=== PATIENT | male | born 1960 | race Two or more races ===

== ENCOUNTER 2020-04-24 13:02 | Outpatient (REF) | payer OTHER, SELFPAY | END 2020-04-24 13:03 | disposition home or self-care (01) | LOC: HO.LAB 13:02 | PROVIDERS: Visit Provider Internal Medicine | DX: Z20.828 Contact with and (suspected) exposure to other viral communicable diseases (principal) | CPT/HCPCS: C9803; U0003 ==

== ENCOUNTER 2021-06-04 12:32 | Outpatient (REF) | payer OTHER, SELFPAY ==
[2021-06-04 14:19] LABS: COVID-19 Test Positive (Negative); IDNOW Serial# 16C4AD1C
== END 2021-06-04 12:33 | disposition home or self-care (01) ==
LOC: HO.LAB 12:32
PROVIDERS: Visit Provider Internal Medicine
DX: Z20.822 Contact with and (suspected) exposure to COVID-19 (principal)
CPT/HCPCS: 36415; 87635; C9803

== ENCOUNTER 2021-11-19 23:10 | Emergency (ER) | payer OTHER, SELFPAY ==
--- NOTE | 2021-11-19 23:34 | ECG_ITS ---
Test Reason : CHEST/BACK PAIN Blood Pressure : / mmHG Vent. Rate : 071 BPM Atrial Rate : 071 BPM P-R Int : 166 ms QRS Dur : 104 ms QT Int : 440 ms P-R-T Axes : 047 -18 078 degrees QTc Int : 478 ms Normal sinus rhythm Moderate voltage criteria for LVH, may be normal variant ( R in aVL , Philip product ) Borderline ECG When compared with ECG of 26-MAY-2019 08:20, No significant change was found Referred By: Generic ED Physician Electronically Signed By:CHANTAL PENA MD
[2021-11-19 23:57] VITALS: BP 140/86; PULSE 72; RESP 18; TEMP 36.4; O2SAT 97; BMI 37.9
[2021-11-20] LABS: Hematocrit 36.1 % (42.0-52.0); Hemoglobin 12.1 g/dl (14.0-18.0); Mean Corpuscular HGB Conc 33.5 g/dl (31.0-36.0); Mean Corpuscular Hemoglobin 28.1 pg (27.0-33.0); Mean Platelet Volume 9.5 fL (9.4-12.4); Platelet Count 231 X10*3/uL (160-400); White Blood Count 6.4 X10*3/uL (4.8-10.8)
[2021-11-20 00:14] LABS: Alanine Aminotransferase 19 U/L (0-40); Albumin Level 4.3 g/dL (3.5-5.0); Alkaline Phosphatase 74 U/L (39-117); Anion Gap 12 (12-20); Aspartate Amino Transferase 21 U/L (5-37); Bilirubin Total 0.6 mg/dL (0.0-1.0); Blood Urea Nitrogen 10 mg/dL (9-16); Carbon Dioxide 33 mmol/L (22-29); Chloride 97 mmol/L (96-108); Creatinine Clr Calc Pharmacy 95.5; Estimated Glomerular Filt Rate > 60; Glucose Random 96 mg/dL (60-115); Potassium 3.9 mmol/L (3.3-5.1); Sodium 138 mmol/L (135-145); Total Protein 6.9 g/dL (6.5-8.0)
[2021-11-20 00:21] LABS: Troponin-I High Sensitivity < 3.5 ng/L (<3.5-35.0)
--- NOTE | 2021-11-20 01:31 | ED_ITS ---
HPI - Chest Pain General Chief Complaint: Chest Pain Stated Complaint: chest pain, back pain Time Seen by Provider: 11/20/21 01:31 Source: patient Mode of arrival: ambulatory Limitations: no limitations History of Present Illness HPI narrative: Patient 61 years old with no significant past medical history been complaining of epigastric pain for last 2 weeks off and on lasting for few minutes seen by his PCP now stone get not getting better. No nausea no vomiting no diarrhea pain gets worse after eating some food patient was complaining of pain in bilateral flank area and urinary frequency no chest pain or shortness of breath no diaphoresis . Related Data Previous Rx's Medication Instructions Recorded finasteride 5 mg tablet 5 mg PO DAILY 90 days #90 tabs 06/19/20 omeprazole 40 mg capsule,delayed 40 mg PO DAILY #30 caps 11/20/21 release sucralfate 1 gram tablet 1 g PO TID #90 tabs 11/20/21 Allergies Allergy/AdvReac Type Severity Reaction Status Date / Time No Known Allergies Allergy Unverified 02/23/20 15:42 [No Known Allergies*] pt states no food/medicatio Allergy Unknown Uncoded 01/18/19 00:00 al Review of Systems Review of Systems: Yes all other systems are reviewed and are negative [facility] Social History Social History Advance Directives: No Physical Exam Vital Signs: Vital Signs: Last Vital Signs Temp 97.5 F 11/19/21 23:57 Pulse 72 11/19/21 23:57 Resp 18 11/19/21 23:57 BP 140/86 H 11/19/21 23:57 Pulse Ox 97 11/19/21 23:57 O2 Del Method 11/19/21 23:57 BMI result Body Mass Index 37.9 Appearance: Alert. Oriented X3. No acute distress. Eyes: No pallor no icterus ENT: Pharynx normal. Oral Mucosa moist Neck: Normal inspection. Neck supple. CVS: Normal heart rate and rhythm. Pulses normal. Respiratory: No respiratory distress. Equal air entry bilateral, no wheezing/rales/rhonchi Abdomen: Soft, mild epigastric tenderness, Bowel sounds are present, no mass palpable, no CVA tenderness Skin: Skin warm and dry. Normal skin color. Normal skin turgor. Extremities: No lower extremity edema. No calf tenderness Neuro: Oriented X 3. No motor deficit. No sensory deficit.No cerebellar signs , cranial nerves II-XII intact MDM - Chest Pain MDM Narrative Medical decision making narrative: Patient atypical pain localized mostly in epigastric area for last 2 weeks no acute ischemic changes in the EKG high sensitive troponin negative. Patient also does complain of urinary symptoms will check the UA checked the lipase to rule out pancreatitis Lab Data Attestation: I reviewed the patient's lab results. Result diagrams: 11/19/21 23:47 11/19/21 23:47 Labs: Lab Results 11/19/21 11/19/21 11/19/21 Range/Units 23:47 23:47 23:47 WBC 6.4 (4.8-10.8) X10*3/uL RBC 4.30 L (4.60-5.80) X10*6/uL Hgb 12.1 L (14.0-18.0) g/dl Hct 36.1 L (42.0-52.0) % MCV 84.0 (80.0-98.0) fL MCH 28.1 (27.0-33.0) pg MCHC 33.5 (31.0-36.0) g/dl RDW 13.0 (11.0-16.0) % Plt Count 231 (160-400) X10*3/uL MPV 9.5 (9.4-12.4) fL Absolute Nucleated RBC 0.000 (0.0-0.012) X10*3/uL Nucleated RBC % (auto) 0.0 (0.0-0.2) /100WBC Sodium 138 (135-145) mmol/L Potassium 3.9 (3.3-5.1) mmol/L Chloride 97 (96-108) mmol/L Carbon Dioxide 33 H (22-29) mmol/L Anion Gap 12 (12-20) BUN 10 (9-16) mg/dL Creatinine 0.89 (0.5-1.4) mg/dL Estim Creat Clear Calc 95.5 Estimated GFR > 60 Random Glucose 96 (60-115) mg/dL Calcium 9.0 (8.4-10.2) mg/dL Total Bilirubin 0.6 (0.0-1.0) mg/dL AST 21 (5-37) U/L ALT 19 (0-40) U/L Alkaline Phosphatase 74 (39-117) U/L Troponin I High Sens < 3.5 (<3.5-35.0) ng/L Total Protein 6.9 (6.5-8.0) g/dL Albumin 4.3 (3.5-5.0) g/dL ECG Data ECG #1: Attestation: I personally reviewed and interpreted this ECG as follows: Interpretation: Normal sinus rhythm heart rate 71 beats per minute LVH normal intervals normal axis no acute ST T wave changes no acute ischemia Discharge Plan Discharge Clinical Impression: Acute gastritis Patient Disposition: Still a Patient Instructions: Gastritis (ED) Additional Instructions: Take medication as prescribed Drink plenty of fluids Avoid fried food Follow with PCP if not better Prescriptions: New omeprazole 40 mg capsule,delayed release(DR/EC) 40 mg PO DAILY Qty: 30 0RF sucralfate 1 gram tablet 1 g PO TID Qty: 90 0RF No Action finasteride 5 mg tablet 5 mg PO DAILY 90 Days Qty: 90 1RF
[2021-11-20 01:50] VITALS: BP 146/84; PULSE 68; RESP 16; TEMP 36.6; O2SAT 98
[2021-11-20 01:56] LABS: Lipase 46 U/L (8-78)
[2021-11-20 01:57] LABS: Appearance Urine CLEAR; Color Urine YELLOW; Glucose Urine UA NEG (NEG); Leukocyte Esterase Urine NEG (NEG); Nitrite Urine NEG (NEG); Specific Gravity - Urine 1.015 (1.005-1.025); Urine Blood NEG (NEG); Urine Ketones NEG (NEG); Urine Protein NEG (NEG-TRACE)
[2021-11-20] MEDS: Omeprazole 40 MG CAPSULE.DR PO (02:25)
[2021-11-20] MEDS: Magnesium Hydrox/Alum Hydrox 30 ML ORAL.SUSP PO (02:25)
[2021-11-20 03:20] VITALS: BP 146/89; PULSE 74; RESP 18; O2SAT 98
--- NOTE | 2021-11-20 03:26 | PC.NURSE ---
pt a&o, pt reports chest pain has improved with medication. no sign of distress at time of discharge. Reviewed discharge instructions with pt. Pt verbalized understanding.
== END 2021-11-20 03:28 | disposition home or self-care (01) ==
PROVIDERS: Emergency Provider Internal Medicine
DX: K29.00 Acute gastritis without bleeding (principal); R39.9 Unspecified symptoms and signs involving the genitourinary system
CPT/HCPCS: 36415; 80053; 81003; 83690; 84484; 85027; 93005; 99283; 99284

== ENCOUNTER → 2022-01-14 09:55 | Outpatient (BNVA) | payer OTHER, SELFPAY | PROVIDERS: PCP Internal Medicine | DX: R39.12 Poor urinary stream (principal) | CPT/HCPCS: 51798; 99202 ==

== ENCOUNTER 2022-05-22 14:37 | Outpatient (REF) | payer OTHER, SELFPAY ==
[2022-05-22 15:14] LABS: COVID-19 Test Positive (Negative); IDNOW Serial# BCCEAD1C
== END 2022-05-22 14:38 | disposition home or self-care (01) ==
LOC: HO.LAB 14:37
PROVIDERS: Visit Provider Internal Medicine
DX: Z20.822 Contact with and (suspected) exposure to COVID-19 (principal)
CPT/HCPCS: 87635; C9803

== ENCOUNTER → 2022-05-26 13:21 | Outpatient (BNVA) | payer OTHER, SELFPAY | PROVIDERS: PCP Internal Medicine; Visit Provider Urology | DX: Z13.89 Encounter for screening for other disorder (principal) ==

== ENCOUNTER → 2022-05-28 08:35 | Outpatient (BNVA) | payer OTHER, SELFPAY | PROVIDERS: PCP Internal Medicine; Visit Provider Urology | DX: R30.0 Dysuria (principal); N40.1 Benign prostatic hyperplasia with lower urinary tract symptoms; N13.8 Other obstructive and reflux uropathy | CPT/HCPCS: Q3014 ==

== ENCOUNTER 2022-05-28 10:32 | Outpatient (REF) | payer OTHER, SELFPAY ==
[2022-05-28 11:02] LABS: COVID-19 Test Positive (Negative); IDNOW Serial# 16C4AD1C
== END 2022-05-28 10:33 | disposition home or self-care (01) ==
LOC: HO.LAB 10:32
PROVIDERS: Visit Provider Internal Medicine
DX: Z20.822 Contact with and (suspected) exposure to COVID-19 (principal)
CPT/HCPCS: 87635; C9803

== ENCOUNTER 2022-06-03 11:46 | Outpatient (REF) | payer OTHER, SELFPAY ==
[2022-06-03 12:22] LABS: COVID-19 Test Negative (Negative); IDNOW Serial# BCCEAD1C
== END 2022-06-03 11:47 | disposition home or self-care (01) ==
LOC: HO.LAB 11:46
PROVIDERS: Visit Provider Internal Medicine
DX: Z20.822 Contact with and (suspected) exposure to COVID-19 (principal)
CPT/HCPCS: 87635; C9803

== ENCOUNTER 2022-06-23 08:51 | Outpatient (REF) | payer OTHER, SELFPAY ==
[2022-06-24 05:28] LABS: CT PCR NOT DETECTED (Not Detect.); NG PCR NOT DETECTED (Not Detect.)
== END 2022-06-23 08:52 | disposition home or self-care (01) ==
LOC: HO.LAB 08:51
PROVIDERS: PCP Internal Medicine; Visit Provider Urology
DX: N40.1 Benign prostatic hyperplasia with lower urinary tract symptoms (principal); R30.0 Dysuria; Z12.5 Encounter for screening for malignant neoplasm of prostate
CPT/HCPCS: 0353U; 51798; 99212

== ENCOUNTER 2022-06-30 08:10 | Outpatient (REF) | payer OTHER, SELFPAY ==
[2022-06-30 09:42] LABS: PSA,Total (Free>4and<10) 0.51 ng/mL (0.00-4.00)
== END 2022-06-30 08:11 | disposition home or self-care (01) ==
LOC: HO.LAB 08:10
PROVIDERS: PCP Internal Medicine; Visit Provider Urology
DX: N40.1 Benign prostatic hyperplasia with lower urinary tract symptoms (principal); R30.0 Dysuria; Z12.5 Encounter for screening for malignant neoplasm of prostate
CPT/HCPCS: 36415; 84153

== ENCOUNTER 2022-07-14 12:06 | Day surgery (SDC) | payer OTHER, SELFPAY ==
[2022-07-14] VITALS (8 sets, daily range): BP systolic 110–138; BP diastolic 70–81; PULSE 70–81; RESP 12–18; TEMP 36.7–36.9; O2SAT 89–96; BMI 36.1
--- NOTE | ~2022-07-14 | FL_ITS ---
EXAMINATION: XR FLUOROSCOPY WITH IMAGES CLINICAL INFORMATION: Cystoscopy with possible urethrogram. COMPARISON: Ultrasound urinary bladder 12/17/2017. TECHNIQUE: Fluoroscopy Supervised By: Cj Maddox MD. Fluoroscopy Time: 45.2 seconds. Cumulative Dose: 21.70 mGy. Images: 2. FINDINGS: Two digital images obtained of the pelvis during retrograde urethrogram reveal contrast opacifying bilateral distal ureters. A small filling defect is suspected in the left distal ureter. The proximal and mid ureters are not included in the [id number]. FL/FL guidance in OR IMPRESSION: 1. Small filling defect suspected in the distal left ureter. 2. The proximal and mid ureters are not included in the [id number]. Probable small filling defect/stone in the left distal ureter adjacent to the SI joint.
[2022-07-14 12:46] LABS: Glucose, Whole Blood 111 mg/dL (60-115)
[2022-07-14] MEDS: Lactated Ringers 1,000 ML 50 ML IVCONT (12:46)
[2022-07-14] MEDS: levoFLOXacin 500 MG TABLET PO (12:47)
--- NOTE | 2022-07-14 12:52 | HO.ANESPROP2 ---
HPI - Anesthesia Eval Consult details Narrative: cysto, urethrogram PMFSH Active Problems Active Problems: All Active Problems (Updated 06/23/22 @ 09:34 by Nakul Wilder MD) Screening PSA (prostate specific antigen) (Acute) Dysuria (Acute) BPH loc w urin obs/LUTS (Acute) Past Medical History Medical History Anemia Bladder outlet obstruction Chest pain Diabetes mellitus HTN (hypertension) Hyperlipidemia Nocturia Weak urinary stream Family History Family history of problems with anesthesia: No Surgical History History of Problems with Anesthesia: No Social History Social History Patient Tobacco Use Status: Never used Tobacco Use of substances other than those prescribed or required for medical reasons: No Are you DNR?: No Advance Directives: No Advance Directives Information Provided: Yes Meds Allergies Allergy/AdvReac Type Severity Reaction Status Date / Time No Known Allergies Allergy Verified 06/23/22 09:05 [No Known Allergies*] Active Medications: Current Medications Lactated Ringer's (Lr) 1,000 mls @ 50 mls/hr IVCONT .Q20H YOVANA Last Admin: 07/14/22 12:46 Dose: 50 mls/hr Home Medications Medication Instructions Recorded Confirmed Last Taken Type alcohol swabs (Alcohol Prep Pads) 0 pad topical 01/14/22 06/23/22 Unknown History amlodipine 5 mg tablet 5 mg PO DAILY 01/14/22 06/23/22 Unknown History aspirin 81 mg tablet,delayed 81 mg PO DAILY 01/14/22 06/23/22 Unknown History release atorvastatin 40 mg tablet 40 mg PO DAILY PRN 01/14/22 06/23/22 Unknown History blood sugar diagnostic (FreeStyle #10 ea 01/14/22 06/23/22 Unknown History Lite Strips) bupropion HCl 150 mg 24 hr tablet, 150 mg PO DAILY PRN 01/14/22 06/23/22 Unknown History extended release diazepam 5 mg tablet 5 mg PO BID PRN 01/14/22 06/23/22 Unknown History fluoxetine 20 mg capsule 40 mg PO QAM 01/14/22 06/23/22 Unknown History hydrochlorothiazide 25 mg tablet 25 mg PO QAM 01/14/22 06/23/22 Unknown History lancets 33 gauge (TRUEplus Lancets) #100 ea 01/14/22 06/23/22 Unknown History lisinopril 40 mg tablet 40 mg PO QAM blood pressure 01/14/22 06/23/22 Unknown History meloxicam 7.5 mg tablet 7.5 mg PO QAM 01/14/22 06/23/22 Unknown History metformin 500 mg tablet,extended 1,000 mg PO 01/14/22 06/23/22 Unknown History release 24 hr omega-3 fatty acids-fish oil 340 1 cap PO TID 01/14/22 06/23/22 Unknown History mg-1,000 mg capsule (Fish Oil) prazosin 5 mg capsule 0 mg PO 01/14/22 06/23/22 Unknown History trazodone 50 mg tablet 50 mg PO BEDTIME PRN insomnia 01/14/22 06/23/22 Unknown History ziprasidone HCl 80 mg capsule 80 mg PO BID 01/14/22 06/23/22 Unknown History omega-3 300 mg-dha 120 mg-epa 180 1 cap PO TID 06/23/22 06/23/22 Unknown History mg-fish oil 1,000 mg capsule Exam Exam Date and Time: July 14, 2022 1252 Height,Weight and Vital Signs: Height 5 ft 5 in Weight 98.43 kg Last Vital Signs Temp 98.0 F 07/14/22 12:26 Pulse 76 07/14/22 12:26 Resp 16 07/14/22 12:26 BP 138/81 07/14/22 12:26 Pulse Ox 94 07/14/22 12:26 O2 Del Method 07/14/22 12:26 Pertinent Lab Results Pertinent Lab Results: Laboratory Tests 07/14/22 12:40 POC Glucose 111 Airway Mallampati Class: I TM Dist: <=3cm (No neck.) Neck ROM: Full Loose/Missing/Broken Teeth: Yes and Lower Heart: ok Lungs: ok Assessment and Plan Assessment Anesthesia Assessment: Anesthesia Plan Discussed and Chart Reviewed Final Anesthetic Review Family History of Problems with Anesthesia: No History of Problems with Anesthesia: No NPO: Yes ASA Class: III Final Preanesthetic Review: No Changes in Pt Med Stat, Meds/Allgs Chart Reviewed, Consent Obtained/Reviewed and Anes Risks/Benef Reviewed Patient Risk: Intermediate Procedure Risk: Low Anesthetic Plan Anesthetic Plan: GA and Agree w/ Assess. and Plan Disposition: Standard PACU
--- NOTE | 2022-07-14 13:15 | MHC.SHP ---
Pre-Procedural Eval Section A Date of Service: 07/14/22 The patient is an INPATIENT: No Changes since office visit: No Cold of Flu in the past 2 weeks, No New Medical Problems, No Changes in Medication and No Patient answered all questions The History & Physical has been completed within 30 days and I have reviewed it.: No Section B Chief Complaint: Dysuria Details of Present Illness: cystoscopy with bilateral retrograde Allergies: Allergies Allergy/AdvReac Type Severity Reaction Status Date / Time No Known Allergies Allergy Verified 06/23/22 09:05 [No Known Allergies*] Review of Systems Sugical H&P ROS: Negative: Constitution, Cardiovascular, Respiratory, Neurological, Psychiatric, Hem-Onc, Allergic/Immunologic, Gastrointestinal, Genitourinary, Musculoskeletal, Integumentary, Endocrine and Eyes/Ears/Nose/Throat Exam Surgical H&P Exam: Normal: HEENT, Normal: Heart, Normal: Lungs, Normal: Extremities, Normal: Abdomen, Normal: Skin and Normal: Neurological Plan Diagnosis/Plan: Unchanged ( cystoscopy with bilateral retrograde) I have reviewed the history and physical and performed a pertinent physical examination on my patient. No changes have occurred unless specified. Time Spent With Patient Time: Total time managing care of this patient today ____ minutes.
--- NOTE | 2022-07-14 13:51 | W.PM.OPN ---
Operative Note Operative Note Date of Service: 07/14/22 Narrative: PreOperative Diagnosis: dysuria with question of urethral stricture Post Operative Diagnosis: bulbar urethral stricture Procedure: cystoscopy with dilatation of bulbar stricture and bilateral retro Surgeon: Dr Cj Maddox Anesthesia: general Indications for procedure: prior TURP procedure to prostate. Persistent dysuria. Non responsive to medications. Procedure: After informed consent was verified the patient was brought to the operating room and placed in a supine position. Anesthesia was administered per protocol. The patient was prepped and draped in a sterile fashion. Safety pause time-out was performed. Antibiotics being given. Twenty-two Turkmen cystoscopy placed. Bulbar urethral stricture encountered. This was dilated with a 22 Turkmen cystoscope. Bladder was entered. TURP defect seen. Retrograde examination performed on right side known mallet found. Retrograde examination performed on left side no abnormality found Bladder drain Twenty-two Turkmen Morales catheter placed with 10 cc balloon which should remain in place for 5 days. Pathology: None Drains: catheter is delineated
[2022-07-14] MEDS: Acetaminophen 325 MG TABLET 650 MG PO (14:17)
[2022-07-14] MEDS: oxyCODONE HCl Immed Release 5 MG TABLET 10 MG PO (14:17)
[2022-07-14] MEDS: fentaNYL citrate/PF 100 MCG/2 ML VIAL 50 MCG IVPUSH (14:20)
== END 2022-07-14 15:34 | disposition home or self-care (01) ==
PROVIDERS: PCP Internal Medicine; Visit Provider Urology
PROC: 0TJB8ZZ Inspection of Bladder, Via Natural or Artificial Opening Endoscopic (ICD-10-PCS; CPT 52000; principal; 2022-07-14 14:00)
DX: N35.912 Unspecified bulbous urethral stricture, male (principal); R30.0 Dysuria; N40.1 Benign prostatic hyperplasia with lower urinary tract symptoms; R35.1 Nocturia; I10 Essential (primary) hypertension; E11.9 Type 2 diabetes mellitus without complications; G47.33 Obstructive sleep apnea (adult) (pediatric); Z79.82 Long term (current) use of aspirin; Z79.84 Long term (current) use of oral hypoglycemic drugs; Z79.899 Other long term (current) drug therapy
CPT/HCPCS: 52281; 82947; C1758; J3010; Q9967

== ENCOUNTER 2022-07-16 12:59 | Outpatient (REF) | payer OTHER, SELFPAY ==
--- NOTE | ~2022-07-16 | US_ITS ---
EXAMINATION: US RETROPERITONEAL LIMITED (RENAL ONLY) CLINICAL INFORMATION: Dysuria. COMPARISON: CT of the abdomen and pelvis without contrast 11/22/2017. US abdomen complete with liver elastography 04/18/2016. TECHNIQUE: Real-time imaging of the kidneys. FINDINGS: RIGHT KIDNEY: 10.4 x 5.5 x 6.0 cm (SAG x AP x TRV). The kidney is normal in size, contour, and echogenicity. Renal cortical thickness is normal. No hydronephrosis. Parapelvic cyst is present measuring 2.3 x 2.0 x 1.9 cm with some mural calcification. Identical findings can be seen on the 11/22/2017 CT scan from just under 5 years ago. No solid renal masses. There is a 4 mm lower pole echogenic focus consistent with a nonobstructing stone. On the 2018 CT scan this measured 2 mm. LEFT KIDNEY: 10.8 x 5.8 x 5.1 cm (SAG x AP x TRV). The kidney is normal in size, contour, and echogenicity. Renal cortical thickness is normal. No calculi or focal parenchymal lesions. No hydronephrosis. US/US renal BI IMPRESSION: 1. Complex right lower pole renal cyst with mural calcification, unchanged from 2018 and therefore Bosniak class II. 2. Nonobstructing 4 mm lower pole calculus.
== END 2022-07-16 13:00 | disposition home or self-care (01) ==
LOC: HO.US 12:59
PROVIDERS: Visit Provider Urology
DX: N40.1 Benign prostatic hyperplasia with lower urinary tract symptoms (principal); R30.0 Dysuria
CPT/HCPCS: 76775

== ENCOUNTER → 2022-07-18 13:47 | Outpatient (BNVA) | payer OTHER, SELFPAY | PROVIDERS: PCP Internal Medicine; Visit Provider Urology | DX: Z13.89 Encounter for screening for other disorder (principal) ==

== ENCOUNTER → 2022-08-29 11:00 | Outpatient (BNVA) | payer OTHER, SELFPAY | PROVIDERS: PCP Internal Medicine; Visit Provider Urology | DX: N40.1 Benign prostatic hyperplasia with lower urinary tract symptoms (principal) | CPT/HCPCS: 51798; 99212 ==

== ENCOUNTER 2023-03-03 11:45 | Outpatient (REF) | payer OTHER, SELFPAY ==
--- NOTE | ~2023-03-03 | XR_ITS ---
EXAMINATION: XR PELVIS CLINICAL INFORMATION: Chronic midline low back pain without sciatica. Acute coccygeal pain. Pain started 7 days ago. COMPARISON: None available. TECHNIQUE: AP views of the pelvis. FINDINGS: No fracture. Hip joint spaces are maintained. Alignment is anatomic. Sacroiliac joints and pubic symphysis are normal. There are multiple calcifications in the pelvis consistent with phleboliths. XR/XR pelvis 1-2V IMPRESSION: No bony abnormality of the pelvis and hips.
--- NOTE | ~2023-03-03 | XR_ITS ---
EXAMINATION: XR LUMBOSACRAL SPINE CLINICAL INFORMATION: Chronic midline low back pain without sciatica. Acute coccygeal pain. COMPARISON: None available. TECHNIQUE: Three views of the lumbosacral spine. FINDINGS: The vertebral bodies and posterior elements are normal. The disc spaces are preserved. The sacrum and coccyx are intact. There is straightening of the usual lumbar lordosis which can be seen with muscle spasm. The paraspinal soft tissues are normal. XR/XR lumbar spine 2-3V IMPRESSION: Muscle spasm.
== END 2023-03-03 11:46 | disposition home or self-care (01) ==
LOC: HO.HHCX 11:45
PROVIDERS: Visit Provider Internal Medicine
DX: M54.50 Low back pain, unspecified (principal); M53.3 Sacrococcygeal disorders, not elsewhere classified
CPT/HCPCS: 72100; 72170

== ENCOUNTER 2023-03-04 08:42 | Outpatient (AMB) | payer OTHER, SELFPAY ==
--- NOTE | 2023-03-04 09:24 | A.OFFVIS_ITS ---
Intake Intake Visit Reasons: 6m/PVR Intake Note: Patient is Present for Follow Up PVR Urology Medication: Tamsulosin Antibiotic Allergies: None Blood Thinners: Aspirin Pharmacy: [facility] Pharmacy PVR: 116 Allergies No Known Allergies [No Known Allergies*] Allergy (Verified 03/04/23 09:25) HPI HPI Comments History of Present Illness Details Jabari is a pleasant Turkmen-speaking male. He is a patient of Dr. English. He seen for the following urologic conditions - lower urinary tract symptoms - apical prostatic stricture Turkmen translation provided by qualified medical claims manager PVR 120 cc Has burning prior urination Stream is staying adequate Would recommend repeat laser prostate procedure This can often resolve some of these type of symptoms Lower urinary tract symptoms background diabetes TURP 2019 Had presented with weakness of stream and found to have apical stricture This was dilated Currently with good urinary parameters effective stream - remains on Flomax Occasional pain with low volume urination PFSH Medical History Anemia Bladder outlet obstruction Chest pain Diabetes mellitus HTN (hypertension) Hyperlipidemia Nocturia Weak urinary stream Social History Patient Tobacco Use Status: Never used Tobacco Review of Systems Const Denies chills and Denies fever(s) Card Reports no additional complaints and Denies syncope Resp Denies cough GI Denies abdominal pain and Denies heartburn Reports as per HPI and Denies change in libido Neuro Denies syncope Psych Denies change in libido Endo Denies change in libido Physical Exam Const General: cooperative, healthy appearing, comfortable and no acute distress Orientation/consciousness: patient oriented x3 HEENT Face and sinus: Yes normal facial exam Mouth: moist mucous membranes Neck Neck: Yes normal visual inspection, Yes full ROM and Yes trachea midline Chest Chest palpation & inspection: normal inspection of the chest Resp Effort & Inspection: normal respiratory effort, able to speak in complete sentences and no respiratory distress GI Inspection: Yes normal to inspection Back/Spine/Pelvis Cervical Spine: normal cervical lordosis Thoracic/Lumbar Spine: thoracic and lumbar spine normal to inspection Skin General skin exam: no rashes or lesions noted Neuro General: patient oriented x3, gait normal, tone normal and moves all extremities Extrem General: Yes normal to inspection and Yes capillary refill normal Office Procedures Post Void Residual Post Residual Void Post Void Residual (PVR): 116 [id number] Void Residual by ultrasound Results AMB Urinalysis, Automated UA Leukoctes 0 Anastacia/uL Last Edit by Gosia Nugent, A on 03/04/23 09:33 UA Nitrite Negative Last Edit by Gosia Nugent, A on 03/04/23 09:33 UA Urobilinogen 0.2 mg/dL Last Edit by Gosia Nugent, A on 03/04/23 09:3 3 UA Protein 0 mg/dL Last Edit by Gosia Nugent, A on 03/04/23 09:33 UA pH 6.0 Last Edit by Gosia Nugent, A on 03/04/23 09:33 UA Blood 0 Mingo/uL Last Edit by Gosia Nugent, A on 03/04/23 09:33 UA Specific [place] 1.010 Last Edit by Gosia Nugent, A on 03/04/23 09: 33 UA Ketone Negative Last Edit by Gosia uNgent, A on 03/04/23 09:33 UA Bilirubin 0 mg/dL Last Edit by Gosia Nugent, A on 03/04/23 09:33 UA Glucose 0 mg/dL Last Edit by Gosia Nugent, A on 03/04/23 09:33 Results Reviewed Results Reviewed: Laboratory Last Values Urine pH (Auto) 6.0 03/04/23 09:32 Specific [place] (Auto) 1.010 03/04/23 09:32 Urine Protein (Auto) 0 mg/dL 03/04/23 09:32 Glucose (UA)(Auto) 0 mg/dL 03/04/23 09:32 Urine Ketones (Auto) Negative 03/04/23 09:32 Urine Blood (Auto) 0 Mingo/uL 03/04/23 09:32 Urine Nitrite (Auto) Negative 03/04/23 09:32 Urine Bilirubin (Auto) 0 mg/dL 03/04/23 09:32 Urine Urobilinogen (Auto) 0.2 mg/dL 03/04/23 09:32 Leukocyte Esterase (Auto) 0 Anastacia/uL 03/04/23 09:32 Assessment & Plan Assessment & Plan (1) BPH loc w urin obs/LUTS: Code(s): N40.1 - Benign prostatic hyperplasia with lower urinary tract symptoms (2) Dysuria: Code(s): R30.0 - Dysuria Plan Risks, benefits and alternatives to therapy were discussed. These include but are not limited to infection, bleeding, damage to local organs and tissues, need for further interventions. Anesthetic risks regarding cardiac arrhythmia, blood clots, and potential mortality were discussed. The patient understands the typical recovery time and the outpatient nature of the procedure. After consideration of these risks the patient gives full informed consent and they wish to move ahead with the procedure. GreenLight laser Orders: Orders AMB Urinalysis Automated Today Z13.9 - Encounter for screening, unspecified AMB Post Void Residual by ultrasound Today N40.1 - Benign prostatic hyperplasia with lower urinary tract symptoms Patient Instructions: Imaging studies, laboratory and physical exam results were discussed and reviewed in detail. No major barriers to patient understanding were identified. An opportunity to ask questions regarding the treatment plan was provided. All questions were answered. The patient expressed understanding and agreement with the above treatment plan. The patient is aware they should contact our office by phone for worsening of their current condition or the appearance of new urologic symptoms. Compliance is encouraged with any medications and followup testing that is ordered. It is a privilege to participate in the urologic care of your patient. If you have any questions or concerns regarding treatment for the above conditions, or other urologic issues, please do not hesitate to contact me. The office telephone contact is [phone]. This note is constructed using voice recognition software. While every effort has been made to ensure accuracy clamper errors may have been included. Yours sincerely, Dr Cj Maddox MD, DARYN [facility] - Urology Providers of Expert, Compassionate Care for the Genitourinary System Coding Level of Care Code Est Pt Level 4 (00111) Diagnoses BPH loc w urin obs/LUTS N40.1 Dysuria R30.0 CPT Codes Post Residual Void - PVR CPT Code: 35149-Waal Void Residual by ultrasound ([id number])
== END 2023-03-04 11:07 | disposition home or self-care (01) ==
PROVIDERS: PCP Internal Medicine; Visit Provider Urology
DX: N40.1 Benign prostatic hyperplasia with lower urinary tract symptoms (principal); R30.0 Dysuria; Z13.9 Encounter for screening, unspecified
CPT/HCPCS: 99214

== ENCOUNTER → 2023-03-04 08:42 | Outpatient (BNVA) | payer OTHER, SELFPAY | PROVIDERS: Visit Provider Urology | DX: N40.1 Benign prostatic hyperplasia with lower urinary tract symptoms (principal); R30.0 Dysuria | CPT/HCPCS: 51798; 81003; 99212 ==

== ENCOUNTER 2023-06-12 14:23 | Outpatient (AMB) | payer OTHER, SELFPAY ==
--- NOTE | 2023-06-12 14:34 | A.OFFVIS_ITS ---
Intake Intake Visit Reasons: Surgery consultation/pvr Intake Note: Patient is Present for Follow Up Urology Medication: Tamsulosin Antibiotic Allergies: None Blood Thinners: Aspirin PVR: 0 Allergies No Known Allergies [No Known Allergies*] Allergy (Verified 06/12/23 14:37) HPI HPI Comments History of Present Illness Details Jabari is a pleasant Stateless-speaking male. He is a patient of Dr. English. He seen for the following urologic conditions - lower urinary tract symptoms - apical prostatic stricture Stateless translation provided by qualified medical advisor PVR 0 cc Has burning prior urination Stream is staying adequate Would recommend repeat laser prostate procedure This can often resolve some of these type of symptoms Lower urinary tract symptoms background diabetes TURP 2019 Had presented with weakness of stream and found to have apical stricture which was dilated Currently with good urinary parameters effective stream - remains on Flomax Occasional pain with low volume urination PFSH Medical History Nocturia Bladder outlet obstruction Weak urinary stream Diabetes mellitus Hyperlipidemia HTN (hypertension) Chest pain Anemia Surgical History Hx of cystoscopy Hx of transurethral resection of prostate Social History Patient Tobacco Use Status: Never used Tobacco Review of Systems Const Denies chills and Denies fever(s) Card Reports no additional complaints and Denies syncope Resp Denies cough GI Denies abdominal pain and Denies heartburn Reports as per HPI and Denies change in libido Neuro Denies syncope Psych Denies change in libido Endo Denies change in libido Physical Exam Const General: cooperative, healthy appearing, comfortable and no acute distress Orientation/consciousness: patient oriented x3 HEENT Face and sinus: Yes normal facial exam Mouth: moist mucous membranes Neck Neck: Yes normal visual inspection, Yes full ROM and Yes trachea midline Chest Chest palpation & inspection: normal inspection of the chest Resp Effort & Inspection: normal respiratory effort, able to speak in complete sentences and no respiratory distress GI Inspection: Yes normal to inspection Back/Spine/Pelvis Cervical Spine: normal cervical lordosis Thoracic/Lumbar Spine: thoracic and lumbar spine normal to inspection Skin General skin exam: no rashes or lesions noted Neuro General: patient oriented x3, gait normal, tone normal and moves all extremities Extrem General: Yes normal to inspection and Yes capillary refill normal Office Procedures Post Void Residual Post Residual Void Post Void Residual (PVR): 0 [id number] Void Residual by ultrasound Assessment & Plan Assessment & Plan (1) BPH loc w urin obs/LUTS: Code(s): N40.1 - Benign prostatic hyperplasia with lower urinary tract symptoms (2) Dysuria: Code(s): R30.0 - Dysuria Plan Risks, benefits and alternatives to therapy were discussed. These include but are not limited to infection, bleeding, damage to local organs and tissues, need for further interventions. Anesthetic risks regarding cardiac arrhythmia, blood clots, and potential mortality were discussed. The patient understands the typical recovery time and the outpatient nature of the procedure. After consideration of these risks the patient gives full informed consent and they wish to move ahead with the procedure. Revision GreenLight laser Orders: Orders AMB Post Void Residual by ultrasound 06/12/23 N40.1 - Benign prostatic hyperplasia with lower urinary tract symptoms Patient Instructions: Imaging studies, laboratory and physical exam results were discussed and reviewed in detail. No major barriers to patient understanding were identified. An opportunity to ask questions regarding the treatment plan was provided. All questions were answered. The patient expressed understanding and agreement with the above treatment plan. The patient is aware they should contact our office by phone for worsening of their current condition or the appearance of new urologic symptoms. Compliance is encouraged with any medications and followup testing that is ordered. It is a privilege to participate in the urologic care of your patient. If you have any questions or concerns regarding treatment for the above conditions, or other urologic issues, please do not hesitate to contact me. The office te chanelle contact is [phone]. This note is constructed using voice recognition software. While every effort has been made to ensure accuracy seniour insight manager errors may have been included. Yours sincerely, Dr Cj Maddox MD, [facility] - Urology Providers of Expert, Compassionate Care for the Genitourinary System Coding Level of Care Code Est Pt Level 4 (56818) Diagnoses BPH loc w urin obs/LUTS N40.1 Dysuria R30.0 CPT Codes Post Residual Void - PVR CPT Code: 56358-Jhiy Void Residual by ultrasound ([id number])
== END 2023-06-12 14:53 | disposition home or self-care (01) ==
PROVIDERS: PCP Internal Medicine; Visit Provider Urology
DX: N40.1 Benign prostatic hyperplasia with lower urinary tract symptoms (principal); R30.0 Dysuria
CPT/HCPCS: 99214

== ENCOUNTER → 2023-06-12 14:23 | Outpatient (BNVA) | payer OTHER, SELFPAY | PROVIDERS: PCP Internal Medicine; Visit Provider Urology | DX: N40.1 Benign prostatic hyperplasia with lower urinary tract symptoms (principal); R30.0 Dysuria | CPT/HCPCS: 51798; 99212 ==

== ENCOUNTER 2023-07-06 14:25 | Outpatient (REF) | payer OTHER, SELFPAY ==
[2023-07-06 16:12] LABS: Estimated Average Glucose 108 mg/dL; Hemoglobin A1c % 5.4 % (<6.0)
[2023-07-06 16:21] LABS: Anion Gap 14 (12-20); Blood Urea Nitrogen 11 mg/dL (9-16); Calcium 9.8 mg/dL (8.4-10.2); Carbon Dioxide 34 mmol/L (22-29); Chloride 97 mmol/L (96-108); Estimated Glomerular Filt Rate > 60; Glucose Random 106 mg/dL (60-115); Potassium 3.8 mmol/L (3.3-5.1); Sodium 141 mmol/L (135-145)
== END 2023-07-06 14:26 | disposition home or self-care (01) ==
LOC: HO.HHCL 14:25
PROVIDERS: Visit Provider Internal Medicine
DX: I10 Essential (primary) hypertension (principal); E11.9 Type 2 diabetes mellitus without complications
CPT/HCPCS: 36415; 80048; 83036

== ENCOUNTER 2023-07-20 10:33 | Outpatient (REF) | payer OTHER, SELFPAY ==
--- NOTE | ~2023-07-20 | MR_ITS ---
EXAMINATION: MR LUMBAR SPINE WITHOUT CONTRAST CLINICAL INFORMATION: Chronic midline low back pain. COMPARISON: Lumbar spine radiographs 03/03/2023. TECHNIQUE: MRI of the lumbar spine was obtained using routine sequences without contrast. FINDINGS: Alignment is normal. Vertebral body heights are preserved. No acute bone marrow signal changes. There is disc desiccation at multiple levels without substantial loss of intervertebral disc height. The tip of the conus medullaris is located at L1-L2. No mass effect on the conus. Visualized distal cord signal intensity is normal. At L1-L2 the annular contour is normal. No canal or neuroforaminal compromise. At L2-L3 the annular contour is normal. No canal or neuroforaminal compromise. At L3-L4 there is an asymmetrically bulging disc to the right. No canal stenosis. No mass effect on the traversing or foraminal nerve roots. At L4-L5 there is a bulging disc. Bilateral facet degenerative change. No canal stenosis. No mass effect on the traversing or foraminal nerve roots. At L5-S1 there is a left foraminal annular fissure associated with a bulging disc. Bilateral facet degenerative change. No canal stenosis. No mass effect on the traversing or foraminal nerve roots. Limited visualization of the retroperitoneal anatomy reveals no abnormal finding. Psoas and paraspinal muscle groups are symmetric. MR/MR lumbar spine wo con IMPRESSION: There is disc degeneration at multiple levels within the mid to lower lumbar spine. No canal stenosis. No mass effect on the traversing or foraminal nerve roots.
== END 2023-07-20 10:34 | disposition home or self-care (01) ==
LOC: HO.MRI 10:33
PROVIDERS: PCP Internal Medicine; Visit Provider Student in an Organized Health Care Education/Training Program
DX: M51.16 Intervertebral disc disorders with radiculopathy, lumbar region (principal); G89.29 Other chronic pain
CPT/HCPCS: 72148

== ENCOUNTER 2023-07-22 11:00 | Outpatient (RCR) | payer OTHER, SELFPAY | END 2023-07-22 16:13 | disposition home or self-care (01) | LOC: HO.PT 11:00 | PROVIDERS: PCP Internal Medicine; Visit Provider Student in an Organized Health Care Education/Training Program | DX: M54.50 Low back pain, unspecified (principal); M51.16 Intervertebral disc disorders with radiculopathy, lumbar region; G89.29 Other chronic pain | CPT/HCPCS: 97110; 97161 ==

== ENCOUNTER 2023-09-08 12:32 | Outpatient (AMB) | payer OTHER, SELFPAY ==
--- NOTE | 2023-09-08 12:53 | A.OFFVIS_ITS ---
Intake Intake Visit Reasons: Cystoscopy Intake Note: Patient is Present for Cystoscopy Urology Med: Tamsulosin Antibiotic Allergy: None Blood Thinner: Aspirin URO- G Disposable Cystoscope lot: [id number] exp: 04/02/2026 Allergies No Known Allergies [No Known Allergies*] Allergy (Verified 09/08/23 12:55) HPI HPI Comments History of Present Illness Details Jabari is a pleasant Albanian-speaking male. He is a patient of Dr. English. He seen for the following urologic conditions - lower urinary tract symptoms - apical prostatic stricture Cystoscopy Persistent recurrent bulbar membranous stricture PVR 0 cc Progressive weakening of stream Prior suggestion for repeat laser procedure of prostate Here for cystoscopy to review Lower urinary tract symptoms background diabetes TURP 2019 Had presented with weakness of stream and found to have apical stricture which was dilated PFSH Medical History Nocturia Bladder outlet obstruction Weak urinary stream Diabetes mellitus Hyperlipidemia HTN (hypertension) Chest pain Anemia Surgical History Hx of cystoscopy Hx of transurethral resection of prostate Social History Patient Tobacco Use Status: Never used Tobacco Review of Systems Const Denies chills and Denies fever(s) Card Reports no additional complaints and Denies syncope Resp Denies cough GI Denies abdominal pain and Denies heartburn Reports as per HPI and Denies change in libido Neuro Denies syncope Psych Denies change in libido Endo Denies change in libido Physical Exam Const General: cooperative, healthy appearing, comfortable and no acute distress Orientation/consciousness: patient oriented x3 HEENT Face and sinus: Yes normal facial exam Mouth: moist mucous membranes Neck Neck: Yes normal visual inspection, Yes full ROM and Yes trachea midline Chest Chest palpation & inspection: normal inspection of the chest Resp Effort & Inspection: normal respiratory effort, able to speak in complete sentences and no respiratory distress GI Inspection: Yes normal to inspection Back/Spine/Pelvis Cervical Spine: normal cervical lordosis Thoracic/Lumbar Spine: thoracic and lumbar spine normal to inspection Skin General skin exam: no rashes or lesions noted Neuro General: patient oriented x3, gait normal, tone normal and moves all extremities Extrem General: Yes normal to inspection and Yes capillary refill normal Office Procedures Cystoscopy Consent Discussed risk and benefit or proposed procedure with the patient. Information consent for procedure given to the patient. Discussed technical aspects, risks, benefits and alternatives in full. Addressed all of the patient's questions and concerns regarding the procedure. The patient demonstrated knowledge and understanding. They wish to proceed with this procedure. Preparation The patient was prepped in the usual manner. A letterpress setter was present and in the room. Genitalia was prepped with betadine solution in a sterile manner. Lidocaine Jelly 2% was placed into the urethra and 16Fr flexible Olympus cystoscope was inserted into the meatus after adequate lubrication. Procedure Meatus uncircumcised Urethra anterior urethra normal. Stricture at bulbous membranous area unable to pass scope Prostatic Urethra Bladder examination with retroflexion of cystoscope Bladder Orifices Bladder Capacity Trabeculations Cellule Formation Diverticulum Formation Mucosal Erythema Bladder Tumor [id number] DISPOSABLE SCOPE URO-G FLEXIBLE SCOPE Procedure code (CPT) selection complete Office Meds lidocaine HCl 2 % mucosal jelly in applicator Performing Provider: Cj Maddox MD Performing Location: [facility] Administered by: Vanesa Patel RN on 09/08/23 13:06 Dose Route Admin Location Dispensed Lot Number Expiration Date NDC Sped Teacher 10 mL intra-urethral 10 mL nitrofurantoin monohydrate/macrocrystals 100 mg capsule Performing Provider: Cj Maddox MD Performing Location: [facility] Administered by: Vanesa Patel RN on 09/08/23 13:06 Dose Route Admin Location Dispensed Lot Number Expiration Date NDC Sped Teacher 100 mg PO 1 cap naproxen 500 mg tablet Performing Provider: Cj Maddox MD Performing Location: [facility] Administered by: Vanesa Patel RN on 09/08/23 13:06 Dose Route Admin Location Dispensed Lot Number Expiration Date NDC Sped Teacher 500 mg PO 1 tab Results AMB Urinalysis, Automated UA Leukoctes 0 Anastacia/uL Last Edit by WALESKA Milton on 09/08/23 13:03 UA Nitrite Negative Last Edit by WALESKA Milton on 09/08/23 13:03 UA Urobilinogen 0.2 mg/dL Last Edit by WALESKA Milton on 09/08/23 13:0 3 UA Protein 0 mg/dL Last Edit by Gosia Nugent, RMA on 09/08/23 13:03 UA pH 6.0 Last Edit by Gosia Nugent, RMA on 09/08/23 13:03 UA Blood 0 Mingo/uL Last Edit by Gosia Nugent, RMA on 09/08/23 13:03 UA Specific [place] 1.015 Last Edit by Gosiamarialuisa Nugent, RMA on 09/08/23 13: 03 UA Ketone Negative Last Edit by Gosia Nugent, RMA on 09/08/23 13:03 UA Bilirubin 0 mg/dL Last Edit by Gosia Nugent, RMA on 09/08/23 13:03 UA Glucose 0 mg/dL Last Edit by Gosia Nugent, RMA on 09/08/23 13:03 Results Reviewed Results Reviewed: Laboratory Last Values Urine pH (Auto) 6.0 09/08/23 12:56 Specific [place] (Auto) 1.015 09/08/23 12:56 Urine Protein (Auto) 0 mg/dL 09/08/23 12:56 Glucose (UA)(Auto) 0 mg/dL 09/08/23 12:56 Urine Ketones (Auto) Negative 09/08/23 12:56 Urine Blood (Auto) 0 Mingo/uL 09/08/23 12:56 Urine Nitrite (Auto) Negative 09/08/23 12:56 Urine Bilirubin (Auto) 0 mg/dL 09/08/23 12:56 Urine Urobilinogen (Auto) 0.2 mg/dL 09/08/23 12:56 Leukocyte Esterase (Auto) 0 Anastacia/uL 09/08/23 12:56 Assessment & Plan Assessment & Plan (1) Bulbous urethral stricture: Code(s): N35.912 - Unspecified bulbous urethral stricture, male (2) BPH loc w urin obs/LUTS: Code(s): N40.1 - Benign prostatic hyperplasia with lower urinary tract symptoms Plan Risks, benefits and alternatives to therapy were discussed. These include but are not limited to infection, bleeding, damage to local organs and tissues, need for further interventions. Anesthetic risks regarding cardiac arrhythmia, blood clots, and potential mortality were discussed. The patient understands the typical recovery time and the outpatient nature of the procedure. After consideration of these risks the patient gives full informed consent and they wish to move ahead with the procedure. Cystoscopy with incision and or dilatation of stricture with Optilume balloon Orders: Orders AMB Urinalysis Automated 09/08/23 Z13.9 - Encounter for screening, unspecified AMB Cystoscopy 09/08/23 N40.1 - Benign prostatic hyperplasia with lower urinary tract symptoms Patient Instructions: Imaging studies, laboratory and physical exam results were discussed and reviewed in detail. No major barriers to patient understanding were identified. An opportunity to ask questions regarding the treatment plan was provided. All questions were answered. The patient expressed understanding and agreement with the above treatment plan. The patient is aware they should contact our office by phone for worsening of their current condition or the appearance of new urologic symptoms. Compliance is encouraged with any medications and followup testing that is ordered. It is a privilege to participate in the urologic care of your patient. If you have any questions or concerns regarding treatment for the above conditions, or other urologic issues, please do not hesitate to contact me. The office telephone contact is [phone]. This note is constructed using voice recognition software. While every effort has been made to ensure accuracy blade balancer errors may have been included. Yours sincerely, Dr Cj Maddox MD, [facility] - Urology Providers of Expert, Compassionate Care for the Genitourinary System Coding Level of Care Code Est Pt Level 4 (93358) Diagnoses Bulbous urethral stricture N35.912 BPH loc w urin obs/LUTS N40.1 CPT Codes Cystoscopy - CPT: 43357-[id number] ([id number])
== END 2023-09-08 13:49 | disposition home or self-care (01) ==
PROVIDERS: PCP Internal Medicine; Visit Provider Urology
DX: N35.912 Unspecified bulbous urethral stricture, male (principal); N40.1 Benign prostatic hyperplasia with lower urinary tract symptoms
CPT/HCPCS: 52000; 99214

== ENCOUNTER → 2023-09-08 12:32 | Outpatient (BNVA) | payer OTHER, SELFPAY | PROVIDERS: PCP Internal Medicine; Visit Provider Urology | DX: N35.912 Unspecified bulbous urethral stricture, male (principal); N40.1 Benign prostatic hyperplasia with lower urinary tract symptoms; R39.12 Poor urinary stream | CPT/HCPCS: 52000; 81003; 99212 ==

== ENCOUNTER 2023-10-15 08:51 | Outpatient (REF) | payer OTHER, SELFPAY ==
[2023-10-15 12:33] LABS: Alanine Aminotransferase 18 U/L (0-40); Albumin Level 4.4 g/dL (3.5-5.0); Alkaline Phosphatase 61 U/L (39-117); Anion Gap 14 (12-20); Aspartate Amino Transferase 15 U/L (5-37); Bilirubin Total 0.6 mg/dL (0.0-1.0); Blood Urea Nitrogen 11 mg/dL (9-16); Calcium 9.3 mg/dL (8.4-10.2); Carbon Dioxide 33 mmol/L (22-29); Chloride 99 mmol/L (96-108); Cholesterol 84 mg/dL (<200); Estimated Glomerular Filt Rate > 60; Glucose Random 104 mg/dL (60-115); HDL Cholesterol 32 mg/dL (>40); LDL Cholesterol Calculated 37 mg/dL (<100); Potassium 3.8 mmol/L (3.3-5.1); Sodium 142 mmol/L (135-145); Total Protein 7.2 g/dL (6.5-8.0); Triglycerides 76 mg/dL (<150)
== END 2023-10-15 08:52 | disposition home or self-care (01) ==
LOC: HO.HHCL 08:51
PROVIDERS: Visit Provider Internal Medicine
DX: E11.9 Type 2 diabetes mellitus without complications (principal)
CPT/HCPCS: 36415; 80053; 80061

== ENCOUNTER 2023-12-29 12:41 | Outpatient (REF) | payer OTHER, SELFPAY ==
--- NOTE | ~2023-12-29 | XR_ITS ---
EXAMINATION: XR KNEE, LEFT CLINICAL INFORMATION: Acute pain. COMPARISON: None available. TECHNIQUE: Four views of the left knee. FINDINGS: No fracture or joint effusion. Alignment is anatomic. Joint spaces are maintained. No abnormal soft tissue calcification. XR/XR knee LT 4V IMPRESSION: Normal left knee.
--- NOTE | ~2023-12-29 | XR_ITS ---
EXAMINATION: XR HIP, LEFT CLINICAL INFORMATION: Acute pain. COMPARISON: Pelvis March 03, 2023 TECHNIQUE: Two views of the left hip. FINDINGS: Hip joint is normal. No fracture or dislocation is a calcification measuring about 1 x 0.6 cm adjacent to the greater trochanter. This is unchanged since prior study 2022. Could be a chronic dystrophic calcification or calcific tendinosis. XR/XR hip LT min 2V IMPRESSION: 1. No acute abnormality. 2. Calcification adjacent to the greater trochanter unchanged since prior study 2022.
== END 2023-12-29 12:42 | disposition home or self-care (01) ==
LOC: HO.HHCX 12:41
PROVIDERS: Visit Provider Internal Medicine
DX: M25.561 Pain in right knee (principal); M25.562 Pain in left knee
CPT/HCPCS: 73502; 73564

== ENCOUNTER 2024-02-03 16:34 | Outpatient (REF) | payer OTHER, SELFPAY | END 2024-02-03 16:35 | disposition home or self-care (01) | LOC: HO.HOSX 16:34 | PROVIDERS: Visit Provider Physician Assistant | DX: Z13.89 Encounter for screening for other disorder (principal) ==

== ENCOUNTER 2024-02-04 10:37 | Outpatient (REF) | payer OTHER, SELFPAY ==
--- NOTE | ~2024-02-04 | XR_ITS ---
EXAMINATION: XR KNEE AP STANDING CLINICAL INFORMATION: Knee pain COMPARISON: X-ray left knee 12/29/2023 TECHNIQUE: AP bilateral standing view of the knees was obtained. FINDINGS: On the single frontal projection, in bilateral knees, there is anatomic alignment. Joint spaces are maintained. No acute osseous abnormality seen. No abnormal soft tissue calcification. XR/XR knee standing BI IMPRESSION: No acute findings Electronically signed by: Alex Brown MD 02/10/2024 10:56 AM EDT
== END 2024-02-04 10:38 | disposition home or self-care (01) ==
LOC: HO.XRAY 10:37
PROVIDERS: PCP Internal Medicine; Visit Provider Physician Assistant
DX: M25.561 Pain in right knee (principal); M25.562 Pain in left knee
CPT/HCPCS: 20610; 73565; 99202; J1010

== ENCOUNTER 2024-02-04 11:05 | Outpatient (AMB) | payer OTHER, SELFPAY ==
--- NOTE | 2024-02-04 11:07 | A.OFFVIS_ITS ---
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 Patient reports pain has been present for about 2-3 months and is located at the anterior aspect of knee. His knee pain increases with prolong standing and walking. He attended PT with a little relief. Finds very little relief with Tylenol and Motrin. Denies any injury. He mentions having hip pain as well. Associate Professor Of Sociology Name: Mark ID#[id number] Information Interpreted: clinical only Allergies No Known Allergies [No Known Allergies*] Allergy (Verified 02/04/24 11:11) Medication List - Last Reconciled 02/04/24 by Eric Weiss PA-C alcohol swabs (Alcohol Prep Pads) 0 pad topical amlodipine 5 mg PO DAILY aspirin 81 mg PO DAILY atorvastatin 40 mg PO DAILY PRN blood sugar diagnostic (FreeStyle Lite Strips) As directed bupropion HCl XL 150 mg PO DAILY PRN ciprofloxacin HCl 250 mg PO DAILY 5 days diazepam 5 mg PO BID PRN fluoxetine 40 mg PO QAM glipizide ER 2.5 mg PO QAM hydrochlorothiazide 25 mg PO QAM lancets (TRUEplus Lancets) As directed lisinopril 40 mg PO QAM meloxicam 7.5 mg PO QAM metformin ER 1,000 mg PO omega 3-hol-uus-fish oil 300 mg (120 mg- 180mg)-1,000 mg 1 cap PO TID omega-3 fatty acids-fish oil 340-1,000 mg (Fish Oil) 1 cap PO TID omeprazole 40 mg PO DAILY phenazopyridine (Pyridium) 100 mg PO TID PRN 15 days prazosin 0 mg PO sucralfate 1 g PO TID tamsulosin 0.4 mg PO DAILY trazodone 50 mg PO BEDTIME PRN ziprasidone HCl 80 mg PO BID HPI HPI 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 He states he has pain at the anterior aspect of his knee that is aggravated with standing, ambulation and bending. He has attended physical therapy with mild relief. He finds minimal relief with Tylenol and Motrin. He has not had any injury in the past. He has a history of diabetes. His sugar level is well controlled. [facility] Medical History Nocturia Bladder outlet obstruction Weak urinary stream Diabetes mellitus Hyperlipidemia HTN (hypertension) Chest pain Anemia Surgical History Hx of cystoscopy Hx of transurethral resection of prostate Social History (Updated 02/04/24 @ 11:14 by WALESKA Schmidt) Patient Tobacco Use Status: Never used Tobacco Current occupational status: unemployed and disabled Review of Systems Const All systems reviewed & are unremarkable except as noted in HPI and below Physical Exam Vital Signs: BMI result Body Mass Index 36.3 Const General: cooperative, healthy appearing, comfortable, no acute distress, well developed and alert Orientation/consciousness: patient oriented x3 HEENT Head: Yes normal to inspection, Yes normocephalic and Yes atraumatic Eyes General: appearance normal, both eyes and all related structures Resp Effort & Inspection: normal respiratory effort and able to speak in complete sentences Cardio Rate: regular rate Peripheral pulses: Peripheral pulses 2+ throughout GI Palpation (GI): Soft to palpation Skin Lesions: no lesions Rashes: no rashes Neuro General: patient oriented x3 Extrem Other: Left knee: Skin intact, no erythema or joint effusion. Tenderness along the medial and lateral joint line. Full ROM with crepitus. Negative Allen?s. No ligamentous laxity. NVI. ? Office Procedures Joint Injection/Aspiration Joint Injection/Aspiration Primary Site: left knee Prep: site was prepped using aseptic technique, ethochloride spray was applied and injection warnings given Injected: 40 mg of, DepoMedrol, with 8 mL of, 1% plain lidocaine and in the joint Approach Used: anterolateral Procedure: The patient tolerated the procedure well and there was some relief with the local anesthesia Coding 95401 - Glenohumeral/Tronchanteric Bursa/Intraarticular Procedure code (CPT) selection complete Assessment & Plan Assessment & Plan (1) Osteoarthritis of left knee: Code(s): M17.12 - Unilateral primary osteoarthritis, left knee Category: Medical Plan We discussed options today, which include steroid injection. The patient did consent to move forward with the left knee injection, which was tolerated well. I recommended rest, ice, and elevation and OTC anti-inflammatories as needed for discomfort. We also discussed diabetes and the effect the steroid injection can have on their blood glucose levels; therefore, they will continue to monitor these very closely over the next 72 hours. If there are concerns, they should report to the ED immediately. Orders: Orders XR knee standing BI Today M25.561 - Pain in right knee, M25.562 - Pain in left knee Patient Instructions: Scribed for Eric Weiss PA-C, by Jw Tyler pesticide use medical coordinator, on 02/04/2024 at 11:00 AM EST.? I, Eric Weiss PA-C, have personally reviewed and agree with the information entered by the scribe. Coding Level of Care Code New Pt Level 3 (25571) Complex EM visit Add On G2211 Diagnoses Osteoarthritis of left knee M17.12 CPT Codes Coding - Joint 7: 37291 - Glenohumeral/Tronchanteric Bursa/Intraarticular ([id number])
[2024-02-04 11:10] VITALS: BMI 36.3
== END 2024-02-04 12:11 | disposition home or self-care (01) ==
PROVIDERS: PCP Internal Medicine; Visit Provider Physician Assistant
DX: M17.12 Unilateral primary osteoarthritis, left knee (principal)
CPT/HCPCS: 20610; 99203

== ENCOUNTER 2024-02-25 07:26 | Outpatient (REF) | payer OTHER, SELFPAY ==
--- NOTE | ~2024-02-25 | MR_ITS ---
EXAMINATION: MR BRAIN WITHOUT CONTRAST CLINICAL INFORMATION: Ataxic gait. COMPARISON: CT head from 06/09/2019. TECHNIQUE: MRI of the brain was obtained using routine sequences without contrast. FINDINGS: No focal restricted diffusion is demonstrated to suggest acute or subacute cerebral ischemia. No evidence of acute or chronic hemorrhagic products on heme-sensitive imaging. Scattered periventricular and deep white matter T2 FLAIR hyperintensities consistent with mild underlying microangiopathy. Persistent cavums septum pellucidum, vergae, veli interpositi. Proportional prominence of the ventricles and sulcal spaces without evidence of obstructive hydrocephalus. No abnormal mass effect. No midline shift. Normal appearance of the pituitary gland. Normal positioning of the cerebellar tonsils. Normal arterial and venous vascular flow voids are present. Normal, homogeneous marrow signal. Mild mucosal thickening of the paranasal sinuses. No signal abnormalities within the mastoids. MR/MR head/brain wo con IMPRESSION: 1. No acute intracranial abnormalities. 2. Mild underlying microangiopathy and generalized cerebral volume loss. Electronically signed by: Kelby Amezquita DO 03/18/2024 10:50 PM EDT
== END 2024-02-25 07:27 | disposition home or self-care (01) ==
LOC: HO.MRI 07:26
PROVIDERS: PCP Internal Medicine; Visit Provider Internal Medicine
DX: R26.0 Ataxic gait (principal); E11.9 Type 2 diabetes mellitus without complications
CPT/HCPCS: 70551

== ENCOUNTER 2024-03-03 10:53 | Outpatient (AMB) | payer OTHER, SELFPAY ==
--- NOTE | 2024-03-03 11:08 | A.OFFVIS_ITS ---
Intake Visit Reasons: PVR Follow Up Intake Note: Patient is present for Follow up Med Urology Med: Tamsulosin Fire Patrol Required: Yes Fire Patrol Language: Gang Hemstitching Machine Operator Services: Fire Patrol Present Accompanied by: Self / Same As Patient Allergies No Known Allergies [No Known Allergies*] Allergy (Verified 03/03/24 11:12) HPI Comments Details: Jabari is a pleasant Sami-speaking male. He is a patient of Dr. English. He seen for the following urologic conditions - lower urinary tract symptoms - apical prostatic stricture Translation provided by qualified medical office receptionist Six-month review Developing weakness of stream and persistent pain Known apical stricture Requires dilatation. Would like to use optilume balloon. Lower urinary tract symptoms background diabetes TURP 2019 Had presented with weakness of stream and found to have apical stricture which was dilated Cystoscopy Persistent recurrent bulbar membranous stricture PVR 0 cc PFSH Medical History Nocturia Bladder outlet obstruction Weak urinary stream Diabetes mellitus Hyperlipidemia HTN (hypertension) Chest pain Anemia Surgical History Hx of cystoscopy Hx of transurethral resection of prostate Social History (Updated 02/04/24 @ 11:14 by WALESKA Schmidt) Patient Tobacco Use Status: Never used Tobacco Current occupational status: unemployed and disabled Review of Systems Const Denies chills and Denies fever(s) Card Reports no additional complaints and Denies syncope Resp Denies cough GI Denies abdominal pain and Denies heartburn Reports as per HPI and Denies change in libido Neuro Denies syncope Psych Denies change in libido Endo Denies change in libido Physical Exam Const General: cooperative, healthy appearing, comfortable and no acute distress Orientation/consciousness: patient oriented x3 HEENT Face and sinus: Yes normal facial exam Mouth: moist mucous membranes Neck Neck: Yes normal visual inspection, Yes full ROM and Yes trachea midline Chest Chest palpation & inspection: normal inspection of the chest Resp Effort & Inspection: normal respiratory effort, able to speak in complete sentences and no respiratory distress GI Inspection: Yes normal to inspection Back/Spine/Pelvis Cervical Spine: normal cervical lordosis Thoracic/Lumbar Spine: thoracic and lumbar spine normal to inspection Skin General skin exam: no rashes or lesions noted Neuro General: patient oriented x3, gait normal, tone normal and moves all extremities Extrem General: Yes normal to inspection and Yes capillary refill normal Assessment & Plan Assessment & Plan (1) Bulbous urethral stricture: Code(s): N35.912 - Unspecified bulbous urethral stricture, male Category: Medical Plan Risks, benefits and alternatives to therapy were discussed. These include but are not limited to infection, bleeding, damage to local organs and tissues, need for further interventions. Anesthetic risks regarding cardiac arrhythmia, blood clots, and potential mortality were discussed. The patient understands the typical recovery time and the outpatient nature of the procedure. After consideration of these risks the patient gives full informed consent and they wish to move ahead with the procedure. Optilume ballloon dilation Patient Instructions: Imaging studies, laboratory and physical exam results were discussed and reviewed in detail. No major barriers to patient understanding were identified. An opportunity to ask questions regarding the treatment plan was provided. All questions were answered. The patient expressed understanding and agreement with the above treatment plan. The patient is aware they should contact our office by phone for worsening of their current condition or the appearance of new urologic symptoms. Compliance is encouraged with any medications and followup testing that is ordered. It is a privilege to participate in the urologic care of your patient. If you have any questions or concerns regarding treatment for the above conditions, or other urologic issues, please do not hesitate to contact me. The office telephone contact is [phone]. This note is constructed using voice recognition software. While every effort has been made to ensure accuracy veneer patcher errors may have been included. Yours sincerely, Dr Cj Maddox MD, DARYN [facility] - Urology Providers of Expert, Compassionate Care for the Genitourinary System Coding Level of Care Code Est Pt Level 4 (42754) Diagnoses Bulbous urethral stricture N35.912
== END 2024-03-03 11:31 | disposition home or self-care (01) ==
PROVIDERS: PCP Internal Medicine; Visit Provider Urology
DX: N35.912 Unspecified bulbous urethral stricture, male (principal)
CPT/HCPCS: 99214

== ENCOUNTER → 2024-03-03 10:53 | Outpatient (BNVA) | payer OTHER, SELFPAY | PROVIDERS: PCP Internal Medicine; Visit Provider Urology | DX: N35.912 Unspecified bulbous urethral stricture, male (principal) | CPT/HCPCS: 99212 ==

== ENCOUNTER 2024-03-25 14:12 | Outpatient (REF) | payer OTHER, SELFPAY ==
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
== END 2024-03-25 14:13 | disposition home or self-care (01) ==
LOC: HO.HHCX 14:12
PROVIDERS: Visit Provider Registered Nurse
DX: M54.50 Low back pain, unspecified (principal)
CPT/HCPCS: 72100

== ENCOUNTER 2024-04-04 06:35 | Day surgery (SDC) | payer OTHER, SELFPAY ==
[2024-03-31 10:55] VITALS: BMI 33.5
[2024-04-04] VITALS (7 sets, daily range): BP systolic 98–115; BP diastolic 48–70; PULSE 66–72; RESP 12–14; TEMP 36.2–36.5; O2SAT 95–96; BMI 32.2
[2024-04-04] MEDS: levoFLOXacin 500 MG TABLET PO (08:55)
[2024-04-04 09:19] LABS: Glucose, Whole Blood 115 mg/dL (60-115)
--- NOTE | 2024-04-04 09:19 | P.CONAN_ITS ---
HPI - Anesthesia Eval Consult details Narrative: 64 yo male patient for Cystoscopy with urethral dilatation PMFSH Active Problems Active Problems: All Active Problems Osteoarthritis of left knee (Acute) Bulbous urethral stricture (Acute) Screening PSA (prostate specific antigen) (Acute) Dysuria (Acute) BPH loc w urin obs/LUTS (Acute) RANDELL. Uses CPAP machine HTN DM Hyperlipidemia Denies recent chest pain Anxiety/Depression GERD Past Medical History Medical History Atypical chest pain RANDELL (obstructive sleep apnea) Nocturia Bladder outlet obstruction Weak urinary stream Diabetes mellitus Hyperlipidemia HTN (hypertension) Anemia Family History Family history of problems with anesthesia: No Surgical History Surgical History Hx of cystoscopy Hx of transurethral resection of prostate History of Problems with Anesthesia: No Social History Social History Are you a primary customer care professional to a significant other at home: No Do you presently have visiting nurse or other home services: No Patient Tobacco Use Status: Never used Tobacco Use of substances other than those prescribed or required for medical reasons: No Have you been hit, kicked, punched, or otherwise hurt by someone within the past year? If so, by whom?: No Are you DNR?: No Advance Directives: No Advance Directives Information Provided: Yes Recently lost weight without trying: No Nutrition Risks: No Nutritional Risk Poor oral hygiene: No Current occupational status: unemployed and disabled Meds Allergies Allergy/AdvReac Type Severity Reaction Status Date / Time No Known Allergies Allergy Verified 04/04/24 08:18 [No Known Allergies*] Home Medications ?Medication ?Instructions ?Recorded ?Confirmed ?Last Taken ?Type alcohol swabs (Alcohol Prep Pads) 0 pad topical 01/14/22 06/23/22 Unknown History amlodipine 5 mg tablet 5 mg PO DAILY 01/14/22 04/04/24 04/04/24 History aspirin 81 mg tablet,delayed 81 mg PO DAILY 01/14/22 04/04/24 03/25/24 History release atorvastatin 40 mg tablet 40 mg PO DAILY 01/14/22 03/31/24 Unknown History blood sugar diagnostic (FreeStyle #10 ea 08/09/22 01/16/23 Unknown History Lite Strips) bupropion HCl 150 mg 24 hr tablet, 150 mg PO DAILY 01/14/22 03/31/24 Unknown History extended release diazepam 5 mg tablet 5 mg PO BID PRN Anxiety 01/14/22 03/31/24 Unknown History fluoxetine 20 mg capsule 40 mg PO QAM 01/14/22 03/31/24 Unknown History hydrochlorothiazide 25 mg tablet 25 mg PO QAM 01/14/22 03/31/24 Unknown History lancets 33 gauge (TRUEplus Lancets) #100 ea 01/14/22 06/23/22 Unknown History lisinopril 40 mg tablet 40 mg PO QAM blood pressure 01/14/22 03/31/24 Unknown History meloxicam 7.5 mg tablet 7.5 mg PO QAM 01/14/22 03/31/24 Unknown History metformin 500 mg tablet,extended 1,000 mg PO DAILY 01/14/22 03/31/24 Unknown History release 24 hr prazosin 5 mg capsule 10 mg PO BEDTIME 01/14/22 03/31/24 Unknown History trazodone 50 mg tablet 50 mg PO BEDTIME PRN insomnia 01/14/22 03/31/24 Unknown History ziprasidone HCl 80 mg capsule 80 mg PO BID 01/14/22 03/31/24 Unknown History omega-3 300 mg-dha 120 mg-epa 180 1 cap PO TID 06/23/22 04/04/24 03/31/24 History mg-fish oil 1,000 mg capsule glipizide 2.5 mg tablet, extended 2.5 mg PO QAM 08/29/22 03/31/24 Unknown History release 24 hr Exam Height,Weight and Vital Signs: Height 5 ft 6.25 in Weight 91.172 kg Last Vital Signs Temp 97.2 F 04/04/24 08:51 Pulse 67 04/04/24 08:51 Resp 14 04/04/24 08:51 BP 105/70 04/04/24 08:51 Pulse Ox 96 04/04/24 08:51 O2 Del Method Room Air 04/04/24 08:51 Pertinent Lab Results Pertinent Lab Results: Laboratory Tests 04/04/24 09:14 POC Glucose 115 Airway Mallampati Class: III TM Dist: >3cm Neck ROM: Full Loose/Missing/Broken Teeth: Yes (Missing several teeth top and bottom. Denies broken or loose teeth) Heart: RRR Lungs: CTAB Assessment and Plan Assessment Anesthesia Assessment: Anesthesia Plan Discussed and Chart Reviewed Final Anesthetic Review Family History of Problems with Anesthesia: No History of Problems with Anesthesia: No NPO: Yes ASA Class: III Final Preanesthetic Review: No Changes in Pt Med Stat, Meds/Allgs Chart Reviewed, Consent Obtained/Reviewed and Anes Risks/Benef Reviewed Patient Risk: Intermediate Procedure Risk: Low Assessment/Block/Sedation in SS: Assess/Block/Sedation-SS Anesthetic Plan Anesthetic Plan: TIVA Disposition: Standard PACU
--- NOTE | 2024-04-04 09:29 | MHC.SHP ---
Pre-Procedural Eval Section A - 24 Hr Update-Section A only Date of Service: 04/04/24 The patient is an INPATIENT: No Changes since office visit: No Cold of Flu in the past 2 weeks, No New Medical Problems, No Changes in Medication and No Patient answered all questions The patient has been examined within 24 hours of the surgical procedure. The History & Physical has been completed within 30 days and I have reviewed it.: Yes Section B - Complete if H&P > 30 days Chief Complaint: Unspecified bulbous urethral stricture, male Relevant Family History (Specify if Yes): No Relevant Social History: None Present Medications: see Short Stay Collaborative assessment Medical History: No relevant PMH History of Previous Operations: Relevant previous surgery/procedure and date(s) Allergies: Allergies Allergy/AdvReac Type Severity Reaction Status Date / Time No Known Allergies Allergy Verified 04/04/24 08:18 [No Known Allergies*] Review of Systems Sugical H&P ROS: Negative: Constitution, Cardiovascular, Respiratory, Neurological, Psychiatric, Hem-Onc, Allergic/Immunologic, Gastrointestinal, Genitourinary, Musculoskeletal, Integumentary, Endocrine and Eyes/Ears/Nose/Throat Exam Surgical H&P Exam: Normal: HEENT, Normal: Heart, Normal: Lungs, Normal: Extremities, Normal: Abdomen, Normal: Skin and Normal: Neurological Plan Diagnosis/Plan: Unchanged (Incision of membranous prostate stricture) I have reviewed the history and physical and performed a pertinent physical examination on my patient. No changes have occurred unless specified. Time Spent With Patient Time: Total time managing care of this patient today ____ minutes.
--- NOTE | 2024-04-04 10:22 | P.OP_ITS ---
Operative Note Operative Note Date of Service: 04/04/24 Narrative: PreOperative Diagnosis: Dysuria with question of urethral stricture Post Operative Diagnosis: bulbar urethral stricture Procedure: Cystoscopy with dilatation of bulbar stricture and bilateral retro Surgeon: Dr Cj Maddox Anesthesia: General Indications for procedure: Prior TURP procedure to prostate. Persistent dysuria. Non responsive to medications. Procedure: After informed consent was verified the patient was brought to the operating room and placed in a supine position. Anesthesia was administered per protocol. The patient was prepped and draped in a sterile fashion. Safety pause time-out was performed. Antibiotics being given. Twenty-two Nicaraguan cystoscopy placed. Bulbar urethral stricture encountered. DVIU performed with cold knife at 06:00 o'clock position through urethral stricture. Bladder was entered. TURP defect seen. Bladder drain Twenty-four Nicaraguan Morales catheter placed with 10 cc balloon which should remain in place for 3 days.
== END 2024-04-04 11:40 | disposition home or self-care (01) ==
PROVIDERS: PCP Internal Medicine; Visit Provider Urology
PROC: 0TJB8ZZ Inspection of Bladder, Via Natural or Artificial Opening Endoscopic (ICD-10-PCS; CPT 52000; principal; 2024-04-04 09:40)
DX: N35.912 Unspecified bulbous urethral stricture, male (principal); R30.0 Dysuria; R39.12 Poor urinary stream; I10 Essential (primary) hypertension; E78.5 Hyperlipidemia, unspecified; D64.9 Anemia, unspecified; E11.9 Type 2 diabetes mellitus without complications; G47.33 Obstructive sleep apnea (adult) (pediatric); Z79.82 Long term (current) use of aspirin; Z79.84 Long term (current) use of oral hypoglycemic drugs; Z79.899 Other long term (current) drug therapy; Z56.0 Unemployment, unspecified
CPT/HCPCS: 52281; 82947; J1100; J2003; J2250; J2405; J2704; J3010

== ENCOUNTER → 2024-04-04 06:35 | Outpatient (BNV) | payer OTHER, SELFPAY | PROVIDERS: PCP Internal Medicine; Visit Provider Urology | DX: N35.912 Unspecified bulbous urethral stricture, male (principal) | CPT/HCPCS: 52281; 74420 ==

== ENCOUNTER → 2024-04-07 08:26 | Outpatient (BNVA) | payer OTHER, SELFPAY | PROVIDERS: PCP Internal Medicine; Visit Provider Urology ==

== ENCOUNTER 2024-06-22 14:18 | Outpatient (AMB) | payer OTHER, SELFPAY ==
--- NOTE | 2024-06-22 14:27 | MHC.OFFVIS ---
Intake Visit Reasons: follow up(bulbar urethra stricture)l Intake Note: Pt presents to the office today for a follow up bulbar urethra stricture. Allergies No Known Allergies [No Known Allergies*] Allergy (Verified 06/22/24 14:27) HPI Comments Details: Jabari is a pleasant Armenian-speaking male. He is a patient of Dr. English. He seen for the following urologic conditions - lower urinary tract symptoms - apical prostatic stricture Translation provided by qualified medical device sales consultant Three-month follow-up from procedure Adequate urinary force maintained Six-month follow-up Lower urinary tract symptoms background diabetes TURP 2018 Had presented with weakness of stream and found to have apical stricture which was dilated 03/31 DVIU with apical incision PVR 0 cc PFSH Medical History Atypical chest pain RANDELL (obstructive sleep apnea) Nocturia Bladder outlet obstruction Weak urinary stream Diabetes mellitus Hyperlipidemia HTN (hypertension) Anemia Surgical History Hx of cystoscopy Hx of transurethral resection of prostate Social History Are you a primary rn progressive care unit to a significant other at home: No Do you presently have visiting nurse or other home services: No Patient Tobacco Use Status: Never used Tobacco Current occupational status: unemployed and disabled Review of Systems Const Denies chills and Denies fever(s) Card Reports no additional complaints and Denies syncope Resp Denies cough GI Denies abdominal pain and Denies heartburn Reports as per HPI and Denies change in libido Neuro Denies syncope Psych Denies change in libido Endo Denies change in libido Physical Exam Const General: cooperative, healthy appearing, comfortable and no acute distress Orientation/consciousness: patient oriented x3 HEENT Face and sinus: Yes normal facial exam Mouth: moist mucous membranes Neck Neck: Yes normal visual inspection, Yes full ROM and Yes trachea midline Chest Chest palpation & inspection: normal inspection of the chest Resp Effort & Inspection: normal respiratory effort, able to speak in complete sentences and no respiratory distress GI Inspection: Yes normal to inspection Back/Spine/Pelvis Cervical Spine: normal cervical lordosis Thoracic/Lumbar Spine: thoracic and lumbar spine normal to inspection Skin General skin exam: no rashes or lesions noted Neuro General: patient oriented x3, gait normal, tone normal and moves all extremities Extrem General: Yes normal to inspection and Yes capillary refill normal Assessment & Plan Assessment & Plan (1) BPH loc w urin obs/LUTS: Code(s): N40.1 - Benign prostatic hyperplasia with lower urinary tract symptoms Category: Medical (2) Bulbous urethral stricture: Code(s): N35.912 - Unspecified bulbous urethral stricture, male Category: Medical Plan Six-month follow-up Patient Instructions: Imaging studies, laboratory and physical exam results were discussed and reviewed in detail. No major barriers to patient understanding were identified. An opportunity to ask questions regarding the treatment plan was provided. All questions were answered. The patient expressed understanding and agreement with the above treatment plan. The patient is aware they should contact our office by phone for worsening of their current condition or the appearance of new urologic symptoms. Compliance is encouraged with any medications and followup testing that is ordered. It is a privilege to participate in the urologic care of your patient. If you have any questions or concerns regarding treatment for the above conditions, or other urologic issues, please do not hesitate to contact me. The office telephone contact is [phone]. This note is constructed using voice recognition software. While every effort has been made to ensure accuracy customs house broker errors may have been included. Yours sincerely, Dr Cj Maddox MD, DARYN [facility] - Urology Providers of Expert, Compassionate Care for the Genitourinary System Coding Level of Care Code Est Pt Level 3 (51720) Diagnoses BPH loc w urin obs/LUTS N40.1 Bulbous urethral stricture N35.912
== END 2024-06-22 15:02 | disposition home or self-care (01) ==
PROVIDERS: PCP Internal Medicine; Visit Provider Urology
DX: N40.1 Benign prostatic hyperplasia with lower urinary tract symptoms (principal); N35.912 Unspecified bulbous urethral stricture, male
CPT/HCPCS: 99213

== ENCOUNTER → 2024-06-22 14:18 | Outpatient (BNVA) | payer OTHER, SELFPAY | PROVIDERS: PCP Internal Medicine; Visit Provider Urology | DX: N40.1 Benign prostatic hyperplasia with lower urinary tract symptoms (principal); N35.912 Unspecified bulbous urethral stricture, male | CPT/HCPCS: 99212 ==

== ENCOUNTER 2024-07-06 13:37 | Outpatient (AMB) | payer OTHER, SELFPAY ==
[2024-07-06 13:38] VITALS: BP 104/62; PULSE 80; O2SAT 96; BMI 31.6
--- NOTE | 2024-07-06 13:38 | A.OFFVIS_ITS ---
Vital Signs 07/06/24 13:38 Height 5 ft 6 in Weight 196 lb BMI 31.6 BP 104/62 Blood Pressure Location Lt brachial Position Sitting Pulse 80 Pulse Source Pulse Oximeter Pulse Oximetry (%) 96 Oxygen Delivery Method Room Air Intake Visit Reasons: Colonoscopy Screening Intake Note: NEW PATIENT for Screening (Recall) Prior hx of colo/egd? Y, Tubular Adenoma reported. Last found documented (2012 w/ Dr. Silva) Chief Complaint; Pt reports recent hx of hemorrhoids with active signs of bleeding. No prior hx of EGD, pt reports prior hx of GERD which is well controlled with omeprazole. No additional concerns reported. Assistant Director Of Financial Aid Required: Yes Assistant Director Of Financial Aid Services: Assistant Director Of Financial Aid Present Assistant Director Of Financial [place] [facility] [place] Director Of [place] Information Interpreted: clinical only Accompanied by: Spouse Allergies No Known Allergies [No Known Allergies*] Allergy (Verified 07/06/24 13:39) HPI HPI Colonoscopy Screening: Details: 64 year old? male with past medical history of diabetes, hypertension, hyperlipidemia is here today for pre colonoscopy screening.? Patient was sent to us by his PCP.? Last colonoscopy in [address] Silva, tubular adenoma found..? Patient denies any gastrointestinal symptoms in the past or at present.? However patient does report occasional acid reflux, however fairly control with omeprazole. Episode of rectal bleed, history of hemorrhoids. History of CRC, maternal grandfather., colon polyps, or CRC.? Denies history of difficulty with sedation or anesthesia in the past.? Negative for history of sleep apnea.? Denies any history of cardiac, renal, pulmonary, or hepatic disease.?? No history of infectious? diseases like hepatitis A, B, C, HIV or tub erculosis.? Patient is on low-dose aspirin. Patient has been on omeprazole for acid reflux several years. Patient reports that it works. However occasional acid reflux depending on what he eats. [facility] Medical History Atypical chest pain RANDELL (obstructive sleep apnea) Nocturia Bladder outlet obstruction Weak urinary stream Diabetes mellitus Hyperlipidemia HTN (hypertension) Anemia Surgical History (Updated 07/06/24 @ 13:59 by SARABJIT Franco) Hx of colonoscopy Hx of cystoscopy Hx of transurethral resection of prostate Family History (Updated 07/06/24 @ 14:04 by SARABJIT Franco) Maternal Grandfather Colon cancer Mother Stomach cancer Maternal Aunt Metastatic cancer Brother Stomach cancer Social History Are you a primary child care aide to a significant other at home: No Do you presently have visiting nurse or other home services: No Patient Tobacco Use Status: Never used Tobacco Current occupational status: unemployed and disabled Physical Exam Vital Signs: Last Vital Signs Pulse 80 07/06/24 13:38 BP 104/62 07/06/24 13:38 Pulse Ox 96 07/06/24 13:38 Oxygen Delivery Method Room Air 07/06/24 13:38 BMI result Body Mass Index 31.6 Const General: healthy appearing and no acute distress Nutritional Appearance: obese Orientation/consciousness: patient oriented x3 Resp Effort & Inspection: normal respiratory effort, able to speak in complete sentences, no tracheal deviation and symmetric chest movement Auscultation: clear to auscultation bilaterally Cardio Rate: regular rate GI Inspection: Yes normal to inspection, No distended and Yes obesity Palpation (GI): Soft to palpation, not firm, nontender and No hepatosplenomegaly present Auscultation: normal bowel sounds General: Yes no CVA tenderness Back/Spine/Pelvis Back: no CVA tenderness Skin General skin exam: elasticity normal, turgor normal and dry skin Neuro General: patient oriented x3 Psych Appearance: grossly normal Mental Status: mental status grossly normal Assessment & Plan Assessment & Plan (1) Screen for colon cancer: Code(s): Z12.11 - Encounter for screening for malignant neoplasm of colon Plan Patient denies any GI, cardiac or respiratory symptoms.? Denies any issues with anesthesia in the past.? Denies any history of sleep apnea.? No history infectious diseases in the past or present.? Patient is on low-dose aspirin. Maternal grandfather diagnosed with CRC..? Patient denies melena, hematochezia, unintentional weight loss or ribbon like stools.? Discussed at length the pre- procedure,? prep, diet & medications as well as what to expect prior, during and after the procedure.?? Stressed the importance of good bowel prep.? Recommended the use of Vaseline or Calmoseptine OTC & baby wipes with bowel movements to promote comfort.? ?Patient verbalizes understanding and agrees to plan of care.? He was given the opportunity to ask questions and all questions answered.? We will see him after the procedure.? Medications: New bisacodyl (Dulcolax (bisacodyl)) take 4 tabs at noon the day before your colonoscopy 20 mg (4 x 5 mg) PO ONCE 1 day 4 tabs 0RF Z12.11 - Encounter for screening for malignant neoplasm of colon polyethylene glycol 3350 (Miralax) As directed by gastroenterology department at [facility] 238 grams PO ONCE 238 grams 0RF Z12.11 - Encounter for screening for malignant neoplasm of colon Coding Level of Care Code New Pt Level 3 (88764) Diagnoses Screen for colon cancer Z12.11 Time Spent (min) 40 Comment 30 minutes spent with patient and additional 10 minutes spent reviewing his records
--- OUTSIDE RECORDS SUMMARY | 2024-07-06 15:51 | XMS_ITS | Clinical Summary ---
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 11:30 AM EST Nurse Only [facility] [address] [place] [address] Dorie Means LPN Encounter for immunization (Primary Dx) 04/13/2024 Travel 04/08/[address] [address] Jameel Cota MD Durable Medical Equipment 04/07/2024 10:00 AM EDT Office Visit [address] [address] Jameel Cota MD Type 2 diabetes mellitus without complication, without long-term current use of insulin ([facility]) (Primary Dx); Acute pain of left knee; Ataxic gait; Preventative health care; Encounter for immunization 04/07/[address] [address] Jameel Cota MD Durable Medical Equipment 04/07/[address] [address] Jameel Cota MD Referral 04/07/2024 Travel from Last 3 Months Immunizations Name Administration Dates Next Due Hep B, adult 05/16/2009,10/05/2008,06/28/2008 Influenza injectable quadriv alent preservative free 03/12/2023,03/18/2022,04/30/2021,03/27 Influenza, IIV3, injectable 06/20/2014, 1 Influenza, Split (incl. sapphire fied surface antigen) 04/11/2013,02/26/2012 Influenza, seasonal, injecta ble, preservative free 04/07/2024 MMR 09/15/2001,08/04/2001 Pertussis 06/19/2009 Pfizer Covid-19 Vaccine 12+ 04/13/2024 Pneumococcal Conjugate PCV 20 02/07/2022 Pneumococcal Polysaccharide PPSV23 05/10/2015, Td (adult), 5 Lf tetanus tox oid, preservative free, adsorbed 10/15/2013 Tdap 09/18/2015 Zoster, Recombinant 04/09/2022,02/07/2022 Social History Tobacco Use Types Packs/Day Years Used Date Smoking Tobacco: Never Passive Smoke Exposure: Never Smokeless Tobacco: Never Tobacco Cessation:Counseling Given: Not Answered Alcohol Use Standard Drinks/Week Comments Never 0 (1 standard drink = 0.6 oz pur e alcohol) Alcohol Answer Date Recorded Frequency of Alcohol Consumption Not on file 04/07/2024 Average Number of Drinks Not on file 024 Frequency of Binge Drinking Not on file 03/10 Score 0 04/07/2024 Depression Answer Date Recorded Patient Health Questionnaire-9 Score 0 04/07/2024 Patient Health Questionnaire-9 Score 0 04/07/2024 Last PHQ-9: Questionnaire Data Not on file 1 Housing Stability Answer Date Recorded What is your housing situation today? I have miles klein 04/07/[address] you li ve. Do you have problems with any of the following? None of the above 04/07/2024 Food Insecurity Answer Date Recorded Within the past 12 months, y ou worried that your food would run out before you got money to buy more: Never True 04/07/2024 Within the past 12 months,th e food you bought just didn't last and you didn't have enough money to get more: Never True Transportation Answer Date Recorded In the past 12 months, has l ack of transportation kept you from medical appts, meetings, work or from getting things needed for daily living? No 04/07/2024 Utilities Answer Date Recorded In the past 12 months, has t he electric, gas, oil or water company threatened to shut off services in your home? No 04/07/2024 Depression Answer Date Recorded Patient Health Questionnaire-2 Score 0 04/07/2024 Internet Access Answer Date Recorded Internet Access Q1 Yes 04/07/2024 Internet Access Q2 Not on file 04/07/2024 Sex and Gender Information Value Date Recorded Sex Assigned at Male 04/07/2022 10:16 AM EDT Legal Sex Male 10:16 AM EDT Gender Identity Male 04/07/2022 10:16 AM EDT Sexual Orientation Choose not to disclose 2021 10:16 AM EDT Last Filed Vital Signs Vital Sign Reading Time Taken Comments Blood Pressure 122/78 04/27/2024 7:16 PM EST Pulse 87 04/27/2024 7:16 PM EST Temperature 36.2 ??C (97.1 ??F) 04/27/2024 7:16 PM ES T Respiratory Rate 18 04/27/2024 7:16 PM EST Oxygen Saturation 97% 04/27/2024 7:16 PM EST Inhaled Oxygen Concentration - - Weight 92.1 kg (203 lb) 04/27/2024 7:16 PM EST Height 165.1 cm (5' 5 ) 04/27/2024 7:16 PM EST Body Mass Index 33.78 04/27/2024 7:16 PM EST Plan of Treatment Upcoming Encounters Date Type Department Care Team (Late st Contact Info) Description 07/20/2024 8:00 AM EST Office Visit [facility] [address] [place] [address] Robert Waldroparis [address] [place] [address] 08/02/2024 2:15 PM EST Office Visit [facility] [address] [place] [address] Jameel Cota MD [address] [place] [address] Health Maintenance Due Date Last Done Comments CT Colonography 1962 FIT DNA/Cologuard 1962 FIT 1962 FOBT 1962 HIV Screening 1962 Sigmoidoscopy 1962 Diabetes: Foot Exam 02/09/1972 Colonoscopy 02/20/2023 02/20/2013 Colorectal Cancer Screening 02/20/2023 Diabetes: Urine Protein Screening 06/17/2023 06/17/2022, 02/05/2021, 03/14/2020 Dental X-Ray: Full Mouth 11/15/2023 11/13/2020 Dental Oral Exam 06/19/2024 12/17/2023, , 01/16/2022, Additional history exists Dental Prophylaxis 06/19/2024 12/17/2023, 0 02/23/2023, 01/08/2022, Additional history exists Diabetes: Hemoglobin A1C 10/05/2024 024, 12/29/2023, 09/29/2023, Additional history exists Lipid Panel 10/14/2024 10/15/2023, 06/09, 06/17/2022, Additional history exists Dental X-Ray: Bitewings 12/17/2024 12/17/19 24, 02/23/2023, 03/25/2022, Additional history exists Alcohol/Substance Use Screening 04/07/2025 04/07/2024 Depression Screening 04/07/2025 04/07/2024, 04/07/20 24 SDOH Screening 04/07/2025 04/07/2024 Tobacco Screening 04/27/2025 04/27/2024 DTaP/Tdap/Td Vaccines (2 - Td or Tdap) 09/17/2025 09/18/2015, 10/15/2013 Eye Exam 11/22/2025 11/23/2023, 11/06, 11/23/2023, Additional history exists RSV Patients and Patients Aged 60 years or older (1 - 1-dose 75+ series) 2037 Hepatitis B Vaccines Completed 05/16/2009, 10/05/2008, 06/28/2008 Hepatitis C Screening Completed 12/31/2021 Pneumococcal Vaccine: Pediatrics (0 to 5 Years) and At-Risk Patients (6 to 49) Years) Completed 02/07/2022, 05/10/2015, 09/20/2009 Zoster Vaccines Completed 04/09/2022, 02/07/2022 Influenza Vaccine Completed 04/07/2024, , 03/18/2022, Additional history exists COVID-19 Vaccine Completed 04/13/2024, , 11/12/2021, Additional history exists HIB Vaccines Aged Out No longer eligi ble based on patient's age to complete this topic HPV Vaccines Aged Out No longer eligi ble based on patient's age to complete this topic Hepatitis A Vaccines Aged Out No long er eligible based on patient's age to complete this topic IPV Vaccines Aged Out No longer eligi ble based on patient's age to complete this topic Meningococcal Vaccine Aged Out No julio romel eligible based on patient's age to complete this topic RSV under 20 months Aged Out No longe r eligible based on patient's age to complete this topic Rotavirus Vaccines Aged Out No longer eligible based on patient's age to complete this topic Goals Goal Patient Goal Type Associated Problems Recent Progress Patient-Stated? Author Remain at or Below Target Blood Pressure General On track(07/13/19 4:09 PM EST) No Regine Hawkins, Ruben Procedures Procedure Name Priority Date/Time Associated Diagnosis Comments POCT GLYCATED HEMOGLOBIN, TOTAL Routine 04/07/2024 10:00 AM EDT Type 2 diabetes mellitus without complication, without long-term current use of insulin (CMS/HCC) POCT GLUCOSE Routine 04/07/2024 9:52 AM EDT Type 2 diabetes mellitus without complication, without long-term current use of insulin (CMS/HCC) Full PROPHYLAXIS - ADULT Routine 12/17/2023 1:00 PM EDT Dental calculus BITEWINGS - 4 RADIOGRAPHIC IMAGES Routine 12/17/2023 1:00 PM EDT Dental calculus Erosion of teeth, limited to enamel Missing teeth, acquired PERIODIC ORAL EVALUATION - ESTABLISHED PATIENT Routine 12/17/2023 1:00 PM EDT LIPID PANEL, STANDARD Routine 10/15/2023 8:52 AM EDT Type 2 diabetes mellitus without complication, without long-term current use of insulin (CMS/HCC) ALBUMIN, RANDOM URINE W/CREATININE Routine 06/17/2022 8:55 AM EST [facility] HISTORICAL HEPATITIS C AB W/REFL TO HCV RNA, QN, PCR Routine 12/31/2021 3:04 PM EDT DIAGNOSTIC - DIAGNOSTIC IMAGING - INTRAORAL - COMPREHENSIVE SERIES OF RADIOGRAPHIC IMAGES Routine 11/13/2020 12:00 AM EDT HM COLONOSCOPY Routine 02/20/2013 from Last 3 Months or Most Recently Relevant to Health Maintenance Results * POCT HGB A1C (04/07/2024 10:00 AM EDT) Pathologist [facility] Hemoglobin A1C 5.8 4.0 - 6.0 % QC Media Lot # [id number] Lot# Expiration Date [id number] Blood 04/07/2024 10:0 0 AM EDT Jameel Goyal MD POINT OF CARE TEST EN TER/EDIT ORDERABLES Final Result * POCT Glucose (04/07/2024 9:52 AM EDT) Pathologist [facility] Glucose Blood, POC 163 60 - 200 mg/dL QC Media Lot # [id number] Lot# Expiration Date [id number] Blood Capillary blood specimen / Unknown 04/07/2024 9:52 AM EDT Jameel Goyal MD POINT OF CARE TEST EN TER/EDIT ORDERABLES Final Result * (ABNORMAL) Lipid Panel, Standard (10/15/2023 8:52 AM EDT) Pathologist [facility] Triglycerides 76 <150 mg/dL [facility] Comment:Desirable Triglyceri de: less than 150 mg/dLBorderline High Triglyceride 150-199 mg/dLHigh Triglyceride: 200-499 mg/dLVery High Triglyceride: greater than or equal to 5OO mg/dL Cholesterol 84 <200 mg/dL [facility] Comment:Desirable Cholestero l: less than 200 mg/dLBorderline High Cholesterol: 200-239 mg/dLHigh Cholesterol: greater than 239 mg/dL LDL Cholesterol Calculated 37 <100 mg/dL [facility] Comment:Desirable LDL: less than 100 mg/dLNear Optimal/Above Optimal LDL: 110- 129 mg/dLBorderline High LDL: 130-159 mg/dLHigh LDL: 160-189 mg/dLVery High LDL: greater than or equal to 190 mg/dL HDL Cholesterol 32(L) >40 mg/dL [facility] Comment:Desirable HDL: great er than 40 mg/dL Note: This HDL assay may give artificially low results in patients with liver disease. Blood Venous blood specimen / Unknown 10/15/2023 8:52 AM EDT 10/15/2023 11:35 AM EDT Jameel Goyal MD LAB BLOOD ORDERABLES Final Result Performing Organization Address [facility] Co de Phone Number [facility] [address] [place] [address] [phone] * Albumin, Random Urine W/Creatinine (06/17/2022 8:55 AM EST) Creatinine, Random Urine 159 20 - 320 mg/dL [employer] [place] [facility] Albumin, Urine 1.5 See Note: mg/dL [employer] [place] [facility] Comment: Reference Range: Reference Range Not established Albumin/Creatinin e Ratio, Random Urine 9 <30 mcg/mg creat [employer] [place] [facility] Comment: The ADA defines abnormalities in albumin excretion as follows: Albuminuria Category ?Result (mcg/mg creatinine) Normal to Mildly increased ?? <30 Moderately increased ? 30-299 Severely increased ? > OR = 300 The ADA recommends that at least two of three specimens collected within a 3-6 month period be abnormal before considering a patient to be within a diagnostic category. 06/17/2022 8:55 AM EST 06/17/2022 8:56 AM EST Narrative [facility] - 06/17/2022 8:34 PM EST FASTING:YES FASTING: YES Jameel Goyal MD LAB URINE ORDERABLES Final Result Performing Organization Address City/[facility]/ZIP Co de Phone Number [facility] [address] [facility] [place] [address] [employer] [place] [address] [facility] [address], ([address]) [place] [address] * HEPATITIS C AB W/REFL TO HCV RNA, QN, PCR (12/31/2021 3:04 PM EDT) HEPATITIS C ANTIBODY NON-REACT FARIDA NON-REACT FARIDA [facility] INDEX 0.09 <1.00 [facility] Comment: ?? HCV antibody was non-reactive. There is no laboratory ?? evidence of HCV infection. ?? In most cases, no further action is required. However, if recent HCV exposure is suspected, a test for HCV RNA (test code 17106) is suggested. ?? For additional information please refer to http://education.Amplimmune/faq/BZG30y5 (This link is being provided for informational/ educational purposes only.) ?? 12/31/2021 3:04 PM EDT Jameel Goyal MD HISTORICAL/NON ORDERA BLE LABS Final Result [facility], [facility] [place] [address], * Colonoscopy (02/20/2013) Colonoscopy Normal Normal 02/20/2013 Narrative Urmila Monte - 02/20/2013 12:53 PM EDT Recommended 10 year follow up Historical Provider HEALTH MAINTENANCE Edited Result - Final from Last 3 Months or Most Recently Relevant to Health Maintenance Insurance [facility] Member Subscriber Plan / Payer (Ef fective 2024-Present) Name:Jabari Chavis Relation to Subscriber:Self Name:Jabari Chavis Payer ID:Not on file Group ID:Not on file Type:Not on file Address: [address] Care Teams Weld Technician Relationship Specialty Start Date End Date Jameel Cota MD [address] [place] [address] PCP - General Internal Medicine 04/10/14 Regine Hawkins, PharmD [address] [place] [address] Pharmacist Internal Medicine 08/18/22
--- OUTSIDE RECORDS SUMMARY | 2024-07-06 15:51 | XMS_ITS | Encounter Summary ---
Author Organization [employer] Address [address] [place] [address] 7 [place] [address] Care Team Providers Care Polishing Machine Tender Name Role Phone Jameel Cota MD Primary Care Provide r Regine Hawkins PharmD Unavailable [phone] Reason for Visit * Reason Comments Med Refill Encounter Details Date Type Department Care Team (Late Contact Info) Description 09/30/2022 Refill [facility] [address] [place] [address] Ami Dunlap ANP [address] [place] [address] Type 2 diabetes mellitus with hyperlipidemia ([facility]) Social History Tobacco Use Types Packs/Day Years Used Date Smoking Tobacco: Never Smokeless Tobacco: Never Alcohol Use Standard Drinks/Week Comments Never 0 (1 standard drink = 0.6 oz pur e alcohol) Sex and Gender Information Value Date Recorded Sex Assigned at Male 04/07/2022 10:16 AM EDT Legal Sex Male 10:16 AM EDT Gender Identity Male 04/07/2022 10:16 AM EDT Sexual Orientation Choose not to disclose 2021 10:16 AM EDT documented as of this encounter Plan of Treatment Upcoming Encounters Date Type Department Care Team (Late Contact Info) Description 07/20/2024 8:00 AM EST Office Visit [facility] [address] [place] [address] Katelyn Waldrop [address] [place] [address] 08/02/2024 2:15 PM EST Office Visit [facility] [address] [place] [address] Jameel Cota MD [address] [place] [address] documented as of this encounter Goals Goal Patient Goal Type Associated Problems Recent Progress Patient-Stated? Author Remain at or Below Target Blood Pressure General On track(07/13/19 24 4:09 PM EST) No Regine Hawkins, PharmD documented as of this encounter Visit Diagnoses Diagnosis Type 2 diabetes mellitus with hyperlipidemia (CMS/HCC) (CMS/HCC) documented in this encounter Care Teams Polishing Machine Tender Relationship Specialty Start Date End Date Jameel Cota MD [address] [place] [address] PCP - General Internal Medicine 04/10/14 Regine Hawkins, ItaliaD [address] [place] [address] Pharmacist Internal Medicine 08/18/22 documented as of this encounter
--- OUTSIDE RECORDS SUMMARY | 2024-07-06 15:51 | XMS_ITS | Encounter Summary ---
Author Organization [employer] Address [address] [place] [address] [address] [place] [address] Care Team Providers Care Balloon Seller Name Role Phone Jameel Cota MD Primary Care Provide r Regine Hawkins PharmD Unavailable [phone] Encounter Details Date Type Department Care Team (Late st Contact Info) Description 06/11/2022 Orders Only [facility] [address] [place] [address] Gosia Britt LPN Social History Tobacco Use Types Packs/Day Years Used Date Smoking Tobacco: Never Assessed Sex and Gender Information Value Date Recorded [...] Description 07/20/2024 8:00 AM EST Office Visit [facility] [address] [place] [address] Palma, Katelyn [address] [place] [address] 08/02/2024 2:15 PM EST Office Visit [facility] [address] [place] [address] Jameel Cota MD [address] [place], [place] [phone] documented as of this encounter Visit Diagnoses Not on filedocumented in this encounter Care Teams Balloon Seller Relationship Specialty Start Date End Date Jameel Cota MD [address] [place] [address] PCP - General Internal Medicine 04/10/14 Regine Hawkins, ItaliaD [address] [place] [address] Pharmacist Internal Medicine 08/18/22 documented as of this encounter
--- OUTSIDE RECORDS SUMMARY | 2024-07-06 15:51 | XMS_ITS | Encounter Summary ---
Author Organization [employer] Address [address] [place] [address] [address] [place] [address] Care Team Providers Care Drawer In Hand Name Role Phone Jameel Cota MD Primary Care Provide r Regine Hawkins PharmD Unavailable [phone] Encounter Details Date Type Department Care Team (Late st Contact Info) Description 08/18/2022 Orders Only [facility] [address] [place] [address] Regine Hawkins, PharmD [address] [place] [address] Social History Tobacco Use Types Packs/Day Years [...] not to disclose 2021 10:16 AM EDT COVID-19 Exposure Response Date Recorded In the last 10 days, have yo u been in contact with someone who was confirmed or suspected to have Coronavirus/COVID-19? Unable to assess 08/18/2022 1:05 PM EDT documented as of this encounter Plan of Treatment Upcoming Encounters Date Type Department Care Team (Late st Contact Info) Description 07/20/2024 8:00 AM EST Office Visit [facility] ADULT [facility] [address] [place], [place] [phone] Katelyn Waldrop [address] [place], [place] [phone] 08/02/2024 2:15 PM EST Office Visit [facility] [address] [place], [place] [phone] Jameel Cota MD [address] [place], [place] [phone] documented as of this encounter Goals Goal Patient Goal Type Associated Problems Recent Progress Patient-Stated? Author Remain at or Below Target Blood Pressure General On track(07/13/19 24 4:09 PM EST) No Regine Hawkins, PharmD documented as of this encounter Visit Diagnoses Not on filedocumented in this encounter Care Teams Drawer In Hand Relationship Specialty Start Date End Date Jameel Cota MD [address] [place] [address] PCP - General Internal Medicine 04/10/14 Regine Hawkins, PharmD [address] [place] [address] Pharmacist Internal Medicine 08/18/22 documented as of this encounter
--- OUTSIDE RECORDS SUMMARY | 2024-07-06 15:51 | XMS_ITS | Encounter Summary ---
Author Organization [employer] Address [address] [place] [address] [address] [place] [address] Care Team Providers Care Lighter Captain Name Role Phone Jameel Cota MD Primary Care Provide r Regine Hawkins PharmD Unavailable [phone] Encounter Details Date Type Department Care Team (Late st Contact Info) Description 08/05/2022 Orders Only [facility] [address] [place] [address] Gosia Britt LPN Social History Tobacco Use Types Packs/Day Years Used Date Smoking Tobacco: Never Smokeless Tobacco: Never Sex and Gender Information Value Date Recorded [...] Description 07/20/2024 8:00 AM EST Office Visit [facility] [address] [place] [address] Katelyn Waldrop [address] [place] [address] 08/02/2024 2:15 PM EST Office Visit [facility] [address] [place] [address] Jameel Cota MD [address] [place], [place] [phone] documented as of this encounter Visit Diagnoses Not on filedocumented in this encounter Care Teams Lighter Captain Relationship Specialty Start Date End Date Jameel Cota MD [address] [place] [address] PCP - General Internal Medicine 04/10/14 Regine Hawkins PharmD [address] [place] [address] Pharmacist Internal Medicine 08/18/22 documented as of this encounter
--- OUTSIDE RECORDS SUMMARY | 2024-07-06 15:51 | XMS_ITS | Encounter Summary ---
Author Organization [employer] [facility] Address [address] [place] [address] 7 [place] [address] Care Team Providers Care Director Of Food And Nutrition Name Role Phone Jameel Cota MD Primary Care Provide r Regine Hawkins PharmD Unavailable [phone] Encounter Details Date Type Department Care Team (Latest Contact Info) Description 11/22/2018 Abstract [facility] CONVERSIONS Dental, Provider, DDS Social History Tobacco Use Types Packs/Day Years [...] Upcoming Encounters Date Type Department Care Team ( st Contact Info) Description 07/20/2024 8:00 AM EST Office Visit [facility] ADULT DENTAL [address] [place] [address] Katelyn Waldrop [address] [place] [address] 08/02/2024 2:15 PM EST Office Visit [facility] [address] [place] [address] Jameel Cota MD [address] [place] [address] documented as of this encounter Visit Diagnoses Not on filedocumented in this encounter Care Teams Director Of Food And Nutrition Relationship Specialty Start Date End Date Jameel Cota MD [address] [place], [place] [phone] PCP - General Internal Medicine 04/10/14 Regine Hawkins PharmD [address] [place] [address] Pharmacist Internal Medicine 08/18/22 documented as of this encounter
--- OUTSIDE RECORDS SUMMARY | 2024-07-06 15:51 | XMS_ITS | Encounter Summary ---
Author Organization [facility] [facility] Address [address] [place] [address] 7 [place] [address] Care Team Providers Care Continuous Pillowcase Cutter Name Role Phone Jameel Cota MD Primary Care Provide r Regine Hawkins PharmD Unavailable [phone] Encounter Details Date Type Department Care Team (Latest Contact Info) Description 11/13/2020 Abstract [facility] CONVERSIONS Dental, Provider, DDS Social History Tobacco [...] Description 07/20/2024 8:00 AM EST Office Visit [facility] ADULT DENTAL [address] [place] [address] Katelyn Waldrop [address] [place] [address] 08/02/2024 2:15 PM EST Office Visit [facility] MEDICINE [address] [place] [address] Jameel Cota MD [address] [place] [address] documented as of this encounter Visit Diagnoses Not on filedocumented in this encounter Care Teams Continuous Pillowcase Cutter Relationship Specialty Start Date End Date Jameel Cota MD [address] [place] [address] PCP - General Internal Medicine 04/10/14 Regine Hawkins PharmD [address] [place] [address] Pharmacist Internal Medicine 08/18/22 documented as of this encounter
--- OUTSIDE RECORDS SUMMARY | 2024-07-06 15:51 | XMS_ITS | Encounter Summary ---
Author Organization [employer] Address [address] [facility] 7t [place] [address] Care Team Providers Care Agricultural Engineering Technologist Name Role Phone Jameel Cota MD Primary Care Provide r Regine Hawkins PharmD Unavailable [phone] Encounter Details Date Type Department Care Team ([facility] Contact Info) Description 08/28/2022 Orders Only [facility] CHC MED & PEDS [address] [place] [address] Gosia Britt LPN Social History Tobacco Use [...] was confirmed or suspected to have Coronavirus/COVID-19? No / Unsure 08/25/2022 1:24 PM EDT documented as of this encounter Plan of Treatment Upcoming Encounters Date Type Department Care Team (Late Contact Info) Description 07/20/2024 8:00 AM EST Office Visit [facility] ADULT DENTAL [address] [place], [place] [phone] Robert Waldroparis [address] [place], [place] [phone] 08/02/2024 2:15 PM EST Office Visit [facility] MEDICINE [address] [place] [address] Jameel Cota MD [address] [place] [address] documented as of this encounter Goals Goal Patient Goal Type Associated Problems Recent Progress Patient-Stated? Author Remain at or Below Target Blood Pressure General On track(07/13/19 24 4:09 PM EST) No Regine Hawkins, Ruben documented as of this encounter Visit Diagnoses Not on filedocumented in this encounter Care Teams Agricultural Engineering Technologist Relationship Specialty Start Date End Date Jameel Cota MD [address] [place] [phone] PCP - General Internal Medicine 04/10/14 Regine Hawkins, PharmD [address] [place] [address] Pharmacist Internal Medicine 08/18/22 documented as of this encounter
--- OUTSIDE RECORDS SUMMARY | 2024-07-06 15:51 | XMS_ITS | Encounter Summary ---
Author Organization [employer] [facility] Address [address] [place] [address] 7 [place] [address] Care Team Providers Care Physician Interventional Cardiologist Name Role Phone Jameel Cota MD Primary Care Provide r Regine Hawkins PharmD Unavailable [phone] Encounter Details Date Type Department Care Team (Latest Contact Info) Description 01/08/2022 Abstract [facility] CONVERSIONS Dental, Provider, DDS Social [...] Description 07/20/2024 8:00 AM EST Office Visit [facility] ADULT DENTAL [address] [place] [address] Katelyn Waldrop [address] [place] [address] 08/02/2024 2:15 PM EST Office Visit [facility] MEDICINE [address] [place] [address] Jameel Cota MD [address] [place] [address] documented as of this encounter Visit Diagnoses Not on filedocumented in this encounter Care Teams Physician Interventional Cardiologist Relationship Specialty Start Date End Date Jameel Cota MD [address] [place] [address] PCP - General Internal Medicine 04/10/14 Regine Hawkins PharmD [address] [place] [address] Pharmacist Internal Medicine 08/18/22 documented as of this encounter
--- OUTSIDE RECORDS SUMMARY | 2024-07-06 15:51 | XMS_ITS | Encounter Summary ---
Author Organization [employer] Address [address] [place] [address] 7 [place] [address] Care Team Providers Care Hat Brim And Crown Laminating Operator Name Role Phone Jameel Cota MD Primary Care Provide r Regine Hawkins PharmD Unavailable [phone] Encounter Details Date Type Department Care Team (Late st Contact Info) Description 10/10/2022 Abstract [facility] MEDICINE [address] [place] [address] Jameel Cota MD [address] [place] [address] Social History Tobacco Use Types Packs/Day Years [...] Description 07/20/2024 8:00 AM EST Office Visit [facility] ADULT DENTAL [address] [place] [address] Katelyn Waldrop [address] [place] [address] 08/02/2024 2:15 PM EST Office Visit [facility] MEDICINE [address] [place] [address] Jameel Cota MD [address] [place] [address] documented as of this encounter Goals Goal Patient Goal Type Associated Problems Recent Progress Patient-Stated? Author Remain at or Below Target Blood Pressure General On track(07/13/19 24 4:09 PM EST) No Regine Hawkins, Ruben documented as of this encounter Procedures Procedure Name Priority Date/Time Associated Diagnosis Comments COLONOSCOPY Routine 02/20/2013 documented in this encounter Results * Colonoscopy (02/20/2013) Colonoscopy Normal Normal 02/20/2013 Narrative Urmila Monte - 02/20/2013 12:53 PM EDT Recommended 10 year follow up Historical Provider clipsync MAINTENANCE Edited Result - Final documented in this encounter Visit Diagnoses Not on filedocumented in this encounter Care Teams Hat Brim And Crown Laminating Operator Relationship Specialty Start Date End Date Jameel Cota MD [address] [place] [address] PCP - General Internal Medicine 04/10/14 Regine Hawkins, PharmD [address] [place] [address] Pharmacist Internal Medicine 08/18/22 documented as of this encounter
--- OUTSIDE RECORDS SUMMARY | 2024-07-06 15:51 | XMS_ITS | Encounter Summary ---
Author Organization [employer] Address 75 [facility] 7t [place] [address] Care Team Providers Care Therapist Occupational Name Role Phone Jameel Cota MD Primary Care Provide r Regine Hawkins PharmD Unavailable [phone] Reason for Visit * Reason Onset Date Comments Pre Op 07/03/2023 Encounter Details Date Type Department Care Team ([facility] st Contact Info) Description 07/03/2023 Telephone [facility] MEDICINE [address] [place] [address] Jameel Cota MD [address] [place], [place] [phone] Pre Op Social History Tobacco Use Types Packs/Day Years Used Date Smoking Tobacco: Never Passive Smoke Exposure: Never Smokeless Tobacco: Never Alcohol Use Standard Drinks/Week Comments Never 0 (1 standard drink = 0.6 oz pur e alcohol) Depression Answer Date Recorded Patient Health Questionnaire-9 Score 0 03/03/2023 Housing Stability Answer Date Recorded What is your housing situation today? I have milesedilberto klein 03/25/[address] you li ve. Do you have problems with any of the following? None of the above 03/25/2023 Food Insecurity Answer Date Recorded Within the past 12 months, y ou worried that your food would run out before you got money to buy more: Never True 03/25/2023 Within the past 12 months,th e food you bought just didn't last and you didn't have enough money to get more: Never True Transportation Answer Date Recorded In the past 12 months, has l ack of transportation kept you from medical appts, meetings, work or from getting things needed for daily living? No 03/25/2023 Utilities Answer Date Recorded In the past 12 months, has t he electric, gas, oil or water company threatened to shut off services in your home? No 03/25/2023 Depression Answer Date Recorded Patient Health Questionnaire-2 Score 0 03/03/2023 Sex and Gender Information Value Date Recorded Sex Assigned at Male 04/07/2022 10:16 AM EDT Legal Sex Male 10:16 AM EDT Gender Identity Male 04/07/2022 10:16 AM EDT Sexual Orientation Choose not to disclose 2021 10:16 AM EDT documented as of this encounter Miscellaneous Notes * Telephone Encounter - Anshul Chavis - 07/03/2023 10:45 AM EST Date of Surgery: 08/31/23 Surgical procedure being done: Prostatectomy Type of anesthesia: General Lab needed: whatever pcp sees needed EKG: yes Surgeon's name: Cj Tan Facility name: [facility] Surgeon's office number: [phone] opt 3 Surgeon's office fax number: [phone] Contact name (person you spoke with): Shanita documented in this encounter Plan of Treatment Upcoming Encounters Date Type Department Care Team (Late st Contact Info) Description 07/20/2024 8:00 AM EST Office Visit [facility] ADULT DENTAL [address] [place] [address] Katelyn Waldrop [address] [place] [address] 08/02/2024 2:15 PM EST Office Visit [facility] MEDICINE [address] [place] [address] Jameel Cota MD [address] [place] [address] documented as of this encounter Goals Goal Patient Goal Type Associated Problems Recent Progress Patient-Stated? Author Remain at or Below Target Blood Pressure General On track(07/13/19 24 4:09 PM EST) No Regine Hawkins, Ruben documented as of this encounter Visit Diagnoses Not on filedocumented in this encounter Additional Health Concerns Assessment Noted Time PHQ-9 Depression Total Score: 0 03/03/20 23 10:13 AM EDT documented as of this encounter Care Teams Therapist Occupational Relationship Specialty Start Date End Date Jameel Cota MD [address] [place] [address] PCP - General Internal Medicine 04/10/14 Regine Hawkins, ItaliaD [address] [place] [address] Pharmacist Internal Medicine 08/18/22 documented as of this encounter
--- OUTSIDE RECORDS SUMMARY | 2024-07-06 15:51 | XMS_ITS | Encounter Summary ---
Author Organization [employer] Address [address] [place] [address] 7t [place] [address] Care Team Providers Care Dictionary Editor Name Role Phone Jameel Cota MD Primary Care Provide r Regine Hawkins PharmD Unavailable [phone] Encounter Details Date Type Department Care Team (Late st Contact Info) Description 07/14/2022 Orders Only [facility] MEDICINE [address] [place] [address] Britany Bell LPN Social History Tobacco Use Types Packs/Day [...] suspected to have Coronavirus/COVID-19? No / Unsure 06/19/2022 9:00 AM EST documented as of this encounter Plan of Treatment Upcoming Encounters Date Type Department Care Team (Late st Contact Info) Description 07/20/2024 8:00 AM EST Office Visit [facility] ADULT DENTAL [address] [place] [address] Katelyn Waldrop [address] [place] [address] 08/02/2024 2:15 PM EST Office Visit [facility] MEDICINE [address] [place] [address] Jameel Cota MD [address] [place] [address] documented as of this encounter Procedures Procedure Name Priority Date/Time Associated Diagnosis Comments GLUCOSE, WHOLE BLOOD Routine 07/14/2022 12:40 PM EST documented in this encounter Results * GLUCOSE, WHOLE BLOOD (07/14/2022 12:40 PM EST) Glucose, Whole Blood 111 60 - 115 mg/dL [facility] Comment:METER #: [id number] 7 07/14/2022 12:4 0 PM EST 07/14/2022 12:45 PM EST us [facility] External Provider LAB BLO OD ORDERABLES Final Result Performing Organization Address City/State/[facility] Co de Phone Number [facility] [address] [place] [address] [phone] documented in this encounter Visit Diagnoses Not on filedocumented in this encounter Care Teams Dictionary Editor Relationship Specialty Start Date End Date [place] [address] PCP - General Internal Medicine 04/10/14 Regine Hawkins PharmD [address] [place] [phone] Pharmacist Internal Medicine 08/18/22 documented as of this encounter
--- OUTSIDE RECORDS SUMMARY | 2024-07-06 15:51 | XMS_ITS | Encounter Summary ---
Author Organization [employer] [facility] Address [address] [place] [address] 7 [place] [address] Care Team Providers Care Civil Clerk Name Role Phone Jameel Cota MD Primary Care Provide r Regine Hawkins PharmD Unavailable [phone] Reason for Visit * Reason Comments Med Refill Encounter Details Date Type Department Care Team (Late Contact Info) Description 01/15/2023 Refill [facility] MEDICINE [address] [place] [address] Name, MD Дмитрий [address] [place] [address] Mixed hyperlipidemia Social History Tobacco Use Types Packs/Day Years [...] Description 07/20/2024 8:00 AM EST Office Visit [facility] ADULT DENTAL [address] [place] [address] Katelyn Waldrop [address] [place] [address] 08/02/2024 2:15 PM EST Office Visit [facility] MEDICINE [address] [place] [address] Jameel Cota MD [address] [place] [address] documented as of this encounter Goals Goal Patient Goal Type Associated Problems Recent Progress Patient-Stated? Author Remain at or Below Target Blood Pressure General On track(07/13/19 4:09 PM EST) No Regine Hawkins, PharmD documented as of this encounter Visit Diagnoses Diagnosis Mixed hyperlipidemia documented in this encounter Care Teams Civil Clerk Relationship Specialty Start Date End Date Jameel Cota MD [address] [place] [address] PCP - General Internal Medicine 04/10/14 Regine Hawkins, PharmD [address] [place] [address] Pharmacist Internal Medicine 08/18/22 documented as of this encounter
== END 2024-07-06 15:35 | disposition home or self-care (01) ==
PROVIDERS: PCP Internal Medicine; Visit Provider Nurse Practitioner Family
DX: Z01.818 Encounter for other preprocedural examination (principal); Z12.11 Encounter for screening for malignant neoplasm of colon; Z86.0101 Personal history of adenomatous and serrated colon polyps
CPT/HCPCS: 99024

== ENCOUNTER → 2024-07-06 13:37 | Outpatient (BNVA) | payer OTHER, SELFPAY | PROVIDERS: PCP Internal Medicine; Visit Provider Nurse Practitioner Family | DX: Z01.818 Encounter for other preprocedural examination (principal) | CPT/HCPCS: 99212 ==

== ENCOUNTER 2024-08-02 15:08 | Outpatient (REF) | payer OTHER, SELFPAY ==
--- NOTE | ~2024-08-02 | XR_ITS ---
EXAMINATION: XR CHEST 2 VIEWS HISTORY: dry cough COMPARISON: Comparison is made with the prior examination dated 05/25/2019. FINDINGS: PA and lateral views of the chest are submitted. Again seen is elevation of the right hemidiaphragm. The lungs are clear. There is no pleural effusion, pneumothorax, or pulmonary vascular congestion. The heart is normal in size. There is degenerative disc disease of the spine. XR/XR chest 2V IMPRESSION: No acute cardiopulmonary abnormality. Electronically signed by: Haris Hemphill MD 08/02/2024 03:32 PM DASHAWN
--- OUTSIDE RECORDS SUMMARY | 2024-08-02 18:55 | XMS_ITS | Encounter Summary ---
Author Organization [facility] [facility] Address [address] [place] [address] 7 [place] [address] Care Team Providers Care Door Manager Name Role Phone Jameel Cota MD Primary Care Provide r Regine Hawkins PharmD Unavailable [phone] Encounter Details Date Type Department Care Team (Latest Contact Info) Description 11/13/2020 Abstract [facility] CONVERSIONS Dental, Provider, DDS Social History Tobacco [...] Care Team ( st Contact Info) Description 11/03/2024 11:15 AM EDT Office Visit [facility] MEDICINE [address] [place] [address] Jameel Cota MD [address] [place] [address] 01/18/2025 8:00 AM EDT Office Visit [facility] ADULT DENTAL [address] [place] [address] Katelyn Waldrop [address] [place] [address] documented as of this encounter Visit Diagnoses Not on filedocumented in this encounter Care Teams Door Manager Relationship Specialty Start Date End Date Jameel Cota MD [address] [place], [place] [phone] PCP - General Internal Medicine 04/10/14 Regine Hawkins, ItaliaD [address] [place] [address] Pharmacist Internal Medicine 08/18/22 documented as of this encounter
--- OUTSIDE RECORDS SUMMARY | 2024-08-02 18:55 | XMS_ITS | Encounter Summary ---
Author Organization [employer] Address [address] [facility] 7t [place] [address] Care Team Providers Care Fall Intern Name Role Phone Jameel Cota MD Primary Care Provide r Regine Hawkins PharmD Unavailable [phone] Encounter Details Date Type Department Care Team (Late st Contact Info) Description 08/05/2022 Orders Only [facility] CHC MED & PEDS [address] [place] [address] Gosia Britt LPN Social History Tobacco Use [...] Care Team (Late st Contact Info) Description 11/03/2024 11:15 AM EDT Office Visit [facility] MEDICINE [address] [place] [address] Jameel Cota MD [address] [place] [address] 01/18/2025 8:00 AM EDT Office Visit [facility] ADULT DENTAL [address] [place], [place] [phone] Katelyn Waldrop [address] [place] [address] documented as of this encounter Visit Diagnoses Not on filedocumented in this encounter Care Teams Fall Intern Relationship Specialty Start Date End Date Jameel Cota MD [address] [place] [address] PCP - General Internal Medicine 04/10/14 Regine Hawkins PharmD [address] [place] [address] Pharmacist Internal Medicine 08/18/22 documented as of this encounter
--- OUTSIDE RECORDS SUMMARY | 2024-08-02 18:55 | XMS_ITS | Encounter Summary ---
Author Organization [employer] Address [address] [facility] 7t [place] [address] Care Team Providers Care Hospice Clinical Marketer Name Role Phone Jameel Cota MD Primary Care Provide r Regine Hawkins PharmD Unavailable [phone] Reason for Visit * Reason Onset Date Comments Pre Op 07/03/2023 Encounter Details Date Type Department Care Team ([facility] st Contact Info) Description 07/03/2023 Telephone [facility] MEDICINE [address] [place] [address] Jameel Cota MD [address] [place], [place] [phone] Pre Op Social History Tobacco Use Types [...] sees needed EKG: yes Surgeon's name: Cj Maddox Facility name: [facility] Surgeon's office number: [phone] opt 3 Surgeon's office fax number: [phone] Contact name (person you spoke with): Shanita documented in this encounter Plan of Treatment Upcoming Encounters Date Type Department Care Team (Late st Contact Info) Description 11/03/2024 11:15 AM EDT Office Visit [facility] MEDICINE [address] [place] [address] Jameel Cota MD [address] [place] [address] 01/18/2025 8:00 AM EDT Office Visit [facility] ADULT DENTAL [address] [place] [address] Katelyn Waldrop [address] [place] [address] documented as of this encounter Goals Goal Patient Goal Type Associated Problems Recent Progress Patient-Stated? Author Remain at or Below Target Blood Pressure General On track(07/13/19 24 4:09 PM EST) No Regine Hawkins, PharmD documented as of this encounter Visit Diagnoses Not on filedocumented in this encounter Additional Health Concerns Assessment Noted Time PHQ-9 Depression Total Score: 0 03/03/20 10:13 AM EDT documented as of this encounter Care Teams Hospice Clinical Marketer Relationship Specialty Start Date End Date Jameel Cota MD [address] [place] [address] PCP - General Internal Medicine 04/10/14 Regine Hawkins, ItaliaD [address] [place] [address] Pharmacist Internal Medicine 08/18/22 documented as of this encounter
--- OUTSIDE RECORDS SUMMARY | 2024-08-02 18:55 | XMS_ITS | Encounter Summary ---
Author Organization [employer] Address [address] [facility] 7t [place] [address] Care Team Providers Care Insole Bottom Filler Name Role Phone Jameel Cota MD Primary Care Provide r Regine Hawkins PharmD Unavailable [phone] Reason for Visit * Reason Comments Routine Cleaning fluoride Encounter Details Date Type Department Care Team (Late st Contact Info) Description 07/20/2024 8:00 AM EST Office Visit [facility] ADULT DENTAL [address] [place] [address] [place], Katelyn [address] [place] [address] Dental calculus (Primary Dx); Periodontal disease; Missing teeth, acquired; Acute gingival inflammation; Gingival bleeding; Generalized gingival recession Social History Tobacco Use Types Packs/Day Years [...] AM EDT documented as of this encounter Last Filed Vital Signs Vital Sign Reading Time Taken Comments Blood Pressure 126/72 07/20/2024 7:52 AM EST Pulse - - Temperature - - Respiratory Rate - - Oxygen Saturation - - Inhaled Oxygen Concentration - - Weight - - Height - - Body Mass Index - - documented in this encounter Progress Notes * Katelyn Waldrop - 07/20/2024 8:00 AM EST Patient ID: Jabari Chavis is a 64 y.o. male. Time Out: Timeout Date: 07/20/24, Timeout Time: 0758 (Prophy, fluoride) Location: [facility] Tooth: Maxilla and Mandible Procedure: Prophylaxis, Fluoride Verified the above with patient, funeral director's assistant, and provider. Confirmed via patient's chart, intraorally and by radiographs. Brown Sourer: not applicable Medical Hx: Vitals: Blood pressure 126/72. Medications, Med Hx reviewed with patient and updated in chart. Treatment Provided Dental procedures in this visit D1110 - PROPHYLAXIS - ADULT (Completed) Service provider: Katelyn Waldrop Billing provider: Tyler Redd DDS D1206 - TOPICAL APPLICATION OF FLUORIDE VARNISH (Completed) Service provider: Katelyn Waldrop Billing provider: Tyler Redd DDS D1330 - ORAL HYGIENE INSTRUCTIONS (Completed) Service provider: Katelyn Waldrop Billing provider: Tyler Redd DDS Instruments Used: Ultrasonic Scalers and Prophy angle Fluoride: 5% NaF varnish applied and POI given Oral Cancer Screening: No lesions Head/Neck Exam: No Lesions Calculus: moderate Plaque: heavy Stain: Light Bleeding: moderate to heavy Gingiva: erythematous, inflamed, bleeding, bulbous. OH: Needs improvement Perio Chart: completed: has deep pockets again with acute inflammation, calculus , heavy plaque andfood impactions. Pt to come back in 6 months for FMX and another gross debridement to place P/A forSRP. I believe that Pt will be due for SRP by then. Oral hygiene instructions provided to patient including brushing technique and flossing. Recommendations: Orion two times daily, modified reis technique, Floss daily, Electric toothbrush, Soft bristle toothbrush, Orion Tongue, Anti-sensitivity toothpaste, Listerine. Recall Frequency: 6 mo NV: 6 months prophy, perio chart, P. Exam FMX and place SRP P/A. Hygienist: Katelyn Waldrop RDH documented in this encounter Plan of Treatment Upcoming Encounters Date Type Department Care Team (Late st Contact Info) Description 11/03/2024 11:15 AM EDT Office Visit [facility] MEDICINE [address] [place] [address] Jameel Cota MD [address] [place] [address] 01/18/2025 8:00 AM EDT Office Visit [facility] ADULT DENTAL [address] [place] [address] Katelyn Waldrop [address] [place] [address] Scheduled Orders Name Type Priority Associated Diagnoses Orde r Schedule PERIODIC ORAL EVALUATION - ESTABLISHED PATIENT Dental Routine 1 Occurren hiram starting 07/20/2024 DIAGNOSTIC - DIAGNOSTIC IMAGING - INTRAORAL - COMPREHENSIVE SERIES OF RADIOGRAPHIC IMAGES Dental Routine 1 Occurrence s starting 07/20/2024 PROPHYLAXIS - ADULT Dental Routine 1 Occ urrences starting 07/20/2024 TOPICAL APPLICATION OF FLUORIDE VARNISH Dental Routine 1 Occurrences s tarting 07/20/2024 ORAL HYGIENE INSTRUCTIONS Dental Routine 1 Occurrences starting 07/20/2024 ADJUNCTIVE GENERAL SERVICES - PROFESSIONAL VISITS - CASE PRESENTATION, SUBSEQUENT TO DETAILED AND EXTENSIVE TREATMENT PLANNING Dental Routine 1 Occurrence s starting 07/20/2024 documented as of this encounter Goals Goal Patient Goal Type Associated Problems Recent Progress Patient-Stated? Author Remain at or Below Target Blood Pressure General On track(07/13/19 4:09 PM EST) No Regine Hawkins PharmD documented as of this encounter Procedures Procedure Name Priority Date/Time Associated Diagnosis Comments TOPICAL APPLICATION OF FLUORIDE VARNISH Routine 07/20/2024 8:00 AM EST Dental calculus Periodontal disease Missing teeth, acquired Acute gingival inflammation Gingival bleeding Generalized gingival recession PROPHYLAXIS - ADULT Routine 07/20/2024 8 :00 AM EST Dental calculus Periodontal disease Acute gingival inflammation Gingival bleeding ORAL HYGIENE INSTRUCTIONS Routine 07/20/2024 8:00 AM EST Dental calculus Periodontal disease Missing teeth, acquired Acute gingival inflammation Gingival bleeding Generalized gingival recession 13 EXTRACTION Routine 07/20/2024 12:00 AM EST documented in this encounter Visit Diagnoses Diagnosis Dental calculus- Primary Accretions on teeth Periodontal disease Unspecified gingival and periodontal disease Missing teeth, acquired Acute gingival inflammation Acute gingivitis, plaque induced Gingival bleeding Other specified periodontal diseases Generalized gingival recession Gingival recession, generalized documented in this encounter Additional Health Concerns Assessment Noted Time PHQ-9 Depression Total Score: 0 04/07/20 24 9:52 AM EDT documented as of this encounter Care Teams Insole Bottom Filler Relationship Specialty Start Date End Date Jameel Cota MD [address] [place], [place] [phone] PCP - General Internal Medicine 04/10/14 Regine Hawkins, Ruben [address] [place] [address] Pharmacist Internal Medicine 08/18/22 documented as of this encounter
--- OUTSIDE RECORDS SUMMARY | 2024-08-02 18:55 | XMS_ITS | Encounter Summary ---
Author Organization [employer] Address [address] [place] [address] 7[address] [place] [address] Care Team Providers Care Senior Project Leader/Team Lead Name Role Phone Jameel Cota MD Primary Care Provide r Regine Hawkins PharmD Unavailable [phone] Encounter Details Date Type Department Care Team (Late Contact Info) Description 07/14/2022 Orders Only [facility] MED[facility] [address] [place] [phone] Britany Bell LPN Social History Tobacco Use [...] Department Care Team (Late Contact Info) Description 11/03/2024 11:15 AM EDT Office Visit [facility] MED[facility]INE [address] [place], [place] [phone] Jameel Cota MD [address] [place] [address] 01/18/2025 8:00 AM EDT Office Visit [facility] ADULT DENTAL [address] [place] [address] Katelyn Waldrop [address] [place] [address] documented as of this encounter Procedures Procedure Name Priority Date/Time Associated Diagnosis Comments GLUCOSE, WHOLE BLOOD Routine 07/14/2022 12:40 PM EST documented in this encounter Results * GLUCOSE, WHOLE BLOOD (07/14/2022 12:40 PM EST) Glucose, Whole Blood 111 60 - 115 mg/dL [facility] Comment:METER #: [id number] 07/14/2022 12:4 0 PM EST 07/14/2022 12:45 PM EST us [facility] External Provider LAB BLO OD ORDERABLES Final Result Performing Organization Address City/State/[facility] Co de Phone Number [facility] [address] [place] [address] [phone] documented in this encounter Visit Diagnoses Not on filedocumented in this encounter Care Teams Senior Project Leader/Team Lead Relationship Specialty Start Date End Date Jameel Cota MD [address] [place] [address] PCP - General Internal Medicine 04/10/14 Regine Hawkins PharmD [address] [place] [address] Pharmacist Internal Medicine 08/18/22 documented as of this encounter
--- OUTSIDE RECORDS SUMMARY | 2024-08-02 18:55 | XMS_ITS | Encounter Summary ---
Author Organization [employer] [facility] Address [address] [place] [address] 7 [place] [address] Care Team Providers Care Compliance Field Technician Name Role Phone Jameel Cota MD Primary Care Provide r Regine Hawkins PharmD Unavailable [phone] Encounter Details Date Type Department Care Team (Latest Contact Info) Description 11/22/2018 Abstract [facility] CONVERSIONS Dental, Provider, DDS Social History [...] Description 11/03/2024 11:15 AM EDT Office Visit [facility] MEDICINE [address] [place] [address] Jameel Cota MD [address] [place] [address] 01/18/2025 8:00 AM EDT Office Visit [facility] ADULT DENTAL [address] [place] [address] Katelyn Waldrop [address] [place] [address] documented as of this encounter Visit Diagnoses Not on filedocumented in this encounter Care Teams Compliance Field Technician Relationship Specialty Start Date End Date Jameel Cota MD [address] [place] [address] PCP - General Internal Medicine 04/10/14 Regine Hawkins, ItaliaD [address] [place] [address] Pharmacist Internal Medicine 08/18/22 documented as of this encounter
--- OUTSIDE RECORDS SUMMARY | 2024-08-02 18:55 | XMS_ITS | Encounter Summary ---
Author Organization [employer] Address [address] [facility] 7 [place] [address] Care Team Providers Care Barrel Lathe Operator Inside Name Role Phone Jameel Cota MD Primary Care Provide r Regine Hawkins PharmD Unavailable [phone] Reason for Visit * Reason Comments Med Refill Encounter Details Date Type Department Care Team ([facility] st Contact Info) Description 07/25/2024 Refill [facility] [address] [place] [address] Jameel Cota MD [address] [place] [address] Social History Tobacco Use Types Packs/Day Years [...] t he electric, gas, oil or water [employer] threatened to shut off services in your [...] Description 11/03/2024 11:15 AM EDT Office Visit [facility] MED[facility]INE [address] [place] [address] Jameel Cota MD [address] [place] [address] 01/18/2025 8:00 AM EDT Office Visit [facility] ADULT DENTAL [address] [place] [address] Katelyn Waldrop [address] [place] [address] documented as of this encounter Goals Goal [...] documented as of this encounter Care Teams Barrel Lathe Operator Inside Relationship Specialty Start Date End Date Jameel Cota MD [address] [place] [address] PCP - General Internal Medicine 04/10/14 Regine Hawkins PharmD [address] [place] [address] Pharmacist Internal Medicine 08/18/22 documented as of this encounter
--- OUTSIDE RECORDS SUMMARY | 2024-08-02 18:55 | XMS_ITS | Encounter Summary ---
Author Organization [employer] [facility] Address [address] [place] [address] 7 [place] [address] Care Team Providers Care School Bus Technician Name Role Phone Jameel Cota MD Primary Care Provide r Regine Hawkins PharmD Unavailable [phone] Encounter Details Date Type Department Care Team (Latest Contact Info) Description 01/08/2022 Abstract [facility] CONVERSIONS Dental, Provider, DDS Social History Tobacco [...] Description 11/03/2024 11:15 AM EDT Office Visit [facility] MEDICINE [address] [place] [address] Jameel Cota MD [address] [place] [address] 01/18/2025 8:00 AM EDT Office Visit [facility] ADULT DENTAL [address] [place] [address] Katelyn Waldrop [address] [place] [address] documented as of this encounter Visit Diagnoses Not on filedocumented in this encounter Care Teams School Bus Technician Relationship Specialty Start Date End Date Jameel Cota MD [address] [place], [place] [phone] PCP - General Internal Medicine 04/10/14 Regine Hawkins, ItaliaD [address] [place] [address] Pharmacist Internal Medicine 08/18/22 documented as of this encounter
--- OUTSIDE RECORDS SUMMARY | 2024-08-02 18:55 | XMS_ITS | Clinical Summary ---
Author Organization [employer] Address [address] [facility] [address] [place] [address] Care Team Providers Care Newspaper Photo Editor Name Role Phone Jameel Cota MD Primary Care Provide r Regine Hawkins PharmD Unavailable [phone] Allergies No known active allergies Medications buPROPion XL (Wellbutrin XL) 150 MG 24 hr tablet Take 150 mg by mouth in the morning. 023 Active diazePAM (Valium) 5 MG tablet TAKE 1 TABLET BY MOUTH TWICE DAILY ONLY NEEDED 023 Active FLUoxetine (PROzac) 20 MG capsule TAKE 2 CAPSULES BY MOUTH ONCE DAILY IN THE MORNING 023 Active prazosin (Minipress) 5 MG capsule Take 1 capsule by mouth at bedtime 023 Active tamsulosin (Flomax) 0.4 MG 24 hr capsule Take 1 capsule by mouth at bed time. 022 Active Oral Medication Containers misc USE DIRECTED 023 Active atorvastatin (Lipitor) 40 MG tabletIndications :Type 2 diabetes mellitus with hyperlipidemia (CMS/HCC) (CMS/HCC) TAKE 1 TABLET BY MOUTH AT BEDTIME 90 tablet 3 024 Active glipiZIDE XL (Glucotrol XL) 2.5 MG 24 hr tablet TAKE 1 TABLET BY MOUTH EVERY MORNING WITH BREAKFAST 90 tablet 3 024 Active Fluocinolone Acetonide Scalp 0.01 % oil APLIQUE YOUSIF CAPA PEQUENA EN EL CUERO CABELLUDO HUMEDO MASAJE ZENA Y DEJE POR 4 HORAS O TODA LA NOCHE LUEGO ENJUAGE. USE LA NOCHE ANTES DEL CHAMPU 118.28 mL 3 Active metFORMIN XR (Glucophage-XR) 500 MG 24 hr tablet TAKE 2 TABLETS BY MOUTH TWICE DAILY IN THE MORNING AND EVENING WITH FOOD 360 tablet 3 Active Alcohol Swabs (Alcohol Prep) 70 % pads USE DIRECTED ONCE DAILY 100 each 11 Active fluticasone (Flonase) 50 MCG/ACT nasal spray USE 1 SPRAY IN EACH NOSTRIL EVERY DAY 16 g 2 Active OneTouch Delica Lancets 33G miscIndications:T ype 2 diabetes mellitus without complication, without long-term current use of insulin ([facility]) TEST BLOOD SUGAR TWICE A DAY 100 each Active glucose blood (OneTouch Ultra Test) test strip TEST BLOOD SUGAR TWICE A DAY 100 each 11 024 2024 Active docusate sodium (Colace) 100 MG capsuleIndication s:Constipation, unspecified constipation type TAKE 1 CAPSULE BY MOUTH TWICE DAILY IN THE MORNING AND AT BEDTIME 180 capsule 1 Active cyclobenzaprine (Flexeril) 5 MG tabletIndications :Acute midline low back pain without sciatica Take 1 tablet (5 mg) by mouth if needed in the morning, at noon, and at bedtime for muscle spasms. 10 tablet Active ziprasidone (Geodon) 40 MG capsule Take 1 capsule by mouth twice daily in the morning and at bedtime Active traZODone (Desyrel) 100 MG tablet Take 1 tablet by mouth at bedtime as needed for sleep Active lidocaine (Lidoderm) 5 % patchIndications: Acute right-sided low back pain without sciatica Apply 1 patch topically Once per day. Remove & discard patch within 12 hours or as directed by . 30 patch Active hydroCHLOROthiazi de (HYDRODiuril) 25 MG tablet TAKE 1 TABLET BY MOUTH EVERY MORNING 90 tablet 1 Active lisinopril 40 MG tabletIndications :Benign hypertension TAKE 1 TABLET BY MOUTH EVERY MORNING (TAKE SECOND TAB IF BLOOD PRESSURE >140/90) 45 tablet 5 024 Active omega-3 (Fish Oil) 1000 MG capsuleIndication s:Mixed hyperlipidemia TAKE 1 CAPSULE BY MOUTH THREE TIMES DAILY IN THE MORNING, EVENING, AND BEDTIME 90 capsule 3 024 Active Aspirin Low Dose 81 MG EC tablet TAKE 1 TABLET BY MOUTH EVERY EVENING 90 tablet 3 025 Active amLODIPine (Norvasc) 5 MG tablet TAKE 1 TABLET BY MOUTH EVERY EVENING 90 tablet 3 025 Active Blood Glucose Monitoring Suppl (ONE TOUCH ULTRA 2) w/Device kitIndications:Ty pe 2 diabetes mellitus without complication, without long-term current use of insulin (CMS/[facility]) Use to monitor blood glucose by subcutaneous route twice daily 1 kit 1 025 Active guaiFENesin (Robitussin) 100 MG/5ML liquidIndications :Subacute cough Take 10 mL (200 mg) by mouth if needed in the morning, at noon, and at bedtime for cough for up to 10 days. 120 mL 025 2024 Active Blood Glucose Monitoring Suppl (ONE TOUCH ULTRA 2) w/Device kitIndications:Ty pe 2 diabetes mellitus without complication, without long-term current use of insulin (CMS/[facility]) Use to monitor blood glucose by subcutaneous route twice daily 1 kit 1 023 2024 Discontinued(R eorder (will not trigger notification to Pharmacy)) amLODIPine (Norvasc) 5 MG tablet Take 1 tablet (5 mg) by mouth in the evening. 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 Repeat colonoscopy with Dr. Silva 02/20/13 showed no polyps and 1+ internal hemorrhoids. To repeat colonoscopy in 10 years. Overdue. Pt was referred last visit, seen 07/06/2024 scheduled for repeat Tdap: 09/18/2015 Pneumovax 09/20/2009 Assessment & Plan (04/07/2024 10:08 AM EDT): [...] hip, rule out referred pain Ortho evaluation. Ataxic gait 12/29/2023 Assessment & Plan (04/07/2024 [...] Bladder outlet obstruction 06/19/2022 Assessment & Plan (08/02/2024 1:26 PM EST): Under the care of Urology last seen 06/22/2024 Pt with Prostatic stricture and BPH Previously on Finasteride, underwent TURP 05/2019, No longer taking the Finasteride. Assessment & Plan (12/29/2023 11:27 AM EDT): [...] therapy to no glipizide. Assessment & Plan (08/02/2024 2:15 PM EST): Pt here for a f/u DM controlled He is on a regimen of: Metformin 500 mg po 2 tabs po BID and Glipizide XL 2.5 mg po daily, Hgb A1c 08/02/2024: 5.7 Eye exam done on: 07/12/2020 by [...] on a daily basis. Assessment & Plan (04/07/2024 10:05 AM EDT): [...] daily basis. Hyperlipidemia 06/20/2014 Assessment & Plan (08/02/2024 1:28 PM EST): Here for a f/u Most recent lipid profile from: 10/15/2023 Lab Results Component Value Date TRIG 76 [...] 4 month follow up Assessment & Plan (12/29/2023 11:15 AM EDT): [...] up Tubular adenoma 12/23/2012 Assessment & Plan (08/02/2024 1:27 PM EST): Seen on Colonoscopy: 11/22/08. Repeat colonoscopy with Dr. Silva 02/20/13 showed no polyps and 1+ internal hemorrhoids. To repeat colonoscopy in 10 years.Pt seen by GI 07/06/2024 already scheduled for follow up Colonoscopy Assessment & Plan (06/19/2022 8:07 AM EST): [...] hrs prn. Schizophrenia 02/05/2012 Assessment & Plan (08/02/2024 2:29 PM EST): Pt is here for a f/u Pt has a Dx of schizophrenia and PTSD. Well controlled with a daily nurse for medications. He is followed at [facility]. He is at his baseline and not a danger to himself or others. Regimen: Benztropine 0.5 mg BID Geodon 80 mg BID Trazodone 100 mg 1 to 2 tabs po q pm Fluoxetine 20 mg po daily valium 5 mg po q 8 hrs prn. Pt needs to take a test for his license. He is requesting a letter to allow him to take it on paper, since he does not know how to use computers, which is reasonable. Pt only attended up to 2nd grade of school Assessment & Plan (09/29/2023 10:18 AM EDT): [...] changes. Last seen at [facility] 11/17/12 with plan to repeat renal US [...] BMP prior to visit. Assessment & Plan (08/02/2024 1:25 PM EST): Patient here for a f/u BP remains controlled, follows with our CDTM team on a regimen of: Lisinopril 40 mg po daily, Prazosin 5 mg po daily and Norvasc 5 mg po daily Plan: continue current regimen Most recent electrolytes, Bun and Creatinine done on: 10/15/2023 were within normal limits. Will repeat BMP Patient advised to adhere to a low sodium diet, will repeat encouraged about medication compliance, counseled about weight loss. 4 month f/u Lab Results Component Value Date NA 142 10/15/2023 NA 141 07/06/2023 K 3.8 10/15/2023 K 3.8 07/06/2023 CL 99 10/15/2023 CL 97 07/06/2023 BUN 11 10/15/2023 BUN 11 07/06/2023 CREATININE 0.79 10/15/2023 CREATININE 0.86 07/06/2023 Assessment & Plan (12/29/2023 11:14 AM EDT): [...] Vicodin 1-2 times a day. Seen at [facility] and received an epidural [...] in right LE -lumbar MRI done in 2012 moderate size right paramidline disc herniation at [...] Vicodin 1-2 times a day. Seen at [facility] and received an epidural [...] week, landed on his buttocks Described pain 8 Pt has a Hx of chronic back pain since April of 2013. He completed PT 07/21/13 but did not see an improvement in the pain. He was using Vicodin 1-2 times a day. Seen at [facility] and received an epidural [...] Vicodin 1-2 times a day. Seen at [facility] and received an epidural injection 08/27/12 at L4-L5. Continue with Mobic and may use Vicodin prn. Obesity 06/08/1957 Assessment & Plan (08/02/2024 2:29 PM EST): Patient has been counseled and educated about diet and exercise. Personal goal of weight loss discussedPatient has comorbidity of: DM Dietary Recommendations: Fruits, vegetables, whole grains, protein foods, and fat-free or low-fat dairy products are healthy choices. Eat different types of protein foods in your diet. This can include seafood, lean meats, poultry, beans, peas, lentils, nuts, seeds, soy products, and eggs. Limit foods and beverages higher in added sugars, saturated fat, and sodium. Exercise Recommendations: At least 150 minutes of moderate-intensity physical activity per week, or an equivalent combination of moderate- and vigorous-intensity activity Assessment & Plan (09/29/2023 10:16 AM EDT): [...] AM EST): Counseled about diet and exercise BPH (benign prostatic hyperplasia) Assessment & Plan (08/02/2024 1:23 PM EST): Under the care of Dr. Maddox Last seen 06/22/2024 Resolved Problems Problem Noted Date Diagnosed Date Resolved Date Sore throat 12/29/2023 08/02/2024 Assessment & Plan (12/29/2023 12:38 PM EDT): Likely viral Exam normal, negative rapid Covid test. Encounters Date Type Department Care Team Description 08/02/2024 2:15 PM EST Office Visit [facility] [address] [place] [phone] Jameel Cota MD Benign prostatic hyperplasia with urinary frequency (Primary Dx); Type 2 diabetes mellitus without complication, without long-term current use of insulin ([facility]); Benign hypertension; Bladder outlet obstruction; Tubular adenoma; Mixed hyperlipidemia; Preventative health care; Subacute cough; Schizophrenia, unspecified type ([facility]/HCC); Class 1 obesity due to excess calories with serious comorbidity and body mass index (BMI) of 32.0 to 32.9 in adult; Dietary counseling; Exercise counseling 08/02/2024 Travel 07/29/2024 Refill [facility] [address] [place] [address] Regine Hawkins PharmD 07/25/2024 Refill [facility] [address] [place] [address] Jameel Cota MD 07/20/2024 8:00 AM EST Office Visit [facility] [address] [place] [address] Katelyn Waldrop Dental calculus (Primary Dx); Periodontal disease; Missing teeth, acquired; Acute gingival inflammation; Gingival bleeding; Generalized gingival recession 07/20/2024 Telephone [facility] [address] [place] [address] Jameel Cota MD Chart Prep 07/20/2024 Patient Outreach [facility] [address] [place] [address] Jameel Cota MD Pre-visit Planning (SDOH Screening negative and Tobacco screening negative) 05/26/2024 Refill [facility] [address] [place] [address] Jameel Cota MD Benign hypertension; Mixed hyperlipidemia 05/24/2024 Telephone [facility] [address] [place] [address] Martha Frank [place] Jul.Recall 05/02/2024 Refill [facility] [address] [place] [address] Jameel Cota MD from Last 3 Months Immunizations Name Administration [...] Sign Reading Time Taken Comments Blood Pressure 114/71 08/02/2024 2:03 PM EST Pulse 83 08/02/2024 2:03 PM EST Temperature 34.6 ??C (94.2 ??F) 08/02/2024 2:03 PM ES T Respiratory Rate 20 08/02/2024 2:03 PM EST Oxygen Saturation 96% 08/02/2024 2:03 PM EST Inhaled Oxygen Concentration - - Weight 89.6 kg (197 lb 9.6 oz) 08/02/2024 2:03 P M EST Height 165.1 cm (5' 5 ) 08/02/2024 2:03 PM EST Body Mass Index 32.88 08/02/2024 2:03 PM EST Plan of Treatment Upcoming Encounters Date Type Department Care Team (Late st Contact Info) Description 11/03/2024 11:15 AM EDT Office Visit [facility] [address] [place] [address] Jameel Cota MD [address] [place] [address] 01/18/2025 8:00 AM EDT Office Visit [facility] [address] [place] [address] Katelyn Waldrop [address] [place] [address] Health Maintenance Due Date Last Done Comments CT Colonography 1960 FIT DNA/Cologuard 1960 FIT 1960 FOBT 1960 HIV Screening 1960 Sigmoidoscopy 1960 Diabetes: Foot Exam 02/09/1972 Colonoscopy 02/20/2023 02/20/2013 Colorectal Cancer Screening 02/20/2023 Diabetes: Urine Protein Screening 06/17/2023 08/02/2024, 06/17/2022, 02/05/2021, Additional history exists Dental X-Ray: Full Mouth 11/15/2023 11/13/2020 Dental Oral Exam 06/19/2024 12/17/2023, , 01/16/2022, Additional history exists Lipid Panel 10/14/2024 10/15/2023, 06/09, 06/17/2022, Additional history exists Dental X-Ray: Bitewings 12/17/2024 12/17/19 24, 02/23/2023, 03/25/2022, Additional history exists Dental Prophylaxis 01/18/2025 07/20/2024, 0 12/17/2023, 02/23/2023, Additional history exists Diabetes: Hemoglobin A1C 01/30/2025 025, 04/07/2024, 12/29/2023, Additional history exists Alcohol/Substance Use Screening 04/07/2025 04/07/2024 Depression Screening 04/07/2025 04/07/2024, 04/07/20 24 SDOH Screening 07/20/2025 07/20/2024 Tobacco Screening 08/02/2025 08/02/2024 DTaP/Tdap/Td Vaccines (2 - Td or Tdap) 09/17/2025 09/18/2015, 10/15/2013 Eye Exam 11/22/2025 11/23/2023, 11/06, 11/23/2023, Additional history exists RSV Patients and Patients Aged 60 years or older (1 - 1-dose 75+ series) 2037 Hepatitis B Vaccines Completed 05/16/2009, 10/05/2008, 06/28/2008 Hepatitis C Screening Completed 12/31/2021 Pneumococcal Vaccine: 50+ Years Completed 02/07/2022, 05/10/2015, 09/20/2009 Zoster Vaccines Completed [...] Procedure Name Priority Date/Time Associated Diagnosis Comments PSA, SCREEN Routine 08/02/2024 3:36 PM EST Benign prostatic hyperplasia with urinary frequency Bladder outlet obstruction BASIC METABOLIC PANEL Routine 08/02/2024 3:36 PM EST Benign hypertension ALBUMIN, RANDOM URINE W/CREATININE Routine 08/02/2024 3:36 PM EST Type 2 diabetes mellitus without complication, without long-term current use of insulin ([facility]) XR CHEST 2 VIEWS Routine 08/02/2024 3:09 PM EST Subacute cough POCT INFLUENZA B (ID NOW RAPID MOLECULAR) Routine 08/02/2024 2:51 PM EST Subacute cough POCT INFLUENZA A (ID NOW RAPID MOLECULAR) Routine 08/02/2024 2:51 PM EST Subacute cough POCT RAPID COVID ANTIGEN Routine 08/02/2024 2:50 PM EST Subacute cough POCT GLYCATED HEMOGLOBIN, TOTAL Routine 08/02/2024 2:06 PM EST Type 2 diabetes mellitus without complication, without long-term current use of insulin (CMS/HCC) POCT GLUCOSE Routine 08/02/2024 2:06 PM EST Type 2 diabetes mellitus without complication, without long-term current use of insulin (CMS/HCC) ORAL HYGIENE INSTRUCTIONS Routine 07/20/2024 8:00 AM EST Dental calculus Periodontal disease Missing teeth, acquired Acute gingival inflammation Gingival bleeding Generalized gingival recession TOPICAL APPLICATION OF FLUORIDE VARNISH Routine 07/20/2024 8:00 AM EST Dental calculus Periodontal disease Missing teeth, acquired Acute gingival inflammation Gingival bleeding Generalized gingival recession PROPHYLAXIS - ADULT Routine 07/20/2024 8 :00 AM EST Dental calculus Periodontal disease Acute gingival inflammation Gingival bleeding 13 EXTRACTION Routine 07/20/2024 12:00 AM EST BITEWINGS - 4 RADIOGRAPHIC IMAGES Routine 12/17/2023 1:00 PM EDT Dental calculus Erosion of teeth, limited to enamel Missing teeth, acquired PERIODIC ORAL EVALUATION - ESTABLISHED PATIENT Routine 12/17/2023 1:00 PM EDT LIPID PANEL, STANDARD Routine 10/15/2023 8:52 AM EDT Type 2 diabetes mellitus without complication, without long-term current use of insulin (CMS/HCC) ZZZ HISTORICAL HEPATITIS C AB W/REFL TO HCV RNA, QN, PCR Routine 12/31/2021 3:04 PM EDT INTRAORAL - COMPLETE SERIES OF RADIOGRAPHIC IMAGES Routine 11/13/2020 12:00 AM EDT HM COLONOSCOPY Routine 02/20/2013 from Last 3 Months or Most Recently Relevant to Health Maintenance Results * PSA, Screen (08/02/2024 3:36 PM EST) PSA, Total 0.75 <0.05 - 4.0 ng/mL [facility] Comment:PSA methodology: Abb wisam Alijordynty i ChemiluminescentMicroparticle Immunoassay (CMIA) Blood Venous blood specimen / Unknown 08/02/2024 3:36 PM EST 08/02/2024 4:04 PM EST Jameel Goyal MD LAB BLOOD ORDERABLES Final Result Performing Organization Address [facility] Co de Phone Number [facility] [address] [place] [phone] * Albumin, Random Urine W/Creatinine (08/02/2024 3:36 PM EST) Creatinine, Urine 82.85 mg/dL [facility] Microalbumin Urine 9.0 mg/L [facility] Microalbum Creatinine Ratio Ur 10.8 <30 ug/mg cr [facility] Comment:Albumin/Creatinine R atio Reference Ranges: Normal: < 30 ug/mg creatinine Microalbuminuria: 30 - 300 ug/mg creatinineClinical Albuminuria: > 300 ug/mg creatinine Urine (Urine, Random) 08/02/2024 3:36 PM EST 08/02/2024 4:14 PM EST Jameel Goyal MD LAB URINE ORDERABLES Final Result Performing Organization Address [facility] [address]/[facility] Co de Phone Number [facility] [address] [place] [phone] * (ABNORMAL) Basic Metabolic Panel (08/02/2024 3:36 PM EST) Sodium 140 135 - 145 mmol/L [facility] Potassium 3.4 3.3 - 5.1 mmol/L [facility] Chloride 100 96 - 108 mmol/L [facility] Carbon Dioxide 33(H) 22 - 29 mmol/L [facility] Anion Gap 10(L) 12 - 20 [facility] Urea Nitrogen (BUN) 11 9 - 16 mg/dL [facility] Creatinine, Serum 0.74 0.5 - 1.4 mg/dL [facility] Estimated Glomerular Filt Rate >60 [facility] Comment:Chronic Kidney Disea se: Estimated GFR < 60 mL/min/[id number] Kidney Disease: Estimated GFR < 15 mL/min/1.73m2 Glucose 65 60 - 115 mg/dL [facility] Calcium 9.5 8.4 - 10.2 mg/dL [facility] Blood Venous blood specimen / Unknown 08/02/2024 3:36 PM EST 08/02/2024 4:04 PM EST us Jameel Goyal MD LAB BLOOD ORDERABLES Final Result [facility] [address] [place] [address] [phone] * XR Chest 2 Views (08/02/2024 3:09 PM EST) Anatomical Region Laterality Modality Chest Radiographic Karissa ging 08/02/2024 3:09 PM EST Narrative 08/02/2024 3:35 PM EST ?[facility] ?[address] ?[place] [address] ?XRay Report ? Signed ? Patient: Jabari Chavis ?MR#: [id number] ?? 89 ? : 1960 ?Acct:[id number] ? Age/Sex: 64 / M ?ADM Date: 08/02/24 ? Loc: HO.HHCX ? Attending Dr: Jameel Patel MD ? Ordering Physician: Jameel Patel MD ?? Date of Service: 08/02/24 ?? Procedure(s): XR chest 2V ?? Accession Number(s): [id number] ? cc: Jameel Patel MD ? EXAMINATION: ??XR CHEST 2 VIEWS ? HISTORY: dry cough ? COMPARISON: Comparison is made with the prior examination dated ?? 05/25/2019. ? FINDINGS: ??PA and lateral views of the chest are submitted. Again seen ?? is elevation of the right hemidiaphragm. The lungs are clear. ??There is ?? no pleural effusion, pneumothorax, or pulmonary vascular congestion. ? The heart is normal in size. ??There is degenerative disc disease of the ?? spine. ? XR/XR chest 2V ?? IMPRESSION: ?? No acute cardiopulmonary abnormality. ? Electronically signed by: ??Haris Hemphill MD ??08/02/2024 03:32 PM EST ? Dictated By: ?Haris Hemphill MD ? Signed By: ?<Electronically signed by Haris Hemphill MD in OV> ?08/02/24 1532 ? DD/ 1509 ? TD/TT: 08/02/24 1518 ? Software Design Engineer: ? Procedure Note Donpaigeter, Image - 08/02/[address] [address] XRay Report Signed Patient: Mesfin Chavis#: [id number] [birth year] : 1960cct:[id number] Age/Sex: 64 / MADM Date: 08/02/24 Loc: HO.HHCX Attending Dr: Jameel Patel MD Ordering Physician: Jameel Patel MD Date of Service: 08/02/24 Procedure(s): XR chest 2V Accession Number(s): [id number] cc: Jameel Paetl MD EXAMINATION: XR CHEST 2 VIEWS HISTORY: dry cough COMPARISON: Comparison is made with the prior examination dated 05/25/2019. FINDINGS: PA and lateral views of the chest are submitted. Again seen is elevation of the right hemidiaphragm. The lungs are clear. There is no pleural effusion, pneumothorax, or pulmonary vascular congestion. The heart is normal in size. There is degenerative disc disease of the spine. XR/XR chest 2V IMPRESSION: No acute cardiopulmonary abnormality. Electronically signed by: Haris Hemphill MD 08/02/2024 03:32 PM EST Dictated By: Haris Hemphill MD Signed By: <Electronically signed by Haris Hemphill MD in OV> 08/02/24 1532 DD/ 1509 TD/TT: 08/02/24 1518 Software Design Engineer: Jameel Goyal MD IMG XR PROCEDURES Fin al Result * POCT Rapid Influenza B EDDY ID NOW (08/02/2024 2:51 PM EST) Influenza B Negative Negative, Indeterminate [facility] QC Media Lot # [id number] [facility] Lot# Expiration Date [facility] Swab 08/02/2024 2:51 PM EST Jameel Goyal MD POINT OF CARE TEST EN TER/EDIT ORDERABLES Final Result Performing Organization Address City/[facility] [address]/ZIP Co de Phone Number [facility] [address] [place] [phone] * POCT Rapid Influenza A EDDY ID NOW (08/02/2024 2:51 PM EST) Influenza A Negative Negative, Indeterminate [facility] QC Media Lot # [id number] [facility] Lot# Expiration Date [facility] Swab 08/02/2024 2:51 PM EST Jameel Goyal MD POINT OF CARE TEST EN TER/EDIT ORDERABLES Final Result Performing Organization Address City/[facility] [address]/ZIP Co de Phone Number [facility] [address] [place] [phone] * POCT Rapid Covid-19 BinaxNOW (08/02/2024 2:50 PM EST) Rapid COVID Ag Negative QC Media Lot # [id number] Lot# Expiration Date Swab 08/02/2024 2:50 PM EST us Jameel Goyal MD POINT OF CARE TEST EN TER/EDIT ORDERABLES Final Result * POCT HGB A1C (08/02/2024 2:06 PM EST) Hemoglobin A1C 5.7 4.0 - 6.0 % QC Media Lot # [id number] Lot# Expiration Date Blood 08/02/2024 2:06 PM EST Jameel Goyal MD POINT OF CARE TEST EN TER/EDIT ORDERABLES Final Result * POCT Glucose (08/02/2024 2:06 PM EST) Glucose Blood, POC 108 60 - 200 mg/dL QC Media Lot # [id number] Lot# Expiration Date Blood Capillary blood specimen / Unknown 08/02/2024 2:06 PM EST Jameel Goyal MD POINT OF CARE TEST EN TER/EDIT ORDERABLES Final Result * (ABNORMAL) Lipid Panel, Standard (10/15/2023 8:52 AM EDT) Triglycerides 76 <150 mg/dL [facility] Comment:Desirable Triglyceri de: less than 150 mg/dLBorderline High Triglyceride 150-199 mg/dLHigh Triglyceride: 200-499 mg/dLVery High Triglyceride: greater than or equal to 5OO mg/dL Cholesterol 84 <200 mg/dL [facility] Comment:Desirable Cholestero l: less than 200 mg/dLBorderline High Cholesterol: 200-239 mg/dLHigh Cholesterol: greater than 239 mg/dL LDL Cholesterol Calculated 37 <100 mg/dL [facility] Comment:Desirable LDL: less than 100 mg/dLNear Optimal/Above Optimal LDL: 110- 129 mg/dLBorderline High LDL: 130-159 mg/dLHigh LDL: 160-189 mg/dLVery High LDL: greater than or equal to 190 mg/dL HDL Cholesterol 32(L) >40 mg/dL [facility] Comment:Desirable HDL: great er than 40 mg/dL Note: This HDL assay may give artificially low results in patients with liver disease. Blood Venous blood specimen / Unknown 10/15/2023 8:52 AM EDT 10/15/2023 11:35 AM EDT Jameel Goyal MD LAB BLOOD ORDERABLES Final Result [facility] [address] [place] [address] [phone] * HEPATITIS C AB W/REFL TO HCV RNA, QN, PCR (12/31/2021 3:04 PM EDT) HEPATITIS C ANTIBODY NON-REACT [facility] NON-REACT [facility] INDEX 0.09 <1.00 [facility] Comment: ?? HCV antibody was non-reactive. There is no laboratory ?? evidence of HCV infection. ?? In most cases, no further action is required. However, if recent HCV exposure is suspected, a test for HCV RNA (test code 62183) is suggested. ?? For additional information please refer to http://education.DXY/faq/KNU33b0 (This link is being provided for informational/ educational purposes only.) ?? 12/31/2021 3:04 PM EDT Jameel Goyal MD HISTORICAL/NON ORDERA BLE LABS Final Result Performing Organization Address City/[facility] [address]/ZIP Co de Phone Number [facility] [address] * Colonoscopy (02/20/2013) Colonoscopy Normal Normal 02/20/2013 Urmila Sarkar - 02/20/2013 12:53 PM EDT Recommended 10 year follow up Historical Provider HEALTH MAINTENANCE Edited Result - Final from Last 3 Months or Most Recently Relevant to Health Maintenance Insurance [facility] DENTAL - [facility] Care Teams Newspaper Photo Editor Relationship Specialty Start Date End Date Jameel Cota MD [address] [place] [address] PCP - General Internal Medicine 04/10/14 Regine Hawkins, ItaliaD [address] [place] [address] Pharmacist Internal Medicine 08/18/22
--- OUTSIDE RECORDS SUMMARY | 2024-08-02 18:55 | XMS_ITS | Encounter Summary ---
Author Organization [employer] Address [address] [facility] 7 [place] [address] Care Team Providers Care Traveling Buyer Name Role Phone Jameel Cota MD Primary Care Provide r Regine Hawkins PharmD Unavailable [phone] Reason for Visit * Reason Comments Med Refill Encounter Details Date Type Department Care Team ([facility] st Contact Info) Description 07/29/2024 Refill [facility] MEDICINE [address] [place] [address] Regine Hawkins, PharmD [address] [place] [address] Social History Tobacco Use Types Packs/Day Years [...] Description 11/03/2024 11:15 AM EDT Office Visit [facility] MEDICINE [address] [place] [address] Jameel Cota MD [address] [place] [address] 01/18/2025 8:00 AM EDT Office Visit [facility] ADULT DENTAL [address] [place] [address] Katelyn Waldrop [address] [place] [address] documented as of this encounter Goals Goal Patient Goal Type Associated Problems Recent Progress Patient-Stated? Author Remain at or Below Target Blood Pressure General On track(07/13/19 24 4:09 PM EST) No Regine Hawkins, ItaliaD documented as of this encounter Visit Diagnoses Not on filedocumented in this encounter Additional Health Concerns Assessment Noted Time PHQ-9 Depression Total Score: 0 04/07/20 24 9:52 AM EDT documented as of this encounter Care Teams Traveling Buyer Relationship Specialty Start Date End Date Jameel Cota MD [address] [place] [address] PCP - General Internal Medicine 04/10/14 Regine Hawkins PharmD [address] [place] [address] Pharmacist Internal Medicine 08/18/22 documented as of this encounter
--- OUTSIDE RECORDS SUMMARY | 2024-08-02 18:55 | XMS_ITS | Encounter Summary ---
Author Organization [facility] Address [address] [place] [address] 7 [place] [address] Care Team Providers Care Automation Developer Name Role Phone Jameel Cota MD Primary Care Provide r Regine Hawkins PharmD Unavailable [phone] Reason for Visit * Reason Comments Med Refill Encounter Details Date Type Department Care Team (Late Contact Info) Description 01/15/2023 Refill [facility] MEDICINE [address] [place] [address] NameДмитрий MD [address] [place] [address] Mixed hyperlipidemia Social History Tobacco Use Types [...] Description 11/03/2024 11:15 AM EDT Office Visit [facility] MEDICINE [address] [place] [address] Jameel Cota MD [address] [place], [place] [phone] 01/18/2025 8:00 AM EDT Office Visit [facility] ADULT DENTAL [address] [place], [place] [phone] Katelyn Waldrop [address] [place] [address] documented as of this encounter Goals Goal Patient Goal Type Associated Problems Recent Progress Patient-Stated? Author Remain at or Below Target Blood Pressure General On track(07/13/19 24 4:09 PM EST) No Regine Hawkins, Ruben documented as of this encounter Visit Diagnoses Diagnosis Mixed hyperlipidemia documented in this encounter Care Teams Automation Developer Relationship Specialty Start Date End Date Jameel Cota MD [address] [place], [place] [phone] PCP - General Internal Medicine 04/10/14 Regine Hawkins, ItaliaD [address] [place] [phone] Pharmacist Internal Medicine 08/18/22 documented as of this encounter
--- OUTSIDE RECORDS SUMMARY | 2024-08-02 18:55 | XMS_ITS | Encounter Summary ---
Author Organization [employer] Address [address] [place] [address] 7 [place] [address] Care Team Providers Care Electric Arc Welder Name Role Phone Jameel Cota MD Primary Care Provide r Regine Hawkins PharmD Unavailable [phone] Encounter Details Date Type Department Care Team (Late st Contact Info) Description 10/10/2022 Abstract [facility] MEDICINE [address] [place] [address] Jameel Cota MD [address] [place], [place] [phone] Social History Tobacco Use Types Packs/Day Years [...] 11/03/2024 11:15 AM EDT Office Visit [facility] MEDICINE [address] [place], [place] [phone] Jameel Cota MD [address] [place], [place] [phone] 01/18/2025 8:00 AM EDT Office Visit [facility] ADULT DENTAL [address] [place] [address] Katelyn Waldrop [address] [place] [address] documented as of this encounter Goals Goal Patient Goal Type Associated Problems Recent Progress Patient-Stated? Author Remain at or Below Target Blood Pressure General On track(07/13/19 24 4:09 PM EST) No Regine Hawkins, Ruben documented as of this encounter Procedures Procedure Name Priority Date/Time Associated Diagnosis Comments COLONOSCOPY Routine 02/20/2013 documented in this encounter Results * Colonoscopy (02/20/2013) Colonoscopy Normal Normal 02/20/2013 Ej Urmila Monte - 02/20/2013 12:53 PM EDT Recommended 10 year follow up Historical Provider [employer] MAINTENANCE Edited Result - Final documented in this encounter Visit Diagnoses Not on filedocumented in this encounter Care Teams Electric Arc Welder Relationship Specialty Start Date End Date Jameel Cota MD [address] [place] [address] PCP - General Internal Medicine 04/10/14 Regine Hawkins, Ruben [address] [place] [address] Pharmacist Internal Medicine 08/18/22 documented as of this encounter
--- OUTSIDE RECORDS SUMMARY | 2024-08-02 18:55 | XMS_ITS | Encounter Summary ---
Author Organization [employer] Address [address] [facility] 7t [place] [address] Care Team Providers Care Ux Developer Designer Name Role Phone Jameel Cota MD Primary Care Provide r Regine Hawkins PharmD Unavailable [phone] Reason for Visit * Reason Comments Pre-visit Planning SDOH Screening negat melina and Tobacco screening negative Encounter Details Date Type Department Care Team ([facility] st Contact Info) Description 07/20/2024 Patient Outreach [facility] MED[facility]INE [address] [place] [address] Jamele Cota MD [address] [place] [address] Pre-visit Planning (SDOH Screening negative and Tobacco screening negative) Social History Tobacco Use Types Packs/Day Years [...] AM EDT documented as of this encounter Progress Notes * Yazmin Delgado - 07/20/2024 11:44 AM EST [facility] placed successful outbound call to patient for pre-visit planning. Patient name and confirmed. Patient confirms appt date and time, and has transportation arrangements. Biggest concern for appointment at this time is stomach pain more than a month and its getting worse. Patient educated on extended clinic hours. Patient advised to bring to appointment a photo id and insurance card. Appropriate screenings completed in anticipation of appointment. documented in this encounter Plan of Treatment Upcoming Encounters Date Type Department Care Team ([facility] st Contact Info) Description 11/03/2024 11:15 AM EDT Office Visit [address] [address] Jameel Cota MD [address] [place] [address] 01/18/2025 8:00 AM EDT Office Visit [facility] ADULT DENTAL [address] [place] [address] Katelyn Waldrop [address] [place] [address] documented as of this encounter Goals Goal [...] documented as of this encounter Care Teams Ux Developer Designer Relationship Specialty Start Date End Date Jameel Cota MD [address] [place] [address] PCP - General Internal Medicine 04/10/14 Regine Hawkins, ItaliaD [address] [place] [phone] Pharmacist Internal Medicine 08/18/22 documented as of this encounter
--- OUTSIDE RECORDS SUMMARY | 2024-08-02 18:55 | XMS_ITS | Encounter Summary ---
Author Organization [employer] Address [address] [facility] [address] 7[address] [place] [address] Care Team Providers Care Meeting Coordinator Name Role Phone Jameel Cota MD Primary Care Provide r Regine Hawkins PharmD Unavailable [phone] Encounter Details Date Type Department Care Team (Latest Contact Info) Description 08/02/2024 Travel Social History Tobacco Use Types Packs/Day Years [...] Description 11/03/2024 11:15 AM EDT Office Visit [facility] MEDICINE [address] [place] [address] Jameel Cota MD [address] [place] [address] 01/18/2025 8:00 AM EDT Office Visit [facility] ADULT DENTAL [address] [place] [address] Pal[place], Katelyn [address] [place] [address] documented as of this encounter Goals Goal Patient Goal Type Associated Problems Recent Progress Patient-Stated? Author Remain at or Below Target Blood Pressure General On track(07/13/19 4:09 PM EST) No Regine Hawkins, PharmD documented as of this encounter Visit Diagnoses Not on filedocumented in this encounter Additional Health Concerns Assessment Noted Time PHQ-9 Depression Total Score: 0 04/07/20 9:52 AM EDT documented as of this encounter Care Teams Meeting Coordinator Relationship Specialty Start Date End Date Jameel Cota MD [address] [place] [address] PCP - General Internal Medicine 04/10/14 Regine Hawkins, ItaliaD [address] [place] [address] Pharmacist Internal Medicine 08/18/22 documented as of this encounter
--- OUTSIDE RECORDS SUMMARY | 2024-08-02 18:55 | XMS_ITS | Encounter Summary ---
Author Organization [employer] Address [address] [place] [address] 7 [place] [address] Care Team Providers Care Contract Clerk Name Role Phone Jameel Cota MD Primary Care Provide r Regine Hawkins PharmD Unavailable [phone] Reason for Visit * Reason Comments Med Refill Encounter Details Date Type Department Care Team (Late Contact Info) Description 09/30/2022 Refill [facility] MEDICINE [address] [place] [address] Ami Dunlap ANP [address] [place], [place] [phone] Type 2 diabetes mellitus with hyperlipidemia ([facility]) Social History Tobacco Use Types Packs/Day Years [...] Description 11/03/2024 11:15 AM EDT Office Visit [facility] MEDICINE [address] [place] [address] Jameel Cota MD [address] [place] [address] 01/18/2025 8:00 AM EDT Office Visit [facility] ADULT DENTAL [address] [place] [address] Katelyn Waldrop [address] [place] [address] documented as of this encounter Goals Goal Patient Goal Type Associated Problems Recent Progress Patient-Stated? Author Remain at or Below Target Blood Pressure General On track(07/13/19 24 4:09 PM EST) No Regine Hawkins, Ruben documented as of this encounter Visit Diagnoses Diagnosis Type 2 diabetes mellitus with hyperlipidemia (CMS/HCC) (CMS/HCC) documented in this encounter Care Teams Contract Clerk Relationship Specialty Start Date End Date Jameel Cota MD [address] [place] [address] PCP - General Internal Medicine 04/10/14 Regine Hawkins, PharmD [address] [place] [address] Pharmacist Internal Medicine 08/18/22 documented as of this encounter
--- OUTSIDE RECORDS SUMMARY | 2024-08-02 18:55 | XMS_ITS | Encounter Summary ---
Author Organization [employer] Address [address] [facility] 7t [place] [address] Care Team Providers Care Infection Preventionist Name Role Phone Jameel Cota MD Primary Care Provide r Regine Hawkins PharmD Unavailable [phone] Encounter Details Date Type Department Care Team ([facility] Contact Info) Description 08/28/2022 Orders Only [facility] [address] [place] [address] Gosia Britt LPN Social History Tobacco Use [...] Upcoming Encounters Date Type Department Care Team ([facility] Contact Info) Description 11/03/2024 11:15 AM EDT Office Visit [facility] MEDICINE [address] [place], [place] [phone] Jameel Cota MD [address] [place] [address] 01/18/2025 8:00 AM EDT Office Visit [facility] ADULT DENTAL [address] [place] [address] Katelyn Waldrop [address] [place] [address] documented as of this encounter Goals Goal Patient Goal Type Associated Problems Recent Progress Patient-Stated? Author Remain at or Below Target Blood Pressure General On track(07/13/19 24 4:09 PM EST) No Regine Hawkins, Ruben documented as of this encounter Visit Diagnoses Not on filedocumented in this encounter Care Teams Infection Preventionist Relationship Specialty Start Date End Date Jameel Cota MD [address] [place] [address] PCP - General Internal Medicine 04/10/14 Regine Hawkins PharmD [address] [place] [address] Pharmacist Internal Medicine 08/18/22 documented as of this encounter
--- OUTSIDE RECORDS SUMMARY | 2024-08-02 18:55 | XMS_ITS | Encounter Summary ---
Author Organization [employer] Address [address] [place] [address] 7 [place] [address] Care Team Providers Care Puff Ironer Name Role Phone Jameel Cota MD Primary Care Provide r Regine Hawkins PharmD Unavailable [phone] Encounter Details Date Type Department Care Team (Late st Contact Info) Description 08/18/2022 Orders Only [facility] MEDICINE [address] [place] [address] Regine Hawkins, PharmD [address] [place] [address] Social History Tobacco Use Types Packs/Day Years [...] EDT Office Visit [facility] [address] [place] [address] Jameel Cota MD [address] [place] [address] 01/18/2025 8:00 AM EDT Office Visit [facility] ADULT DENTAL [address] [place], [place] [phone] Katelyn Waldrop [address] [place] [address] documented as of this encounter Goals Goal Patient Goal Type Associated Problems Recent Progress Patient-Stated? Author Remain at or Below Target Blood Pressure General On track(07/13/19 24 4:09 PM EST) No Regine Hawkins, PharmD documented as of this encounter Visit Diagnoses Not on filedocumented in this encounter Care Teams Puff Ironer Relationship Specialty Start Date End Date Jameel Cota MD [address] [place] [address] PCP - General Internal Medicine 04/10/14 Regine Hawkins, PharmD [address] [place], [place] [phone] Pharmacist Internal Medicine 08/18/22 documented as of this encounter
--- OUTSIDE RECORDS SUMMARY | 2024-08-02 18:55 | XMS_ITS | Encounter Summary ---
Author Organization [employer] Address [address] [place] [address] [place], [place] [address] Care Team Providers Care Photography Manager Name Role Phone Jameel Cota MD Primary Care Provide r Regine Hawkins PharmD Unavailable [phone] Reason for Referral * PFT (Routine) - Authorized Specialty Diagnoses / Procedures Referred By Contobed t Referred To Contact Diagnoses Subacute cough Procedures Pulmonary Function Test Jameel Cota MD [address] [place] [address] Phone: tel: fax: [address] Phone: tel: fax: Referral ID Status Reason Start Date Expiration Date V isits Requested Visits Authorized [id number] Authorized 08/02/2024 08/02/2025 1 1 Reason for Visit * Reason Comments Diabetes Encounter Details Date Type Department Care Team ([facility] st Contact Info) Description 08/02/2024 2:15 PM EST Office Visit [facility] [address] [place], [place] [phone] Jameel Cota MD [address] [place] [address] Benign prostatic hyperplasia with urinary frequency (Primary Dx); Type 2 diabetes mellitus without complication, without long-term current use of insulin ([facility]); Benign hypertension; Bladder outlet obstruction; Tubular adenoma; Mixed hyperlipidemia; Preventative health care; Subacute cough; Schizophrenia, unspecified type (CMS/HCC); Class 1 obesity due to excess calories with serious comorbidity and body mass index (BMI) of 32.0 to 32.9 in adult; Dietary counseling; Exercise counseling Social History Tobacco Use Types Packs/Day Years [...] housing situation today? I have milesedilberto klein 04/07/[address] [...] Mass Index 32.88 08/02/2024 2:03 PM EST documented in this encounter Progress Notes * Jameel Goyal MD - 08/02/2024 2:15 PM EST SUBJECTIVE Jabari Chavis is a 64 y.o. male who presents for Diabetes. Diabetes He presents for his follow-up diabetic visit. He has type 2 diabetes mellitus. Pertinent negatives for hypoglycemia include no headaches or sweats. Pertinent negatives for diabetes include no chest pain. Cough This is a new problem. The current episode started more than 1 month ago. The problem has been waxing and waning. The problem occurs every few hours. The cough is Non-productive. Pertinent negatives include no chest pain, chills, ear congestion, ear pain, fever, headaches, hemoptysis, postnasal drip, sore throat, shortness of breath, sweats or wheezing. He has tried nothing for the symptoms. The treatment provided no relief. Review of Systems Constitutional: Negative for chills and fever. HENT: Negative for ear pain, postnasal drip and sore throat. Respiratory: Positive for cough. Negative for hemoptysis, shortness of breath and wheezing. Cardiovascular: Negative for chest pain. Gastrointestinal: Negative for abdominal pain. Neurological: Negative for headaches. No Known Allergies OBJECTIVE Vitals: 08/02/24 1403 BP: 114/71 BP Location: Left arm Patient Position: Sitting BP Cuff Size: Adult Pulse: 83 Resp: 20 Temp: 94.2 ??F (34.6 ??C) TempSrc: Temporal SpO2: 96% Weight: 197 lb 9.6 oz (89.6 kg) Height: 5' 5 (1.651 m) Physical Exam Vitals reviewed. Constitutional: Appearance: Normal appearance. HENT: Head: Normocephalic and atraumatic. Right Ear: External ear normal. Left Ear: External ear normal. Nose: Nose normal. Mouth/Throat: Mouth: Mucous membranes are moist. Eyes: Conjunctiva/sclera: Conjunctivae normal. Cardiovascular: Rate and Rhythm: Normal rate and regular rhythm. Pulmonary: Effort: Pulmonary effort is normal. Breath sounds: Normal breath sounds. No stridor. No wheezing. Skin: General: Skin is warm. Neurological: Mental Status: He is alert. Mental status is at baseline. Assessment/Plan Problem List Items Addressed This Visit Diabetes mellitus (CMS/[facility]) Pt here for a f/u DM controlled He is on a regimen of: Metformin 500 mg po 2 tabs po BID and Glipizide XL 2.5 mg po daily, Hgb A1c 08/02/2024: 5.7 Eye exam done on: 07/12/[address] Adelina Gore No Microalbumin checked on: 02/05/2021 was: 2.8 Pt is on an LUZ inhibitor Lisinopril Foot check risk of zero Pt reports compliance with Asa 81 mg po daily Today I have recommended to continue current regimen 4 months f/u Pt advised to: adhere to diabetic diet check your blood sugars regularly check your feet on a daily basis. Relevant Medications Blood Glucose Monitoring Suppl (ONE TOUCH ULTRA 2) w/Device kit Other Relevant Orders POCT Glucose (Completed) POCT HGB A1C (Completed) BPH (benign prostatic hyperplasia) - Primary Under the care of Dr. Maddox Last seen 06/22/2024 Relevant Orders PSA, Screen Benign hypertension Patient here for a f/u BP remains [...] sodium diet, will repeat encouraged about medication compliance,counseled about weight loss. 4 month f/u Lab Results Component Value Date NA 142 10/15/2023 NA 141 07/06/2023 K 3.8 10/15/2023 K 3.8 07/06/2023 CL 99 10/15/2023 CL 97 07/06/2023 BUN 11 10/15/2023 BUN 11 07/06/2023 CREATININE 0.79 10/15/2023 CREATININE 0.86 07/06/2023 Relevant Orders Basic Metabolic Panel Bladder outlet obstruction Under the care of Urology last seen 06/22/2024 Pt with Prostatic stricture and BPH Previously on Finasteride, underwent TURP 05/2019, No longer taking the Finasteride. Relevant Orders PSA, Screen Tubular adenoma Seen on Colonoscopy: 11/22/08. Repeat colonoscopy with Dr. Silva 02/20/13 showed no polyps and 1+ internal hemorrhoids. To repeat colonoscopy in 10 years.Pt seen by GI 07/06/2024 already scheduled for follow up Colonoscopy Hyperlipidemia Here for a f/u Most recent lipid [...] diet, counseled and educated about diet and exercise,Patient encouraged to come up with a personal goal for weight loss. 4 month follow up Preventative health care PSA 06/30/2022 :0.53 Will repeat Colonoscopy: 11/22/08. Repeat colonoscopy with Dr. Silva 02/20/13 showed no polyps and 1+ internal hemorrhoids. To repeat colonoscopy in 10 years. Overdue. Pt was referred last visit, seen 07/06/2024 scheduled for repeat Tdap: 09/18/2015 Pneumovax 09/20/2009 Subacute cough Patient with c/o dry cough x 3 months not improving Rapid Flu, and Covid:neg Lungs CTA Bilat Plan: Chest x-ray, PFTs, guaifenesin PRN Relevant Medications guaiFENesin (Robitussin) 100 MG/5ML liquid Other Relevant Orders XR Chest 2 Views Pulmonary Function Test Schizophrenia (CMS/HCC) Pt is here for a f/u Pt has a Dx of schizophrenia and PTSD. Well controlled with a daily nurse for medications. He is followed at [facility]. He is at his baseline and [...] reasonable. Pt only attended up to 2nd gradeof school Obesity Patient has been counseled and educated about diet and exercise. Personal goal of weight loss discussedPatient has comorbidity of: DM Dietary Recommendations: Fruits, vegetables, whole grains, protein foods, and fat-free or low-fat dairy products are healthychoices. Eat different types of protein foods in your diet. This can include seafood, lean meats, poultry, beans, peas, lentils, nuts, seeds, soy products, and eggs. Limit foods and beverages higher in added sugars, saturated fat, and sodium. Exercise Recommendations: At least 150 minutes of moderate-intensity physical activity per week, or an equivalent combinationof moderate- and vigorous-intensity activity Other Visit Diagnoses Dietary counseling Exercise counseling documented in this encounter Miscellaneous Notes * Assessment & Plan Note - Jameel Goyal MD - 08/02/2024 2:29 PM EST Associated Problem(s): Obesity Patient has been counseled and educated about diet and exercise. Personal goal of weight loss discussedPatient has comorbidity of: DM Dietary Recommendations: Fruits, vegetables, whole grains, protein foods, and fat-free or low-fat dairy products are healthychoices. Eat different types of protein foods in your diet. This can include seafood, lean meats, poultry, beans, peas, lentils, nuts, seeds, soy products, and eggs. Limit foods and beverages higher in added sugars, saturated fat, and sodium. Exercise Recommendations: At least 150 minutes of moderate-intensity physical activity per week, or an equivalent combinationof moderate- and vigorous-intensity activity * Assessment & Plan Note - Jameel Goyal MD - 08/02/2024 2:29 PM EST Associated Problem(s): Schizophrenia (CMS/HCC) Pt is here for a f/u Pt has a Dx of schizophrenia and PTSD. Well controlled with a daily nurse for medications. He is followed at [facility]. He is at his baseline and [...] reasonable. Pt only attended up to 2nd gradeof school * Assessment & Plan Note - Jameel Goyal MD - 08/02/2024 2:17 PM EST Associated Problem(s): Subacute cough Patient with c/o dry cough x 3 months not improving Rapid Flu, and Covid:neg Lungs CTA Bilat Plan: Chest x-ray, PFTs, guaifenesin PRN * Assessment & Plan Note - Jameel Goyal MD - 08/02/2024 1:29 PM EST Associated Problem(s): Preventative health care PSA 06/30/2022 :0.53 Will repeat Colonoscopy: 11/22/08. Repeat colonoscopy with Dr. Silva 02/20/13 showed no polyps and 1+ internal hemorrhoids. To repeat colonoscopy in 10 years. Overdue. Pt was referred last visit, seen 07/06/2024 scheduled for repeat Tdap: 09/18/2015 Pneumovax 09/20/2009 * Assessment & Plan Note - Jameel Goyal MD - 08/02/2024 1:28 PM EST Associated Problem(s): Hyperlipidemia Here for a f/u Most recent lipid [...] diet, counseled and educated about diet and exercise,Patient encouraged to come up with a personal goal for weight loss. 4 month follow up * Assessment & Plan Note - Jameel Goyal MD - 08/02/2024 1:27 PM EST Associated Problem(s): Tubular adenoma Seen on Colonoscopy: 11/22/08. Repeat colonoscopy with Dr. Silva 02/20/13 showed no polyps and 1+ internal hemorrhoids. To repeat colonoscopy in 10 years.Pt seen by GI 07/06/2024 already scheduled for follow up Colonoscopy * Assessment & Plan Note - Jameel Goyal MD - 08/02/2024 1:26 PM EST Associated Problem(s): Diabetes mellitus (CMS/HCC) Pt here for a f/u DM controlled [...] check your feet on a daily basis. * Assessment & Plan Note - Jameel Goyal MD - 08/02/2024 1:26 PM EST Associated Problem(s): Bladder outlet obstruction Under the care of Urology last seen 06/22/2024 Pt with Prostatic stricture and BPH Previously on Finasteride, underwent TURP 05/2019, No longer taking the Finasteride. * Assessment & Plan Note - Jameel Goyal MD - 08/02/2024 1:25 PM EST Associated Problem(s): Benign hypertension Patient here for a f/u BP remains [...] sodium diet, will repeat encouraged about medication compliance,counseled about weight loss. 4 month f/u Lab Results Component Value Date NA 142 10/15/2023 NA 141 07/06/2023 K 3.8 10/15/2023 K 3.8 07/06/2023 CL 99 10/15/2023 CL 97 07/06/2023 BUN 11 10/15/2023 BUN 11 07/06/2023 CREATININE 0.79 10/15/2023 CREATININE 0.86 07/06/2023 * Assessment & Plan Note - Jameel Goyal MD - 08/02/2024 1:23 PM EST Associated Problem(s): BPH (benign prostatic hyperplasia) Under the care of Dr. Maddox Last seen 06/22/2024 documented in this encounter Plan of Treatment Upcoming Encounters Date Type Department Care Team (Late st Contact Info) Description 11/03/2024 11:15 AM EDT Office Visit [facility] [address] [place] [address] Jameel Cota MD [address] [place] [address] 01/18/2025 8:00 AM EDT Office Visit [facility] [address] [place] [address] Katelyn Waldrop [address] [place] [address] Scheduled Orders Name Type Priority Associated Diagnoses Orde r Schedule Pulmonary Function Test PFT Routine Subacute cough Ordered: 08/02/2024 documented as of this encounter Goals Goal Patient Goal Type Associated Problems Recent Progress Patient-Stated? Author Remain at or Below Target Blood Pressure General On track(07/13/19 24 4:09 PM EST) No Regine Hawkins, ItaliaD documented as of this encounter Procedures Procedure Name Priority Date/Time Associated Diagnosis Comments PSA, SCREEN Routine 08/02/2024 3:36 PM EST Benign prostatic hyperplasia with urinary frequency Bladder outlet obstruction BASIC METABOLIC PANEL Routine 08/02/2024 3:36 PM EST Benign hypertension XR CHEST 2 VIEWS Routine 08/02/2024 3:09 [...] complication, without long-term current use of insulin ([facility]) POCT GLUCOSE Routine 08/02/2024 2:06 PM EST Type 2 diabetes mellitus without complication, without long-term current use of insulin ([facility]) documented in this encounter Results * PSA, Screen (08/02/2024 3:36 PM EST) Pathologist [facility] [place] PSA, Total 0.75 <0.05 - 4.0 ng/mL [facility] Comment:PSA methodology: Sana Cotton i ChemiluminescentMicroparticle Immunoassay (CMIA) Blood Venous blood specimen / Unknown 08/02/2024 3:36 PM EST 08/02/2024 4:04 PM EST us Jameel Goyal MD LAB BLOOD ORDERABLES Final Result [facility] [address] [place] [phone] * (ABNORMAL) Basic Metabolic Panel (08/02/2024 3:36 PM EST) Pathologist [facility] [place] Sodium 140 135 - 145 mmol/L [facility] Potassium 3.4 3.3 - 5.1 mmol/L [facility] Chloride 100 96 - 108 mmol/L [facility] Carbon Dioxide 33(H) 22 - 29 mmol/L [facility] Anion Gap 10(L) 12 - 20 [facility] Urea Nitrogen (BUN) 11 9 - 16 mg/dL [facility] Creatinine, Serum 0.74 0.5 - 1.4 mg/dL [facility] Estimated Glomerular Filt Rate >60 [facility] Comment:Chronic Kidney Disea se: Estimated GFR < 60 mL/min/1.85g5Acmocz Kidney Disease: Estimated GFR < 15 mL/min/1.73m2 Glucose 65 60 - 115 mg/dL [facility] Calcium 9.5 8.4 - 10.2 mg/dL [facility] Blood Venous blood specimen / Unknown 08/02/2024 3:36 PM EST 08/02/2024 4:04 PM EST us Jameel Goyal MD LAB BLOOD ORDERABLES Final Result [facility] [address] [place] [phone] * XR Chest 2 Views (08/02/2024 3:09 PM EST) Anatomical Region Laterality Modality Chest Radiographic Karissa ging 08/02/2024 3:09 PM EST Narrative 08/02/2024 3:35 PM EST ?[facility] ?[address] ?[place] [address] ?XRay Report ? Signed ? Patient: Partha,Jabari ?MR#: [id number] ?? 89 ? : 1960 ?Acct:[id number] ? Age/Sex: 64 / M ?ADM Date: 08/02/24 ? Loc: HO.HHCX ? Attending Dr: Jameel Patel MD ? Ordering Physician: Jameel Patel MD ?? Date of Service: 08/02/24 ?? Procedure(s): XR chest 2V ?? Accession Number(s): [id number] ? cc: Jameel Patel MD ? EXAMINATION: [...] DD/ 1509 ? TD/TT: 08/02/24 1518 ? Venue Attendant: ? Procedure Note Torie Garcia - 08/02/[address] [address] XRay Report Signed Patient: Jabari ChavisMR#: [id number] 88 : 1960cct:[id number] Age/Sex: 64 / MADM Date: 08/02/24 Loc: HO.HHCX Attending Dr: Jameel Patel MD Ordering Physician: Jameel Patel MD Date of Service: 08/02/24 Procedure(s): XR chest 2V Accession Number(s): [id number] cc: Jameel Patel MD EXAMINATION: XR CHEST 2 VIEWS HISTORY: [...] 08/02/24 1532 DD/ 1509 TD/TT: 08/02/24 1518 Venue Attendant: Jameel Goyal MD IMG XR PROCEDURES Fin al Result * POCT Rapid Influenza B EDDY ID NOW (08/02/2024 2:51 PM EST) Influenza B Negative Negative, Indeterminate [facility] QC Media Lot # [id number] [facility] Lot# Expiration Date [facility] Swab 08/02/2024 2:51 PM EST Jameel Goyal MD POINT OF CARE TEST EN TER/EDIT ORDERABLES Final Result Performing Organization Address City/[facility]/ZIP Co de Phone Number [facility] [address] [place] [phone] * POCT Rapid Influenza A EDDY ID NOW (08/02/2024 2:51 PM EST) Influenza A Negative Negative, Indeterminate [facility] QC Media Lot # [id number] [facility] Lot# Expiration Date [facility] Swab 08/02/2024 2:51 PM EST Jameel Goyal MD POINT OF CARE TEST EN TER/EDIT ORDERABLES Final Result [facility] [address] [place] [phone] * POCT Rapid Covid-19 BinaxNOW (08/02/2024 2:50 PM EST) Rapid COVID Ag Negative QC Media Lot # [id number] Lot# Expiration Date Swab 08/02/2024 2:50 PM EST Jameel Goyal MD POINT OF [...] CARE TEST EN TER/EDIT ORDERABLES Final Result documented in this encounter Visit Diagnoses Diagnosis Benign prostatic hyperplasia with urinary frequency- Primary Type 2 diabetes mellitus without complication, without long-term current use of insulin (CMS/[facility]) Benign hypertension Essential hypertension, benign Bladder outlet obstruction Tubular adenoma Benign neoplasm of unspecified site Mixed hyperlipidemia Preventative health care Routine general medical examination at a health care facility Subacute cough Schizophrenia, unspecified type (CMS/HCC) Class 1 obesity due to excess calories with serious comorbidity and body mass index (BMI) of 32.0 to 32.9 in adult Dietary counseling Dietary surveillance and counseling Exercise counseling documented in this encounter Additional Health Concerns Assessment Noted Time PHQ-9 Depression Total Score: 0 04/07/20 24 9:52 AM EDT documented as of this encounter Care Teams Photography Manager Relationship Specialty Start Date End Date Jameel Cota MD [address] [place] [address] PCP - General Internal Medicine 04/10/14 Regine Hawkins, PharmD [address] [place] [phone] Pharmacist Internal Medicine 08/18/22 documented as of this encounter
--- OUTSIDE RECORDS SUMMARY | 2024-08-02 18:55 | XMS_ITS | Encounter Summary ---
Author Organization [employer] Address [address] [place] [address] [address] [place] [address] Care Team Providers Care Field Artillery Fire Control Man Name Role Phone Jameel Cota MD Primary Care Provide r Regine Hawkins PharmD Unavailable [phone] Encounter Details Date Type Department Care Team (Late st Contact Info) Description 06/11/2022 Orders Only [facility] [address] [place] [address] Gosia Britt LPN Social History Tobacco Use [...] Description 11/03/2024 11:15 AM EDT Office Visit [facility] [address] [place] [address] Jameel Cota MD [address] [place] [address] 01/18/2025 8:00 AM EDT Office Visit [facility] [address] [place] [address] Katelyn Waldrop [address] [place] [address] documented as of this encounter Visit Diagnoses Not on filedocumented in this encounter Care Teams Field Artillery Fire Control Man Relationship Specialty Start Date End Date Jameel Cota MD [address] [place] [address] PCP - General Internal Medicine 04/10/14 Regine Hawkins, Ruben [address] [place] [address] Pharmacist Internal Medicine 08/18/22 documented as of this encounter
--- OUTSIDE RECORDS SUMMARY | 2024-08-02 18:55 | XMS_ITS | Encounter Summary ---
Author Organization [employer] Address [address] [facility] [address] [place] [address] Care Team Providers Care Kai Whakaruruhau Name Role Phone Jameel Cota MD Primary Care Provide r Regine Hawkins PharmD Unavailable [phone] Reason for Visit * Reason Onset Date Comments Chart Prep 07/20/2024 Encounter Details Date Type Department Care Team ([facility] st Contact Info) Description 07/20/2024 Telephone [facility] [address] [place] [address] Jameel Cota MD [address] [place] [address] Chart Prep Social History Tobacco Use Types Packs/Day Years [...] encounter Miscellaneous Notes * Telephone Encounter - Maren Messina [place] - 07/20/2024 2:47 PM EST Chart Prep Labs: not applicable Images: not applicable Vaccines due: Updated Referrals: Not Applicable Screenings: Colonoscopy , Foot Exam, and HIV screening Overdue care gaps: A1C and Glucose Chart prep for upcoming appt with Dr.Esparza hernandez [facility] documented in this encounter Plan of Treatment Upcoming Encounters Date Type Department Care Team (Late st Contact Info) Description 11/03/2024 11:15 AM EDT Office Visit [facility] [address] [place] [address] Jameel Cota MD [address] [place] [address] 01/18/2025 8:00 AM EDT Office Visit [facility] AD[facility] DENTAL [address] [place] [address] Katelyn Waldrop [address] [place], [place] [phone] documented as of this encounter Goals Goal [...] documented as of this encounter Care Teams Kai Whakaruruhau Relationship Specialty Start Date End Date Jameel Cota MD [address] [place] [address] PCP - General Internal Medicine 04/10/14 Regine Hawkins, ItaliaD [address] [place] [phone] Pharmacist Internal Medicine 08/18/22 documented as of this encounter
== END 2024-08-02 15:09 | disposition home or self-care (01) ==
LOC: HO.HHCX 15:08
PROVIDERS: Visit Provider Internal Medicine
DX: R05.2 Subacute cough (principal)
CPT/HCPCS: 71046

== ENCOUNTER → 2024-08-02 15:09 | Outpatient (BNV) | payer OTHER, SELFPAY | PROVIDERS: Visit Provider Radiology Diagnostic Radiology | DX: R05.9 Cough, unspecified (principal) | CPT/HCPCS: 71046 ==

== ENCOUNTER 2024-08-02 15:24 | Outpatient (REF) | payer OTHER, SELFPAY ==
[2024-08-02 16:24] LABS: Anion Gap 10 (12-20); Blood Urea Nitrogen 11 mg/dL (9-16); Calcium 9.5 mg/dL (8.4-10.2); Carbon Dioxide 33 mmol/L (22-29); Chloride 100 mmol/L (96-108); Estimated Glomerular Filt Rate > 60; Glucose Random 65 mg/dL (60-115); Potassium 3.4 mmol/L (3.3-5.1); Sodium 140 mmol/L (135-145)
[2024-08-02 16:46] LABS: Prostate Specific Antigen Scr 0.75 ng/mL (<0.05-4.0)
[2024-08-02 16:51] LABS: Creatinine Urine 82.85 mg/dL; Microalbum/Creatinine Ratio Ur 10.8 ug/mg cr (<30)
== END 2024-08-02 15:25 | disposition home or self-care (01) ==
LOC: HO.HHCL 15:24
PROVIDERS: Visit Provider Internal Medicine
DX: I10 Essential (primary) hypertension (principal); N40.1 Benign prostatic hyperplasia with lower urinary tract symptoms; R35.0 Frequency of micturition; N32.0 Bladder-neck obstruction; E11.9 Type 2 diabetes mellitus without complications; Z12.5 Encounter for screening for malignant neoplasm of prostate; R05.2 Subacute cough; Z00.00 Encounter for general adult medical examination without abnormal findings
CPT/HCPCS: 36415; 71046; 80048; 82043; 82570; 84153

== ENCOUNTER 2024-09-09 07:48 | Outpatient (REF) | payer OTHER, SELFPAY ==
--- OUTSIDE RECORDS SUMMARY | 2024-09-09 07:50 | XMS_ITS | Encounter Summary ---
Author Organization [employer] [facility] Address [address] [place] [address] [address] [place] [address] Care Team Providers Care Bank Vault Attendant Name Role Phone Jameel Cota MD Primary Care Provide r Regine Hawkins PharmD Unavailable [phone] Encounter Details Date Type Department Care Team (Latest Contact Info) Description 11/13/2020 Abstract [facility] CONVERSIONS Dental, Provider, DDS Social History Tobacco [...] AM EDT Office Visit [facility] MED[facility]INE [address] [place] [address] Jameel Cota MD [address] [place] [address] 01/18/2025 8:00 AM EDT Office Visit [facility] ADULT DENTAL [address] [place] [address] Katelyn Waldrop [address] [place] [address] documented as of this encounter Visit Diagnoses Not on filedocumented in this encounter Care Teams Bank Vault Attendant Relationship Specialty Start Date End Date Jameel Cota MD [address] [place], [place] [phone] PCP - General Internal Medicine 04/10/14 Regine Hawkins, ItaliaD [address] [place] [address] Pharmacist Internal Medicine 08/18/22 documented as of this encounter
--- OUTSIDE RECORDS SUMMARY | 2024-09-09 07:50 | XMS_ITS | Encounter Summary ---
Author Organization [facility] Address [address] [place] [address] [address] [place] [address] Care Team Providers Care Cyanide Pot Hardener Name Role Phone Jameel Cota MD Primary Care Provide r Regine Hawkins PharmD Unavailable [phone] Encounter Details Date Type Department Care Team (Latest Contact Info) Description 01/08/2022 Abstract [facility] CONVERSIONS Dental, Provider, DDS Social History [...] 11:15 AM EDT Office Visit [facility] [address] [place] [address] Jameel Cota MD [address] [place] [address] 01/18/2025 8:00 AM EDT Office Visit [facility] ADULT DENTAL [address] [place] [address] Katelyn Waldrop [address] [place] [address] documented as of this encounter Visit Diagnoses Not on filedocumented in this encounter Care Teams Cyanide Pot Hardener Relationship Specialty Start Date End Date Jameel Cota MD [address] [place], [place] [phone] PCP - General Internal Medicine 04/10/14 Regine Hawkins, ItaliaD [address] [place] [address] Pharmacist Internal Medicine 08/18/22 documented as of this encounter
--- OUTSIDE RECORDS SUMMARY | 2024-09-09 07:50 | XMS_ITS | Encounter Summary ---
Author Organization [employer] [facility] Address [address] [place] [address] 7 [place] [address] Care Team Providers Care Regulatory Technician Name Role Phone Jameel Cota MD Primary Care Provide r Regine Hawkins PharmD Unavailable [phone] Encounter Details Date Type Department Care Team (Latest Contact Info) Description 11/22/2018 Abstract [facility] CONVERSIONS Dental, Provider, DDS Social History [...] Description 11/03/2024 11:15 AM EDT Office Visit [facility] MEDICINE [address] [place] [address] Jameel Cota MD [address] [place] [address] 01/18/2025 8:00 AM EDT Office Visit [facility] ADULT DENTAL [address] [place] [address] Katelyn Waldrop [address] [place] [address] documented as of this encounter Visit Diagnoses Not on filedocumented in this encounter Care Teams Regulatory Technician Relationship Specialty Start Date End Date Jameel Cota MD [address] [place] [address] PCP - General Internal Medicine 04/10/14 Regine Hawkins, ItaliaD [address] [place] [address] Pharmacist Internal Medicine 08/18/22 documented as of this encounter
--- OUTSIDE RECORDS SUMMARY | 2024-09-09 07:51 | XMS_ITS | Encounter Summary ---
Author Organization [facility] Address [address] [place] [address] 7 [place] [address] Care Team Providers Care Auto Parts Counter Person Name Role Phone Jameel Cota MD Primary Care Provide r Regine Hawkins PharmD Unavailable [phone] Reason for Visit * Reason Comments Med Refill Encounter Details Date Type Department Care Team (Late Contact Info) Description 01/15/2023 Refill [facility] MEDICINE [address] [place] [address] NameДмитрий MD [address] [place] [address] Mixed hyperlipidemia Social History Tobacco Use Types [...] 11/03/2024 11:15 AM EDT Office Visit [facility] MEDICINE [address] [place] [address] Jameel Cota MD [address] [place], [place] [phone] 01/18/2025 8:00 AM EDT Office Visit [facility] ADULT DENTAL [address] [place], [place] [phone] Katelyn Waldrop [address] [place] [address] documented as of this encounter Goals Goal Patient Goal Type Associated Problems Recent Progress Patient-Stated? Author Remain at or Below Target Blood Pressure General On track(07/13/19 24 4:09 PM EST) No Regine Hawkins, Ruben documented as of this encounter Visit Diagnoses Diagnosis Mixed hyperlipidemia documented in this encounter Care Teams Auto Parts Counter Person Relationship Specialty Start Date End Date Jameel Cota MD [address] [place], [place] [phone] PCP - General Internal Medicine 04/10/14 Regine Hawkins, ItaliaD [address] [place] [phone] Pharmacist Internal Medicine 08/18/22 documented as of this encounter
--- OUTSIDE RECORDS SUMMARY | 2024-09-09 07:51 | XMS_ITS | Encounter Summary ---
Author Organization [employer] Address [address] [place] [address] 7 [place] [address] Care Team Providers Care Rail Transit Operator Name Role Phone Jameel Cota MD Primary Care Provide r Regine Hawkins PharmD Unavailable [phone] Encounter Details Date Type Department Care Team (Late st Contact Info) Description 10/10/2022 Abstract [facility] MEDICINE [address] [place] [address] Jameel Cota MD [address] [place], [place] [phone] Social History Tobacco Use Types Packs/Day Years [...] Description 11/03/2024 11:15 AM EDT Office Visit [facility] MEDICINE [address] [place], [place] [phone] Jameel Cota MD [address] [place], [place] [phone] 01/18/2025 8:00 AM EDT Office Visit [facility] ADULT DENTAL [address] [place] [address] Katelyn Waldrop [address] [place] [address] documented as of this encounter Goals Goal [...] Recommended 10 year follow up Historical Provider [employer] MAINTENANCE Edited Result - Final documented in this encounter Visit Diagnoses Not on filedocumented in this encounter Care Teams Rail Transit Operator Relationship Specialty Start Date End Date Jameel Cota MD [address] [place] [address] PCP - General Internal Medicine 04/10/14 Regine Hawkins, Ruben [address] [place] [address] Pharmacist Internal Medicine 08/18/22 documented as of this encounter
--- OUTSIDE RECORDS SUMMARY | 2024-09-09 07:51 | XMS_ITS | Encounter Summary ---
Author Organization [facility] Address [address] [place] [address] 7t [place] [address] Care Team Providers Care Grommet Worker Name Role Phone Jameel Cota MD Primary Care Provide r Regine Hawkins PharmD Unavailable [phone] Encounter Details Date Type Department Care Team (Late Contact Info) Description 07/14/2022 Orders Only [facility] MEDICINE [address] [place] [phone] Britany Bell LPN Social History Tobacco Use [...] Description 11/03/2024 11:15 AM EDT Office Visit [facility] MEDICINE [address] [place], [place] [phone] Jameel Cota MD [address] [place] [address] 01/18/2025 8:00 AM EDT Office Visit [facility] ADULT DENTAL [address] [place] [address] Katelyn Waldrop [address] [place] [address] documented as of this encounter Procedures Procedure Name Priority Date/Time Associated Diagnosis Comments GLUCOSE, WHOLE BLOOD Routine 07/14/2022 12:40 PM EST documented in this encounter Results * GLUCOSE, WHOLE BLOOD (07/14/2022 12:40 PM EST) Glucose, Whole Blood 111 60 - 115 mg/dL [facility] Comment:METER #: [id number] 07/14/2022 12:4 0 PM EST 07/14/2022 12:45 PM EST us [facility] External Provider LAB BLO OD ORDERABLES Final Result Performing Organization Address City/State/[facility] Co de Phone Number [facility] [address] [place] [address] [phone] documented in this encounter Visit Diagnoses Not on filedocumented in this encounter Care Teams Grommet Worker Relationship Specialty Start Date End Date Jameel Cota MD [address] [place] [address] PCP - General Internal Medicine 04/10/14 Regine Hawkins PharmD [address] [place] [address] Pharmacist Internal Medicine 08/18/22 documented as of this encounter
--- OUTSIDE RECORDS SUMMARY | 2024-09-09 07:51 | XMS_ITS | Encounter Summary ---
Author Organization [employer] Address [address] [place] [address] 7 [place] [address] Care Team Providers Care Structural Steel Detailer Name Role Phone Jameel Cota MD Primary Care Provide r Regine Hawkins PharmD Unavailable [phone] Reason for Visit * Reason Comments Med Refill Encounter Details Date Type Department Care Team (Late Contact Info) Description 09/30/2022 Refill [facility] MEDICINE [address] [place] [address] Ami Dunlap, ANP [address] [place], [place] [phone] Type 2 diabetes mellitus with hyperlipidemia ([facility]) Social History Tobacco Use Types Packs/Day Years [...] Description 11/03/2024 11:15 AM EDT Office Visit [facility] MEDICINE [address] [place] [address] Jameel Cota MD [address] [place] [address] 01/18/2025 8:00 AM EDT Office Visit [facility] ADULT DENTAL [address] [place] [address] Katelyn Waldrop [address] [place] [address] documented as of this encounter Goals Goal Patient Goal Type Associated Problems Recent Progress Patient-Stated? Author Remain at or Below Target Blood Pressure General On track(07/13/19 24 4:09 PM EST) No Regine Hawkins, Ruben documented as of this encounter Visit Diagnoses Diagnosis Type 2 diabetes mellitus with hyperlipidemia (CMS/HCC) (CMS/HCC) documented in this encounter Care Teams Structural Steel Detailer Relationship Specialty Start Date End Date Jameel Cota MD [address] [place] [address] PCP - General Internal Medicine 04/10/14 Regine Hawkins, PharmD [address] [place] [phone] Pharmacist Internal Medicine 08/18/22 documented as of this encounter
--- OUTSIDE RECORDS SUMMARY | 2024-09-09 07:51 | XMS_ITS | Encounter Summary ---
Author Organization [employer] Address [address] [place] [address] 7t [place] [address] Care Team Providers Care Boarder Steam Name Role Phone Jameel Cota MD Primary Care Provide r Regine Hawkins PharmD Unavailable [phone] Encounter Details Date Type Department Care Team (Late st Contact Info) Description 08/18/2022 Orders Only [facility] MEDICINE [address] [place] [phone] Regine Hawkins, PharmD [address] [place] [address] Social History Tobacco Use Types Packs/Day Years [...] Description 11/03/2024 11:15 AM EDT Office Visit [facility] MEDICINE [address] [place] [phone] Jameel Cota MD [address] [place] [address] 01/18/2025 8:00 AM EDT Office Visit [facility] ADULT DENTAL [address] [place], [place] [phone] Katelyn Waldrop [address] [place] [address] documented as of this encounter Goals Goal Patient Goal Type Associated Problems Recent Progress Patient-Stated? Author Remain at or Below Target Blood Pressure General On track(07/13/19 24 4:09 PM EST) No Regine Hawkins, PharmD documented as of this encounter Visit Diagnoses Not on filedocumented in this encounter Care Teams Boarder Steam Relationship Specialty Start Date End Date Jameel Cota MD [address] [place] [address] PCP - General Internal Medicine 04/10/14 Regine Hawkins, PharmD [address] [place], [place] [phone] Pharmacist Internal Medicine 08/18/22 documented as of this encounter
--- OUTSIDE RECORDS SUMMARY | 2024-09-09 07:51 | XMS_ITS | Clinical Summary ---
Author Organization [employer] Address [address] [facility] 7t [place] [address] Care Team Providers Care Luncheonette Operator Name Role Phone Jameel Cota MD Primary Care Provide r Regine Hawkins PharmD Unavailable [phone] Allergies No known active allergies Medications buPROPion [...] Medication Containers misc USE DIRECTED 023 Active Fluocinolone Acetonide Scalp 0.01 % oil APLIQUE YOUSIF CAPA PEQUENA EN EL CUERO CABELLUDO HUMEDO MASAJE ZENA Y DEJE POR 4 HORAS O TODA LA NOCHE LUEGO ENJUAGE. USE LA NOCHE ANTES DEL CHAMPU 118.28 mL 3 024 Active metFORMIN XR (Glucophage-XR) 500 MG 24 hr tablet TAKE 2 TABLETS BY MOUTH TWICE DAILY IN THE MORNING AND EVENING WITH FOOD 360 tablet 3 024 Active Alcohol Swabs (Alcohol Prep) 70 % pads USE DIRECTED ONCE DAILY 100 each 11 06/27/2 024 Active fluticasone (Flonase) 50 MCG/ACT nasal spray USE 1 SPRAY IN EACH NOSTRIL EVERY DAY 16 g 2 Active OneTouch Delica Lancets 33G miscIndications:T ype 2 diabetes mellitus without complication, without long-term current use of insulin ([facility]) TEST BLOOD SUGAR TWICE A DAY 100 each Active glucose blood (OneTouch Ultra Test) test strip TEST BLOOD SUGAR TWICE A DAY 100 each 024 2024 Active docusate sodium (Colace) 100 [...] or as directed by MD. 30 patch Active hydroCHLOROthiazi de (HYDRODiuril) 25 MG tablet TAKE 1 TABLET BY MOUTH EVERY MORNING 90 tablet 1 Active lisinopril 40 MG tabletIndications :Benign hypertension TAKE 1 TABLET BY MOUTH EVERY MORNING (TAKE SECOND TAB IF BLOOD PRESSURE >140/90) 45 tablet 5 Active omega-3 (Fish Oil) 1000 MG capsuleIndication [...] complication, without long-term current use of insulin ([facility]) Use to monitor blood glucose by subcutaneous route twice daily 1 kit 1 025 Active atorvastatin (Lipitor) 40 MG tabletIndications :Type 2 diabetes mellitus with hyperlipidemia (CMS/HCC) ([facility]) TAKE 1 TABLET BY MOUTH AT BEDTIME 90 tablet 3 025 Active glipiZIDE XL (Glucotrol XL) 2.5 MG 24 hr tablet TAKE 1 TABLET BY MOUTH EVERY MORNING WITH BREAKFAST 90 tablet 3 025 Active atorvastatin (Lipitor) 40 MG tabletIndications :Type 2 diabetes mellitus with hyperlipidemia (CMS/HCC) ([facility]) TAKE 1 TABLET BY MOUTH AT BEDTIME 90 tablet 3 024 2024 Discontinued glipiZIDE XL (Glucotrol XL) 2.5 MG 24 hr tablet TAKE 1 TABLET BY MOUTH EVERY MORNING WITH BREAKFAST 90 tablet 3 024 2024 Discontinued guaiFENesin (Robitussin) 100 MG/5ML liquidIndications :Subacute cough Take 10 mL (200 mg) by mouth if needed in the morning, at noon, and at bedtime for cough for up to 10 days. 120 mL 025 2024 Active Problems Problem Noted Date Diagnosed Date [...] followed by Iliana and Dr. Duque at [facility]. He is at his baseline and [...] nurse for medications. He is followed at [facility]. He is at his baseline and [...] followed by Iliana and Dr. Duque at [facility]. He is at his baseline and [...] followed by Iliana and Dr. Duque at [facility]. He is at his baseline and [...] changes. Last seen at [facility] 11/17/12 with plan to repeat [...] Vicodin 1-2 times a day. Seen at [facility] Pain management clinic and received an epidural [...] landed on his buttocks Initially described pain 8/10 Pt has a Hx of chronic back pain since April of 2013. He completed PT 07/21/13 but did not see an improvement in the pain. He was using Vicodin 1-2 times a day. Seen at [facility] Pain management clinic and received an epidural [...] week, landed on his buttocks Described pain 8/10 Pt has a Hx of chronic back pain since April of 2013. He completed PT 07/21/13 but did not see an improvement in the pain. He was using Vicodin 1-2 times a day. Seen at [facility] Pain management clinic and received an epidural [...] Vicodin 1-2 times a day. Seen at [facility] Pain management clinic and received an epidural [...] Encounters Date Type Department Care Team Description 08/29/2024 Refill [facility] [address] [place] [address] Regine Hawkins PharmD Type 2 diabetes mellitus with hyperlipidemia (CMS/HCC) ([facility]) 08/02/2024 2:15 PM EST Office Visit [facility] [address] [place] [address] Jameel Cota MD Benign prostatic hyperplasia with urinary frequency (Primary Dx); Type 2 diabetes mellitus without complication, without long-term current use of insulin ([facility]); Benign hypertension; Bladder outlet obstruction; Tubular adenoma; Mixed hyperlipidemia; Preventative health care; Subacute cough; Schizophrenia, unspecified type ([facility]); Class 1 obesity due to excess calories with serious comorbidity and body mass index (BMI) of 32.0 to 32.9 in adult; Dietary counseling; Exercise counseling 08/02/2024 Travel 07/29/2024 Refill [facility] [address] [place] [phone] Regine Hawkins PharmD 07/25/2024 Refill [facility] [address] [place] [phone] Jameel Cota MD 07/20/2024 8:00 AM EST Office Visit [facility] ADULT DENTAL [address] [place] [phone] Katelyn Waldrop Dental calculus (Primary Dx); Periodontal disease; Missing teeth, acquired; Acute gingival inflammation; Gingival bleeding; Generalized gingival recession 07/20/2024 Telephone [facility] [address] [place] [phone] Jameel Cota MD Chart Prep 07/20/2024 Patient Outreach [facility] [address] [place] [phone] Jameel Cota MD Pre-visit Planning (SDOH Screening negative and Tobacco screening negative) from Last 3 Months Immunizations Name Administration [...] 11:15 AM EDT Office Visit [facility] [address] [place] [address] Jameel Cota MD [address] [place] [address] 01/18/2025 8:00 AM EDT Office Visit [facility] ADULT DENTAL [address] [place] [address] Katelyn Waldrop [address] [place] [address] Health Maintenance Due Date Last Done Comments CT Colonography 1962 FIT DNA/Cologuard 1962 FIT 1962 FOBT 1960 HIV Screening 1960 Sigmoidoscopy 1960 Diabetes: Foot Exam 02/09/1972 Colonoscopy 02/20/2023 02/20/2013 Colorectal Cancer Screening 02/20/2023 Dental X-Ray: Full Mouth 11/15/2023 11/13/2020 Dental [...] 04/07/2024, 04/07/20 24 SDOH Screening 07/20/2025 07/20/2024 Diabetes: Urine Protein Screening 08/02/2025 08/02/2024, 06/17/2022, 02/05/2021, Additional history exists Tobacco Screening 08/02/2025 08/02/2024 DTaP/Tdap/Td Vaccines (2 [...] complication, without long-term current use of insulin ([facility]) XR CHEST 2 VIEWS Routine 08/02/2024 3:09 [...] complication, without long-term current use of insulin ([facility]) POCT GLUCOSE Routine 08/02/2024 2:06 PM EST Type 2 diabetes mellitus without complication, without long-term current use of insulin ([facility]) ORAL HYGIENE INSTRUCTIONS Routine 07/20/2024 8:00 AM [...] PSA, Total 0.75 <0.05 - 4.0 ng/mL [facility] Comment:PSA methodology: Abb wisam Cotton i ChemiluminescentMicroparticle Immunoassay (CMIA) Blood Venous blood specimen / Unknown 08/02/2024 3:36 PM EST 08/02/2024 4:04 PM EST us Jameel Goyal MD LAB BLOOD ORDERABLES Final Result [facility] [address] [place] [address] [phone] * Albumin, Random Urine W/Creatinine (08/02/2024 3:36 PM EST) Creatinine, Urine 82.85 mg/dL [facility] Microalbumin Urine 9.0 mg/L [facility] Microalbum Creatinine Ratio Ur 10.8 <30 ug/mg cr [facility] Comment:Albumin/Creatinine R atio Reference Ranges: Normal: < 30 ug/mg creatinine Microalbuminuria: 30 - 300 ug/mg creatinineClinical Albuminuria: > 300 ug/mg creatinine Urine (Urine, Random) 08/02/2024 3:36 PM EST 08/02/2024 4:14 PM EST Jameel Goyal MD LAB URINE ORDERABLES Final Result [facility] [address] [place] [phone] * (ABNORMAL) Basic Metabolic Panel (08/02/2024 3:36 PM EST) Sodium 140 135 - 145 mmol/L [facility] Potassium 3.4 3.3 - 5.1 mmol/L [facility] Chloride 100 96 - 108 mmol/L [facility] Carbon Dioxide 33(H) 22 - 29 mmol/L [facility] Anion Gap 10(L) 12 - 20 [facility] Urea Nitrogen (BUN) 11 9 - 16 mg/dL [facility] Creatinine, Serum 0.74 0.5 - 1.4 mg/dL [facility] Estimated Glomerular Filt Rate >60 [facility] Comment:Chronic Kidney Disea se: Estimated GFR < 60 mL/min/1.26h0Nttkrj Kidney Disease: Estimated GFR < 15 mL/min/1.73m2 Glucose 65 60 - 115 mg/dL [facility] Calcium 9.5 8.4 - 10.2 mg/dL [facility] Blood Venous blood specimen / Unknown 08/02/2024 3:36 PM EST 08/02/2024 4:04 PM EST us Jameel Goyal MD LAB BLOOD ORDERABLES Final Result [facility] [address] [place] [phone] * XR Chest 2 Views (08/02/2024 3:09 PM EST) Anatomical Region Laterality Modality Chest Radiographic Akrissa ging 08/02/2024 3:09 PM EST Narrative 08/02/2024 3:35 PM EST ?[facility] ?[address] ?[place] [address] ?XRay Report ? Signed ? Patient: Partha,Jabari ?MR#: [id number] ?? 89 ? : 1960 ?Acct:[id number] ? Age/Sex: 64 / M ?ADM Date: 08/02/24 ? Loc: HO.HHCX ? Attending Dr: Jameel Patel MD ? Ordering Physician: Jameel Patel MD ?? Date of Service: 08/02/24 ?? Procedure(s): XR chest 2V ?? Accession Number(s): [id number] ? cc: Jameel Patel MD ? EXAMINATION: [...] ??Haris Hemphill MD ??08/02/2024 03:32 PM EST ?? RP ? Dictated By: ?Haris Hemphill MD ? Signed By: ?<Electronically signed by Haris Hemphill MD in OV> ?08/02/24 1532 ? DD/ 1509 ? TD/TT: 08/02/24 1518 ? National Sales: ? Procedure Note Donotuseinterpreter, Image - 08/02/2024 [facility] [address] [place] [address] XRay Report Signed Patient: Mesfin Chavis#: [id number] 88 : 2Acct:[id number] Age/Sex: 64 / MADM Date: 08/02/24 Loc: HO.HHCX Attending Dr: Jameel Patel MD Ordering Physician: Jameel Patel MD Date of Service: 08/02/24 Procedure(s): XR chest 2V Accession Number(s): [id number] cc: Jameel Patel MD EXAMINATION: XR CHEST [...] 08/02/24 1532 DD/ 1509 TD/TT: 08/02/24 1518 National Sales: us Jameel Goyal MD IMG XR PROCEDURES Fin al Result * POCT Rapid Influenza B EDDY ID NOW (08/02/2024 2:51 PM EST) Influenza B Negative Negative, Indeterminate [facility] QC Media Lot # [id number] [facility] Lot# Expiration Date [id number] [facility] Swab 08/02/2024 2:51 PM EST us Jameel Goyal MD POINT OF CARE TEST EN TER/EDIT ORDERABLES Final Result Performing Organization Address City/[facility]/ZIP Co de Phone Number [facility] [address] [place] [phone] * POCT Rapid Influenza A EDDY ID NOW (08/02/2024 2:51 PM EST) Influenza A Negative Negative, Indeterminate [facility] QC Media Lot # [id number] [facility] Lot# Expiration Date [facility] Swab 08/02/2024 2:51 PM EST us Jameel Goyal MD POINT OF CARE TEST EN TER/EDIT ORDERABLES Final Result Performing Organization Address [facility] Phone Number [facility] [address] [place] [phone] * POCT Rapid Covid-19 BinaxNOW (08/02/2024 2:50 PM EST) Pathologist [facility] Rapid COVID Ag Negative QC Media Lot # [id number] Lot# Expiration Date Swab 08/02/2024 2:50 PM EST us Jameel Goyal MD POINT OF CARE TEST EN TER/EDIT ORDERABLES Final Result * POCT HGB A1C (08/02/2024 2:06 PM EST) Hemoglobin A1C 5.7 4.0 - 6.0 % QC Media Lot # [id number] Lot# Expiration Date Blood 08/02/2024 2:06 PM EST us Jameel Goyal MD POINT OF CARE TEST EN TER/EDIT ORDERABLES Final Result * POCT Glucose (08/02/2024 2:06 PM EST) Glucose Blood, POC 108 60 - 200 mg/dL QC Media Lot # [id number] Lot# Expiration Date [id number] Blood Capillary blood specimen / Unknown 08/02/2024 2:06 PM EST Jameel Goyal MD POINT OF CARE TEST EN TER/EDIT ORDERABLES Final Result * (ABNORMAL) Lipid Panel, Standard (10/15/2023 8:52 AM EDT) Triglycerides 76 <150 mg/dL [facility] Comment:Desirable Triglyceri de: less than 150 mg/dLBorderline High Triglyceride 150-199 mg/dLHigh Triglyceride: 200-499 mg/dLVery High Triglyceride: greater than or equal to 5OO mg/dL Cholesterol 84 <200 mg/dL [facility] Comment:Desirable Cholestero l: less than 200 mg/dLBorderline High Cholesterol: 200-239 mg/dLHigh Cholesterol: greater than 239 mg/dL LDL Cholesterol Calculated 37 <100 mg/dL [facility] Comment:Desirable LDL: less than 100 mg/dLNear Optimal/Above Optimal LDL: 110- 129 mg/dLBorderline High LDL: 130-159 mg/dLHigh LDL: 160-189 mg/dLVery High LDL: greater than or equal to 190 mg/dL HDL Cholesterol 32(L) >40 mg/dL [facility] Comment:Desirable HDL: great er than 40 mg/dL Note: This HDL assay may give artificially low results in patients with liver disease. Blood Venous blood specimen / Unknown 10/15/2023 8:52 AM EDT 10/15/2023 11:35 AM EDT Jameel Goyal MD LAB BLOOD ORDERABLES Final Result [facility] [address] [place] [phone] * HEPATITIS C AB W/REFL TO HCV RNA, QN, PCR (12/31/2021 3:04 PM EDT) HEPATITIS C ANTIBODY NON-REACT FARIDA NON-REACT FARIDA [facility] INDEX 0.09 <1.00 [facility] Comment: ?? HCV antibody was non-reactive. There is no laboratory ?? evidence of HCV infection. ?? In most cases, no further action is required. However, if recent HCV exposure is suspected, a test for HCV RNA (test code 08754) is suggested. ?? For additional information please refer to http://education.[employer]/faq/EZO86l9 (This link is being provided for informational/ educational purposes only.) ?? 12/31/2021 3:04 PM EDT Jameel Goyal MD HISTORICAL/NON ORDERA BLE LABS Final Result [facility] [address] [place] [address], * Colonoscopy (02/20/2013) Colonoscopy Normal Normal 02/20/2013 Narrative Urmila Monte - 02/20/2013 12:53 PM EDT Recommended 10 year follow up Historical Provider HEALTH MAINTENANCE Edited Result - Final from Last 3 Months or Most Recently Relevant to Health Maintenance Insurance [facility] Member Subscriber Plan / Payer (Ef fective 2024-Present) Name:Jabari Chavis Relation to Subscriber:Self Name:Jabari Chavis Payer ID:Not on file Group ID:Not on file Type:Not on file Address: [address] [place] [address] Care Teams Luncheonette Operator Relationship Specialty Start Date End Date Jameel Cota MD [address] [place] [address] PCP - General Internal Medicine 04/10/14 Regine Hawkins, ItaliaD [address] [facility] [place] [place] [address] Pharmacist Internal Medicine 08/18/22
--- OUTSIDE RECORDS SUMMARY | 2024-09-09 07:51 | XMS_ITS | Encounter Summary ---
Author Organization [employer] Address [address] [facility] 7t [place] [address] Care Team Providers Care Senior Search Marketing Analyst Name Role Phone Jameel Cota MD Primary Care Provide r Regine Hawkins PharmD Unavailable [phone] Encounter Details Date Type Department Care Team ([facility] Contact Info) Description 08/28/2022 Orders Only [facility] MED & PEDS [address] [place] [address] Gosia Britt LPN Social History Tobacco Use [...] Upcoming Encounters Date Type Department Care Team ([facility] Contact Info) Description 11/03/2024 11:15 AM EDT Office Visit [facility] [address] [place], [place] [phone] Jameel Cota MD [address] [place] [address] 01/18/2025 8:00 AM EDT Office Visit [facility] ADULT DENTAL [address] [place] [address] Katelyn Waldrop [address] [place] [address] documented as of this encounter Goals Goal Patient Goal Type Associated Problems Recent Progress Patient-Stated? Author Remain at or Below Target Blood Pressure General On track(07/13/19 24 4:09 PM EST) No Regine Hawkins, Ruben documented as of this encounter Visit Diagnoses Not on filedocumented in this encounter Care Teams Senior Search Marketing Analyst Relationship Specialty Start Date End Date Jameel Cota MD [address] [place] [phone] PCP - General Internal Medicine 04/10/14 Regine Hawkins PharmD [address] [place] [address] Pharmacist Internal Medicine 08/18/22 documented as of this encounter
--- OUTSIDE RECORDS SUMMARY | 2024-09-09 07:51 | XMS_ITS | Encounter Summary ---
Author Organization [employer] Address [address] [facility] [address] [place] [address] Care Team Providers Care Glass Grinder Name Role Phone Jameel Cota MD Primary Care Provide r Regine Hawkins PharmD Unavailable [phone] Encounter Details Date Type Department Care Team (Late st Contact Info) Description 08/05/2022 Orders Only [facility] CH[facility] MED & PEDS [address] [place] [address] Gosia Britt LPN Social History Tobacco Use [...] Office Visit [facility] [address] [place] [address] Jameel Cota MD [address] [place] [address] 01/18/2025 8:00 AM EDT Office Visit [facility] ADULT DENTAL [address] [place], [place] [phone] Katelyn Waldrop [address] [place] [address] documented as of this encounter Visit Diagnoses Not on filedocumented in this encounter Care Teams Glass Grinder Relationship Specialty Start Date End Date Jameel Cota MD [address] [place] [address] PCP - General Internal Medicine 04/10/14 Regine Hawkins PharmD [address] [place] [address] Pharmacist Internal Medicine 08/18/22 documented as of this encounter
--- OUTSIDE RECORDS SUMMARY | 2024-09-09 07:51 | XMS_ITS | Encounter Summary ---
Author Organization [employer] Address [address] [facility] [address]t [place] [address] Care Team Providers Care Clinical Quality Analyst Name Role Phone Jameel Cota MD Primary Care Provide r Regine Hawkins PharmD Unavailable [phone] Reason for Visit * Reason Onset Date Comments Pre Op 07/03/2023 Encounter Details Date Type Department Care Team ([facility] st Contact Info) Description 07/03/2023 Telephone [facility] [address] [place] [address] Jameel Cota MD [address] [place], [place] [phone] Pre Op Social History Tobacco Use Types [...] yes Surgeon's name: Cj Maddox Facility name: [facility] Surgeon's office number: [phone] opt 3 Surgeon's office fax number: [phone] Contact name (person you spoke with): Shanita documented in this encounter Plan of Treatment Upcoming Encounters Date Type Department Care Team (Late st Contact Info) Description 11/03/2024 11:15 AM EDT Office Visit [facility] [address] [place] [address] Jameel Cota MD [address] [place] [address] 01/18/2025 8:00 AM EDT Office Visit [facility] ADULT DENTAL [address] [place] [address] Katelyn Waldrop [address] [place] [address] documented as of this encounter Goals Goal [...] documented as of this encounter Care Teams Clinical Quality Analyst Relationship Specialty Start Date End Date Jameel Cota MD [address] [place] [address] PCP - General Internal Medicine 04/10/14 Regine Hawkins, ItaliaD [address] [place] [address] Pharmacist Internal Medicine 08/18/22 documented as of this encounter
--- NOTE | 2024-09-09 07:55 | PFT_ITS ---
Flows: FEV1: 76 % of predicted at 2.26 L FVC: 71 % of predicted at 2.68 L FEV1/FVC: 84 % Bronchodilator response: Absent Volumes: Total lung capacity: 65 % of predicted at 3.97 L Residual volume: 66 % of predicted at 1.28 L Slow vital capacity: 64 % of predicted at 2.68 L Expiratory reserve volume: 25 % of predicted at 0.25 L Diffusion capacity: Normal Impression: Moderate restrictive ventilatory defect with no bronchodilator response. Decreased expiratory reserve volume suggests extrathoracic restriction likely secondary to abdominal obesity. MTDD
[2024-09-09 08:35] VITALS: PULSE 88; O2SAT 96
== END 2024-09-09 07:49 | disposition home or self-care (01) ==
LOC: HO.RESP 07:48
PROVIDERS: PCP Internal Medicine; Visit Provider Internal Medicine
DX: R05.2 Subacute cough (principal)
CPT/HCPCS: 94010; 94640; 94727; 94729

== ENCOUNTER → 2024-09-09 07:55 | Outpatient (BNV) | payer OTHER, SELFPAY | PROVIDERS: PCP Internal Medicine; Visit Provider Internal Medicine Pulmonary Disease | DX: R05.2 Subacute cough (principal) | CPT/HCPCS: 94060; 94727; 94729 ==

== ENCOUNTER 2024-10-13 06:39 | Day surgery (SDC) | payer OTHER, SELFPAY ==
--- OUTSIDE RECORDS SUMMARY | 2024-10-04 18:09 | XMS_ITS | Encounter Summary ---
Author Organization [employer] Address [address] [facility] 7t [place] [address] Care Team Providers Care Customer Support Manager Name Role Phone Jameel Cota MD Primary Care Provide r Regine Hawkins PharmD Unavailable [phone] Essie Mehta PharmD Unavailable [phone] Reason for Visit * Reason Onset Date Comments Pre Op 07/03/2023 Encounter Details Date Type Department Care Team (Late st Contact Info) Description 07/03/2023 Telephone [facility] [address] [place], [place] [phone] Jameel Cota MD [address] [place], [place] [phone] Pre Op Social History Tobacco Use Types Packs/Day Years Used Date Smoking Tobacco: Never Passive Smoke Exposure: Never Smokeless Tobacco: Never Alcohol Use Standard Drinks/Week Comments Never 0 (1 standard drink = 0.6 oz pur e alcohol) Depression Answer Date Recorded Patient Health Questionnaire-9 Score 0 03/03/2023 Housing Stability Answer Date Recorded What is your housing situation today? I have miles latoya 03/25/[address] you li [...] yes Surgeon's name: Cj Maddox Facility name: [facility] Surgeon's office number: [phone] opt 3 Surgeon's office fax number: [phone] Contact name (person you spoke with): Shanita documented in this encounter Plan of Treatment Upcoming Encounters Date Type Department Care Team (Late st Contact Info) Description 11/03/2024 11:15 AM EDT Office Visit [facility] MED[facility] [address] [place] [address] Jameel Cota MD [address] [place] [address] 01/16/2025 11:00 AM EDT Office Visit [facility] OPTOMETRY [address] [place], [place] [phone] Adelina Gallo JEAN-CLAUDE [address] [place] [address] 01/18/2025 8:00 AM EDT Office Visit [facility] ADULT DENTAL [address] [place] [address] Katelyn Waldrop [address] [place] [address] documented as of this encounter Goals Goal [...] documented as of this encounter Care Teams Customer Support Manager Relationship Specialty Start Date End Date Jameel Cota MD [address] [place] [phone] PCP - General Internal Medicine 04/10/14 Regine Hawkins, PharmD [address] [place] [phone] Pharmacist Internal Medicine 08/18/22 09/28/24 Essie Mehta PharmD [address] [place] [phone] Pharmacist Internal Medicine 09/29/24 09/30/24 documented as of this encounter
--- OUTSIDE RECORDS SUMMARY | 2024-10-04 18:09 | XMS_ITS | Encounter Summary ---
Author Organization [employer] Address [address] [facility] 7t [place] [address] Care Team Providers Care Contract Negotiation Manager Name Role Phone Jameel Cota MD Primary Care Provide r Regine Hawkins PharmD Unavailable [phone] Essie Mehta PharmD Unavailable [phone] Encounter Details Date Type Department Care Team ([facility] Contact Info) Description 08/28/[address] [facility] CHC MED & PEDS [address] [place], [place] [phone] Gosia rBitt LPN Social History Tobacco Use Types Packs/Day [...] Upcoming Encounters Date Type Department Care Team ([facility] Contact Info) Description 11/03/2024 11:15 AM EDT Office [facility] MEDICINE [address] [place] [address] Jameel Cota MD [address] [place] [address] 01/16/2025 11:00 AM EDT Office Visit [facility] OPTOMETRY [address] [place] [address] Sabino, Adelina, OD 230 [place] [address] 01/18/2025 8:00 AM EDT Office Visit [facility] ADULT DENTAL [address] [place] [address] Palma, Katelyn [address] [place] [address] documented as of this encounter Goals Goal Patient Goal Type Associated Problems Recent Progress Patient-Stated? Author Remain at or Below Target Blood Pressure General On track(07/13/19 24 4:09 PM EST) No Regine Hawkins, PharmD documented as of this encounter Visit Diagnoses Not on filedocumented in this encounter Care Teams Contract Negotiation Manager Relationship Specialty Start Date End Date Jameel Cota MD [address] [place] [address] PCP - General Internal Medicine 04/10/14 Regine Hawkins, [place] [address] Pharmacist Internal Medicine 08/18/22 09/28/24 Essie Mehta PharmD [address] [place] [address] Pharmacist Internal Medicine 09/29/24 09/30/24 documented as of this encounter
--- OUTSIDE RECORDS SUMMARY | 2024-10-04 18:09 | XMS_ITS | Encounter Summary ---
Author Organization [employer] Address [address] [place] [address] 7t [place] [address] Care Team Providers Care Pediatric Genetic Counselor Name Role Phone Jameel Cota MD Primary Care Provide r Regine Hawkins PharmD Unavailable [phone] Essie Mehta PharmD Unavailable [phone] Encounter Details Date Type Department Care Team (Late Contact Info) Description 07/14/2022 Orders Only [facility] MEDICINE [address] [place], [place] [phone] Britany Bell LPN Social History Tobacco Use [...] Description 11/03/2024 11:15 AM EDT Office Visit [facility] MEDICINE [address] [place], [place] [phone] Jameel Cota MD [address] [place], [place] [phone] 01/16/2025 11:00 AM EDT Office Visit [facility] OPTOMETRY [address] [place] [address] SabinoAdelina lundberg, OD 230 [place] [address] 01/18/2025 8:00 AM EDT Office Visit [facility] ADULT DENTAL [address] [place] [address] Palma, Katelyn [address] [place] [address] documented as of this encounter Procedures Procedure Name Priority Date/Time Associated Diagnosis Comments GLUCOSE, WHOLE BLOOD Routine 07/14/2022 12:40 PM EST documented in this encounter Results * GLUCOSE, WHOLE BLOOD (07/14/2022 12:40 PM EST) Glucose, Whole Blood 111 60 - 115 mg/dL [facility] Comment:METER #: [id number] 07/14/2022 12:4 0 PM EST 07/14/2022 12:45 PM EST [facility] External Provider LAB BLO OD ORDERABLES Final Result [facility] [address] [place] [address] [phone] documented in this encounter Visit Diagnoses Not on filedocumented in this encounter Care Teams Pediatric Genetic Counselor Relationship Specialty Start Date End Date Jameel Cota MD [address] [place] [address] PCP - General Internal Medicine 04/10/14 Regine Hawkins PharmD [address] [place] [address] Pharmacist Internal Medicine 08/18/22 09/28/24 Essie Mehta, ItaliaD [address] [place] [address] Pharmacist Internal Medicine 09/29/24 09/30/24 documented as of this encounter
--- OUTSIDE RECORDS SUMMARY | 2024-10-04 18:09 | XMS_ITS | Encounter Summary ---
Author Organization [employer] Address [address] [place] [address] 7t [place] [address] Care Team Providers Care Bargain Table Clerk Name Role Phone Jameel Cota MD Primary Care Provide r Regine Hawkins PharmD Unavailable [phone] Essie Mehta PharmD Unavailable [phone] Encounter Details Date Type Department Care Team (Latest Contact Info) Description 11/13/2020 Abstract [facility] CONVERSIONS Dental, Provider, DDS Social [...] 11:15 AM EDT Office Visit [facility] MEDICINE [address] [place] [address] Jameel Cota MD [address] [place], [place] [phone] 01/16/2025 11:00 AM EDT Office Visit [facility] OPTOMETRY [address] [place] [address] Adelina Gallo, OD [address] [place] [address] 01/18/2025 8:00 AM EDT Office Visit [facility] ADULT DENTAL [address] [place], [place] [phone] Katelyn Waldrop [address] [place], [place] [phone] documented as of this encounter Visit Diagnoses Not on filedocumented in this encounter Care Teams Bargain Table Clerk Relationship Specialty Start Date End Date Jameel Cota MD [address] [place] [address] PCP - General Internal Medicine 04/10/14 Regine Hawkins, ItaliaD [address] [place] [address] Pharmacist Internal Medicine 08/18/22 09/28/24 Essie Mehta, ItaliaD [address] [place] [address] Pharmacist Internal Medicine 09/29/24 09/30/24 documented as of this encounter
--- OUTSIDE RECORDS SUMMARY | 2024-10-04 18:09 | XMS_ITS | Encounter Summary ---
Author Organization [employer] Address [address] [facility] 7t [place] [address] Care Team Providers Care Final Inspector Shuttle Name Role Phone Jameel Cota MD Primary Care Provide r Regine Hawkins PharmD Unavailable [phone] Essie Mehta PharmD Unavailable [phone] Encounter Details Date Type Department Care Team ([facility] Contact Info) Description 08/18/2022 Orders Only [facility] MEDICINE [address] [place] [address] Regine Hawkins, PharmD 230 [place] [address] Social History Tobacco Use Types Packs/Day Years [...] Upcoming Encounters Date Type Department Care Team ([facility] Contact Info) Description 11/03/2024 11:15 AM EDT Office Visit [facility] MEDICINE [address] [facility] [place] [address] Jameel Cota MD [address] [facility] [place] [address] 01/16/2025 11:00 AM EDT Office Visit [facility] OPTOMETRY [address] [place] [address] Sabino, Adelina, OD [address] [facility] [place] [address] 01/18/2025 8:00 AM EDT Office Visit [facility] ADULT DENTAL [address] [place] [address] Palma, Katelyn [address] [place] [address] documented as of this encounter Goals Goal Patient Goal Type Associated Problems Recent Progress Patient-Stated? Author Remain at or Below Target Blood Pressure General On track(07/13/19 24 4:09 PM EST) No Regine Hawkins, ItaliaD documented as of this encounter Visit Diagnoses Not on filedocumented in this encounter Care Teams Final Inspector Shuttle Relationship Specialty Start Date End Date Jameel Cota MD [facility] [place] [address] PCP - General Internal Medicine 04/10/14 Regine Hawkins, ItaliaD [facility] [place] [address] Pharmacist Internal Medicine 08/18/22 09/28/24 Essie Mehta PharmD [facility] [place] [address] Pharmacist Internal Medicine 09/29/24 09/30/24 documented as of this encounter
--- OUTSIDE RECORDS SUMMARY | 2024-10-04 18:09 | XMS_ITS | Encounter Summary ---
Author Organization [employer] Address [address] [facility] [address] 7t [place] [address] Care Team Providers Care Vacuum Repairer Name Role Phone Jameel Cota MD Primary Care Provide r Essie Mehta PharmD Unavailable [phone] Encounter Details Date Type Department Care Team (Latest Contact Info) Description 09/29/2024 Travel Social History Tobacco Use Types Packs/Day [...] Description 11/03/2024 11:15 AM EDT Office Visit [facility] MEDICINE [address] [place] [address] Jameel Cota MD [address] [place] [address] 01/16/2025 11:00 AM EDT Office Visit [facility] OPTOMETRY [address] [place] [address] Sabino, Adelina, OD 230 [place] [address] 01/18/2025 8:00 AM EDT Office Visit [facility] ADULT DENTAL [address] [place] [address] Palma, Katelyn [address] [place] [address] documented as of this encounter Goals Goal Patient Goal Type Associated Problems Recent Progress Patient-Stated? Author Remain at or Below Target Blood Pressure General On track(07/13/19 24 4:09 PM EST) No Regine Hawkins, ItaliaD documented as of this encounter Visit Diagnoses Not on filedocumented in this encounter Additional Health Concerns Assessment Noted Time PHQ-9 Depression Total Score: 0 10/31/20 24 9:52 AM EDT documented as of this encounter Care Teams Vacuum Repairer Relationship Specialty Start Date End Date Jameel Cota MD [address] [place] [address] PCP - General Internal Medicine 04/10/14 Essie Mehta PharmD [address] [place] [address] Pharmacist Internal Medicine 09/29/24 09/30/24 documented as of this encounter
--- OUTSIDE RECORDS SUMMARY | 2024-10-04 18:09 | XMS_ITS | Encounter Summary ---
Author Organization [employer] Address [address] [place] [address] 7t [place] [address] Care Team Providers Care Supervisor Electrolytic Tinning Name Role Phone Jameel Cota MD Primary Care Provide r Regine Hawkins PharmD Unavailable [phone] Essie Mehta PharmD Unavailable [phone] Reason for Visit * Reason Comments Med Refill Encounter Details Date Type Department Care Team (Late st Contact Info) Description 09/30/2022 Refill [facility] MEDICINE [address] [place], [place] [phone] Ami Dunlap ANP [address] [place], [place] [phone] Type 2 diabetes mellitus with hyperlipidemia ([facility]) Social History Tobacco Use Types Packs/Day [...] Description 11/03/2024 11:15 AM EDT Office Visit [facility] MEDICINE [address] [place] [address] Jameel Cota MD [address] [place] [address] 01/16/2025 11:00 AM EDT Office Visit [facility] OPTOMETRY [address] [place] [address] Adelina Gallo, OD 230 [place] [address] 01/18/2025 8:00 AM EDT Office Visit [facility] ADULT DENTAL [address] [place] [address] Palma, Katelyn [address] [place] [address] documented as of this encounter Goals Goal Patient Goal Type Associated Problems Recent Progress Patient-Stated? Author Remain at or Below Target Blood Pressure General On track(07/13/19 24 4:09 PM EST) No Regine Hawkins, PharmD documented as of this encounter Visit Diagnoses Diagnosis Type 2 diabetes mellitus with hyperlipidemia (CMS/HCC) (CMS/HCC) documented in this encounter Care Teams Supervisor Electrolytic Tinning Relationship Specialty Start Date End Date Jameel Cota MD [address] [place] [address] PCP - General Internal Medicine 04/10/14 Regine Hawkins, PharmD [address] [place] [address] Pharmacist Internal Medicine 08/18/22 09/28/24 Essie Mehta PharmD [address] [place] [address] Pharmacist Internal Medicine 09/29/24 09/30/24 documented as of this encounter
--- OUTSIDE RECORDS SUMMARY | 2024-10-04 18:09 | XMS_ITS | Encounter Summary ---
Author Organization [employer] Address [address] [place] [address] 7t [place] [address] Care Team Providers Care Core Maker Helper Name Role Phone Jameel Cota MD Primary Care Provide r Regine Hawkins PharmD Unavailable [phone] Essie Mehta PharmD Unavailable [phone] Encounter Details Date Type Department Care Team (Latest Contact Info) Description 11/22/2018 Abstract [facility] CONVERSIONS Dental, Provider, DDS Social History [...] Description 11/03/2024 11:15 AM EDT Office Visit [facility] MEDICINE [address] [place] [address] Jameel Cota MD 230 [place], [place] [phone] 01/16/2025 11:00 AM EDT Office Visit [facility] OPTOMETRY [address] [place] [address] Adelina Gallo, OD [address] [place] [address] 01/18/2025 8:00 AM EDT Office Visit [facility] ADULT DENTAL [address] [place], [place] [phone] Katelyn Waldrop 230 [place] [address] documented as of this encounter Visit Diagnoses Not on filedocumented in this encounter Care Teams Core Maker Helper Relationship Specialty Start Date End Date Jameel Cota MD [address] [place] [address] PCP - General Internal Medicine 04/10/14 Regine Hawkins, ItaliaD [address] [place] [address] Pharmacist Internal Medicine 08/18/22 09/28/24 Essie Mehta, ItaliaD [address] [place] [address] Pharmacist Internal Medicine 09/29/24 09/30/24 documented as of this encounter
--- OUTSIDE RECORDS SUMMARY | 2024-10-04 18:09 | XMS_ITS | Encounter Summary ---
Author Organization [employer] Address [address] [place] [address] 7t [place] [address] Care Team Providers Care Coil Tester Name Role Phone Jameel Cota MD Primary Care Provide r Regine Hawkins PharmD Unavailable [phone] Essie Mehta PharmD Unavailable [phone] Encounter Details Date Type Department Care Team (Late Contact Info) Description 10/10/2022 Abstract [facility] MEDICINE [address] [place] [address] Jameel Cota MD [address] [place], [place] [phone] Social History Tobacco Use Types Packs/Day Years [...] Description 11/03/2024 11:15 AM EDT Office Visit [facility] MEDICINE [address] [place], [place] [phone] Jameel Cota MD [address] [place], [place] [phone] 01/16/2025 11:00 AM EDT Office Visit [facility] OPTOMETRY [address] [place] [address] Adelina Gallo, OD [address] [place] [address] 01/18/2025 8:00 AM EDT Office Visit [facility] ADULT DENTAL [address] [place] [address] Palma, Katelyn [address] [place] [address] documented as of this encounter Goals Goal [...] Provider HEALTH MAINTENANCE Edited Result - Final documented in this encounter Visit Diagnoses Not on filedocumented in this encounter Care Teams Coil Tester Relationship Specialty Start Date End Date Jameel Cota MD [address] [place] [address] PCP - General Internal Medicine 04/10/14 Regine Hawkins, ItaliaD [address] [place] [address] Pharmacist Internal Medicine 08/18/22 09/28/24 Essie Mehta PharmD [address] [place] [address] Pharmacist Internal Medicine 09/29/24 09/30/24 documented as of this encounter
--- OUTSIDE RECORDS SUMMARY | 2024-10-04 18:09 | XMS_ITS | Encounter Summary ---
Author Organization [employer] Address [address] [place] [address] 7t [place] [address] Care Team Providers Care Field Marketing Associate Name Role Phone Jameel Cota MD Primary Care Provide r Regine Hawkins PharmD Unavailable [phone] Essie Mehta PharmD Unavailable [phone] Reason for Visit * Reason Comments Med Refill Encounter Details Date Type Department Care Team (Late Contact Info) Description 01/15/[address] [facility] MEDICINE [address] [place] [address] Name, MD Дмитрий [address] [place], [place] [phone] Mixed hyperlipidemia Social History Tobacco Use Types [...] 11/03/2024 11:15 AM EDT Office Visit [facility] MEDICINE [address] [place], [place] [phone] Jameel Cota MD 230 [place] [address] 01/16/2025 11:00 AM EDT Office Visit [facility] OPTOMETRY [address] [place] [address] Sabino, Adelina, OD 230 [place] [address] 01/18/2025 8:00 AM EDT Office Visit [facility] ADULT DENTAL [address] [place] [address] Palma, Katelyn [address] [place] [address] documented as of this encounter Goals Goal Patient Goal Type Associated Problems Recent Progress Patient-Stated? Author Remain at or Below Target Blood Pressure General On track(07/13/19 4:09 PM EST) No Regine Hawkins, Ruben documented as of this encounter Visit Diagnoses Diagnosis Mixed hyperlipidemia documented in this encounter Care Teams Field Marketing Associate Relationship Specialty Start Date End Date Jameel Cota MD 230 [place] [address] PCP - General Internal Medicine 04/10/14 Regine Hawkins, PharmD [address] [place] [address] Pharmacist Internal Medicine 08/18/22 09/28/24 Essie Mehta PharmD [address] [place] [address] Pharmacist Internal Medicine 09/29/24 09/30/24 documented as of this encounter
--- OUTSIDE RECORDS SUMMARY | 2024-10-04 18:09 | XMS_ITS | Encounter Summary ---
Author Organization [employer] Address [address] [place] [address] 7t [place] [address] Care Team Providers Care Chemical Instrumentation Officer Name Role Phone Jameel Cota MD Primary Care Provide r Regine Hawkins PharmD Unavailable [phone] Essie Mehta PharmD Unavailable [phone] Encounter Details Date Type Department Care Team (Latest Contact Info) Description 01/08/2022 Abstract [facility] CONVERSIONS Dental, Provider, DDS Social [...] Description 11/03/2024 11:15 AM EDT Office Visit [facility] MEDICINE [address] [place] [address] Jameel Cota MD 230 [place], [place] [phone] 01/16/2025 11:00 AM EDT Office Visit [facility] OPTOMETRY [address] [place] [address] Adelina Gallo, OD [address] [place] [address] 01/18/2025 8:00 AM EDT Office Visit [facility] ADULT DENTAL [address] [place], [place] [phone] Katelyn Waldrop [address] [place], [place] [phone] documented as of this encounter Visit Diagnoses Not on filedocumented in this encounter Care Teams Chemical Instrumentation Officer Relationship Specialty Start Date End Date Jameel Cota MD 230 [place] [address] PCP - General Internal Medicine 04/10/14 Regine Hawkins, ItaliaD [address] [place] [address] Pharmacist Internal Medicine 08/18/22 09/28/24 Essie Mehta, ItaliaD [address] [place] [address] Pharmacist Internal Medicine 09/29/24 09/30/24 documented as of this encounter
--- OUTSIDE RECORDS SUMMARY | 2024-10-04 18:09 | XMS_ITS | Clinical Summary ---
Author Organization [employer] Address [address] [facility] 7t [place] [address] Care Team Providers Care Curriculum Counselor Name Role Phone Jameel Cota MD Primary Care Provide r Allergies No known active allergies Medications buPROPion [...] mouth at bed time. 01/01/20 22 Active Oral Medication Containers misc USE DIRECTED 02/18/20 23 Active Fluocinolone Acetonide Scalp 0.01 % oil [...] complication, without long-term current use of insulin (CMS/[facility]) TEST BLOOD SUGAR TWICE A DAY 100 each 02/25/20 24 Active glucose blood (OneTouch Ultra Test) test strip TEST BLOOD SUGAR TWICE A DAY 100 each 02/25/20 24 025 Active docusate sodium (Colace) [...] >140/90) 45 tablet 5 05/26/20 24 Active Aspirin Low Dose 81 MG EC tablet TAKE 1 TABLET BY MOUTH EVERY EVENING 90 tablet 3 07/26/19 25 Active amLODIPine (Norvasc) 5 MG tablet TAKE 1 TABLET BY MOUTH EVERY EVENING 90 tablet 3 08/01/19 25 Active Blood Glucose Monitoring Suppl (ONE TOUCH ULTRA 2) w/Device kitIndications:Typ e 2 diabetes mellitus without complication, without long-term current use of insulin (CMS/[facility]) Use to monitor blood glucose by subcutaneous route twice daily 1 kit 1 08/02/19 25 Active atorvastatin (Lipitor) 40 MG tabletIndications: Type 2 diabetes mellitus with hyperlipidemia (CMS/HCC) (CMS/HCC) TAKE 1 TABLET BY MOUTH AT BEDTIME 90 tablet 3 08/31/19 25 Active glipiZIDE XL (Glucotrol XL) 2.5 MG 24 hr tablet TAKE 1 TABLET BY MOUTH EVERY MORNING WITH BREAKFAST 90 tablet 3 08/31/19 25 Active Icosapent Ethyl (Vascepa) 1 g capsuleIndications :Mixed hyperlipidemia Take 2 capsules (2 g) by mouth with breakfast and with evening meal. 120 capsule 11 09/23/19 25 026 Active omega-3 (Fish Oil) 1000 MG capsuleIndications :Mixed hyperlipidemia TAKE 1 CAPSULE BY MOUTH THREE TIMES DAILY IN THE MORNING, EVENING, AND BEDTIME 90 capsule 3 05/26/20 24 025 Discontin ued(Thera py completed ) Active Problems Problem Noted Date Diagnosed Date [...] by Iliana and Dr. Duque at [facility]. He is at his baseline and [...] for medications. He is followed at [facility]. He is at his baseline and [...] by Iliana and Dr. Duque at [facility]. He is at his baseline and [...] by Iliana and Dr. Duque at [facility]. He is at his baseline and [...] changes. Last seen at [facility] 11/17/12 with plan to repeat [...] Vicodin 1-2 times a day. Seen at [facility] Pain management clinic and received an epidural [...] Vicodin 1-2 times a day. Seen at [facility] Pain management clinic and received an epidural [...] Vicodin 1-2 times a day. Seen at [facility] Pain management clinic and received an epidural [...] Vicodin 1-2 times a day. Seen at [facility] Pain management clinic and received an epidural [...] Encounters Date Type Department Care Team Description 09/29/2024 Travel 09/21/2024 Telephone [facility] [address] [facility] [place] [address] Jameel Cota MD Med Refill 09/20/2024 Orders Only [facility] [address] [facility] [place] [address] Jameel Cota MD Type 2 diabetes mellitus without complication, without long-term current use of insulin ([facility]) (Primary Dx) 09/20/2024 Refill [facility] [address] [facility] [place] [phone] Jameel Cota MD Mixed hyperlipidemia 09/12/2024 Telephone [facility] [address] [facility] [place] [phone] Jameel Cota MD 08/29/2024 Refill [facility] [address] [facility] [place] [phone] Regine Hawkins, PharmD Type 2 diabetes mellitus with hyperlipidemia (CMS/HCC) ([facility]) 08/02/2024 2:15 PM EST Office Visit [facility] [address] [place] [phone] Jameel Cota MD Benign prostatic hyperplasia with urinary frequency (Primary Dx); Type 2 diabetes mellitus without complication, without long-term current use of insulin ([facility]); Benign hypertension; Bladder outlet obstruction; Tubular adenoma; Mixed hyperlipidemia; Preventative health care; Subacute cough; Schizophrenia, unspecified type ([facility]); Class 1 obesity due to excess calories with serious comorbidity and body mass index (BMI) of 32.0 to 32.9 in adult; Dietary counseling; Exercise counseling 08/02/2024 Travel 07/29/2024 Refill [facility] [address] [place] [phone] Regine Hawkins, Ruben 07/25/2024 Refill [facility] [address] [place] [phone] Jameel Cota MD 07/20/2024 8:00 AM EST Office Visit [facility] ADULT DENTAL [address] [place] [phone] Katelyn Waldrop Dental calculus (Primary Dx); Periodontal disease; Missing teeth, acquired; Acute gingival inflammation; Gingival bleeding; Generalized gingival recession 07/20/2024 Telephone [facility] [address] [place] [phone] Jameel Cota MD Chart Prep 07/20/2024 Patient Outreach [facility] [address] [place] [phone] Jameel Cota MD Pre-visit Planning (SDOH Screening [...] Sign Reading Time Taken Comments Blood Pressure 124/68 09/29/2024 11:16 AM EDT Pulse 83 08/02/2024 2:03 PM EST Temperature [...] 11:15 AM EDT Office Visit [facility] [address] [place] [address] Jameel Cota MD [address] [place] [address] 01/16/2025 11:00 AM EDT Office Visit [facility] OPTOMETRY [address] [place] [address] Adelina Gallo, OD 230 [place] [address] 01/18/2025 8:00 AM EDT Office Visit [facility] ADULT DENTAL 230 [place] [address] Katelyn Waldrop 230 [place] [address] Health Maintenance Due Date Last Done Comments [...] 08/02/2025 08/02/2024, 06/17/2022, 02/05/2021, Additional history exists DTaP/Tdap/Td Vaccines (2 - Td or Tdap) 09/17/2025 09/18/2015, 10/15/2013 Tobacco Screening 09/29/2025 09/29/2024 Eye Exam 11/22/2025 11/23/2023, 11/06, 11/23/2023, Additional [...] track(07/13/19 24 4:09 PM EST) No Regine Hawkins PharmD Procedures Procedure Name Priority Date/Time Associated Diagnosis Comments PSA, SCREEN Routine 08/02/2024 3:36 PM EST Benign prostatic hyperplasia with urinary frequency Bladder outlet obstruction BASIC METABOLIC PANEL Routine 08/02/2024 3:36 PM EST Benign hypertension ALBUMIN, RANDOM URINE W/CREATININE Routine 08/02/2024 3:36 PM EST Type 2 diabetes mellitus without complication, without long-term current use of insulin ([facility]) XR CHEST 2 VIEWS Routine 08/02/2024 [...] 4.0 ng/mL [facility] Comment:PSA methodology: Abb wisam Alinity i ChemiluminescentMicroparticle Immunoassay (CMIA) Blood Venous blood specimen / Unknown 08/02/2024 3:36 PM EST 08/02/2024 4:04 PM EST Jameel Goyal MD LAB BLOOD ORDERABLES Final Result Performing Organization Address [facility] Phone Number [facility] [address] [place] [phone] * Albumin, Random Urine W/Creatinine (08/02/2024 3:36 PM EST) Creatinine, Urine 82.85 mg/dL [facility] Microalbumin Urine 9.0 mg/L [facility] Microalbum Creatinine Ratio Ur 10.8 <30 ug/mg cr [facility] Comment:Albumin/Creatinine R atio Reference Ranges: Normal: < 30 ug/mg creatinine Microalbuminuria: 30 - 300 ug/mg creatinineClinical Albuminuria: > 300 ug/mg creatinine Urine (Urine, Random) 08/02/2024 3:36 PM EST 08/02/2024 4:14 PM EST Jameel Goyal MD LAB URINE ORDERABLES Final Result Performing Organization Address [facility] [address] [place] [phone] * (ABNORMAL) Basic Metabolic Panel (08/02/2024 3:36 PM EST) Sodium 140 135 - 145 mmol/L [facility] [...] Kidney Disea se: Estimated GFR < 60 mL/min/1.09b1Cqarwx Kidney Disease: Estimated GFR < 15 mL/min/1.73m2 Glucose 65 60 - 115 mg/dL [facility] Calcium 9.5 8.4 - 10.2 mg/dL [facility] Blood Venous blood specimen / Unknown 08/02/2024 3:36 PM EST 08/02/2024 4:04 PM EST us Jameel Goyal MD LAB BLOOD ORDERABLES Final Result Performing Organization Address City/State/[facility] Co de Phone Number [facility] [address] [place] [phone] * XR Chest 2 Views (08/02/2024 3:09 PM EST) Anatomical Region Laterality Modality Chest Radiographic Karissa ging 08/02/2024 3:09 PM EST Narrative 08/02/2024 3:35 PM EST ?[facility] ?[address] ?[place] [phone] ?XRay Report ? Signed ? Patient: Jabari Chavis ?MR#: [id number] ?? 89 ? : 1960 ?Acct:[id number] ? Age/Sex: 64 / M ?ADM Date: 08/02/24 ? Loc: HO.HHCX ? Attending Dr: Jameel Patel MD ? Ordering Physician: Jameel Patel MD ?? Date of Service: 08/02/24 ?? Procedure(s): XR chest 2V ?? Accession Number(s): [id number] ? cc: Jameel Patel MD ? EXAMINATION: [...] DD/ 1509 ? TD/TT: 08/02/24 1518 ? Kiln Car Unloader: ? Procedure Note Radha, Torie - 08/02/[address] [address] XRay Report Signed Patient: Jabari ChavisMR#: [id number] 88 : 1960cct:[id number] Age/Sex: 64 / MADM Date: 08/02/24 Loc: HO.HHCX Attending Dr: Jameel Patel MD Ordering Physician: Jameel Patel MD Date of Service: 08/02/24 Procedure(s): XR chest 2V Accession Number(s): [id number] cc: Jameel Patel MD EXAMINATION: XR CHEST [...] 08/02/24 1532 DD/ 1509 TD/TT: 08/02/24 1518 Kiln Car Unloader: Jameel Goyal MD IMG XR PROCEDURES Fin al Result * POCT Rapid Influenza B EDDY ID NOW (08/02/2024 2:51 PM EST) Influenza B Negative Negative, Indeterminate [facility] QC Media Lot # [id number] [facility] Lot# Expiration Date [facility] Swab 08/02/2024 2:51 PM EST Jameel Goyal MD POINT OF CARE TEST EN TER/EDIT ORDERABLES Final Result Performing Organization Address [facility] Co de Phone Number [facility] [address] [place] [phone] * POCT Rapid Influenza A EDDY ID NOW (08/02/2024 2:51 PM EST) Influenza A Negative Negative, Indeterminate [facility] QC Media Lot # [id number] [facility] Lot# Expiration Date [facility] Swab 08/02/2024 2:51 PM EST Jameel Goyal MD POINT OF CARE TEST EN TER/EDIT ORDERABLES Final Result Performing Organization Address City/[facility]/ZIP Co de Phone Number [facility] [address] [place] [phone] * POCT Rapid Covid-19 BinaxNOW (08/02/2024 2:50 PM EST) Rapid COVID Ag Negative QC Media Lot # [id number] Lot# Expiration Date Swab 08/02/2024 2:50 PM [...] * POCT Glucose (08/02/2024 2:06 PM EST) Pathologist [facility] Glucose Blood, POC 108 60 - 200 mg/dL QC Media Lot # [id number] Lot# Expiration Date Blood Capillary blood specimen / Unknown 08/02/2024 2:06 PM EST Jameel Goyal MD POINT OF CARE TEST EN TER/EDIT ORDERABLES Final Result * (ABNORMAL) Lipid Panel, Standard (10/15/2023 8:52 AM EDT) Pathologist [facility] Triglycerides 76 <150 mg/dL [facility] Comment:Desirable Triglyceri de: less than 150 mg/dLBorderline High Triglyceride 150-199 mg/dLHigh Triglyceride: 200-499 mg/dLVery High Triglyceride: greater than or equal to 5OO mg/dL Cholesterol 84 <200 mg/dL [facility] Comment:Desirable Cholestero l: less than 200 mg/dLBorderline High Cholesterol: 200-239 mg/dLHigh Cholesterol: greater than 239 mg/dL LDL Cholesterol Calculated 37 <100 mg/dL [facility] Comment:Desirable LDL: less than 100 mg/dLNear Optimal/Above Optimal LDL: 110- 129 mg/dLBorderline High LDL: 130-159 mg/dLHigh LDL: 160-189 mg/dLVery High LDL: greater than or equal to 190 mg/dL HDL Cholesterol 32(L) >40 mg/dL [facility] Comment:Desirable HDL: great er than 40 mg/dL Note: This HDL assay may give artificially low results in patients with liver disease. Blood Venous blood specimen / Unknown 10/15/2023 8:52 AM EDT 10/15/2023 11:35 AM EDT Jameel Goyal MD LAB BLOOD ORDERABLES Final Result Performing Organization Address City/[facility]/ZIP Co de Phone Number [facility] [address] [place] [phone] * HEPATITIS C AB W/REFL TO HCV RNA, QN, PCR (12/31/2021 3:04 PM EDT) HEPATITIS C ANTIBODY NON-REACT [facility] NON-REACT [facility] INDEX 0.09 <1.00 [facility] Comment: ?? HCV antibody was non-reactive. There is no laboratory ?? evidence of HCV infection. ?? In most cases, no further action is required. However, if recent HCV exposure is suspected, a test for HCV RNA (test code 54068) is suggested. ?? For additional information please refer to http://education.iOculi/faq/KVV84g2 (This link is being provided for informational/ educational purposes only.) ?? 12/31/2021 3:04 PM EDT Jameel Goyal MD HISTORICAL/NON ORDERA BLE LABS Final Result Performing Organization Address City/[facility] Co de Phone Number [facility] [address] [place] [address], * Colonoscopy (02/20/2013) Colonoscopy Normal Normal 02/20/2013 Urmila Sarkar - 02/20/2013 12:53 PM EDT Recommended 10 year follow up Historical Provider HEALTH MAINTENANCE Edited Result - Final from Last 3 Months or Most Recently Relevant to Health Maintenance Insurance [facility] < [facility] Care Teams Curriculum Counselor Relationship Specialty Start Date End Date Jameel Cota MD [address] [place] [address] PCP - General Internal Medicine 04/10/14
--- OUTSIDE RECORDS SUMMARY | 2024-10-04 18:09 | XMS_ITS | Encounter Summary ---
Author Organization [employer] Address [address] [facility] 7t [place] [address] Care Team Providers Care Floatman Name Role Phone Jameel Cota MD Primary Care Provide r Regine Hawkins PharmD Unavailable [phone] Essie Mehta PharmD Unavailable [phone] Encounter Details Date Type Department Care Team (Late Contact Info) Description 08/05/[address] [facility] PEDS [address] [place], [place] [phone] Gosia Britt LPN Social History Tobacco Use [...] 11/03/2024 11:15 AM EDT Office Visit [facility] [address] [place], [place] [phone] Jameel Cota MD [address] [place], [place] [phone] 01/16/2025 11:00 AM EDT Office Visit [facility] OPTOMETRY [address] [place], [place] [phone] Adelina Gallo, OD [address] [place] [address] 01/18/2025 8:00 AM EDT Office Visit [facility] ADULT DENTAL [address] [place] [address] Katelyn Waldrop [address] [place] [address] documented as of this encounter Visit Diagnoses Not on filedocumented in this encounter Care Teams Floatman Relationship Specialty Start Date End Date Jameel Cota MD [address] [place] [address] PCP - General Internal Medicine 04/10/14 Regine Hawkins, ItaliaD [address] [place] [phone] Pharmacist Internal Medicine 08/18/22 09/28/24 Essie Mehta PharmD [address] [place] [phone] Pharmacist Internal Medicine 09/29/24 09/30/24 documented as of this encounter
--- OUTSIDE RECORDS SUMMARY | 2024-10-04 18:09 | XMS_ITS | Encounter Summary ---
Author Organization [employer] Address [address] [place] [address] 7[address] [place] [address] Care Team Providers Care Viscose Department Worker Name Role Phone Jameel Cota MD Primary Care Provide r Regine Hawkins PharmD Unavailable [phone] Essie Mehta PharmD Unavailable [phone] Encounter Details Date Type Department Care Team (Late st Contact Info) Description 06/11/2022 Orders Only [facility] MED & PEDS [address] [place], [place] [phone] Gosia Britt LPN Social History Tobacco Use [...] Description 11/03/2024 11:15 AM EDT Office Visit [facility] MED[facility] [address] [place], [place] [phone] Jameel Cota MD [address] [place], [place] [phone] 01/16/2025 11:00 AM EDT Office Visit [facility] OPTOMETRY [address] [place], [place] [phone] Adelina Gallo OD [address] [place], [place] [phone] 01/18/2025 8:00 AM EDT Office Visit [facility] ADULT DENTAL [address] [place], [place] [phone] Katelyn Waldrop [address] [place] [address] documented as of this encounter Visit Diagnoses Not on filedocumented in this encounter Care Teams Viscose Department Worker Relationship Specialty Start Date End Date Jameel Cota MD [address] [place] [address] [phone] PCP - General Internal Medicine 04/10/14 Regine Hawkins, ItaliaD [address] [place] [address] [phone] Pharmacist Internal Medicine 08/18/22 09/28/24 Essie Mehta PharmD [address] [place] [address] [phone] Pharmacist Internal Medicine 09/29/24 09/30/24 documented as of this encounter
[2024-10-11 13:06] VITALS: BMI 31.6
--- NOTE | 2024-10-12 09:35 | HO.ANESPROP2 ---
HPI - Anesthesia Eval Consult details Narrative: 64yo M for Upper Endoscopy and Colonoscopy [facility] Active Problems Active Problems: All Active Problems Osteoarthritis of left knee (Acute) Bulbous urethral stricture (Acute) Screening PSA (prostate specific antigen) (Acute) Dysuria (Acute) BPH loc w urin obs/LUTS (Acute) Past Medical History Medical History Atypical chest pain RANDELL (obstructive sleep apnea) Nocturia Bladder outlet obstruction Weak urinary stream Diabetes mellitus Hyperlipidemia HTN (hypertension) Anemia Family History Family History (Updated 07/06/24 @ 14:04 by SARABJIT Franco) Maternal Grandfather Colon cancer Mother Stomach cancer Maternal Aunt Metastatic cancer Brother Stomach cancer Family history of problems with anesthesia: No Surgical History Surgical History (Updated 10/11/24 @ 13:04 by Manju Sweeney RN) Hx of colonoscopy Hx of cystoscopy Hx of transurethral resection of prostate History of Problems with Anesthesia: No Social History Social History Are you a primary personal caregiver to a significant other at home: No Do you presently have visiting nurse or other home services: No Patient Tobacco Use Status: Never used Tobacco Current occupational status: unemployed and disabled Meds Allergies Allergy/AdvReac Type Severity Reaction Status Date / Time No Known Allergies Allergy Verified 07/06/24 13:39 [No Known Allergies*] Home Medications ?Medication ?Instructions ?Recorded ?Confirmed ?Last Taken ?Type alcohol swabs (Alcohol Prep Pads) 0 pad topical 01/14/22 06/23/22 Unknown History amlodipine 5 mg tablet 5 mg PO DAILY 01/14/22 10/11/24 04/04/24 History aspirin 81 mg tablet,delayed 81 mg PO DAILY 01/14/22 10/11/24 03/25/24 History release atorvastatin 40 mg tablet 40 mg PO DAILY 01/14/22 10/11/24 Unknown History blood sugar diagnostic (Sarah #10 ea 01/14/22 06/23/22 Unknown History Lite Strips) bupropion HCl 150 mg 24 hr tablet, 150 mg PO DAILY 01/14/22 10/11/24 Unknown History extended release diazepam 5 mg tablet 5 mg PO BID PRN Anxiety 01/14/22 10/11/24 Unknown History fluoxetine 20 mg capsule 40 mg PO QAM 01/14/22 10/11/24 Unknown History hydrochlorothiazide 25 mg tablet 25 mg PO QAM 01/14/22 10/11/24 Unknown History lancets 33 gauge (TRUEplus Lancets) #100 ea 01/14/22 06/23/22 Unknown History lisinopril 40 mg tablet 40 mg PO QAM blood pressure 01/14/22 10/11/24 Unknown History meloxicam 7.5 mg tablet 7.5 mg PO QAM 01/14/22 10/11/24 Unknown History metformin 500 mg tablet,extended 1,000 mg PO DAILY 01/14/22 10/11/24 Unknown History release 24 hr prazosin 5 mg capsule 10 mg PO BEDTIME 01/14/22 10/11/24 Unknown History trazodone 50 mg tablet 50 mg PO BEDTIME PRN insomnia 01/14/22 10/11/24 Unknown History ziprasidone HCl 80 mg capsule 80 mg PO BID 01/14/22 03/31/24 Unknown History omega-3 300 mg-dha 120 mg-epa 180 1 cap PO TID 06/23/22 10/11/24 03/31/24 History mg-fish oil 1,000 mg capsule glipizide 2.5 mg tablet, extended 2.5 mg PO QAM 08/29/22 10/11/24 Unknown History release 24 hr ziprasidone HCl 40 mg capsule 40 mg PO BID 07/06/24 10/11/24 Unknown History Exam Height,Weight and Vital Signs: Height 5 ft 6 in Weight 88.904 kg Pertinent Lab Results Pertinent Lab Results: Laboratory Tests 08/02/24 15:36 Sodium 140 Potassium 3.4 Chloride 100 Carbon Dioxide 33 H BUN 11 Creatinine 0.74 Assessment and Plan Assessment Anesthesia Assessment: Chart Reviewed Final Anesthetic Review Family History of Problems with Anesthesia: No History of Problems with Anesthesia: No
[2024-10-13 06:56] VITALS: BMI 30.7
[2024-10-13] MEDS: Lactated Ringers 1,000 ML 100 ML IVCONT (07:03)
[2024-10-13 07:16] LABS: Glucose, Whole Blood 122 mg/dL (60-115)
[2024-10-13 07:27] VITALS: BP 122/69; PULSE 72; RESP 18; TEMP 36.7; O2SAT 95
--- NOTE | 2024-10-13 07:48 | HO.ANESPROP2 ---
FORMERLY [facility], LATER [facility] Active Problems Active Problems: All Active Problems Osteoarthritis of left knee (Acute) Bulbous urethral stricture (Acute) Screening PSA (prostate specific antigen) (Acute) Dysuria (Acute) BPH loc w urin obs/LUTS (Acute) Past Medical History Medical History Atypical chest pain RANDELL (obstructive sleep apnea) Nocturia Bladder outlet obstruction Weak urinary stream Diabetes mellitus Hyperlipidemia HTN (hypertension) Anemia Functional capacity: independent ambulation Family History Family History Maternal Grandfather Colon cancer Mother Stomach cancer Maternal Aunt Metastatic cancer Brother Stomach cancer Family history of problems with anesthesia: No Surgical History Surgical History Hx of colonoscopy Hx of cystoscopy Hx of transurethral resection of prostate History of Problems with Anesthesia: No Social History Social History Are you a primary inspector health care facilities to a significant other at home: No Do you presently have visiting nurse or other home services: No Patient Tobacco Use Status: Never used Tobacco Have you been hit, kicked, punched, or otherwise hurt by someone within the past year? If so, by whom?: No Are you DNR?: No Advance Directives: No Advance Directives Information Provided: Yes Poor oral hygiene: Yes Current occupational status: unemployed and disabled Meds Allergies Allergy/AdvReac Type Severity Reaction Status Date / Time No Known Allergies Allergy Verified 10/13/24 07:26 [No Known Allergies*] Active Medications: Current Medications Lactated Ringer's (Lr) 1,000 mls @ 100 mls/hr IVCONT .Q10H YOVANA Last Admin: 10/13/24 07:03 Dose: 100 mls/hr Home Medications ?Medication ?Instructions ?Recorded ?Confirmed ?Last Taken ?Type amlodipine 5 mg tablet 5 mg PO DAILY 01/14/22 10/11/24 04/04/24 History aspirin 81 mg tablet,delayed 81 mg PO DAILY 01/14/22 10/11/24 03/25/24 History release atorvastatin 40 mg tablet 40 mg PO DAILY 01/14/22 10/11/24 Unknown History blood sugar diagnostic (FreeStyle #10 ea 01/14/22 06/23/22 Unknown History Lite Strips) bupropion HCl 150 mg 24 hr tablet, 150 mg PO DAILY 01/14/22 10/11/24 Unknown History extended release diazepam 5 mg tablet 5 mg PO BID PRN Anxiety 01/14/22 10/11/24 Unknown History fluoxetine 20 mg capsule 40 mg PO QAM 01/14/22 10/11/24 Unknown History hydrochlorothiazide 25 mg tablet 25 mg PO QAM 01/14/22 10/11/24 Unknown History lancets 33 gauge (TRUEplus Lancets) #100 ea 01/14/22 06/23/22 Unknown History lisinopril 40 mg tablet 40 mg PO QAM blood pressure 01/14/22 10/11/24 Unknown History meloxicam 7.5 mg tablet 7.5 mg PO QAM 01/14/22 10/11/24 Unknown History metformin 500 mg tablet,extended 1,000 mg PO DAILY 01/14/22 10/11/24 Unknown History release 24 hr prazosin 5 mg capsule 10 mg PO BEDTIME 01/14/22 10/11/24 Unknown History trazodone 50 mg tablet 50 mg PO BEDTIME PRN insomnia 01/14/22 10/11/24 Unknown History omega-3 300 mg-dha 120 mg-epa 180 1 cap PO TID 06/23/22 10/11/24 03/31/24 History mg-fish oil 1,000 mg capsule glipizide 2.5 mg tablet, extended 2.5 mg PO QAM 08/29/22 10/11/24 Unknown History release 24 hr ziprasidone HCl 40 mg capsule 40 mg PO BID 07/06/24 10/11/24 Unknown History Exam Height,Weight and Vital Signs: Height 5 ft 6 in Weight 86.183 kg Last Vital Signs Temp 98.1 F 10/13/24 07:27 Pulse 72 10/13/24 07:27 Resp 18 10/13/24 07:27 BP 122/69 10/13/24 07:27 Pulse Ox 95 10/13/24 07:27 O2 Del Method Room Air 10/13/24 07:27 Pertinent Lab Results Pertinent Lab Results: Laboratory Tests 10/13/24 07:06 POC Glucose 122 H Airway Mallampati Class: II TM Dist: >3cm Neck ROM: Full Heart: RRR Lungs: CTA Assessment and Plan Assessment Anesthesia Assessment: Anesthesia Plan Discussed and Chart Reviewed Final Anesthetic Review Family History of Problems with Anesthesia: No History of Problems with Anesthesia: No NPO: Yes ASA Class: III Final Preanesthetic Review: Meds/Arielle Chart Reviewed and Consent Obtained/Reviewed Patient Risk: Intermediate Procedure Risk: Low Anesthetic Plan Anesthetic Plan: MAC: Disposition: Standard PACU
--- NOTE | 2024-10-13 08:24 | P.HPSUR_ITS ---
Pre-Procedural Eval Section A - 24 Hr Update-Section A only Date of Service: 10/13/24 Section B - Complete if H&P > 30 days Chief Complaint: gerd,screening Relevant Family History (Specify if Yes): Yes Relevant Social History: None Present Medications: see Short Stay Collaborative assessment Medical History: Significant History (Atypical chest pain RANDELL (obstructive sleep apnea) Nocturia Bladder outlet obstruction Weak urinary stream Diabetes mellitus Hyperlipidemia HTN (hypertension) Anemia) History of Previous Operations: Relevant previous surgery/procedure and date(s) (Hx of colonoscopy Hx of cystoscopy Hx of transurethral resection of prostate) Allergies: Allergies Allergy/AdvReac Type Severity Reaction Status Date / Time No Known Allergies Allergy Verified 10/13/24 07:26 [No Known Allergies*] Review of Systems Sugical H&P ROS: Negative: Constitution, Cardiovascular, Respiratory, Neurological, Psychiatric, Hem-Onc, Allergic/Immunologic, Gastrointestinal, Genitourinary, Musculoskeletal, Integumentary, Endocrine and Eyes/Ears/Nose/Th roat Exam Surgical H&P Exam: Normal: HEENT, Normal: Heart, Normal: Lungs, Normal: Extremities, Normal: Abdomen, Normal: Skin and Normal: Neurological Plan Diagnosis/Plan: Unchanged I have reviewed the history and physical and performed a pertinent physical examination on my patient. No changes have occurred unless specified. Time Spent With Patient Time: Total time managing care of this patient today ____ minutes.
--- NOTE | 2024-10-13 09:22 | HO.OPN-COLON ---
Colonoscopy Operative Note Operative Note Date of Service: 10/13/24 Narrative: Operative Information Procedure Description: EGD, Colonoscopy Indication: GERd, dysphagia, colon screening Anesthesia: MAC FLEXIBLE TRANSORAL UPPER GASTROINTESTINAL ENDOSCOPY AND COLONOSCOPY PROCEDURE NOTE UPPER ENDOSCOPY Consent: Indications for the procedure and potential complications of bleeding, perforation, reaction to medications and missed diagnosis were discussed with the patient and informed consent was obtained. Instrument: Olympus GIF H 190 J mid size upper endoscope Monitoring: Vital signs and clinical assessment, continuous EKG monitoring, Pulse oximetry, Carbon Dioxide monitoring and blood pressure monitoring were done throughout the procedure. Procedure: The patient was placed in the left lateral decubitis position and pre-procedure medications were administered and a bite block was placed. The endoscope was inserted into the mouth and advanced under direct vision to the third part of duodenum. A careful inspection was made as the upper endoscope was withdrawn including a retroflexed examination of the proximal stomach; Findings and interventions are described below. Findings: Larynx:normal Esophagus: GE junction at 40 cm, diaphragm hiatus at 40 cm, irregular Z line, possible short segment barretts, bx taken and WATS brushings --balloon dilation navas to 20 mm at LES and UES- no tears seen Stomach: Normal mucosa. Biopsies were obtained to r/o h pylori. Grade 2 flap valve on retroflexed examination of the cardia. Duodenum: Normal bulb and descending duodenum, Intervention: Biopsies as noted above, brushings, balloon dilation COLONOSCOPY Instrument: Olympus variable stiffness pediatric scope 190L Colonoscopy Monitoring: Vital signs and clinical assessment, continuous EKG monitoring, Pulse oximetry, Carbon Dioxide monitoring and blood pressure monitoring were done throughout the procedure. Colon withdrawal time was 12 minutes. Procedure: The patient was placed in the left lateral decubitis position and pre-procedure medications were administered. After a digital rectal examination of the ano-rectum, the video colonoscope was inserted into the rectum and advanced through the colon to the cecum/TI. The colonoscope was slowly withdrawn in a retrograde panoramic fashion and the colon mucosa was carefully examined including a retroflexed view of the rectum. Findings and interventions are described below. Procedure Difficulty:moderate Findings: Terminal Ileum-normal Cecum:normal Right sided retroflexion- normal Ascending Colon: normal Transverse Colon -normal Descending Colon: x 1 sessile polyp 7-8 mm removed with cold snare and x1 sessile polyp 5-6 mm removed with cold forceps Sigmoid Colon: mild diverticulosis Rectum: Retroflexion with moderate sized internal hemorrhoids, grade I wtih skin tag - x 4 sessile polyps removed with cold snare Anorectum - normal Colon preparation: Delavan Bowel Preparation Scale Right colon; 2 Transverse colon: 2 Left colon; 1-2 (0 = Unprepared colon segment with mucosa not seen due to solid stool that cannot be cleared. 1 = Portion of mucosa of the colon segment seen, but other areas of the colon segment not well seen due to staining, residual stool and/or opaque liquid. 2 = Minor amount of residual staining, small fragments of stool and/or opaque liquid, but mucosa of colon segment seen well. 3 = Entire mucosa of colon segment seen well with no residual staining, small fragments of stool or opaque liquid) Impression and Post Procedure Diagnosis: Endoscopy Findings: possible barretts Colonoscopy Findings: diverticulosis colon polyps internal hemorrhoids Plan: Await Pathology results Repeat Colonoscopy in 1-2 years due to fair prep on the left or earlier if clinically indicated High fiber diet leaflet avoid straining at stool, epsom salts and sitz bath, anusol supps or cream if Barretts pos then repeat EGD in 3-5 years Above findings were reviewed with the patient and relevant handouts were provided if indicated.
[2024-10-13 09:30] VITALS: BP 106/71; PULSE 70; RESP 16; TEMP 36.1; O2SAT 97
[2024-10-13 09:45] VITALS: BP 115/72; PULSE 65; RESP 16; TEMP 36.1; O2SAT 97
--- NOTE | 2024-10-13 09:53 | HO.POSTANES ---
Post Anesthesia Evaluation Post Anesthesia Evaluation Date of Service: 10/13/24 Vital Signs: Vital Signs Temp Pulse Resp BP Pulse Ox O2 Del Method 10/13/24 09:45 97 F 65 16 115/72 97 Room Air 10/13/24 09:30 97 F 70 16 106/71 97 Room Air 10/13/24 07:27 98.1 F 72 18 122/69 95 Room Air Anesthesia: Monitored Mental Status: Awake Pain Control: Satisfactory Nausea/Vomiting: None Hydration: Adequate Anesthesia-Related Issues: No Anes. Related Issues
== END 2024-10-13 10:53 | disposition home or self-care (01) ==
PROVIDERS: PCP Internal Medicine; Visit Provider Internal Medicine Gastroenterology
PROC: (CPT 45385; principal; 2024-10-13 09:30)
DX: Z12.11 Encounter for screening for malignant neoplasm of colon (principal); D12.4 Benign neoplasm of descending colon; K62.1 Rectal polyp; K57.30 Diverticulosis of large intestine without perforation or abscess without bleeding; K64.0 First degree hemorrhoids; Z86.0101 Personal history of adenomatous and serrated colon polyps; K29.60 Other gastritis without bleeding; K22.9 Disease of esophagus, unspecified; K21.9 Gastro-esophageal reflux disease without esophagitis; E11.9 Type 2 diabetes mellitus without complications; I10 Essential (primary) hypertension; E78.5 Hyperlipidemia, unspecified; Z79.82 Long term (current) use of aspirin; Z79.84 Long term (current) use of oral hypoglycemic drugs; Z79.02 Long term (current) use of antithrombotics/antiplatelets; Z79.899 Other long term (current) drug therapy
CPT/HCPCS: 45385; 45380; 43249; 43239; 82947; 88305; 88313; 88342; C1726; J1885; J2003; J2704

== ENCOUNTER → 2024-10-13 06:39 | Outpatient (BNV) | payer OTHER, SELFPAY | PROVIDERS: PCP Internal Medicine; Visit Provider Internal Medicine Gastroenterology | DX: Z12.11 Encounter for screening for malignant neoplasm of colon (principal); D12.4 Benign neoplasm of descending colon; K62.1 Rectal polyp; K57.30 Diverticulosis of large intestine without perforation or abscess without bleeding; K64.0 First degree hemorrhoids; K21.9 Gastro-esophageal reflux disease without esophagitis; R13.10 Dysphagia, unspecified | CPT/HCPCS: 43239; 43249; 45380; 45385 ==

== ENCOUNTER 2024-12-19 13:25 | Outpatient (AMB) | payer OTHER, SELFPAY ==
--- NOTE | 2024-12-19 13:47 | MHC.OFFVIS ---
Intake Visit Reasons: 6m/PVR Intake Note: Patient is present for 6M/PVR Urology Medication:TAMSULOSIN Antibiotic Allergy:NONE Blood Thinner:ASPIRIN TODAY'S PVR:0ML'S Hypoid Gear Generator Required: No Allergies No Known Allergies (No Known Allergies*) Allergy (Verified 12/19/24 13:49) HPI Comments Details: Jabari is a pleasant Kazakh-speaking male. He is a patient of Dr. English. He seen for the following urologic conditions - lower urinary tract symptoms - apical prostatic stricture Translation provided by qualified medical office assistant Good ineffective stream Six-month follow-up 0 cc 12 month follow-up office PVR Lower urinary tract symptoms background diabetes TURP 2019 Had presented with weakness of stream and found to have apical stricture which was dilated 03/31 DVIU with apical incision PVR 0 cc PFSH Medical History Atypical chest pain RANDELL (obstructive sleep apnea) Nocturia Bladder outlet obstruction Weak urinary stream Diabetes mellitus Hyperlipidemia HTN (hypertension) Anemia Surgical History Hx of colonoscopy Hx of cystoscopy Hx of transurethral resection of prostate Family History Maternal Grandfather Colon cancer Mother Stomach cancer Maternal Aunt Metastatic cancer Brother Stomach cancer Social History Are you a primary director of career resources to a significant other at home: No Do you presently have visiting nurse or other home services: No Patient Tobacco Use Status: Never used Tobacco Current occupational status: unemployed and disabled Review of Systems Const Denies chills and Denies fever(s) Card Reports no additional complaints and Denies syncope Resp Denies cough GI Denies abdominal pain and Denies heartburn Reports as per HPI and Denies change in libido Neuro Denies syncope Psych Denies change in libido Endo Denies change in libido Physical Exam Const General: cooperative, healthy appearing, comfortable and no acute distress Orientation/consciousness: patient oriented x3 HEENT Face and sinus: Yes normal facial exam Mouth: moist mucous membranes Neck Neck: Yes normal visual inspection, Yes full ROM and Yes trachea midline Chest Chest palpation & inspection: normal inspection of the chest Resp Effort & Inspection: normal respiratory effort, able to speak in complete sentences and no respiratory distress GI Inspection: Yes normal to inspection Back/Spine/Pelvis Cervical Spine: normal cervical lordosis Thoracic/Lumbar Spine: thoracic and lumbar spine normal to inspection Skin General skin exam: no rashes or lesions noted Neuro General: patient oriented x3, gait normal, tone normal and moves all extremities Extrem General: Yes normal to inspection and Yes capillary refill normal Office Procedures Post Void Residual Post Residual Void Post Void Residual (PVR): 0 31824-[id number] Void Residual by ultrasound Assessment & Plan Assessment & Plan (1) BPH loc w urin obs/LUTS: Code(s): N40.1 - Benign prostatic hyperplasia with lower urinary tract symptoms Category: Medical (2) Bulbous urethral stricture: Code(s): N35.912 - Unspecified bulbous urethral stricture, male Category: Medical Plan Twelve month follow-up Medications: Changed From tamsulosin 0.4 mg PO DAILY 90 caps 3RF N40.1 - Benign prostatic hyperplasia with lower urinary tract symptoms To tamsulosin 0.4 mg PO DAILY 90 caps 3RF 90 days N40.1 - Benign prostatic hyperplasia with lower urinary tract symptoms Patient Instructions: This note is constructed using voice recognition software. While every effort has been made to ensure accuracy bolt cutter errors may have been included. Imaging studies, laboratory and physical exam results were discussed and reviewed in detail. No major barriers to patient understanding were identified. An opportunity to ask questions regarding the treatment plan was provided. All questions were answered. The patient expressed understanding and agreement with the above treatment plan. The patient is aware they should contact our office by phone for worsening of their current condition or the appearance of new urologic symptoms. Compliance is encouraged with any medications and followup testing that is ordered. It is a privilege to participate in the urologic care of your patient. If you have any questions or concerns regarding treatment for the above conditions, or other urologic issues, please do not hesitate to contact me. The office telephone contact is [phone]. Sincerely, Dr Cj Maddox MD, DARYN [facility] - Urology Compassionate Specialist Care for the Genitourinary System Coding Level of Care Code Est Pt Level 3 (61308) Complex EM visit Add On G2211 Diagnoses BPH loc w urin obs/LUTS N40.1 Bulbous urethral stricture N35.912 CPT Codes Post Residual Void - PVR CPT Code: 52773-Yurg Void Residual by ultrasound ([id number])
--- OUTSIDE RECORDS SUMMARY | 2024-12-19 14:32 | XMS_ITS | Encounter Summary ---
Author Organization [employer] Address [address] [place] [address] [address] [place] [address] Care Team Providers Care Reservoir Engineer Name Role Phone Jameel Cota MD Primary Care Provide r Regine Hawkins PharmD Unavailable [phone] Essie Mehta PharmD Unavailable [phone] Encounter Details Date Type Department Care Team (Late st Contact Info) Description 06/11/2022 Orders Only [facility] [address] [place] [address] Gosia Britt LPN Social History Tobacco Use [...] Care Team (Late st Contact Info) Description 01/16/2025 11:00 AM EDT Office Visit [facility] OPTOMETRY [address] [place] [address] Adelina Gallo, OD [address] [place] [address] 01/18/2025 8:00 AM EDT Office Visit [facility] ADULT DENTAL [address] [place] [address] Palma, Katelyn [address] [place] [address] 02/07/2025 9:15 AM EDT Office Visit [facility] MEDICINE [address] [place] [id number] [place] [address] documented as of this encounter Visit Diagnoses Not on filedocumented in this encounter Care Teams Reservoir Engineer Relationship Specialty Start Date End Date Jameel Cota MD [address] [place], [place] [phone] PCP - General Internal Medicine 04/10/14 Regine Hawkins, PharmD [address] [place] [phone] Pharmacist Internal Medicine 08/18/22 09/28/24 Essie Mehta, ItaliaD [address] [place] [id number] Pharmacist Internal Medicine 09/29/24 09/30/24 documented as of this encounter
== END 2024-12-19 14:15 | disposition home or self-care (01) ==
LOC: HO.HUSH 13:25
PROVIDERS: PCP Internal Medicine; Visit Provider Urology
DX: N40.1 Benign prostatic hyperplasia with lower urinary tract symptoms (principal); N35.912 Unspecified bulbous urethral stricture, male
CPT/HCPCS: 99213; G2211

== ENCOUNTER → 2024-12-19 13:25 | Outpatient (BNVA) | payer OTHER, SELFPAY | PROVIDERS: PCP Internal Medicine; Visit Provider Urology | DX: N40.1 Benign prostatic hyperplasia with lower urinary tract symptoms (principal); N35.912 Unspecified bulbous urethral stricture, male | CPT/HCPCS: 51798; 99212 ==

== ENCOUNTER 2025-01-04 09:26 | Outpatient (AMB) | payer OTHER, SELFPAY ==
--- NOTE | 2025-01-04 09:36 | MHC.OFFVIS ---
Vital Signs 01/04/25 09:37 Height 5 ft 6 in Weight 200 lb 9.93 oz BMI 32.4 BP 110/64 Blood Pressure Location Lt brachial Position Sitting Pulse 87 Pulse Source Pulse Oximeter Pulse Oximetry (%) 95 Oxygen Delivery Method Room Air Intake Visit Reasons: Cough Intake Note: pt is here as a new patient for dry cough, all the time, and is so much it hurts his throat, he has had this cough for 4-5 months. Cardiopulmonary Technologist Required: Yes Cardiopulmonary Technologist Services: Cardiopulmonary Technologist Present Allergies No Known Allergies (No Known Allergies*) Allergy (Verified 01/04/25 09:52) Medication List - Last Reconciled 01/04/25 by Kip Jeff MD amlodipine 5 mg PO DAILY aspirin 81 mg PO DAILY atorvastatin 40 mg PO DAILY blood sugar diagnostic (FreeStyle Lite Strips) As directed bupropion HCl XL 150 mg PO DAILY diazepam 5 mg PO BID PRN fluoxetine 40 mg PO QAM glipizide ER 2.5 mg PO QAM hydrochlorothiazide 25 mg PO QAM lancets (TRUEplus Lancets) As directed lisinopril 40 mg PO QAM meloxicam 7.5 mg PO QAM metformin ER 1,000 mg PO DAILY omega 6-ppx-qhp-fish oil 300 mg (120 mg- 180mg)-1,000 mg 1 cap PO TID omeprazole 40 mg PO DAILY prazosin 10 mg PO BEDTIME tamsulosin 0.4 mg PO DAILY 90 days trazodone 50 mg PO BEDTIME PRN ziprasidone HCl 40 mg PO BID Do you need a note to return to daycare/school/sports/work: No HPI HPI Cough: Details: This 64 years old gentleman, Welsh-speaking, is being seen for the 1st time mainly for his ongoing cough. He states that he started having dry cough about 5 months ago, and in spite of taking cough medications OTC he finds no relief. He denies any wheezing. Has only minimal nasal congestion off and on but not on a daily basis Has had no chest infection. He is on omeprazole old to treat GERD, but he denies any symptoms of acid reflux. He said he does not know why he is still on omeprazole. He is not using any bronchodilator inhalers and denies having any wheezing attacks. For hypotension he has been on lisinopril 40 mg a day for about 1 year. And currently he is also on amlodipine 5 mg daily as well as HCTZ 25 mg daily. [facility]MO[facility] Medical History (Updated 01/04/25 @ 10:08 by Kip Jfef MD) Restrictive lung disease Obesity (BMI 30.0-34.9) Cough due to LUZ inhibitor Atypical chest pain RANDELL (obstructive sleep apnea) Nocturia Bladder outlet obstruction Weak urinary stream Diabetes mellitus Hyperlipidemia HTN (hypertension) Anemia Surgical History Hx of colonoscopy Hx of cystoscopy Hx of transurethral resection of prostate Family History Maternal Grandfather Colon cancer Mother Stomach cancer Maternal Aunt Metastatic cancer Brother Stomach cancer Social History Are you a primary career discovery teacher to a significant other at home: No Do you presently have visiting nurse or other home services: No Patient Tobacco Use Status: Never used Tobacco Current occupational status: unemployed and disabled Review of Systems Const All systems reviewed & are unremarkable except as noted in HPI and below Eyes Reports no additional complaints ENT Reports no additional complaints Card Denies chest pain, Denies syncope and Denies irregular heart rhythm Resp Reports as per HPI GI Reports heartburn (GERD being treated with omeprazole, patient is symptomatic) Reports no additional complaints Musc Reports no additional complaints Skin/Breast Reports system reviewed and no additional complaints, except as documented Neuro Reports no additional complaints and Denies syncope Psych Reports no additional complaints Physical Exam Vital Signs: Last Vital Signs Pulse 87 01/04/25 09:37 BP 110/64 01/04/25 09:37 Pulse Ox 95 01/04/25 09:37 Oxygen Delivery Method Room Air 01/04/25 09:37 BMI result Body Mass Index 32.4 Const General: healthy appearing (Except for being moderately overweight), comfortable, no acute distress, alert and awake Orientation/consciousness: patient oriented x3 HEENT Head: Yes normal to inspection General nose exam: No nasal polyps present and No nasal discharge present Face and sinus: Yes sinuses nontender Mouth: oropharynx normal Throat: Yes posterior oropharynx normal Eyes General: appearance normal, both eyes and all related structures Neck Neck: Yes normal visual inspection, Yes no lymphadenopathy, Yes trachea midline and Yes no JVD Thyroid: Thyroid normal Chest Chest palpation & inspection: normal inspection of the chest, normal palpation of entire chest wall and no tenderness Resp Effort & Inspection: normal respiratory effort Auscultation: clear to auscultation bilaterally, no crackles, no rhonchi and no wheezes Cardio Palpation: normal PMI Rate: regular rate Rhythm: regular rhythm Heart sounds: no gallops and no murmurs Peripheral pulses: Peripheral pulses 2+ throughout GI Palpation (GI): Soft to palpation, nontender, No hepatosplenomegaly present and no masses Auscultation: normal bowel sounds Back/Spine/Pelvis Thoracic/Lumbar Spine: thoracic and lumbar spine normal to inspection Skin General skin exam: no rashes or lesions noted Neuro General: patient oriented x3 and no focal motor deficits Cranial nerves: Yes CN's II-XII intact bilaterally Extrem General: Yes normal to inspection, Yes no clubbing, cyanosis or edema and Yes no calf tenderness Psych Appearance: grossly normal and well kempt Speech and movement: Normal speech and movement present Results Reviewed Results Reviewed: Pulmonary function test on 09/09/2024 : Moderate degree of restrictive lung disorder. No obstructive disorder and no response to bronchodilator therapy. CHEST XRAY 08/02/24 normal Assessment & Plan Assessment & Plan (1) Cough due to LUZ inhibitor: Comment: FOR ABOUT 1 YEAR HE HAS BEEN ON LISINOPRIL 40 MG A DAY FOR HYPERTENSION. HISTORY OF DRY COUGH SINCE ABOUT 5 MONTHS. NO OTHER CAUSATIVE FACTORS ARE NOTED. Code(s): R05.8 - Other specified cough; T46.4X5A - Adverse effect of ihmdvzztdmr-eoqvvcpyoq-krdjef inhibitors, initial encounter Category: Medical Plan: THE 1ST STEP WOULD BE TO STOP LISINOPRIL. I WILL ORDER LOSARTAN 50 MG ONCE A DAY FOR CONTROL OF HYPERTENSION . USE OTC COUGH DROPS OR COUGH SYRUPS P.R.N.. WILL RECHECK IN 1 MONTH. (2) Obesity (BMI 30.0-34.9): Comment: PATIENT IS MODERATELY OBESE WITH SOMEWHAT ROUND FACE. HE DENIES EXCESSIVE SNORING OR ANY SAYS SLEEP ISSUES Code(s): E66.811 - Obesity, class 1 Category: Medical Plan: EXPLAINED THROUGH THE INVESTMENT UNDERWRITER AND ENCOURAGED TO LOSE SOME WEIGHT. (3) Restrictive lung disease: Comment: PER PULMONARY FUNCTION TEST HE DOES HAVE MODERATE RESTRICTIVE DISORDER. BUT HE DENIES ANY RESPIRATORY PROBLEMS, ESPECIALLY DENIES ANY DYSPNEA ON EXERTION. Code(s): J98.4 - Other disorders of lung Category: Medical Plan: HE WILL BE ADVISED TO REDUCE HIS WEIGHT AND ALSO DO DEEP BREATHING EXERCISES 2 OR 3 TIMES A DAY Medications: New losartan 50 mg PO DAILY 30 tabs 5RF HYPERTENSION 30 days Coding Level of Care Code New Pt Level 4 (37979) Diagnoses Cough due to LUZ inhibitor R05.8; T46.4X5A Obesity (BMI 30.0-34.9) E66.811 Restrictive lung disease J98.4
[2025-01-04 09:37] VITALS: BP 110/64; PULSE 87; O2SAT 95; BMI 32.4
--- OUTSIDE RECORDS SUMMARY | 2025-01-04 09:55 | XMS_ITS | Encounter Summary ---
Author Organization [employer] Address [address] [place] [address] [address] [place] [address] Care Team Providers Care Financial Operations Consultant Name Role Phone Jameel Cota MD Primary Care Provide r Regine Hawkins PharmD Unavailable [phone] Essie Mehta PharmD Unavailable [phone] Encounter Details Date Type Department Care Team (Late st Contact Info) Description 06/11/2022 Orders Only [facility] MED & PEDS [address] [place] [address] Gosia Britt LPN Social History Tobacco Use [...] Description 01/16/2025 11:00 AM EDT Office Visit [facility] OPTOMETRY [address] [place] [address] Adelina Gallo, OD [address] [place] [address] 01/18/2025 8:00 AM EDT Office Visit [facility] ADULT DENTAL [address] [place] [address] Palma, Katelyn [address] [place] [address] 02/07/2025 9:15 AM EDT Office Visit [facility] MEDICINE [address] [place] [id number] [place] [address] documented as of this encounter Visit Diagnoses Not on filedocumented in this encounter Care Teams Financial Operations Consultant Relationship Specialty Start Date End Date Jameel Cota MD [address] [place], [place] [phone] PCP - General Internal Medicine 04/10/14 Regine Hawkins, PharmD [address] [place] [id number] Pharmacist Internal Medicine 08/18/22 09/28/24 Essie Mehta, ItaliaD [address] [place] [id number] Pharmacist Internal Medicine 09/29/24 09/30/24 documented as of this encounter
== END 2025-01-04 09:52 | disposition home or self-care (01) ==
LOC: HO.HPS 09:26
PROVIDERS: PCP Internal Medicine; Referring Provider Internal Medicine; Visit Provider Internal Medicine
DX: R05.8 Other specified cough (principal); T46.4X5A Adverse effect of angiotensin-converting-enzyme inhibitors, initial encounter; E66.811 Obesity, class 1; J98.4 Other disorders of lung
CPT/HCPCS: 99204

== ENCOUNTER → 2025-01-04 09:26 | Outpatient (BNVA) | payer OTHER, SELFPAY | PROVIDERS: PCP Internal Medicine; Referring Provider Internal Medicine; Visit Provider Internal Medicine | DX: E66.811 Obesity, class 1 (principal); J98.4 Other disorders of lung; R05.8 Other specified cough; T46.4X5A Adverse effect of angiotensin-converting-enzyme inhibitors, initial encounter | CPT/HCPCS: 99202 ==

== ENCOUNTER 2025-02-09 11:19 | Outpatient (AMB) | payer OTHER, SELFPAY ==
--- OUTSIDE RECORDS SUMMARY | 2025-02-07 09:15 | XMS_ITS | Encounter Summary ---
Author Organization [employer] Address [address] [place] [address] 7 [place] [address] Care Team Providers Care Cash Management Officer Name Role Phone Jameel Cota MD Primary Care Provide r Reason for Visit * Reason Comments Follow-up Dm Encounter Details Date Type Department Care Team ([facility] st Contact Info) Description 02/07/2025 9:15 AM EDT Office Visit [facility] MEDICINE [address] [place] [address] Jameel Cota MD [address] [place] [address] Type 2 diabetes mellitus without complication, without long-term current use of insulin (CMS/FORMERLY [facility]) (Primary Dx); Benign hypertension; Chronic cough; Benign prostatic hyperplasia with urinary frequency Social History Tobacco Use Types Packs/Day Years [...] Sign Reading Time Taken Comments Blood Pressure 110/64 02/07/2025 9:17 AM EDT Pulse 88 02/07/2025 9:17 AM EDT Temperature 37.2 C (98.9 F) 02/07/2025 9:17 AM EDT Respiratory Rate 17 02/07/2025 9:17 AM EDT Oxygen Saturation 92% 02/07/2025 9:17 AM EDT Inhaled Oxygen Concentration - - Weight 93.8 kg (206 lb 12.8 oz) 02/07/2025 9:17 AM EDT Height 162.6 cm (5' 4 ) 02/07/2025 9:17 AM EDT Body Mass Index 35.5 02/07/2025 9:17 AM EDT documented in this encounter Progress Notes * Yazmin Goyal MA - 02/07/2025 9:15 AM EDT ccccccccccccccccccccccccccccccccccccccccccccccccccccccccccccc * Jameel Goyal MD - 02/07/2025 9:15 AM EDT SUBJECTIVE Jabari Chavis is a 64 y.o. male who presents for Follow-up (Dm). Jabari Chavis, 64 years Chronic Cough - Persistent cough despite discontinuation of lisinopril - Cough continued after switching from lisinopril to losartan, which was also discontinued due to throat discomfort and dry mouth - Cough present prior to pulmonology referral - Pulmonology follow-up scheduled for February 09, 2025 Medication Intolerance - Developed throat discomfort and dry mouth with losartan, leading to discontinuation of the medication Prostate Evaluation - Seen by urology on December 19, 2024; evaluation reported as normal Diabetes He presents for his follow-up diabetic visit. He has type 2 diabetes mellitus. Pertinent negatives for hypoglycemia include no headaches. Pertinent negatives for diabetes include no chest pain. Review of Systems Constitutional: Negative for fever. HENT: Negative for sore throat. Respiratory: Negative for cough and shortness of breath. Cardiovascular: Negative for chest pain. Gastrointestinal: Negative for abdominal pain. Neurological: Negative for headaches. Allergies[1] OBJECTIVE Vitals: 02/07/25 0917 BP: 110/64 BP Location: Left arm Patient Position: Sitting BP Cuff Size: Adult Pulse: 88 Resp: 17 Temp: 98.9 ??F (37.2 ??C) TempSrc: Temporal SpO2: 92% Weight: 206 lb 12.8 oz (93.8 kg) Height: 5' 4 (1.626 m) Physical Exam Vitals reviewed. Constitutional: Appearance: Normal appearance. HENT: Head: Normocephalic and atraumatic. Right Ear: External ear normal. Left Ear: External ear normal. Nose: Nose normal. Mouth/Throat: Mouth: Mucous membranes are moist. Eyes: Conjunctiva/sclera: Conjunctivae normal. Cardiovascular: Rate and Rhythm: Normal rate and regular rhythm. Pulmonary: Effort: Pulmonary effort is normal. Breath sounds: Normal breath sounds. Skin: General: Skin is warm. Neurological: Mental Status: He is alert. Mental status is at baseline. Assessment/Plan Problem List Items Addressed This Visit Diabetes mellitus (CMS/FORMERLY [facility]) - Primary Pt here for a f/u DM controlled He is on a regimen of: Metformin 500 mg po 2 tabs po BID and Glipizide XL 2.5 mg po daily, Hgb A1c 02/07/2025: 6.0 from 5.6 Eye exam done on: n01/16/[address] Adelina Gore No Microalbumin checked on: 08/02/2024 was: 9 Foot check risk of zero Pt reports compliance with Asa 81 mg po daily Today I have recommended to continue current regimen 3 months f/u Pt advised to: adhere to diabetic diet check your blood sugars regularly check your feet on a daily basis. Relevant Medications Alcohol Swabs (Alcohol Prep) 70 % pads Other Relevant Orders POCT glucose manually resulted (Completed) Benign hypertension Patient here for a f/u BP remains controlled on a regimen of: Prazosin 5 mg po daily and Norvasc 5 mg po daily. Pt no longer on Lisinopril ( cough) did not tolerate Losartan either ( c/o dry mouth ) so he stopped it) Plan: continue current regimen Most recent electrolytes, Bun and Creatinine done on: were within normal limits. Lab Results Component Value Date NA 140 08/02/2024 NA 142 10/15/2023 K 3.4 08/02/2024 K 3.8 10/15/2023 CL 100 08/02/2024 CL 99 10/15/2023 BUN 11 08/02/2024 BUN 11 10/15/2023 CREATININE 0.74 08/02/2024 CREATININE 0.79 10/15/2023 Patient advised to adhere to a low sodium diet, will repeat encouraged about medication compliance,counseled about weight loss. 4 month f/u Chronic cough Patient with c/o persistent dry cough for > 6 months not improving, cough continues despite stopping Lisinopril Previous testing included Rapid Flu, and Covid:neg On exam: Lungs CTA Bilat Work up included: === 08/02/24 === XR CHEST 2 VIEWS No acute cardiopulmonary abnormality. PFTs: Moderate restrictive ventilatory defect with no bronchodilator response. Decreased expiratoryreserve volume suggests extrathoracic restriction likely secondary to abdominal obesity. Etiology? GERD, Allergies, less likely LUZ Inhibitor ( Pt has been on Lisinopril for years) Plan: PPI, Antihistaminics Seen by Pulmonary Dr Jeff 01/04/2025 recommended to STO Lisinopril and start Losartan 50 mg po daily. Pt did not tolerate Losartan, continues to c/o cough despite being off Lisinopril. Has a follow up with pulmonary 02/09/2025 BPH (benign prostatic hyperplasia) Under the care of Dr. Maddox Last seen 12/19/2024 This note was drafted using Ambient (AI) technology. The patient/patient's guardian has been informed and has consented to the use of this technology: Yes Future Appointments Date Time Provider Department Center 07/25/2025 8:00 AM Katelyn Waldrop [facility] [1] No Known Allergies documented in this encounter Miscellaneous Notes * Assessment & Plan Note - Jameel Goyal MD - 02/07/2025 9:23 AM EDT Associated Problem(s): Benign hypertension Patient here for a f/u BP remains controlled on a regimen of: Prazosin 5 mg po daily and Norvasc 5 mg po daily. Pt no longer on Lisinopril ( cough) did not tolerate Losartan either ( c/o dry mouth ) so he stopped it) Plan: continue current regimen Most recent electrolytes, Bun and Creatinine done on: were within normal limits. Lab Results Component Value Date NA 140 08/02/2024 NA 142 10/15/2023 K 3.4 08/02/2024 K 3.8 10/15/2023 CL 100 08/02/2024 CL 99 10/15/2023 BUN 11 08/02/2024 BUN 11 10/15/2023 CREATININE 0.74 08/02/2024 CREATININE 0.79 10/15/2023 Patient advised to adhere to a low sodium diet, will repeat encouraged about medication compliance,counseled about weight loss. 4 month f/u * Addendum Note - Yazmin Goyal MA - 02/07/2025 9:15 AM EDTAddended by: YAZMIN GOYAL on: 02/07/2025 09:50 AM Modules accepted: Orders * Assessment & Plan Note - Jameel Goyal MD - 02/07/2025 8:53 AM EDT Associated Problem(s): Diabetes mellitus (CMS/HCC) Pt here for a f/u DM controlled He is on a regimen of: Metformin 500 mg po 2 tabs po BID and Glipizide XL 2.5 mg po daily, Hgb A1c 02/07/2025: 6.0 from 5.6 Eye exam done on: 01/16/[address] Adelina Gore No Microalbumin checked on: 08/02/2024 was: 9 Foot check risk of zero Pt reports compliance with Asa 81 mg po daily Today I have recommended to continue current regimen 3 months f/u Pt advised to: adhere to diabetic diet check your blood sugars regularly check your feet on a daily basis. * Assessment & Plan Note - Jameel Goyal MD - 02/07/2025 8:51 AM EDT Associated Problem(s): Chronic cough Patient with c/o persistent dry cough for > 6 months not improving, cough continues despite stopping Lisinopril Previous testing included Rapid Flu, and Covid:neg On exam: Lungs CTA Bilat Work up included: === 08/02/24 === XR CHEST 2 VIEWS No acute cardiopulmonary abnormality. PFTs: Moderate restrictive ventilatory defect with no bronchodilator response. Decreased expiratoryreserve volume suggests extrathoracic restriction likely secondary to abdominal obesity. Etiology? GERD, Allergies, less likely LUZ Inhibitor ( Pt has been on Lisinopril for years) Plan: PPI, Antihistaminics Seen by Pulmonary Dr Jeff 01/04/2025 recommended to STO Lisinopril and start Losartan 50 mg po daily. Pt did not tolerate Losartan, continues to c/o cough despite being off Lisinopril. Has a follow up with pulmonary 02/09/2025 * Assessment & Plan Note - Jameel Goyal MD - 02/07/2025 8:42 AM EDT Associated Problem(s): BPH (benign prostatic hyperplasia) Under the care of Dr. Maddox Last seen 12/19/2024 documented in this encounter Plan of Treatment Upcoming Encounters Date Type Department Care Team (Late st Contact Info) Description 07/25/2025 8:00 AM EST Office Visit [facility] ADULT DENTAL [address] [place] [address] Palma, Katelyn [address] [place] [address] documented as of this encounter Goals Goal Patient Goal Type Associated Problems Recent Progress Patient-Stated? Author Remain at or Below Target Blood Pressure General On track(07/13/19 24 4:09 PM EST) No Regine Hawkins, Ruben documented as of this encounter Procedures Procedure Name Priority Date/Time Associated Diagnosis Comments POCT GLYCOSYLATED HEMOGLOBIN (HGB A1C) Routine 02/07/2025 9:49 AM EDT Type 2 diabetes mellitus without complication, without long-term current use of insulin ([facility]) POCT GLUCOSE Routine 02/07/2025 9:25 AM EDT Type 2 diabetes mellitus without complication, without long-term current use of insulin ([facility]) documented in this encounter Results * (ABNORMAL) POCT glycosylated hemoglobin (Hgb A1c) (02/07/2025 9:49 AM EDT) Hemoglobin A1C 6.0(A) 4.0 - 5.7 % QC Media Lot # [id number] Lot# Expiration Date [id number] Blood Capillary blood specimen / Unknown 02/07/2025 9:49 AM EDT Jameel Goyal MD POINT OF CARE TEST EN TER/EDIT ORDERABLES Final Result * POCT glucose manually resulted (02/07/2025 9:25 AM EDT) Glucose Blood, POC 184 60 - 200 mg/dL QC Media Lot # [id number] Lot# Expiration Date [id number] Blood Capillary blood specimen / Unknown 02/07/2025 9:25 AM EDT Jameel Goyal MD POINT OF CARE TEST EN TER/EDIT ORDERABLES Final Result documented in this encounter Visit Diagnoses Diagnosis Type 2 diabetes mellitus without complication, without long-term current use of insulin ([facility])- Primary Benign hypertension Essential hypertension, benign Chronic cough Cough Benign prostatic hyperplasia with urinary frequency documented in this encounter Additional Health Concerns Assessment Noted Time PHQ-9 Depression Total Score: 0 04/07/20 24 9:52 AM EDT documented as of this encounter Care Teams Cash Management Officer Relationship Specialty Start Date End Date Jameel Cota MD [address] [place] [address] PCP - General Internal Medicine 04/10/14 documented as of this encounter
--- NOTE | 2025-02-09 11:22 | A.OFFVIS_ITS ---
Vital Signs 02/09/25 11:23 Height 5 ft 6 in Weight 203 lb 14.841 oz BMI 32.9 BP 110/64 Blood Pressure Location Lt brachial Position Sitting Pulse 80 Pulse Source Pulse Oximeter Pulse Oximetry (%) 96 Oxygen Delivery Method Room Air Intake Visit Reasons: Cough Intake Note: pt is here for follow up and states the cough is still there dry with no phlegm. Production Mechanic Tin Cans Required: Yes Production Mechanic Tin Cans Services: Production Mechanic Tin Cans Present Production Mechanic Tin Cans Name: Tona Bullock (OA) Allergies No Known Allergies (No Known Allergies*) Allergy (Verified 02/09/25 11:40) Medication List - Last Reconciled 02/09/25 by Kip Jeff MD amlodipine 5 mg PO DAILY aspirin 81 mg PO DAILY atorvastatin 40 mg PO DAILY blood sugar diagnostic (FreeStyle Lite Strips) As directed bupropion HCl XL 150 mg PO DAILY diazepam 5 mg PO BID PRN fluoxetine 40 mg PO QAM glipizide ER 2.5 mg PO QAM hydrochlorothiazide 25 mg PO QAM lancets (TRUEplus Lancets) As directed lisinopril 40 mg PO QAM losartan 50 mg PO DAILY 30 days meloxicam 7.5 mg PO QAM metformin ER 1,000 mg PO DAILY omega [id number]-fish oil 300 mg (120 mg- 180mg)-1,000 mg 1 cap PO TID omeprazole 40 mg PO DAILY prazosin 10 mg PO BEDTIME tamsulosin 0.4 mg PO DAILY 90 days trazodone 50 mg PO BEDTIME PRN ziprasidone HCl 40 mg PO BID Do you need a note to return to daycare/school/sports/work: No HPI HPI Cough: Details: THIS 65 YEARS OLD GENTLEMAN IS HERE FOR FOLLOW-UP AFTER 4 WEEKS. WE THOUGHT HE HAD ONGOING COUGH MOSTLY DRY SECONDARY TO LISINOPRIL. IT WAS CHANGED TO LOSARTAN, WHICH HE TOOK ONLY FOR A WEEK OR SO AND THEN STOP BECAUSE THAT WAS IRRITATING HIS THROAT. HIS ANTIHYPERTENSIVE MED HAS BEEN CHANGED TO AMLODIPINE 5 MG A DAY AND PRAZOSIN 10 MG AT BEDTIME. HE CONTINUES TO HAVE SAME AMOUNT OF DRY COUGH THE COUGH IS WORSE AT NIGHT. HE HAS NO GERD SYMPTOMS. HE ALSO DENIES ANY NASAL CONGESTION OR POSTNASAL DISCHARGE. [facility] Medical History (Updated 02/09/25 @ 11:46 by Kip Jeff MD) Cough due to bronchospasm Restrictive lung disease Obesity (BMI 30.0-34.9) Cough due to LUZ inhibitor Atypical chest pain RANDELL (obstructive sleep apnea) Nocturia Bladder outlet obstruction Weak urinary stream Diabetes mellitus Hyperlipidemia HTN (hypertension) Anemia Surgical History Hx of colonoscopy Hx of cystoscopy Hx of transurethral resection of prostate Family History Maternal Grandfather Colon cancer Mother Stomach cancer Maternal Aunt Metastatic cancer Brother Stomach cancer Social History Are you a primary director day care center to a significant other at home: No Do you presently have visiting nurse or other home services: No Patient Tobacco Use Status: Never used Tobacco Current occupational status: unemployed and disabled Review of Systems Const All systems reviewed & are unremarkable except as noted in HPI and below Eyes Reports no additional complaints ENT Reports no additional complaints Card Denies chest pain, Denies syncope and Denies irregular heart rhythm Resp Reports as per HPI GI Reports heartburn (GERD being treated with omeprazole, patient is symptomatic) Reports no additional complaints Musc Reports no additional complaints Skin/Breast Reports system reviewed and no additional complaints, except as documented Neuro Reports no additional complaints and Denies syncope Psych Reports no additional complaints Physical Exam Vital Signs: Last Vital Signs Pulse 80 02/09/25 11:23 BP 110/64 02/09/25 11:23 Pulse Ox 96 02/09/25 11:23 Oxygen Delivery Method Room Air 02/09/25 11:23 BMI result Body Mass Index 32.9 Const General: healthy appearing (Except for being moderately overweight), comfortable, no acute distress, alert and awake Orientation/consciousness: patient oriented x3 HEENT Head: Yes normal to inspection General nose exam: No nasal polyps present and No nasal discharge present Face and sinus: Yes sinuses nontender Mouth: oropharynx normal Throat: Yes posterior oropharynx normal Eyes General: appearance normal, both eyes and all related structures Neck Neck: Yes normal visual inspection, Yes no lymphadenopathy, Yes trachea midline and Yes no JVD Thyroid: Thyroid normal Chest Chest palpation & inspection: normal inspection of the chest, normal palpation of entire chest wall and no tenderness Resp Effort & Inspection: normal respiratory effort Auscultation: clear to auscultation bilaterally, no crackles, no rhonchi and no wheezes Cardio Palpation: normal PMI Rate: regular rate Rhythm: regular rhythm Heart sounds: no gallops and no murmurs Peripheral pulses: Peripheral pulses 2+ throughout GI Palpation (GI): Soft to palpation, nontender, No hepatosplenomegaly present and no masses Auscultation: normal bowel sounds Back/Spine/Pelvis Thoracic/Lumbar Spine: thoracic and lumbar spine normal to inspection Skin General skin exam: no rashes or lesions noted Neuro General: patient oriented x3 and no focal motor deficits Cranial nerves: Yes CN's II-XII intact bilaterally Extrem General: Yes normal to inspection, Yes no clubbing, cyanosis or edema and Yes no calf tenderness Psych Appearance: grossly normal and well kempt Speech and movement: Normal speech and movement present Assessment & Plan Assessment & Plan (1) Obesity (BMI 30.0-34.9): Comment: PATIENT IS MODERATELY OBESE WITH SOMEWHAT ROUND FACE. HE DENIES EXCESSIVE SNORING OR ANY SAYS SLEEP ISSUES Code(s): E66.811 - Obesity, class 1 Category: Medical Plan: STILL ADVISE THAT HE SHOULD TRY TO LOSE WEIGHT (2) Restrictive lung disease: Comment: PER PULMONARY FUNCTION TEST HE DOES HAVE MODERATE RESTRICTIVE DISORDER. BUT HE DENIES ANY RESPIRATORY PROBLEMS, ESPECIALLY DENIES ANY DYSPNEA ON EXERTION. Code(s): J98.4 - Other disorders of lung Category: Medical Plan: HIS PULMONARY FUNCTION TEST SHOWED THAT HE HAS RESTRICTIVE DISORDER PROBABLY RELATED TO HIS OBESITY. THERE WAS NO OBSTRUCTIVE DISORDER, AND NO RESPONSE TO BRONCHODILATOR THERAPY. (3) Cough due to bronchospasm: Comment: CONTINUES TO HAVE COUGH WHICH HAS LINGERED ON FOR MORE THAN 6 MONTHS. NO IDENTIFIABLE CAUSES OF COUGH. DISCONTINUING OF LISINOPRIL HAS NOT MADE ANY DIFFERENCE. THERE IS A POSSIBILITY THAT THIS MAY BE DUE TO REACTIVE AIRWAYS/BRONCHOSPASM Code(s): J98.01 - Acute bronchospasm Category: Medical Plan: WILL EMPIRICALLY TRY MILD DOSE OF ICS/LABA AND SEE IF IT MAKES A DIFFERENCE. TO RECHECK IN 4 WEEKS Medications: New fluticasone propion-salmeterol 250-50 mcg/dose 1 inh inhalation BID 60 ea 2RF COUGH/WHEEZE 30 days Coding Level of Care Code Est Pt Level 3 (81036) Diagnoses Obesity (BMI 30.0-34.9) E66.811 Restrictive lung disease J98.4 Cough due to bronchospasm J98.01
[2025-02-09 11:23] VITALS: BP 110/64; PULSE 80; O2SAT 96; BMI 32.9
--- OUTSIDE RECORDS SUMMARY | 2025-02-09 13:01 | XMS_ITS | Encounter Summary ---
Author Organization [employer] Address [address] [facility] 7 [place] [address] Care Team Providers Care Case Briefer Name Role Phone Jameel Cota MD Primary Care Provide r Regine Hawkins PharmD Unavailable [phone] Essie Mehta PharmD Unavailable [phone] Reason for Visit * Reason Onset Date Comments Pre Op 07/03/2023 Encounter Details Date Type Department Care Team (Late st Contact Info) Description 07/03/2023 Telephone [facility] MEDICINE [address] [place], [place] [phone] Jameel Cota MD [address] [place], [place] [phone] Pre Op Social History Tobacco Use Types [...] yes Surgeon's name: Cj Maddox Facility name: [facility] Surgeon's office number: [phone] opt 3 Surgeon's office fax number: [phone] Contact name (person you spoke with): Shanita documented in this encounter Plan of Treatment Upcoming Encounters Date Type Department Care Team (Late st Contact Info) Description 07/25/2025 8:00 AM EST Office Visit [facility] ADULT DENTAL [address] [place] [address] Palma, Katelyn [address] [place] [address] documented as of this encounter Goals Goal [...] documented as of this encounter Care Teams Case Briefer Relationship Specialty Start Date End Date Jameel Cota MD [address] [place] [address] PCP - General Internal Medicine 04/10/14 Regine Hawkins, ItaliaD [address] [place] [address] Pharmacist Internal Medicine 08/18/22 09/28/24 Essie Mehta PharmD [address] [place] [address] Pharmacist Internal Medicine 09/29/24 09/30/24 documented as of this encounter
--- OUTSIDE RECORDS SUMMARY | 2025-02-09 13:01 | XMS_ITS | Clinical Summary ---
Author Organization [employer] Address [address] [place] [address] 7[address] [place] [address] Care Team Providers Care Assistant Director Of Financial Aid Name Role Phone Jameel Cota MD Primary [...] DEL CHAMPU 118.28 mL 3 024 Active OneTouch Delica Lancets 33G miscIndications:T ype 2 diabetes mellitus without complication, without long-term current use of insulin ([facility]) TEST BLOOD SUGAR TWICE A DAY 100 each 024 Active glucose blood (OneTouch Ultra Test) test strip TEST BLOOD SUGAR TWICE A DAY 100 each 11 2024 Active cyclobenzaprine (Flexeril) 5 MG tabletIndications :Acute [...] as directed by MD. 30 patch Active Aspirin Low Dose 81 MG EC tablet TAKE 1 TABLET BY MOUTH EVERY EVENING 90 tablet 3 Active amLODIPine (Norvasc) 5 MG tablet TAKE 1 TABLET BY MOUTH EVERY EVENING 90 tablet 3 Active Blood Glucose Monitoring Suppl (ONE TOUCH ULTRA 2) w/Device kitIndications:Ty pe 2 diabetes mellitus without complication, without long-term current use of insulin ([facility]) Use to monitor blood glucose by subcutaneous route twice daily 1 kit 1 Active atorvastatin (Lipitor) 40 MG tabletIndications :Type 2 diabetes mellitus with hyperlipidemia ([facility]) ([facility]) TAKE 1 TABLET BY MOUTH AT BEDTIME 90 tablet 3 Active glipiZIDE XL (Glucotrol XL) 2.5 MG 24 hr tablet TAKE 1 TABLET BY MOUTH EVERY MORNING WITH BREAKFAST 90 tablet 3 Active Icosapent Ethyl (Vascepa) 1 g capsuleIndication s:Mixed hyperlipidemia Take 2 capsules (2 g) by mouth with breakfast and with evening meal. 120 capsule 11 025 2025 Active docusate sodium (Colace) 100 MG capsuleIndication s:Constipation, unspecified constipation type TAKE 1 CAPSULE BY MOUTH TWICE DAILY IN THE MORNING AND AT BEDTIME 180 capsule 3 Active hydroCHLOROthiazi de (HYDRODiuril) 25 MG tablet TAKE 1 TABLET BY MOUTH EVERY MORNING 90 tablet 3 Active metFORMIN XR (Glucophage-XR) 500 MG 24 hr tablet TAKE 2 TABLETS BY MOUTH TWICE DAILY IN THE MORNING AND EVENING WITH FOOD 360 tablet 3 Active fluticasone (Flonase) 50 MCG/ACT nasal sprayIndications: Chronic cough USE 1 SPRAY IN EACH NOSTRIL EVERY DAY 16 g 2 Active omeprazole OTC (PriLOSEC OTC) 20 MG EC tabletIndications :Chronic cough Take 1 tablet (20 mg) by mouth before breakfast. Do not crush, chew, or split. 30 tablet 3 025 2025 Active cetirizine (ZyrTEC) 10 MG tabletIndications :Chronic cough TAKE 1 TABLET BY MOUTH ONCE DAILY 30 tablet 2 Active Alcohol Swabs (Alcohol Prep) 70 % padsIndications:T ype 2 diabetes mellitus without complication, without long-term current use of insulin ([facility]) USE DIRECTED ONCE DAILY 100 each Active Alcohol Swabs (Alcohol Prep) 70 % pads USE DIRECTED ONCE DAILY 100 each 024 2024 Discontinued(R eorder (will not trigger notification to Pharmacy)) lisinopril 40 MG tabletIndications :Benign hypertension TAKE 1 TABLET BY MOUTH EVERY MORNING (TAKE SECOND TAB IF BLOOD PRESSURE >140/90) 45 tablet 5 024 2024 Discontinued cetirizine (ZyrTEC) 10 MG tabletIndications :Chronic cough Take 1 tablet (10 mg) by mouth Once per day. 30 tablet 2 025 2024 Discontinued lisinopril 40 MG tabletIndications :Benign hypertension TAKE 1 TABLET BY MOUTH EVERY MORNING (TAKE SECOND TAB IF BLOOD PRESSURE >140/90) 45 tablet 5 025 2024 Discontinued(T herapy completed) Active Problems Problem Noted Date Diagnosed Date Stage 3 grade B generalized periodontitis per AAP/EFP 2017 classification 01/18/2025 Stacy's esophagus without dysplasia 11/03/2024 Assessment & Plan (11/03/2024 11:31 AM EDT): Underwent EGD 10/2024 Endoscopy Findings: possible barretts GI recommended to repeat EGD in 3 yrs Tubular adenoma of colon 11/03/2024 Assessment & Plan (11/03/2024 11:32 AM EDT): Underwent Colonoscopy 10/2024 Showed: diverticulosis colon polyps (Tubular Adenoma) internal hemorrhoids GI recommended 1-2 yr follow up Chronic cough 08/02/2024 Assessment & Plan (02/07/2025 9:24 AM EDT): Patient with c/o persistent dry cough for > 6 months not improving, cough continues despite stopping Lisinopril Previous testing included Rapid Flu, and Covid:neg On exam: Lungs CTA Bilat Work up included: === 08/02/24 === XR CHEST 2 VIEWS No acute cardiopulmonary abnormality. PFTs: Moderate restrictive ventilatory defect with no bronchodilator response. Decreased expiratory reserve volume suggests extrathoracic restriction likely secondary to [...] Has a follow up with pulmonary 02/09/2025 Assessment & Plan (11/03/2024 11:46 AM EDT): Patient with c/o persistent dry cough for > 6 months not improving Previous testing included Rapid Flu, and Covid:neg On exam: Lungs CTA Bilat Work up included: === 08/02/24 === XR CHEST 2 VIEWS No acute cardiopulmonary abnormality. PFTs: Moderate restrictive ventilatory defect with no bronchodilator response. Decreased expiratory reserve volume suggests extrathoracic restriction likely secondary to abdominal obesity. Etiology? GERD, Allergies, less likely LUZ Inhibitor ( Pt has been on Lisinopril for years) Plan: PPI, Antihistaminics Pulmonology referral If no improvement and Pulm justin neg, will consider switching his LUZ inhibitor, but given that his blood pressure has been under such good control for so long, I would leave this option until above steps completed Assessment & Plan (08/02/2024 2:27 PM EST): Patient with c/o dry cough x 3 months not improving Rapid Flu, and Covid:neg Lungs CTA Bilat Plan: Chest x-ray, PFTs, guaifenesin PRN Acute gingival inflammation 07/20/2024 Gingival bleeding 07/20/2024 Generalized gingival recession 07/20/2024 Preventative health care 12/29/2023 Assessment & Plan (11/03/2024 11:34 AM EDT): PSA 08/02/2024: Normal Colonoscopy: 11/22/08. Repeat colonoscopy with Dr. Silva 02/20/13 showed no polyps and 1+ internal hemorrhoids. To repeat colonoscopy in 10 years. Repeat: Underwent Colonoscopy 10/2024 Showed: diverticulosis colon polyps (Tubular Adenoma) internal hemorrhoids GI recommended 1-2 yr follow up Tdap: 09/18/2015 Pneumovax 09/20/2009 Assessment & Plan (08/02/2024 1:29 PM EST): [...] therapy to no glipizide. Assessment & Plan (02/07/2025 9:37 AM EDT): Pt here for a f/u DM controlled He is on a regimen of: Metformin 500 mg po 2 tabs po BID and Glipizide XL 2.5 mg po daily, Hgb A1c 02/07/2025: 6.0 from 5.6 Eye exam done on: n01/16/[address] Adelina Gore No DR Microalbumin checked on: 08/02/2024 was: 9 Foot check risk of zero Pt reports compliance with Asa 81 mg po daily Today I have recommended to continue current regimen 3 months f/u Pt advised to: adhere to diabetic diet check your blood sugars regularly check your feet on a daily basis. Assessment & Plan (11/03/2024 11:48 AM EDT): Pt here for a f/u DM controlled He is on a regimen of: Metformin 500 mg po 2 tabs po BID and Glipizide XL 2.5 mg po daily, Hgb A1c 11/03/2024: 5.6 Eye exam done on: 07/12/[address] Adelina Gore No DR Microalbumin checked on: 08/02/2024 was: 9 Pt is on an LUZ inhibitor Lisinopril Foot check risk of zero Pt reports compliance with Asa 81 mg po daily Today I have recommended to continue current regimen 3 months f/u Pt advised to: adhere to diabetic diet check your blood sugars regularly check your feet on a daily basis. Assessment & Plan (08/02/2024 2:15 PM EST): [...] for weight loss. 4 month follow up Major depressive disorder 02/05/2012 Posttraumatic stress disorder 02/05/2012 Assessment & Plan (06/19/2022 8:02 AM EST): Pt is here for a f/u Pt has a Dx of PTSD. Well controlled with a daily nurse for medications. He is followed by Iliana and Dr. Duque at [facility]. He is at his baseline and not [...] nurse for medications. He is followed at [facility]. He is at his baseline and not [...] followed by Iliana and Dr. Duque at [facility]. He is at his baseline and not [...] followed by Iliana and Dr. Duque at [facility]. He is at his baseline and not [...] changes. Last seen at [facility] 11/17/12 with plan to repeat renal US [...] BMP prior to visit. Assessment & Plan (02/07/2025 9:23 AM EDT): Patient here for a f/u [...] loss. 4 month f/u Assessment & Plan (11/03/2024 11:44 AM EDT): Patient here for a f/u BP remains controlled on a regimen of: Lisinopril 40 mg [...] loss. 4 month f/u Assessment & Plan (08/02/2024 1:25 PM EST): [...] BPH (benign prostatic hyperplasia) Assessment & Plan (02/07/2025 8:42 AM EDT): Under the care of Dr. Maddox Last seen 12/19/2024 Assessment & Plan (08/02/2024 1:23 PM EST): Under the care of Dr. Maddox Last seen 06/22/2024 Resolved Problems Problem Noted Date Diagnosed Date Resolved Date Diabetes due to undrl condit ion w oth diabetic neuro comp 08/02/2024 02/07/2025 Sore throat 12/29/2023 08/02/2024 Assessment & Plan (12/29/2023 12:38 PM EDT): Likely viral Exam normal, negative rapid Covid test. Tubular adenoma 12/23/2012 11/03/2024 Assessment & Plan (08/02/2024 1:27 PM EST): [...] hemorrhoids. To repeat colonoscopy in 10 years. Encounters Date Type Department Care Team Description 2025 Telephone [facility] MEDICINE [address] [place] [address] Jameel Cota MD IZ 02/07/2025 9:15 AM EDT Office Visit [facility] [address] [place] [address] Jameel Cota MD Type 2 diabetes mellitus without complication, without long-term current use of insulin ([facility]) (Primary Dx); Benign hypertension; Chronic cough; Benign prostatic hyperplasia with urinary frequency 02/07/2025 Travel 01/31/2025 Telephone [facility] ADULT DENTAL [address] [place] [address] Palma, Katelyn 01/18/2025 8:00 AM EDT Office Visit [facility] ADULT DENTAL [address] [place] [address] Robert Waldroparis Missing teeth, acquired (Primary Dx); Dental calculus; Erosion of teeth, limited to enamel; Generalized gingival recession; Stage 3 grade B generalized periodontitis per AAP/EFP 2017 classification; Gingival bleeding; Encounter for dental examination; Periodontal disease 01/16/2025 11:00 AM EDT Office Visit [facility] OPTOMETRY [address] [place] [address] Sabino, Adelina, OD Diabetes type 2, no ocular involvement ([facility]) (Primary Dx); Dry eye syndrome of both eyes; Presbyopia of both eyes; Early cataracts, bilateral; Nevus of choroid, unspecified laterality 01/16/2025 Travel 01/15/2025 Refill [facility] [address] [place] [address] Jameel Cota MD Chronic cough; Benign hypertension 12/30/2024 Telephone [facility] [address] [place], [place] [phone] Kamlesh Almeida, PharmD from Last 3 Months Immunizations Immunization Administration Dates Next Due Hep B, adult [...] Mass Index 35.5 02/07/2025 9:17 AM EDT Plan of Treatment Upcoming Encounters Date Type Department Care Team (Late st Contact Info) Description 07/25/2025 8:00 AM EST Office Visit [facility] ADULT DENTAL [address] [place] [address] Palma, Katelyn [address] [place] [address] Health Maintenance Due Date Last Done Comments CT Colonography 1962 FIT DNA/Cologuard 1962 FIT 1962 FOBT 1962 HIV Screening 1962 Sigmoidoscopy 1962 Diabetes: Foot Exam 02/09/1972 Lipid Panel 10/14/2024 10/15/2023, 06/09, 06/17/2022, Additional history exists Influenza Vaccine (#1) 2025 4, 03/12/2023, 03/18/2022, Additional history exists Depression Screening 04/07/2025 04/07/2024, 04/07/20 24 SDOH Screening 07/20/2025 07/20/2024 Dental Oral Exam 07/22/2025 01/18/2025, 04/2024, 02/23/2023, Additional history exists Dental Prophylaxis 07/22/2025 01/18/2025, 0 07/20/2024, 12/17/2023, Additional history exists Diabetes: Urine Protein Screening 08/02/2025 08/02/2024, 06/17/2022, 02/05/2021, Additional history exists Diabetes: Hemoglobin A1C 08/07/2025 025, 11/03/2024, 08/02/2024, Additional history exists DTaP/Tdap/Td Vaccines (2 - Td or Tdap) 09/17/2025 09/18/2015, 10/15/2013 Disability Screening 11/03/2025 11/03/2024 Dental X-Ray: Bitewings 01/19/2026 01/19/20 25, 12/17/2023, 02/23/2023, Additional history exists Alcohol/Substance Use Screening 02/07/2026 02/07/2025 Tobacco Screening 02/07/2026 02/07/2025 Eye Exam 01/16/2027 01/16/2025, 0806/2024, 01/16/2025, Additional history exists Colonoscopy 10/14/2027 10/13/2024, 02/20/2013 Colorectal Cancer Screening 10/14/2027 Dental X-Ray: Full Mouth 01/20/2028 01/18/2025, 06/01/2021 RSV Patients and Patients Aged 60 years or older (1 - 1-dose 75+ series) 2037 Hepatitis B Vaccines Completed 05/16/2009, 10/05/2008, 06/28/2008 Hepatitis C Screening Completed 12/31/2021 Pneumococcal Vaccine: 50+ Years Completed 02/07/2022, 05/10/2015, 09/20/2009 Zoster Vaccines Completed 04/09/2022, 02/07/2022 COVID-19 Vaccine Completed 04/13/2024, , 11/12/2021, Additional [...] patient's age to complete this topic Meningococcal B Vaccine Aged Out No l onger eligible based on patient's age to complete [...] complication, without long-term current use of insulin ([facility]) POCT GLUCOSE Routine 02/07/2025 9:25 AM EDT Type 2 diabetes mellitus without complication, without long-term current use of insulin ([facility]) COMPREHENSIVE PERIODONTAL EVALUATION - NEW OR ESTABLISHED PATIENT Routine 01/18/2025 8:00 AM EDT Missing teeth, acquired Dental calculus Erosion of teeth, limited to enamel Generalized gingival recession Stage 3 grade B generalized periodontitis per AAP/EFP 2017 classification Gingival bleeding Encounter for dental examination PERIODIC ORAL EVALUATION - ESTABLISHED PATIENT Routine 01/18/2025 8:00 AM EDT Missing teeth, acquired Dental calculus Erosion of teeth, limited to enamel Generalized gingival recession Stage 3 grade B generalized periodontitis per AAP/EFP 2017 classification Gingival bleeding Encounter for dental examination CASE PRESENTATION, DETAILED AND EXTENSIVE TREATMENT PLANNING Routine 01/18/2025 8:00 AM EDT Missing teeth, acquired Dental calculus Erosion of teeth, limited to enamel Generalized gingival recession Stage 3 grade B generalized periodontitis per AAP/EFP 2017 classification Gingival bleeding ORAL HYGIENE INSTRUCTIONS Routine 01/18/2025 8:00 AM EDT Missing teeth, acquired Dental calculus Erosion of teeth, limited to enamel Generalized gingival recession Stage 3 grade B generalized periodontitis per AAP/EFP 2017 classification Gingival bleeding TOPICAL APPLICATION OF FLUORIDE VARNISH Routine 01/18/2025 8:00 AM EDT Missing teeth, acquired Dental calculus Erosion of teeth, limited to enamel Generalized gingival recession Stage 3 grade B generalized periodontitis per AAP/EFP 2017 classification PROPHYLAXIS - ADULT Routine 01/18/2025 8 :00 AM EDT Dental calculus Stage 3 grade B generalized periodontitis per AAP/EFP 2017 classification Gingival bleeding INTRAORAL - COMPLETE SERIES OF RADIOGRAPHIC IMAGES Routine 01/18/2025 8:00 AM EDT Missing teeth, acquired Dental calculus Erosion of teeth, limited to enamel Generalized gingival recession Stage 3 grade B generalized periodontitis per AAP/EFP 2017 classification HM COLONOSCOPY Routine 10/13/2024 ALBUMIN, RANDOM URINE W/CREATININE Routine 08/02/2024 3:36 PM EST Type 2 diabetes mellitus without complication, without long-term current use of insulin ([facility]) LIPID PANEL, STANDARD Routine 10/15/2023 8:52 AM EDT Type 2 diabetes mellitus without complication, without long-term current use of insulin ([facility]) ZZZ HISTORICAL HEPATITIS C AB W/REFL TO HCV RNA, QN, PCR Routine 12/31/2021 3:04 PM EDT from Last 3 Months or Most Recently Relevant to Health Maintenance Results * (ABNORMAL) POCT glycosylated hemoglobin (Hgb A1c) (02/07/2025 9:49 AM EDT) Hemoglobin A1C 6.0(A) 4.0 - 5.7 % QC Media Lot # [id number] Lot# Expiration Date [id number] Blood Capillary blood specimen / Unknown 02/07/2025 [...] EN TER/EDIT ORDERABLES Final Result * (ABNORMAL) Hm Colonoscopy (10/13/2024) Colonoscopy Abnormal( A) Normal Comment:tubular adenoma 10/13/2024 Historical Provider HEALTH MAINTENANCE Final Result * Albumin, Random Urine W/Creatinine (08/02/2024 3:36 PM EST) Creatinine, Urine 82.85 mg/dL [facility] Microalbumin Urine 9.0 mg/L [facility] Microalbum Creatinine Ratio Ur 10.8 <30 ug/mg cr [facility] Comment:Albumin/Creatinine R atio Reference Ranges: Normal: < 30 ug/mg creatinine Microalbuminuria: 30 - 300 ug/mg creatinineClinical Albuminuria: > 300 ug/mg creatinine Urine (Urine, Random) 08/02/2024 3:36 PM EST 08/02/2024 4:14 PM EST Jameel Goyal MD LAB URINE ORDERABLES Final Result [facility] [address] [place] [phone] * (ABNORMAL) Lipid Panel, Standard (10/15/2023 8:52 AM EDT) Triglycerides 76 <150 mg/dL [facility] Comment:Desirable Triglyceri de: less than 150 mg/dLBorderline High Triglyceride 150-199 mg/dLHigh Triglyceride: 200-499 mg/dLVery High Triglyceride: greater than or equal to 5OO mg/dL Cholesterol 84 <200 mg/dL [facility] Comment:Desirable Cholestero l: less than 200 mg/dLBorderline High Cholesterol: 200-239 mg/dLHigh Cholesterol: greater than 239 mg/dL LDL Cholesterol Calculated 37 <100 mg/dL [facility] Comment:Desirable LDL: less than 100 mg/dLNear Optimal/Above Optimal LDL: 110- 129 mg/dLBorderline High LDL: 130-159 mg/dLHigh LDL: 160-189 mg/dLVery High LDL: greater than or equal to 190 mg/dL HDL Cholesterol 32(L) >40 mg/dL [facility] Comment:Desirable HDL: great er than 40 mg/dL Note: This HDL assay may give artificially low results in patients with liver disease. Blood Venous blood specimen / Unknown 10/15/2023 8:52 AM EDT 10/15/2023 11:35 AM EDT Jameel Goyal MD LAB BLOOD ORDERABLES Final Result [facility] [address] [place] [phone] * HEPATITIS C AB W/REFL TO HCV RNA, QN, PCR (12/31/2021 3:04 PM EDT) HEPATITIS C ANTIBODY NON-REACT [facility] NON-REACT [facility] INDEX 0.09 <1.00 [facility] Comment: HCV antibody was non-reactive. There is no laboratory evidence of HCV infection. In most cases, no further action is required. However, if recent HCV exposure is suspected, a test for HCV RNA (test code 32580) is suggested. For additional information please refer to http://education.NextPage/faq/QLC22j9 (This link is being provided for informational/ educational purposes only.) 12/31/2021 3:04 PM EDT us Jameel English Jay Jay MD HISTORICAL/NON ORDERA BLE LABS Final Result [facility] [address] from Last 3 Months or Most Recently Relevant to Health Maintenance Insurance [facility] [address] [id number] [facility] Member Subscriber Plan / Payer (Ef fective 2024-Present) Name:Rahel Chavisan Jos Relation to Subscriber:Self Name:Jabari Chavis Payer ID:Not on file Group ID:Not on file Type:Not on file Address: [address] [place] [phone] Care Teams Assistant Director Of Financial Aid Relationship Specialty Start Date End Date Jameel Cota MD [address] [place] [address] PCP - General Internal Medicine 04/10/14
--- OUTSIDE RECORDS SUMMARY | 2025-02-09 13:01 | XMS_ITS | Encounter Summary ---
Author Organization [employer] Address [address] [place] [address] [address] [place] [address] Care Team Providers Care River Rat Name Role Phone Jameel Cota MD Primary Care Provide r Regine Hawkins PharmD Unavailable [phone] Essie Mehta PharmD Unavailable [phone] Reason for Visit * Reason Comments Med Refill Encounter Details Date Type Department Care Team (Late st Contact Info) Description 01/15/2023 Refill [facility] [address] [place] [address] Name, MD Дмитрий [address] [place] [address] Mixed hyperlipidemia Social History Tobacco Use Types [...] Description 07/25/2025 8:00 AM EST Office Visit [facility] ADULT DENTAL [address] [place] [address] Katelyn Waldrop [address] [place] [address] documented as of this encounter Goals Goal Patient Goal Type Associated Problems Recent Progress Patient-Stated? Author Remain at or Below Target Blood Pressure General On track(07/13/19 24 4:09 PM EST) No Regine Hawkins, PharmPetrona documented as of this encounter Visit Diagnoses Diagnosis Mixed hyperlipidemia documented in this encounter Care Teams River Rat Relationship Specialty Start Date End Date Jameel Cota MD [address] [place] [address] PCP - General Internal Medicine 04/10/14 Regine Hawkins, ItaliaD [address] [place] [phone] Pharmacist Internal Medicine 08/18/22 09/28/24 Essie Mehta PharmD [address] [place] [address] Pharmacist Internal Medicine 09/29/24 09/30/24 documented as of this encounter
--- OUTSIDE RECORDS SUMMARY | 2025-02-09 13:01 | XMS_ITS | Encounter Summary ---
Author Organization [employer] Address [address] [facility] [address] [place] [address] Care Team Providers Care Civil Cadd Technician Name Role Phone Jameel Cota MD Primary Care Provide r Encounter Details Date Type Department Care Team (Latest Contact Info) Description 02/07/2025 Travel Social History Tobacco Use Types Packs/Day [...] Description 07/25/2025 8:00 AM EST Office Visit [facility] ADULT DENTAL [address] [place] [address] Palma, Katelyn [address] [place] [address] documented as of this encounter Goals Goal [...] documented as of this encounter Care Teams Civil Cadd Technician Relationship Specialty Start Date End Date Jameel Cota MD [address] [place] [address] PCP - General Internal Medicine 04/10/14 documented as of this encounter
--- OUTSIDE RECORDS SUMMARY | 2025-02-09 13:01 | XMS_ITS | Encounter Summary ---
Author Organization [employer] Address [address] [facility] [address] [place] [address] Care Team Providers Care Senior Php Web Developer Name Role Phone Jameel Cota MD Primary Care Provide r Reason for Visit * Reason Onset Date Comments IZ 2025 Encounter Details Date Type Department Care Team ([facility] st Contact Info) Description 2025 Telephone [facility] MED[facility] [address] [place] [address] Jameel Cota MD [address] [place] [address] IZ Social History Tobacco Use Types Packs/Day Years [...] encounter Miscellaneous Notes * Telephone Encounter - Sánchez Cheng - 2025 1:56 PM EDT TC from pt requesting a call back to review IZ . Unsure if he got HEP vaccine. documented in this encounter Plan of Treatment Upcoming Encounters Date Type Department Care Team (Late st Contact Info) Description 07/25/2025 8:00 AM EST Office Visit [facility] ADULT DENTAL [address] [place] [address] Palma, Katelyn [address] [place] [address] documented as of this encounter Goals Goal [...] documented as of this encounter Care Teams Senior Php Web Developer Relationship Specialty Start Date End Date Jameel Cota MD [address] [place] [id number] PCP - General Internal Medicine 04/10/14 documented as of this encounter
--- OUTSIDE RECORDS SUMMARY | 2025-02-09 13:01 | XMS_ITS | Encounter Summary ---
Author Organization [employer] [facility] Address [address] [place] [address] 7 [place] [address] Care Team Providers Care Maintenance Operator Name Role Phone Jameel Cota MD Primary Care Provide r Regine Hawkins PharmD Unavailable [phone] Essie Mehta PharmD Unavailable [phone] Encounter Details Date Type Department Care Team (Latest Contact Info) Description 01/08/2022 Abstract [facility] CONVERSIONS Dental, Provider, DDS Social [...] Care Team ( st Contact Info) Description 07/25/2025 8:00 AM EST Office Visit [facility] ADULT DENTAL [address] [place] [address] Palma, Katelyn [address] [place] [address] documented as of this encounter Visit Diagnoses Not on filedocumented in this encounter Care Teams Maintenance Operator Relationship Specialty Start Date End Date Jameel Cota MD [address] [place] [address] PCP - General Internal Medicine 04/10/14 Regine Hawkins, ItaliaD [address] [place] [address] Pharmacist Internal Medicine 08/18/22 09/28/24 Essie Mehta PharmD [address] [place] [address] Pharmacist Internal Medicine 09/29/24 09/30/24 documented as of this encounter
--- OUTSIDE RECORDS SUMMARY | 2025-02-09 13:01 | XMS_ITS | Encounter Summary ---
Author Organization [facility] [facility] Address [address] [place] [address] 7 [place] [address] Care Team Providers Care Loading Unit Operator Powder Charging Name Role Phone Jameel Cota MD Primary Care Provide r Regine Hawkins PharmD Unavailable [phone] Essie Mehta PharmD Unavailable [phone] Encounter Details Date Type Department Care Team (Latest Contact Info) Description 11/22/2018 Abstract [facility] CONVERSIONS Dental, Provider, DDS Social History [...] Description 07/25/2025 8:00 AM EST Office Visit [facility] ADULT DENTAL [address] [place] [address] Palma, Katelyn [address] [place] [address] documented as of this encounter Visit Diagnoses Not on filedocumented in this encounter Care Teams Loading Unit Operator Powder Charging Relationship Specialty Start Date End Date Jameel Cota MD 230 [place], [place] [phone] PCP - General Internal Medicine 04/10/14 Regine Hawkins, ItaliaD [address] [place] [address] Pharmacist Internal Medicine 08/18/22 09/28/24 Essie Mehta, Ruben [address] [place] [address] Pharmacist Internal Medicine 09/29/24 09/30/24 documented as of this encounter
--- OUTSIDE RECORDS SUMMARY | 2025-02-09 13:01 | XMS_ITS | Encounter Summary ---
Author Organization [employer] Address [address] [place] [address] 7 [place] [address] Care Team Providers Care Tailor Fitter Name Role Phone Jameel Cota MD Primary Care Provide r Regine Hawkins PharmD Unavailable [phone] Essie Mehta PharmD Unavailable [phone] Reason for Visit * Reason Comments Med Refill Encounter Details Date Type Department Care Team (Late st Contact Info) Description 09/30/2022 Refill [facility] MEDICINE [address] [place] [address] Ami Dunlap ANP [address] [place], [place] [phone] Type 2 diabetes mellitus with hyperlipidemia ([facility]) Social History Tobacco Use Types Packs/Day Years [...] Description 07/25/2025 8:00 AM EST Office Visit [facility] ADULT DENTAL [address] [place] [address] Katelyn Waldrop [address] [place] [address] documented as of this encounter Goals Goal Patient Goal Type Associated Problems Recent Progress Patient-Stated? Author Remain at or Below Target Blood Pressure General On track(07/13/19 24 4:09 PM EST) No Regine Hawkins, Rbuen documented as of this encounter Visit Diagnoses Diagnosis Type 2 diabetes mellitus with hyperlipidemia (CMS/HCC) (CMS/HCC) documented in this encounter Care Teams Tailor Fitter Relationship Specialty Start Date End Date Jameel Cota MD 230 [place] [address] PCP - General Internal Medicine 04/10/14 Regine Hawkins, PharmD [address] [place] [address] Pharmacist Internal Medicine 08/18/22 09/28/24 Essie Mehta PharmD [address] [place] [address] Pharmacist Internal Medicine 09/29/24 09/30/24 documented as of this encounter
--- OUTSIDE RECORDS SUMMARY | 2025-02-09 13:01 | XMS_ITS | Encounter Summary ---
Author Organization [employer] [facility] Address [address] [place] [address] 7 [place] [address] Care Team Providers Care Way Inspector Name Role Phone Jameel Cota MD Primary Care Provide r Regine Hawkins PharmD Unavailable [phone] Essie Mehta PharmD Unavailable [phone] Encounter Details Date Type Department Care Team (Latest Contact Info) Description 11/13/2020 Abstract [facility] CONVERSIONS Dental, Provider, DDS Social History [...] Description 07/25/2025 8:00 AM EST Office Visit [facility] ADULT DENTAL [address] [place] [address] Palma, Katelyn [address] [place] [address] documented as of this encounter Visit Diagnoses Not on filedocumented in this encounter Care Teams Way Inspector Relationship Specialty Start Date End Date Jameel Cota MD [address] [place] [address] PCP - General Internal Medicine 04/10/14 Regine Hawkins, ItaliaD [address] [place] [address] Pharmacist Internal Medicine 08/18/22 09/28/24 Essie Mehta PharmD [address] [place] [address] Pharmacist Internal Medicine 09/29/24 09/30/24 documented as of this encounter
--- OUTSIDE RECORDS SUMMARY | 2025-02-09 13:01 | XMS_ITS | Encounter Summary ---
Author Organization [employer] Address [address] [place] [address] 7 [place] [address] Care Team Providers Care Cattle Sticker Name Role Phone Jameel Cota MD Primary Care Provide r Regine Hawkins PharmD Unavailable [phone] Essie Mehta PharmD Unavailable [phone] Encounter Details Date Type Department Care Team (Late st Contact Info) Description 06/11/2022 Orders Only [facility] CHC MED & PEDS [address] [place], [place] [phone] Gosia Britt LPN Social History Tobacco Use [...] 8:00 AM EST Office Visit [facility] ADULT DENTAL [address] [place], [place] [phone] Palma, Katelyn [address] [place], [place] [phone] documented as of this encounter Visit Diagnoses Not on filedocumented in this encounter Care Teams Cattle Sticker Relationship Specialty Start Date End Date Jameel Cota MD 230 [place] [address] PCP - General Internal Medicine 04/10/14 Regine Hawkins, PharmD 230 [place] [address] Pharmacist Internal Medicine 08/18/22 09/28/24 Essie Mehta, ItaliaD [address] [place] [address] Pharmacist Internal Medicine 09/29/24 09/30/24 documented as of this encounter
--- OUTSIDE RECORDS SUMMARY | 2025-02-09 13:02 | XMS_ITS | Encounter Summary ---
Author Organization [employer] Address [address] [place] [address] 7t [place] [address] Care Team Providers Care Hardware Press Operator Name Role Phone Jameel Cota MD Primary Care Provide r Regine Hawkins PharmD Unavailable [phone] Essie Mehta PharmD Unavailable [phone] Encounter Details Date Type Department Care Team (Late st Contact Info) Description 07/14/2022 Orders Only [facility] MEDICINE [address] [place] [address] Britany Bell LPN Social History Tobacco Use [...] Description 07/25/2025 8:00 AM EST Office Visit [facility] ADULT DENTAL [address] [place] [address] Katelyn Waldrop [address] [place] [address] documented as of this encounter Procedures Procedure Name Priority Date/Time Associated Diagnosis Comments GLUCOSE, WHOLE BLOOD Routine 07/14/2022 12:40 PM EST documented in this encounter Results * GLUCOSE, WHOLE BLOOD (07/14/2022 12:40 PM EST) Glucose, Whole Blood 111 60 - 115 mg/dL [facility] Comment:METER #: [id number] 07/14/2022 12:4 0 PM EST 07/14/2022 12:45 PM EST us [facility] External Provider LAB BLO OD ORDERABLES Final Result [facility] [address] [place] [address] [phone] documented in this encounter Visit Diagnoses Not on filedocumented in this encounter Care Teams Hardware Press Operator Relationship Specialty Start Date End Date Jameel Cota MD [address] [place] [address] PCP - General Internal Medicine 04/10/14 Regine Hawkins, ItaliaD [address] [place] [address] Pharmacist Internal Medicine 08/18/22 09/28/24 Essie Mehta PharmD [address] [place] [address] Pharmacist Internal Medicine 09/29/24 09/30/24 documented as of this encounter
--- OUTSIDE RECORDS SUMMARY | 2025-02-09 13:02 | XMS_ITS | Encounter Summary ---
Author Organization [employer] Address [address] [place] [address] 7 [place] [address] Care Team Providers Care Labor Relations Manager Name Role Phone Jameel Cota MD Primary Care Provide r Regine Hawkins PharmD Unavailable [phone] Essie Mehta PharmD Unavailable [phone] Encounter Details Date Type Department Care Team (Late st Contact Info) Description 08/05/2022 Orders Only [facility] CHC MED & PEDS [address] [place], [place] [phone] Gosia Britt LPN Social History Tobacco Use [...] Description 07/25/2025 8:00 AM EST Office Visit [facility] ADULT DENTAL [address] [place], [place] [phone] Palma, Katelyn [address] [place], [place] [phone] documented as of this encounter Visit Diagnoses Not on filedocumented in this encounter Care Teams Labor Relations Manager Relationship Specialty Start Date End Date Jameel Cota MD [address] [place] [address] PCP - General Internal Medicine 04/10/14 Regine Hawkins, ItaliaD [address] [place] [address] Pharmacist Internal Medicine 08/18/22 09/28/24 Essie Mehta PharmD [address] [place] [address] Pharmacist Internal Medicine 09/29/24 09/30/24 documented as of this encounter
--- OUTSIDE RECORDS SUMMARY | 2025-02-09 13:02 | XMS_ITS | Encounter Summary ---
Author Organization [employer] Address [address] [place] [address] 7 [place] [address] Care Team Providers Care Classified Advertising Manager Name Role Phone Jameel Cota MD Primary Care Provide r Regine Hawkins PharmD Unavailable [phone] Essie Mehta PharmD Unavailable [phone] Encounter Details Date Type Department Care Team (Late st Contact Info) Description 10/10/2022 Abstract [facility] MEDICINE [address] [place] [address] Jameel Cota MD 230 [place], [place] [phone] Social History Tobacco Use Types Packs/Day Years [...] Description 07/25/2025 8:00 AM EST Office Visit [facility] ADULT DENTAL [address] [place] [address] Katelyn Waldrop 230 [place] [address] documented as of this encounter Goals Goal [...] Recommended 10 year follow up Historical Provider [employer] Edited Result - Final documented in this encounter Visit Diagnoses Not on filedocumented in this encounter Care Teams Classified Advertising Manager Relationship Specialty Start Date End Date Jameel Cota MD [address] [place] [address] PCP - General Internal Medicine 04/10/14 Regine Hawkins, ItaliaD [address] [place] [address] Pharmacist Internal Medicine 08/18/22 09/28/24 Essie Mehta PharmD [address] [place] [address] Pharmacist Internal Medicine 09/29/24 09/30/24 documented as of this encounter
--- OUTSIDE RECORDS SUMMARY | 2025-02-09 13:02 | XMS_ITS | Encounter Summary ---
Author Organization [employer] Address [address] [facility] 7t [place] [address] Care Team Providers Care Res Counselor Name Role Phone Jameel Cota MD Primary Care Provide r Regine Hawkins PharmD Unavailable [phone] Essie Mehta PharmD Unavailable [phone] Encounter Details Date Type Department Care Team ([facility] Contact Info) Description 08/28/2022 Orders Only [facility] CHC MED & PEDS [address] [place] [address] Gosia Britt LPN Social History Tobacco Use [...] Upcoming Encounters Date Type Department Care Team ([facility] Contact Info) Description 07/25/2025 8:00 AM EST Office Visit [facility] ADULT DENTAL [address] [place] [address] Katelyn Waldrop [address] [place] [address] documented as of this encounter Goals Goal Patient Goal Type Associated Problems Recent Progress Patient-Stated? Author Remain at or Below Target Blood Pressure General On track(07/13/19 24 4:09 PM EST) No Regine Hawkins, PharmPetrona documented as of this encounter Visit Diagnoses Not on filedocumented in this encounter Care Teams Res Counselor Relationship Specialty Start Date End Date Jameel Cota MD [address] [place] [address] PCP - General Internal Medicine 04/10/14 Regine Hawkins, PharmD [address] [place] [address] Pharmacist Internal Medicine 08/18/22 09/28/24 Essie Mehta PharmD [address] [place] [address] Pharmacist Internal Medicine 09/29/24 09/30/24 documented as of this encounter
--- OUTSIDE RECORDS SUMMARY | 2025-02-09 13:02 | XMS_ITS | Encounter Summary ---
Author Organization [employer] Address [address] [facility] 7t [place] [address] Care Team Providers Care Health And Safety Manager Name Role Phone Jameel Cota MD Primary Care Provide r Regine Hawkins PharmD Unavailable [phone] Essie Mehta PharmD Unavailable [phone] Encounter Details Date Type Department Care Team (Late Contact Info) Description 08/18/2022 Orders Only [facility] MEDICINE [address] [place] [address] Regine Hawkins, PharmD 230 [place] [address] Social History Tobacco Use Types Packs/Day Years [...] Department Care Team (Late Contact Info) Description 07/25/2025 8:00 AM EST Office Visit [facility] ADULT DENTAL [address] [place] [address] Katelyn Waldrop [address] [place] [address] documented as of this encounter Goals Goal Patient Goal Type Associated Problems Recent Progress Patient-Stated? Author Remain at or Below Target Blood Pressure General On track(07/13/19 4:09 PM EST) No Regine Hawknis, PharmD documented as of this encounter Visit Diagnoses Not on filedocumented in this encounter Care Teams Health And Safety Manager Relationship Specialty Start Date End Date Jameel Cota MD [address] [facility] [place] [address] PCP - General Internal Medicine 04/10/14 Regine Hawkins, [place] [address] Pharmacist Internal Medicine 08/18/22 09/28/24 Essie Mehta PharmD 230 [place] [address] Pharmacist Internal Medicine 09/29/24 09/30/24 documented as of this encounter
== END 2025-02-09 11:40 | disposition home or self-care (01) ==
LOC: HO.HPS 11:20
PROVIDERS: PCP Internal Medicine; Visit Provider Internal Medicine
DX: E66.811 Obesity, class 1 (principal); J98.4 Other disorders of lung; J98.01 Acute bronchospasm
CPT/HCPCS: 99213

== ENCOUNTER → 2025-02-09 11:19 | Outpatient (BNVA) | payer OTHER, SELFPAY | PROVIDERS: PCP Internal Medicine; Visit Provider Internal Medicine | DX: E66.811 Obesity, class 1 (principal); J98.4 Other disorders of lung; J98.01 Acute bronchospasm; Z68.32 Body mass index [BMI] 32.0-32.9, adult | CPT/HCPCS: 99212 ==

== ENCOUNTER 2025-03-14 11:20 | Outpatient (AMB) | payer OTHER, SELFPAY ==
--- NOTE | 2025-03-14 11:36 | A.OFFVIS_ITS ---
Vital Signs 03/14/25 11:37 Height 5 ft 6 in Weight 208 lb 5.389 oz BMI 33.6 BP 100/60 Blood Pressure Location Lt brachial Position Sitting Pulse 82 Pulse Source Pulse Oximeter Pulse Oximetry (%) 96 Oxygen Delivery Method Room Air Intake Visit Reasons: Cough Gate Cutter Required: Yes Gate Cutter Services: Gate Cutter Present Gate Cutter Name: [id number] Allergies No Known Allergies (No Known Allergies*) Allergy (Verified 03/14/25 11:44) Medication List - Last Reconciled 03/14/25 by Kip Jeff MD amlodipine 5 mg PO DAILY aspirin 81 mg PO DAILY atorvastatin 40 mg PO DAILY blood sugar diagnostic (FreeStyle Lite Strips) As directed bupropion HCl XL 150 mg PO DAILY diazepam 5 mg PO BID PRN fluoxetine 40 mg PO QAM fluticasone propion-salmeterol 250-50 mcg/dose 1 inh inhalation BID 30 days glipizide ER 2.5 mg PO QAM hydrochlorothiazide 25 mg PO QAM lancets (TRUEplus Lancets) As directed lisinopril 40 mg PO QAM losartan 50 mg PO DAILY 30 days meloxicam 7.5 mg PO QAM metformin ER 1,000 mg PO DAILY omega 7-dxs-uoi-fish oil 300 mg (120 mg- 180mg)-1,000 mg 1 cap PO TID omeprazole 40 mg PO DAILY prazosin 10 mg PO BEDTIME tamsulosin 0.4 mg PO DAILY 90 days trazodone 50 mg PO BEDTIME PRN ziprasidone HCl 40 mg PO BID Do you need a note to return to daycare/school/sports/work: No HPI HPI Cough: Details: This 65 years old gentleman is back today for follow-up. His main complaint continues to be cough especially at nighttime. Initially it was thought to be due to lisinopril but after stopping lisinopril it did not change. He was started on losartan for control of hypertension but he started complaining that losartan was causing dryness in the throat. So losartan was stopped and he was told to go back. on lisinopril He is kind of confused about the medications and he is not sure if he is back on losartan are not. I do see in the list of his meds that he is on amlodipine 5 mg a day and hydrochlorothiazide 25 mg a day. Continues to complain of cough especially at night. During the daytime not much cough. Sitting in my office and during conversation there has been no cough at all. He does use Wixela 250-50 1 inhalation b.i.d. , which was started for the possibility of cough being asthma variant. [facility] Medical History Cough due to bronchospasm Restrictive lung disease Obesity (BMI 30.0-34.9) Cough due to LUZ inhibitor Atypical chest pain RANDELL (obstructive sleep apnea) Nocturia Bladder outlet obstruction Weak urinary stream Diabetes mellitus Hyperlipidemia HTN (hypertension) Anemia Surgical History Hx of colonoscopy Hx of cystoscopy Hx of transurethral resection of prostate Family History Maternal Grandfather Colon cancer Mother Stomach cancer Maternal Aunt Metastatic cancer Brother Stomach cancer Social History Are you a primary insurance healthcare representative to a significant other at home: No Do you presently have visiting nurse or other home services: No Patient Tobacco Use Status: Never used Tobacco Current occupational status: unemployed and disabled Review of Systems Const All systems reviewed & are unremarkable except as noted in HPI and below Eyes Reports no additional complaints ENT Reports no additional complaints Card Denies chest pain, Denies syncope and Denies irregular heart rhythm Resp Reports as per HPI GI Reports heartburn (GERD being treated with omeprazole, patient is symptomatic) Reports no additional complaints Musc Reports no additional complaints Skin/Breast Reports system reviewed and no additional complaints, except as documented Neuro Reports no additional complaints and Denies syncope Psych Reports no additional complaints Physical Exam Vital Signs: Last Vital Signs Pulse 82 03/14/25 11:37 BP 100/60 03/14/25 11:37 Pulse Ox 96 03/14/25 11:37 Oxygen Delivery Method Room Air 03/14/25 11:37 BMI result Body Mass Index 33.6 Const General: healthy appearing (Except for being moderately overweight), comfortable, no acute distress, alert and awake Orientation/consciousness: patient oriented x3 HEENT Head: Yes normal to inspection General nose exam: No nasal polyps present and No nasal discharge present Face and sinus: Yes sinuses nontender Mouth: oropharynx normal Throat: Yes posterior oropharynx normal Eyes General: appearance normal, both eyes and all related structures Neck Neck: Yes normal visual inspection, Yes no lymphadenopathy, Yes trachea midline and Yes no JVD Thyroid: Thyroid normal Chest Chest palpation & inspection: normal inspection of the chest, normal palpation of entire chest wall and no tenderness Resp Effort & Inspection: normal respiratory effort Auscultation: clear to auscultation bilaterally, no crackles, no rhonchi and no wheezes Cardio Palpation: normal PMI Rate: regular rate Rhythm: regular rhythm Heart sounds: no gallops and no murmurs Peripheral pulses: Peripheral pulses 2+ throughout GI Palpation (GI): Soft to palpation, nontender, No hepatosplenomegaly present and no masses Auscultation: normal bowel sounds Back/Spine/Pelvis Thoracic/Lumbar Spine: thoracic and lumbar spine normal to inspection Skin General skin exam: no rashes or lesions noted Neuro General: patient oriented x3 and no focal motor deficits Cranial nerves: Yes CN's II-XII intact bilaterally Extrem General: Yes normal to inspection, Yes no clubbing, cyanosis or edema and Yes no calf tenderness Psych Appearance: grossly normal and well kempt Speech and movement: Normal speech and movement present Assessment & Plan Assessment & Plan (1) Cough due to bronchospasm: Comment: CONTINUES TO HAVE COUGH WHICH HAS LINGERED ON FOR MORE THAN 6 MONTHS. NO IDENTIFIABLE CAUSES OF COUGH. DISCONTINUING OF LISINOPRIL HAS NOT MADE ANY DIFFERENCE. THERE IS A POSSIBILITY THAT THIS MAY BE DUE TO REACTIVE AIRWAYS/BRONCHOSPASM COUGH MAY ALSO BE PSYCHOLOGICAL, HE HAS BIPOLAR DISORDER Code(s): J98.01 - Acute bronchospasm Category: Medical Plan: He is advised to use Wixela 250-50 1 inhalation b.i.d. MAY USE OTC COUGH MEDICINE SUCH ROBITUSSIN 2 TSP AT NIGHT. (2) Restrictive lung disease: Comment: PER PULMONARY FUNCTION TEST HE DOES HAVE MODERATE RESTRICTIVE DISORDER. BUT HE DENIES ANY RESPIRATORY PROBLEMS, ESPECIALLY DENIES ANY DYSPNEA ON EXERTION. Code(s): J98.4 - Other disorders of lung Category: Medical Plan: He has the advised to lose weight and do deep breathing exercises 3 times a day (3) Obesity (BMI 30.0-34.9): Comment: PATIENT IS MODERATELY OBESE WITH SOMEWHAT ROUND FACE. HE DENIES EXCESSIVE SNORING OR ANY SLEEP ISSUES Code(s): E66.811 - Obesity, class 1 Category: Medical Plan: He is the alerted about his weight and advised to cut down the portions as well as try to walk daily Coding Level of Care Code Est Pt Level 3 (26038) Diagnoses Cough due to bronchospasm J98.01 Restrictive lung disease J98.4 Obesity (BMI 30.0-34.9) E66.811
[2025-03-14 11:37] VITALS: BP 100/60; PULSE 82; O2SAT 96; BMI 33.6
--- OUTSIDE RECORDS SUMMARY | 2025-03-14 14:18 | XMS_ITS | Encounter Summary ---
Author Organization [employer] Address [address] [place] [address] 7t [place] [address] Care Team Providers Care Aluminum Boats Assembler Name Role Phone Jameel Cota MD Primary Care Provide r Regine Hawkins PharmD Unavailable [phone] Essie Mehta PharmD Unavailable [phone] Encounter Details Date Type Department Care Team (Late st Contact Info) Description 08/05/2022 Orders Only [facility] CHC MED & PEDS [address] [place] [address] Gosia Britt LPN Social History Tobacco Use [...] Care Team (Late st Contact Info) Description 05/16/2025 10:15 AM EST Office Visit [facility] MEDICINE [address] [place] [address] Jameel Cota MD [address] [place] [address] 07/25/2025 8:00 AM EST Office Visit [facility] ADULT DENTAL [address] [place], [place] [phone] Katelyn Waldrop [address] [place] [address] documented as of this encounter Visit Diagnoses Not on filedocumented in this encounter Care Teams Aluminum Boats Assembler Relationship Specialty Start Date End Date Jameel Cota MD [address] [place] [address] PCP - General Internal Medicine 04/10/14 Regine Hawkins, ItaliaD [address] [place] [address] Pharmacist Internal Medicine 08/18/22 09/28/24 Essie Mehta PharmD [address] [place] [address] Pharmacist Internal Medicine 09/29/24 09/30/24 documented as of this encounter
--- OUTSIDE RECORDS SUMMARY | 2025-03-14 14:18 | XMS_ITS | Encounter Summary ---
Author Organization [employer] [facility] Address [address] [place] [address] 7t [place] [address] Care Team Providers Care Corn Grower Name Role Phone Jameel Cota MD Primary Care Provide r Regine Hawkins PharmD Unavailable [phone] Essie Mehta PharmD Unavailable [phone] Encounter Details Date Type Department Care Team (Latest Contact Info) Description 11/13/2020 Abstract [facility] CONVERSIONS Dental, Provider, DDS Social History [...] Description 05/16/2025 10:15 AM EST Office Visit [facility] MEDICINE [address] [place] [address] Jameel Cota MD [address] [place] [address] 07/25/2025 8:00 AM EST Office Visit [facility] ADULT DENTAL [address] [place] [address] Katelyn Waldrop [address] [place] [address] documented as of this encounter Visit Diagnoses Not on filedocumented in this encounter Care Teams Corn Grower Relationship Specialty Start Date End Date Jameel Cota MD [address] [place] [address] PCP - General Internal Medicine 04/10/14 Regine Hawkins PharmD [address] [place] [address] Pharmacist Internal Medicine 08/18/22 09/28/24 Essie Mehta PharmD [address] [place] [address] Pharmacist Internal Medicine 09/29/24 09/30/24 documented as of this encounter
--- OUTSIDE RECORDS SUMMARY | 2025-03-14 14:18 | XMS_ITS | Encounter Summary ---
Author Organization [employer] [facility] Address [address] [place] [address] 7t [place] [address] Care Team Providers Care Industrial Twisting Machine Operator Name Role Phone Jameel Cota MD Primary Care Provide r Regine Hawkins PharmD Unavailable [phone] Essie Mehta PharmD Unavailable [phone] Encounter Details Date Type Department Care Team (Latest Contact Info) Description 11/22/2018 Abstract [facility] CONVERSIONS Dental, Provider, DDS Social History [...] Description 05/16/2025 10:15 AM EST Office Visit [facility] MEDICINE [address] [place] [address] Jameel Cota MD [address] [place] [address] 07/25/2025 8:00 AM EST Office Visit [facility] ADULT DENTAL [address] [place] [address] Katelyn Waldrop [address] [place] [address] documented as of this encounter Visit Diagnoses Not on filedocumented in this encounter Care Teams Industrial Twisting Machine Operator Relationship Specialty Start Date End Date Jameel Cota MD [address] [place] [phone] PCP - General Internal Medicine 04/10/14 Regine Hawkins PharmD [address] [place] [address] Pharmacist Internal Medicine 08/18/22 09/28/24 Essie Mehta PharmD [address] [place] [address] Pharmacist Internal Medicine 09/29/24 09/30/24 documented as of this encounter
--- OUTSIDE RECORDS SUMMARY | 2025-03-14 14:18 | XMS_ITS | Clinical Summary ---
Author Organization [employer] Address [address] [place] [address] 7t [place] [address] Care Team Providers Care Branch Chief Name Role Phone Jameel Cota MD Primary [...] DEL CHAMPU 118.28 mL 3 024 Active cyclobenzaprine (Flexeril) 5 MG tabletIndications :Acute midline low back pain without sciatica Take 1 tablet (5 mg) by mouth if needed in the morning, at noon, and at bedtime for muscle spasms. 10 tablet 024 Active ziprasidone (Geodon) 40 MG capsule Take [...] 3 025 Active Blood Glucose Monitoring Suppl (Sagoon 2) w/Device kitIndications:Ty pe 2 diabetes mellitus without complication, without long-term current use of insulin (HCC) Use to monitor blood glucose by subcutaneous route twice daily 1 kit 1 Active atorvastatin (Lipitor) 40 MG tabletIndications :Type 2 diabetes mellitus with hyperlipidemia (HCC) TAKE 1 TABLET BY MOUTH AT BEDTIME 90 tablet 3 Active glipiZIDE XL (Glucotrol XL) 2.5 MG 24 hr tablet TAKE 1 TABLET BY MOUTH EVERY MORNING WITH BREAKFAST 90 tablet 3 025 Active Icosapent Ethyl (Vascepa) 1 g capsuleIndication s:Mixed hyperlipidemia Take 2 capsules (2 g) by mouth with breakfast and with evening meal. 120 capsule 11 025 2025 Active docusate sodium (Colace) 100 MG capsuleIndication s:Constipation, unspecified constipation type TAKE 1 CAPSULE BY MOUTH TWICE DAILY IN THE MORNING AND AT BEDTIME 180 capsule 3 025 Active hydroCHLOROthiazi de (HYDRODiuril) 25 MG tablet TAKE 1 TABLET BY MOUTH EVERY MORNING 90 tablet 3 025 Active metFORMIN XR (Glucophage-XR) 500 MG 24 hr tablet TAKE 2 TABLETS BY MOUTH TWICE DAILY IN THE MORNING AND EVENING WITH FOOD 360 tablet 3 025 Active fluticasone (Flonase) 50 MCG/ACT nasal sprayIndications: Chronic cough USE 1 SPRAY IN EACH NOSTRIL EVERY DAY 16 g 2 025 Active cetirizine (ZyrTEC) 10 MG tabletIndications :Chronic cough TAKE 1 TABLET BY MOUTH ONCE DAILY 30 tablet 2 Active Alcohol Swabs (Alcohol Prep) 70 % padsIndications:T ype 2 diabetes mellitus without complication, without long-term current use of insulin ([facility]) USE DIRECTED ONCE DAILY 100 each 11 Active losartan (Cozaar) 50 MG tablet Take 50 mg by mouth in the morning. Active acetaminophen (Tylenol 8 Hour) 650 MG ER tablet Take 1 tablet (650 mg) by mouth every 8 (eight) hours if needed for mild pain. Do not crush, chew, or split. 30 tablet Active chlorhexidine (Peridex) 0.12 % solution Swish 15 mL morning and night for 1 minute. Spit, do not swallow. Do not eat or drink for 30 minutes following use. 473 mL Active omeprazole (PriLOSEC) [address] capsuleIndication s:Chronic cough TAKE 1 CAPSULE BY MOUTH EVERY MORNING BEFORE BREAKFAST. DO NOT BREAK, CRUSH, DISSOLVE OR CHEW 30 capsule 3 Active glucose blood (OneTouch Ultra Test) test strip USE DIRECTED TO TEST BLOOD SUGAR TWICE DAILY 100 strip 11 Active Lancets (OneTouch Delica Plus [id number]) miscIndications:T ype 2 diabetes mellitus without complication, without long-term current use of insulin ([facility]) USE DIRECTED TO TEST BLOOD SUGAR TWICE DAILY 100 each 11 Active OneTouch Delica Lancets 33G miscIndications:T ype 2 diabetes mellitus without complication, without long-term current use of insulin ([facility]) TEST BLOOD SUGAR TWICE A DAY 100 each 11 024 2024 Discontinued glucose blood (OneTouch Ultra Test) test strip TEST BLOOD SUGAR TWICE A DAY 100 each 024 2024 Discontinued omeprazole OTC (PriLOSEC OTC) 20 MG EC tabletIndications :Chronic cough Take 1 tablet (20 mg) by mouth before breakfast. Do not crush, chew, or split. 30 tablet 3 025 2024 Discontinued omeprazole (PriLOSEC) [address] capsule TAKE 1 CAPSULE BY MOUTH EVERY MORNING BEFORE BREAKFAST. DO NOT BREAK, CRUSH, DISSOLVE OR CHEW 025 2024 Discontinued(D uplicate order (will not trigger notification to Pharmacy)) amoxicillin (Amoxil) 500 MG capsule Take 1 capsule (500 mg) by mouth every 8 (eight) hours for 7 days. 21 capsule 025 2024 Active Problems Problem Noted Date [...] Pulmonology referral If no improvement and Pulm eval neg, will consider switching his LUZ inhibitor, [...] He is followed by Iliana and Dr. Duuqe at [facility]. He is at his baseline and not [...] nurse for medications. He is followed at [facility]. He is at his baseline and not [...] followed by Iliana and Dr. Duque at [facility]. He is at his baseline and not [...] followed by Iliana and Dr. Duque at [facility]. He is at his baseline and not [...] changes. Last seen at [facility] 11/17/12 with plan to repeat renal [...] Vicodin 1-2 times a day. Seen at [facility] Pain management clinic and received an epidural [...] landed on his buttocks Initially described pain 8 Pt has a Hx of chronic back pain since April of 2013. He completed PT 07/21/13 but did not see an improvement in the pain. He was using Vicodin 1-2 times a day. Seen at [facility] Pain management clinic and received an epidural [...] Vicodin 1-2 times a day. Seen at [facility] Pain management clinic and received an epidural [...] Vicodin 1-2 times a day. Seen at [facility] Pain management clinic and received an epidural [...] Encounters Date Type Department Care Team Description 03/10/2025 Refill [facility] CHC MED & PEDS [address] [place] [address] Jameel Cota MD Type 2 diabetes mellitus without complication, without long-term current use of insulin ([facility]) 02/20/2025 11:00 AM EDT Office Visit [facility] ADULT DENTAL [address] [facility] [place] [address] Katelyn Waldrop Stage 3 grade B generalized periodontitis per AAP/EFP 2017 classification (Primary Dx); Dental calculus 02/20/2025 Telephone [facility] MEDICINE [address] [place] [address] Jameel Cota MD Jose Miguel recall 02/18/2025 Refill [facility] MEDICINE [address] [place] [address] Jameel Cota MD Chronic cough 02/14/2025 Travel 02/13/2025 11:00 AM EDT Office Visit [facility] ADULT DENTAL [address] [place] [address] Katelyn Waldrop Stage 3 grade B generalized periodontitis per AAP/EFP 2017 classification (Primary Dx); Dental calculus 2025 Telephone [facility] MEDICINE [address] [place] [address] Jameel Cota MD 02/07/2025 9:15 AM EDT Office Visit [facility] MEDICINE [address] [place] [address] Jameel Cota MD Type 2 diabetes mellitus without complication, without long-term current use of insulin ([facility]) (Primary Dx); Benign hypertension; Chronic cough; Benign prostatic hyperplasia with urinary frequency 02/07/2025 Travel 01/31/2025 Telephone [facility] ADULT DENTAL [address] [place] [address] Katelyn Waldrop 01/18/2025 8:00 AM EDT Office Visit [facility] ADULT DENTAL [address] [place] [address] Katelyn Waldrop Missing teeth, acquired (Primary Dx); Dental calculus; Erosion of teeth, limited to enamel; Generalized gingival recession; Stage 3 grade B generalized periodontitis per AAP/EFP 2017 classification; Gingival bleeding; Encounter for dental examination; Periodontal disease 01/16/2025 11:00 AM EDT Office Visit [facility] OPTOMETRY [address] [place] [address] Sabino, Adelina, OD Diabetes type 2, no ocular involvement (CMS/[facility]) (Primary Dx); Nevus of choroid, unspecified laterality; Dry eye syndrome of both eyes; Early cataracts, bilateral; Migraine with aura and without status migrainosus, not intractable; Presbyopia of both eyes 01/16/2025 Travel 01/15/2025 Refill [facility] MEDICINE [address] [place] [address] Jameel Cota MD Chronic cough; Benign hypertension 12/30/2024 Telephone [facility] MEDICINE [address] [place] [address] Kamlesh Almeida, PharmD from Last 3 Months [...] Sign Reading Time Taken Comments Blood Pressure 126/78 02/20/2025 10:35 AM EDT Pulse 88 02/07/2025 9:17 AM [...] Description 05/16/2025 10:15 AM EST Office Visit [facility] MEDICINE [address] [place] [address] Jameel Ctoa MD [address] [place] [address] 07/25/2025 8:00 AM EST Office Visit [facility] ADULT DENTAL [address] [place] [address] Katelyn Waldrop [address] [place] [address] Health Maintenance Due Date Last Done Comments CT Colonography 1962 FIT DNA/Cologuard 1962 FIT 1962 FOBT 1962 HIV Screening 1962 Sigmoidoscopy 1962 Diabetes: Foot Exam 02/09/1972 Lipid Panel 10/14/2024 10/15/2023, 06/09, 06/17/2022, Additional history exists Influenza Vaccine (#1) 2025 , 03/12/2023, 03/18/2022, Additional history exists Depression Screening [...] Alcohol/Substance Use Screening 02/07/2026 02/07/2025 Tobacco Screening 02/20/2026 02/20/2025 Eye Exam 01/16/2027 01/16/2025, 08/06/2024, 01/16/2025, Additional history exists Colonoscopy 10/14/2027 10/13/2024, [...] Procedure Name Priority Date/Time Associated Diagnosis Comments CASE PRESENTATION, DETAILED AND EXTENSIVE TREATMENT PLANNING Routine 02/20/2025 11:00 AM EDT Stage 3 grade B generalized periodontitis per AAP/EFP 2017 classification Dental calculus LR PERIODONTAL SCALING AND ROOT PLANING - 4 OR MORE TEETH PER QUADRANT Routine 02/20/2025 11:00 AM EDT Stage 3 grade B generalized periodontitis per AAP/EFP 2017 classification Dental calculus UR PERIODONTAL SCALING AND ROOT PLANING - 4 OR MORE TEETH PER QUADRANT Routine 02/20/2025 11:00 AM EDT Stage 3 grade B generalized periodontitis per AAP/EFP 2017 classification Dental calculus LL PERIODONTAL SCALING AND ROOT PLANING - 1 TO 3 TEETH PER QUADRANT Routine 02/13/2025 11:00 AM EDT Stage 3 grade B generalized periodontitis per AAP/EFP 2017 classification Dental calculus ORAL HYGIENE INSTRUCTIONS Routine 02/13/2025 11:00 AM EDT Stage 3 grade B generalized periodontitis per AAP/EFP 2017 classification Dental calculus CASE PRESENTATION, DETAILED AND EXTENSIVE TREATMENT PLANNING Routine 02/13/2025 11:00 AM EDT Stage 3 grade B generalized periodontitis per AAP/EFP 2017 classification Dental calculus UL PERIODONTAL SCALING AND ROOT PLANING - 1 TO 3 TEETH PER QUADRANT Routine 02/13/2025 11:00 AM EDT Stage 3 grade B generalized periodontitis per AAP/EFP 2017 classification Dental calculus POCT GLYCOSYLATED HEMOGLOBIN (HGB A1C) Routine 02/07/2025 9:49 AM EDT Type 2 diabetes mellitus without complication, without long-term current use of insulin ([facility]) POCT GLUCOSE Routine 02/07/2025 9:25 AM EDT Type 2 diabetes mellitus without complication, without long-term current use of insulin ([facility]) COMPREHENSIVE PERIODONTAL EVALUATION - NEW OR ESTABLISHED [...] without long-term current use of insulin (CMS/HCC) LIPID PANEL, STANDARD Routine 10/15/2023 8:52 AM [...] Lot # [id number] Lot# Expiration Date 975, Blood Capillary blood specimen / Unknown 02/07/2025 [...] Colonoscopy Abnormal( A) Normal Comment:tubular adenoma 10/13/2024 us Historical Provider HEALTH MAINTENANCE Final Result * Albumin, Random Urine W/Creatinine (08/02/2024 3:36 PM EST) Creatinine, Urine 82.85 mg/dL [facility] Microalbumin Urine 9.0 mg/L [facility] Microalbum Creatinine Ratio Ur 10.8 <30 ug/mg cr [facility] Comment:Albumin/Creatinine R atio Reference Ranges: Normal: < 30 ug/mg creatinine Microalbuminuria: 30 - 300 ug/mg creatinineClinical Albuminuria: > 300 ug/mg creatinine Urine (Urine, Random) 08/02/2024 3:36 PM EST 08/02/2024 4:14 PM EST Jameel Goyal MD LAB URINE ORDERABLES Final Result [facility] [address] [place] [phone] * (ABNORMAL) Lipid Panel, Standard (10/15/2023 8:52 AM EDT) Triglycerides 76 <150 mg/dL [facility] Comment:Desirable Triglyceri de: less than 150 mg/dLBorderline High Triglyceride 150-199 mg/dLHigh Triglyceride: 200-499 mg/dLVery High Triglyceride: greater than or equal to 5OO mg/dL Cholesterol 84 <200 mg/dL [facility] Comment:Desirable Cholestero l: less than 200 mg/dLBorderline High Cholesterol: 200-239 mg/dLHigh Cholesterol: greater than 239 mg/dL LDL Cholesterol Calculated 37 <100 mg/dL [facility] Comment:Desirable LDL: less than 100 mg/dLNear Optimal/Above Optimal LDL: 110- 129 mg/dLBorderline High LDL: 130-159 mg/dLHigh LDL: 160-189 mg/dLVery High LDL: greater than or equal to 190 mg/dL HDL Cholesterol 32(L) >40 mg/dL [facility] Comment:Desirable HDL: great er than 40 mg/dL Note: This HDL assay may give artificially low results in patients with liver disease. Blood Venous blood specimen / Unknown 10/15/2023 8:52 AM EDT 10/15/2023 11:35 AM EDT Jameel Goyal MD LAB BLOOD ORDERABLES Final Result Performing Organization Address City/[facility]/ZIP Co de Phone Number [facility] [address] [place] [address] [phone] * HEPATITIS C AB W/REFL TO HCV RNA, QN, PCR (12/31/2021 3:04 PM EDT) HEPATITIS C ANTIBODY NON-REACT [facility] NON-REACT [facility] INDEX 0.09 <1.00 [facility] Comment: HCV antibody was non-reactive. There is no laboratory evidence of HCV infection. In most cases, no further action is required. However, if recent HCV exposure is suspected, a test for HCV RNA (test code 90006) is suggested. For additional information please refer to http://education.Finomial/faq/FPA18n5 (This link is being provided for informational/ educational purposes only.) 12/31/2021 3:04 PM EDT Jameel Goyal MD HISTORICAL/NON ORDERA BLE LABS Final Result Performing Organization Address City/[facility] Co de Phone Number [facility] [address] from Last 3 Months or Most Recently Relevant to Health Maintenance Insurance [facility] [facility] CARE < [address] [facility] Member Subscriber Plan / Payer (Ef fective 2024-Present) Name:Jabari Chavis Relation to Subscriber:Self Name:aJbari Chavis Payer ID:Not on file Group ID:Not on file Type:Not on file Address: [address] Care Teams Branch Chief Relationship Specialty Start Date End Date Jameel Cota MD [address] [place] [phone] PCP - General Internal Medicine 04/10/14
--- OUTSIDE RECORDS SUMMARY | 2025-03-14 14:18 | XMS_ITS | Encounter Summary ---
Author Organization [employer] Address [address] [facility] 7t [place] [address] Care Team Providers Care Manager Spring Name Role Phone Jameel Cota MD Primary Care Provide r Regine Hawkins PharmD Unavailable [phone] Essie Mehta PharmD Unavailable [phone] Encounter Details Date Type Department Care Team ([facility] Contact Info) Description 08/28/2022 Orders Only [facility] CHC MED & PEDS [address] [place], [place] [phone] Gosia Britt LPN Social History Tobacco Use [...] Care Team ([facility] Contact Info) Description 05/16/2025 10:15 AM EST Office Visit [facility] MEDICINE [address] [place] [address] Jameel Cota MD [address] [place] [address] 07/25/2025 8:00 AM EST Office Visit [facility] ADULT DENTAL [address] [place] [address] Katelyn Waldrop [address] [place] [address] documented as of this encounter Goals Goal Patient Goal Type Associated Problems Recent Progress Patient-Stated? Author Remain at or Below Target Blood Pressure General On track(07/13/19 4:09 PM EST) No Regine Hawkins, ItaliaD documented as of this encounter Visit Diagnoses Not on filedocumented in this encounter Care Teams Manager Spring Relationship Specialty Start Date End Date Jameel Cota MD [address] [place] [phone] PCP - General Internal Medicine 04/10/14 Regine Hawkins, PharmD [address] [place] [address] [phone] Pharmacist Internal Medicine 08/18/22 09/28/24 Essie Mehta, ItaliaD [address] [place] [address] [phone] Pharmacist Internal Medicine 09/29/24 09/30/24 documented as of this encounter
--- OUTSIDE RECORDS SUMMARY | 2025-03-14 14:18 | XMS_ITS | Encounter Summary ---
Author Organization [employer] Address [address] [place] [address] 7t [place] [address] Care Team Providers Care Deli Worker Name Role Phone Jameel Cota MD Primary Care Provide r Regine Hawkins PharmD Unavailable [phone] Essie Mehta PharmD Unavailable [phone] Reason for Visit * Reason Comments Med Refill Encounter Details Date Type Department Care Team (Late st Contact Info) Description 01/15/2023 Refill [facility] MEDICINE [address] [place] [address] Name, MD Дмитрий [address] [place], [place] [phone] Mixed hyperlipidemia Social History Tobacco Use Types [...] 10:15 AM EST Office Visit [facility] MEDICINE [address] [place] [address] Jameel Cota MD [address] [place] [address] 07/25/2025 8:00 AM EST Office Visit [facility] ADULT DENTAL [address] [place] [address] Katelyn Waldrop [address] [place] [address] documented as of this encounter Goals Goal Patient Goal Type Associated Problems Recent Progress Patient-Stated? Author Remain at or Below Target Blood Pressure General On track(07/13/19 4:09 PM EST) No Regine Hawkins, PharmD documented as of this encounter Visit Diagnoses Diagnosis Mixed hyperlipidemia documented in this encounter Care Teams Deli Worker Relationship Specialty Start Date End Date Jameel Cota MD [address] [place] [address] PCP - General Internal Medicine 04/10/14 Regine Hawkins, PharmD [address] [place] [address] 12568 Pharmacist Internal Medicine 08/18/22 09/28/24 Essie Mehta, ItaliaD [address] [place] [phone] Pharmacist Internal Medicine 09/29/24 09/30/24 documented as of this encounter
--- OUTSIDE RECORDS SUMMARY | 2025-03-14 14:18 | XMS_ITS | Encounter Summary ---
Author Organization [employer] Address [address] [place] [address] 7t [place] [address] Care Team Providers Care Aegis Console Operator Track Name Role Phone Jameel Cota MD Primary Care Provide r Regine Hawkins PharmD Unavailable [phone] Essie Mehta PharmD Unavailable [phone] Encounter Details Date Type Department Care Team (Late st Contact Info) Description 06/11/2022 Orders Only [facility] CHC MED & PEDS [address] [place] [address] Gosia Britt LPN Social History Tobacco Use [...] Description 05/16/2025 10:15 AM EST Office Visit [facility] MEDICINE [address] [place] [address] Jameel Cota MD [address] [place] [address] 07/25/2025 8:00 AM EST Office Visit [facility] ADULT DENTAL [address] [place], [place] [phone] Katelyn Waldrop [address] [place] [phone] documented as of this encounter Visit Diagnoses Not on filedocumented in this encounter Care Teams [employer]egis Console Operator Track Relationship Specialty Start Date End Date Jameel Cota MD [address] [place] [address] PCP - General Internal Medicine 04/10/14 Regine Hawkins PharmD [address] [place] [phone] Pharmacist Internal Medicine 08/18/22 09/28/24 Essie Mehta PharmD [address] [place] [phone] Pharmacist Internal Medicine 09/29/24 09/30/24 documented as of this encounter
--- OUTSIDE RECORDS SUMMARY | 2025-03-14 14:18 | XMS_ITS | Encounter Summary ---
Author Organization [employer] Address [address] [place] [address] [address]t [place] [address] Care Team Providers Care Hat Body Sorter Name Role Phone Jameel Cota MD Primary Care Provide r Regine Hawkins PharmD Unavailable [phone] Essie Mehta PharmD Unavailable [phone] Encounter Details Date Type Department Care Team (Late Contact Info) Description 10/10/2022 Abstract [facility] MEDICINE [address] [place] [address] Jameel Cota MD [address] [place], [place] [phone] Social History Tobacco Use Types Packs/Day Years [...] Department Care Team (Late Contact Info) Description 05/16/2025 10:15 AM EST Office Visit [facility] MEDICINE [address] [place] [address] Jameel Cota MD [address] [place], [place] [phone] 07/25/2025 8:00 AM EST Office Visit [facility] ADULT DENTAL [address] [place] [address] Katelyn Waldrop [address] [place] [address] documented as of this encounter Goals Goal Patient Goal Type Associated Problems Recent Progress Patient-Stated? Author Remain at or Below Target Blood Pressure General On track(07/13/19 24 4:09 PM EST) No Regine Hawkins, PharmD documented as of this encounter Procedures [...] filedocumented in this encounter Care Teams Hat Body Sorter Relationship Specialty Start Date End Date Jameel Cota MD [address] [place] [phone] PCP - General Internal Medicine 04/10/14 Regine Hawkins, PharmD [address] [place] [phone] Pharmacist Internal Medicine 08/18/22 09/28/24 Essie Mehta PharmD [address] [place] [address] Pharmacist Internal Medicine 09/29/24 09/30/24 documented as of this encounter
--- OUTSIDE RECORDS SUMMARY | 2025-03-14 14:18 | XMS_ITS | Encounter Summary ---
Author Organization [employer] Address 75 [facility] 7 [place] [address] Care Team Providers Care Research Executive Name Role Phone Jameel Cota MD Primary Care Provide r Reason for Visit * Reason Comments Med Refill Encounter Details Date Type Department Care Team ([facility] Contact Info) Description 03/10/2025 Refill [facility] MED & PEDS [address] [place], [place] [phone] Jameel Cota MD [address] [place] [address] Type 2 diabetes mellitus without complication, without long-term current use of insulin (HCC) Social History Tobacco Use Types Packs/Day Years [...] the past 12 months, has t he [employer], gas, oil or water [employer] threatened to shut off services in your [...] Description 05/16/2025 10:15 AM EST Office Visit [facility] MEDICINE [address] [place] [address] Jameel Cota MD [address] [place] [address] 07/25/2025 8:00 AM EST Office Visit [facility] ADULT DENTAL [address] [place] [address] Katelyn Waldrop [address] [place] [address] documented as of this encounter Goals Goal Patient Goal Type Associated Problems Recent Progress Patient-Stated? Author Remain at or Below Target Blood Pressure General On track(07/13/19 24 4:09 PM EST) No Regine Hawkins, ItaliaD documented as of this encounter Visit Diagnoses Diagnosis Type 2 diabetes mellitus without complication, without long-term current use of insulin (HCC) documented in this encounter Additional Health Concerns Assessment Noted Time PHQ-9 Depression Total Score: 0 04/07/20 24 9:52 AM EDT documented as of this encounter Care Teams Research Executive Relationship Specialty Start Date End Date Jameel Cota MD [address] [place] [address] PCP - General Internal Medicine 04/10/14 documented as of this encounter
--- OUTSIDE RECORDS SUMMARY | 2025-03-14 14:18 | XMS_ITS | Encounter Summary ---
Author Organization [employer] Address 75 [facility] 7t [place] [address] Care Team Providers Care Sound Controller Name Role Phone Jameel Cota MD Primary Care Provide r Regine Hawkins PharmD Unavailable [phone] Essie Mehta PharmD Unavailable [phone] Encounter Details Date Type Department Care Team (Late Contact Info) Description 08/18/2022 Orders Only [facility] MEDICINE [address] [place] [address] Angel Hawkinsrinatalia, PharmD [address] [place] [address] Social History Tobacco Use Types Packs/Day Years [...] Description 05/16/2025 10:15 AM EST Office Visit [facility] MEDICINE [address] [place] [address] Jameel Cota MD [address] [place] [address] 07/25/2025 8:00 AM EST Office Visit [facility] ADULT DENTAL [address] [place] [address] Robert Waldroparis [address] [place] [address] documented as of this encounter Goals Goal Patient Goal Type Associated Problems Recent Progress Patient-Stated? Author Remain at or Below Target Blood Pressure General On track(07/13/19 24 4:09 PM EST) No Regine Hawkins, PharmD documented as of this encounter Visit Diagnoses Not on filedocumented in this encounter Care Teams Sound Controller Relationship Specialty Start Date End Date Jameel Cota MD [address] [place] [address] PCP - General Internal Medicine 04/10/14 Regine Hawkins, PharmD [address] [place] [address] Pharmacist Internal Medicine 08/18/22 09/28/24 Essie Mehta PharmD [address] [place] [address] Pharmacist Internal Medicine 09/29/24 09/30/24 documented as of this encounter
--- OUTSIDE RECORDS SUMMARY | 2025-03-14 14:18 | XMS_ITS | Encounter Summary ---
Author Organization [employer] Address 75 [facility] 7t [place] [address] Care Team Providers Care Mechanical Supervisor Name Role Phone Jameel Cota MD Primary Care Provide r Regine Hawkins PharmD Unavailable [phone] Essie Mehta PharmD Unavailable [phone] Reason for Visit * Reason Onset Date Comments Pre Op 07/03/2023 Encounter Details Date Type Department Care Team (Late st Contact Info) Description 07/03/2023 Telephone [facility] MEDICINE [address] [place], [place] [phone] Jameel Cota MD [address] [place], [place] [phone] Pre Op Social History Tobacco Use Types [...] yes Surgeon's name: Cj Maddox Facility name: [facility] Surgeon's office number: [phone] opt [phone] Surgeon's office fax number: [phone] Contact name (person you spoke with): Shanita documented in this encounter Plan of Treatment Upcoming Encounters Date Type Department Care Team (Late st Contact Info) Description 05/16/2025 10:15 AM EST Office Visit [facility] MEDICINE [address] [place] [address] Jameel Cota MD [address] [place] [address] 07/25/2025 8:00 AM EST Office Visit [facility] ADULT DENTAL [address] [place] [address] Katelyn Waldrop [address] [place] [address] documented as of this encounter Goals Goal [...] documented as of this encounter Care Teams Mechanical Supervisor Relationship Specialty Start Date End Date Jameel Cota MD [address] [place] [address] PCP - General Internal Medicine 04/10/14 Regine Hawkins, ItaliaD [address] [place] [address] Pharmacist Internal Medicine 08/18/22 09/28/24 Essie Mehta PharmD [address] [place] [phone] Pharmacist Internal Medicine 09/29/24 09/30/24 documented as of this encounter
--- OUTSIDE RECORDS SUMMARY | 2025-03-14 14:18 | XMS_ITS | Encounter Summary ---
Author Organization [employer] [facility] Address [address] [place] [address] 7t [place] [address] Care Team Providers Care Web Page Designer Name Role Phone Jameel Cota MD Primary Care Provide r Regine Hawkins PharmD Unavailable [phone] Essie Mehta PharmD Unavailable [phone] Encounter Details Date Type Department Care Team (Latest Contact Info) Description 01/08/2022 Abstract [facility] CONVERSIONS Dental, Provider, DDS Social [...] Description 05/16/2025 10:15 AM EST Office Visit [facility] MEDICINE [address] [place] [address] Jameel Cota MD [address] [place] [address] 07/25/2025 8:00 AM EST Office Visit [facility] ADULT DENTAL [address] [place] [address] Katelyn Waldrop [address] [place] [address] documented as of this encounter Visit Diagnoses Not on filedocumented in this encounter Care Teams Web Page Designer Relationship Specialty Start Date End Date Jameel Cota MD [address] [place] [address] PCP - General Internal Medicine 04/10/14 Regine Hawkins PharmD [address] [place] [address] Pharmacist Internal Medicine 08/18/22 09/28/24 Essie Mehta PharmD [address] [place] [address] Pharmacist Internal Medicine 09/29/24 09/30/24 documented as of this encounter
--- OUTSIDE RECORDS SUMMARY | 2025-03-14 14:18 | XMS_ITS | Encounter Summary ---
Author Organization [email or web address] Address [address] [place] [address] 7t [place] [address] Care Team Providers Care Job Estimator Name Role Phone Jameel Cota MD Primary Care Provide r Regine Hawkins PharmD Unavailable [phone] Essie Mehta PharmD Unavailable [phone] Encounter Details Date Type Department Care Team (Late Contact Info) Description 07/14/2022 Orders Only [facility] MEDICINE [address] [place] [address] Britany Bell LPN Social History Tobacco Use [...] Description 05/16/2025 10:15 AM EST Office Visit [facility] MEDICINE [address] [place] [address] [phone] Jameel Cota MD [address] [place], [place] [phone] 07/25/2025 8:00 AM EST Office Visit [facility] ADULT DENTAL [address] [place] [address] Katelyn Waldrop [address] [place] [address] documented as of this encounter Procedures Procedure Name Priority Date/Time Associated Diagnosis Comments GLUCOSE, WHOLE BLOOD Routine 07/14/2022 12:40 PM EST documented in this encounter Results * GLUCOSE, WHOLE BLOOD (07/14/2022 12:40 PM EST) Glucose, Whole Blood 111 60 - 115 mg/dL [facility] Comment:METER #: [id number] 07/14/2022 12:4 0 PM EST 07/14/2022 12:45 PM EST us [facility] External Provider LAB BLO OD ORDERABLES Final Result [facility] [address] [place] [address] [phone] documented in this encounter Visit Diagnoses Not on filedocumented in this encounter Care Teams Job Estimator Relationship Specialty Start Date End Date J[place] [address] PCP - General Internal Medicine 04/10/14 Regine Hawkins, [place] [address] Pharmacist Internal Medicine 08/18/22 09/28/24 Essie Mehta, [place] [address] Pharmacist Internal Medicine 09/29/24 09/30/24 documented as of this encounter
--- OUTSIDE RECORDS SUMMARY | 2025-03-14 14:18 | XMS_ITS | Encounter Summary ---
Author Organization [employer] Address [address] [place] [address] 7t [place] [address] Care Team Providers Care Camouflage Assembler Name Role Phone Jameel Cota MD Primary Care Provide r Regine Hawkins PharmD Unavailable [phone] Essie Mehta PharmD Unavailable [phone] Reason for Visit * Reason Comments Med Refill Encounter Details Date Type Department Care Team (Late st Contact Info) Description 09/30/2022 Refill [facility] MEDICINE [address] [place] [address] Ami Dunlap ANP [address] [place], [place] [phone] Type 2 diabetes mellitus with hyperlipidemia ([facility]) Social History Tobacco Use Types Packs/Day [...] Description 05/16/2025 10:15 AM EST Office Visit [facility] MEDICINE [address] [place] [address] Jameel oCta MD [address] [place] [address] 07/25/2025 8:00 AM EST Office Visit [facility] ADULT DENTAL [address] [place], [place] [phone] Katelyn Waldrop [address] [place] [address] documented as of this encounter Goals Goal Patient Goal Type Associated Problems Recent Progress Patient-Stated? Author Remain at or Below Target Blood Pressure General On track(07/13/19 4:09 PM EST) No Regine Hawkins, PharmD documented as of this encounter Visit Diagnoses Diagnosis Type 2 diabetes mellitus with hyperlipidemia (HCC) documented in this encounter Care Teams Camouflage Assembler Relationship Specialty Start Date End Date Jameel Cota MD [address] [place] [address] PCP - General Internal Medicine 04/10/14 Regine Hawkins, PharmD [address] [place] [phone] Pharmacist Internal Medicine 08/18/22 09/28/24 Essie Mehta, ItaliaD [address] [place] [address] Pharmacist Internal Medicine 09/29/24 09/30/24 documented as of this encounter
== END 2025-03-14 11:55 | disposition home or self-care (01) ==
LOC: HO.HPS 11:21
PROVIDERS: PCP Internal Medicine; Visit Provider Internal Medicine
DX: J98.01 Acute bronchospasm (principal); J98.4 Other disorders of lung; E66.811 Obesity, class 1
CPT/HCPCS: 99213

== ENCOUNTER → 2025-03-14 11:20 | Outpatient (BNVA) | payer OTHER, SELFPAY | PROVIDERS: PCP Internal Medicine; Visit Provider Internal Medicine | DX: J98.01 Acute bronchospasm (principal); J98.4 Other disorders of lung; E66.811 Obesity, class 1 | CPT/HCPCS: 99212 ==

== ENCOUNTER 2025-03-24 11:18 | Emergency (ER) | payer OTHER, SELFPAY ==
--- NOTE | ~2025-03-24 | CT_ITS ---
EXAMINATION: CT ABDOMEN AND PELVIS WITH CONTRAST CLINICAL INFORMATION: Abdominal pain. COMPARISON: November 22, 2017. TECHNIQUE: Multidetector volumetric images were obtained from the superior aspect of the liver through the pubic symphysis following administration 85 mL of Omnipaque 350 intravenous contrast. Sagittal and coronal reformatted images were obtained on the technologist's workstation. Oral contrast: No This CT examination was performed using dose optimization techniques as appropriate, variously including the following: *Automated exposure control *Adjustment of mA and/or kV according to patient size (this includes techniques or standardized protocols for targeted exams where dose is matched to indication/reason for exam; i.e. extremities or head) *Use of iterative reconstruction technique DLP: 877 mGy centimeter FINDINGS: LUNG BASES: Atelectasis versus infiltrate, right lung base. LIVER, GALLBLADDER, AND BILIARY TREE: Liver measures 15 cm. No focal mass. Portal veins and hepatic veins are patent. Gallbladder is fluid-filled without pericholecystic fluid collection or gallbladder wall thickening. No distention. No intrahepatic or extrahepatic biliary ductal dilatation. PANCREAS: No focal mass. No peripancreatic fluid collection. No main pancreatic ductal dilatation. SPLEEN: 7 cm. No focal mass. ADRENAL GLANDS: No nodular lesions. KIDNEYS AND URETERS: Right kidney: Moderate dilatation of the pelvicalyceal system and proximal ureter. There is a 3 mm obstructing calculus in the proximal to mid ureter with mild urothelial thickening. Normal enhancement pattern of the renal parenchyma and symmetric when compared with the contralateral side. There is a 24 mm exophytic partially calcified cystic lesion in the posterior lower pole. Perinephric edema pattern. Left kidney: No hydronephrosis. No gross nephrolithiasis. No gross renal mass. Less than 1 cm cystic lesion in the midportion. BLADDER: Fluid-filled. GASTROINTESTINAL TRACT: Appendix is normal. Abundant stool large intestine. No intestinal obstruction pattern. No pneumatosis intestinalis. No pneumoperitoneum. No ascites. ABDOMINAL WALL: No gross umbilical hernia. LYMPH NODES: Nonspecific mildly prominent mesenteric and retroperitoneum. VASCULAR: No aneurysm or dissection, abdominal aorta. PELVIC VISCERA: Not enlarged. OSSEOUS STRUCTURES: Multilevel thoracolumbar spondylosis. Sclerosis in the sacroiliac joints. Syndesmophyte formation and the sacroiliac joints. Exostosis in the iliac crests. CT/CT abdomen pelvis w IV con IMPRESSION: 3 mm obstructing calculus in the proximal to mid right ureter resulting in moderate hydronephrosis. Superimposed acute inflammatory versus infectious process cannot be excluded. Atelectasis versus acute airspace disease, right lower lung lobe. 24 mm Bosniak type II cyst, right kidney. Fleischner guidelines were followed. Electronically signed by: Lang Champion MD 03/24/2025 02:25 PM EDT RP
--- OUTSIDE RECORDS SUMMARY | 2025-03-24 11:00 | XMS_ITS | Encounter Summary ---
Author Organization [employer] Address 75 [facility] 7t [place] [address] Care Team Providers Care Investigation Division Sergeant Name Role Phone Jameel Cota MD Primary Care Provide r Encounter Details Date Type Department Care Team ([facility] Contact Info) Description 03/24/2025 11:00 AM EDT Office Visit [facility] WALK-IN CENTER [address] [place] [address] Esequiel Diehl MD [address] [place] [address] RLQ abdominal pain (Primary Dx) Social History Tobacco Use Types Packs/Day Years [...] Sign Reading Time Taken Comments Blood Pressure 136/88 03/24/2025 10:32 AM EDT Pulse 72 03/24/2025 10:32 AM EDT Temperature 36.6 C (97.9 F) 03/24/2025 10:32 AM EDT Respiratory Rate 19 03/24/2025 10:32 AM EDT Oxygen Saturation 96% 03/24/2025 10:32 AM EDT Inhaled Oxygen Concentration - - Weight 94.6 kg (208 lb 8 oz) 03/24/2025 10:32 AM EDT Height 162.6 cm (5' 4 ) 03/24/2025 10:32 AM EDT Body Mass Index 35.79 03/24/2025 10:32 AM EDT documented in this encounter Progress Notes * Esequiel Diehl MD - 03/24/2025 11:00 AM EDT Subjective History was provided by the patient. Jabari Chavis is a 65 y.o. male who presents for evaluation of abdominal pain started last night. Pain initially in the darian-umbilical area, but now into his RLQ and right lower lumbar area. Reports 2 episodes of vomiting today (non-bilious/non-bloody). Denies constipation or diarrhea. Had a BM this AM (brown stool). Denies any unusual food consumption. Denies recent travel. Denies cough, congestion, rhinorrhea, or sore throat. No previous abdominal surgery. Denies dysuria or hematuria. Underlying Hypertension and T2 DM with Hgb A1c 6.0 (02/07/2025). Objective Vitals: 03/24/25 1032 BP: 136/88 BP Location: Left arm Patient Position: Sitting BP Cuff Size: Adult Pulse: 72 Resp: 19 Temp: 97.9 ??F (36.6 ??C) TempSrc: Oral SpO2: 96% Weight: 208 lb 8 oz (94.6 kg) Height: 5' 4 (1.626 m) Physical Exam Constitutional: General: He is not in acute distress. Appearance: Normal appearance. He is not ill-appearing, toxic-appearing or diaphoretic. HENT: Head: Normocephalic and atraumatic. Right Ear: External ear normal. Left Ear: External ear normal. Mouth/Throat: Mouth: Mucous membranes are moist. Pharynx: Oropharynx is clear. Eyes: Extraocular Movements: Extraocular movements intact. Conjunctiva/sclera: Conjunctivae normal. Cardiovascular: Rate and Rhythm: Normal rate and regular rhythm. Heart sounds: Normal heart sounds. Pulmonary: Effort: Pulmonary effort is normal. No respiratory distress. Breath sounds: Normal breath sounds. No wheezing, rhonchi or rales. Abdominal: General: Abdomen is flat. There is no distension. Palpations: Abdomen is soft. Tenderness: There is abdominal tenderness (at the RLQ with point tenderness at McBurney's). There is no right CVA tenderness, left CVA tenderness, guarding or rebound. Musculoskeletal: Cervical back: Neck supple. Neurological: Mental Status: He is alert. No visits with results within 2 Day(s) from this visit. Latest known visit with results is: Office Visit on 02/07/2025 Component Date Value Ref Range Status Glucose Blood, POC 02/07/2025 184 60 - 200 mg/dL Final QC Media Lot # 02/07/2025 [id number] Final Lot# Expiration Date 02/07/2025 [id number] Final Hemoglobin A1C 02/07/2025 6.0 (A) 4.0 - 5.7 % Final QC Media Lot # 02/07/2025 [id number] Final Lot# Expiration Date 02/07/2025 [id number] Final Diagnoses and all orders for this visit: RLQ abdominal pain (Primary) Patient presents to [facility] due to RLQ pain Symptoms onset last night with pain starting in the darian-umbilical area Now with tenderness at McBurney's point No rebound or guarding No abdominal distension Denies GI bleeding symptoms Had 2 episodes of non-bilious/non-bloody emesis today No fever/chills Has decreased appetite Needs an imaging study to rule out appendicitis Recommended ER evaluation at this time Patient understands the plan Will present to ER by his own transportation Will contact [facility] ER to coordinate care documented in this encounter Plan of Treatment Upcoming Encounters Date Type Department Care Team (Late st Contact Info) Description 05/16/2025 10:15 AM EST Office Visit [facility] MEDICINE [address] [place] [address] Jameel Cota MD [address] [place] [address] 07/25/2025 8:00 AM EST Office Visit [facility] ADULT DENTAL [address] [place] [address] Palma Katelyn [address] [place] [address] documented as of this encounter Goals Goal Patient Goal Type Associated Problems Recent Progress Patient-Stated? Author Remain at or Below Target Blood Pressure General On track(07/13/19 24 4:09 PM EST) No Regine Hawkins, Ruben documented as of this encounter Visit Diagnoses Diagnosis RLQ abdominal pain- Primary Abdominal pain, right lower quadrant documented in this encounter Additional Health Concerns Assessment Noted Time PHQ-9 Depression Total Score: 0 04/07/20 24 9:52 AM EDT documented as of this encounter Care Teams Investigation Division Sergeant Relationship Specialty Start Date End Date Jameel Cota MD [address] [place] [address] PCP - General Internal Medicine 04/10/14 documented as of this encounter
[2025-03-24 11:25] VITALS: BP 119/60; PULSE 83; RESP 18; TEMP 36.3; O2SAT 100; BMI 33.8
--- NOTE | 2025-03-24 11:30 | ED.GENADULT ---
HPI - General Adult General Chief complaint: Abdominal Pain Stated complaint: Vomiting, R Lower ABD Pain/ Lower Lumbar Area Time Seen by Provider: 03/24/25 12:29 Source: patient Mode of arrival: ambulatory Limitations: no limitations History of Present Illness ED Provider: Kezia Harris PA-C HPI narrative: Patient is a 65 year old assigned male at with a history of RANDELL, HTN, DM, HLD, and anemia presenting to the emergency department today with abdominal pain, nausea, and vomiting. Patient states that over the last 2 days he has had nausea, vomiting, and abdominal pain that is not improving. Patient denies any other complaints at this time. Related Data Home Medications ?Medication ?Instructions ?Recorded ?Confirmed amlodipine 5 mg tablet 5 mg PO DAILY 01/14/22 03/14/25 aspirin 81 mg tablet,delayed 81 mg PO DAILY 01/14/22 03/14/25 release atorvastatin 40 mg tablet 40 mg PO DAILY 01/14/22 03/14/25 blood sugar diagnostic (FreeStyle #10 ea 01/14/22 03/14/25 Lite Strips) bupropion HCl 150 mg 24 hr tablet, 150 mg PO DAILY 01/14/22 03/14/25 extended release diazepam 5 mg tablet 5 mg PO BID PRN Anxiety 01/14/22 03/14/25 fluoxetine 20 mg capsule 40 mg PO QAM 01/14/22 03/14/25 hydrochlorothiazide 25 mg tablet 25 mg PO QAM 01/14/22 03/14/25 lancets 33 gauge (TRUEplus Lancets) #100 ea 01/14/22 03/14/25 lisinopril 40 mg tablet 40 mg PO QAM blood pressure 01/14/22 03/14/25 meloxicam 7.5 mg tablet 7.5 mg PO QAM 01/14/22 03/14/25 metformin 500 mg tablet,extended 1,000 mg PO DAILY 01/14/22 03/14/25 release 24 hr prazosin 5 mg capsule 10 mg PO BEDTIME 01/14/22 03/14/25 trazodone 50 mg tablet 50 mg PO BEDTIME PRN insomnia 01/14/22 03/14/25 omega-3 300 mg-dha 120 mg-epa 180 1 cap PO TID 06/23/22 03/14/25 mg-fish oil 1,000 mg capsule glipizide 2.5 mg tablet, extended 2.5 mg PO QAM 08/29/22 03/14/25 release 24 hr ziprasidone HCl 40 mg capsule 40 mg PO BID 07/06/24 03/14/25 Previous Rx's ?Medication ?Instructions ?Recorded omeprazole 40 mg capsule,delayed 40 mg PO DAILY #30 caps 11/20/21 release tamsulosin 0.4 mg capsule 0.4 mg PO DAILY 90 days #90 caps 12/19/24 losartan 50 mg tablet 50 mg PO DAILY HYPERTENSION 30 01/04/25 days #30 tabs fluticasone 250 mcg-salmeterol 50 1 inh inhalation BID COUGH/WHEEZE 02/09/25 mcg/dose blistr powdr for 30 days #60 ea inhalation naproxen 500 mg tablet 500 mg PO BID 7 days #14 tabs 03/24/25 tamsulosin 0.4 mg capsule 0.4 mg PO DAILY #7 caps 03/24/25 Allergies Allergy/AdvReac Type Severity Reaction Status Date / Time No Known Allergies (No Known Allergy Verified 03/24/25 11:28 Allergies*) Review of Systems Constitutional: Constitutional: Reports as per HPI Eyes: Eyes: Reports as per HPI ENT: Reports as per HPI Cardiovascular: Cardiovascular: Reports as per HPI Respiratory: Respiratory: Reports as per HPI Gastrointestinal: Gastrointestinal: Reports as per HPI Genitourinary: Genitourinary: Reports as per HPI Musculoskeletal: Musculoskeletal: Reports as per HPI Integumentary/Breasts: Skin/Breast: Reports as per HPI Neurologic: Reports as per HPI Psychiatric: Psychiatric: Reports as per HPI Endocrine: Endocrine: Reports as per HPI Hematologic/Lymphatic: Hematologic/Lymphatic: Reports as per HPI Allergic/Immunologic: Allergic/Immunologic: Reports as per HPI [facility] Past Medical History Attestation statement: The following information was validated with the patient. Source: old records reviewed and nursing notes reviewed Medical History Cough due to bronchospasm Restrictive lung disease Obesity (BMI 30.0-34.9) Cough due to LUZ inhibitor Atypical chest pain RANDELL (obstructive sleep apnea) Nocturia Bladder outlet obstruction Weak urinary stream Diabetes mellitus Hyperlipidemia HTN (hypertension) Anemia Surgical History Hx of colonoscopy Hx of cystoscopy Hx of transurethral resection of prostate Family History Family History Maternal Grandfather Colon cancer Mother Stomach cancer Maternal Aunt Metastatic cancer Brother Stomach cancer Social History Social History Are you a primary health careers instructor to a significant other at home: No Do you presently have visiting nurse or other home services: No Patient Tobacco Use Status: Never used Tobacco Current occupational status: unemployed and disabled Physical Exam ED Vital Signs: Vital Signs - 24 hr 03/24/25 11:25 03/24/25 13:10 Temperature 97.3 F Pulse Rate 83 81 Respiratory Rate 18 16 Blood Pressure 119/60 120/79 Pulse Oximetry 100 95 Oxygen Delivery Method Room Air Room Air BMI result Body Mass Index 33.8 Const General: cooperative, no acute distress, alert and awake Nutritional Appearance: well nourished Orientation/consciousness: patient oriented x3 HENMT Head: Yes normal to inspection and Yes atraumatic Ears: hearing grossly normal bilaterally and external ears normal General nose exam: Normal external nose present, no nasal discharge noted and no epistaxis Face and sinus: Yes normal facial exam, No abrasion and No laceration Mouth: Normal oral and palatal mucosa present, no drooling and no muffled voice Eyes General: appearance normal, both eyes and all related structures Periorbital: periorbital findings normal Eyelids: Yes eyelids normal Conjunctivae: conjunctivae normal Pupils: Equal, round and reactive pupils present EOM: EOMs intact bilaterally Neck Neck: Yes normal visual inspection and Yes full ROM Resp Effort & Inspection: normal respiratory effort and able to speak in complete sentences GI Inspection: No Abdominal wall edema, Yes distended and No incision Palpation (GI): Soft to palpation, not firm, Tenderness to palpation present (GI), no guarding and not rigid Neuro General: patient oriented x3, moves all extremities and CN's II-XI intact bilaterally Cranial nerves: Yes Equal, round and reactive pupils present Cognition (Neuro): normal cognition Extrem General: Yes normal to inspection, Yes full ROM and Yes capillary refill normal Psych Appearance: grossly normal Mental Status: mental status grossly normal Affect: normal affect Attitude: cooperative Thought process: Normal thought process present Thought content: Normal thought content present Insight: Good insight present (Psych) Course Course Course Narrative: RME: 65-year-old male presents to ED for right lower quadrant abdominal pain right lumbar pain with vomiting for the past couple of days. Patient is sent from urgent care for evaluation. Patient denies any upper abdominal pain. Medications Administered Discontinued Medications Generic Name Dose Route Start Last Admin Trade Name Javid PRN Reason Stop Dose Admin Sodium Chloride 1,000 mls @ 999 mls/hr 03/24/25 14:30 03/24/25 16:18 Ns IV 03/24/25 15:30 Infused .Q1H1M YOVANA Infusion Iohexol 100 ml 03/24/25 13:28 03/24/25 13:28 Iohexol 350 Mg/Ml 100 Ml Infus..Btl IV 03/24/25 13:29 85 ml ONCE ONE Administration Ketorolac Tromethamine 15 mg 03/24/25 15:05 03/24/25 15:18 Ketorolac Tromethamine 15 Mg/Ml Vial IVPUSH 03/24/25 15:06 15 mg ONCE ONE Administration Morphine Sulfate 4 mg 03/24/25 12:29 03/24/25 12:59 Morphine Sulfate 4 Mg/Ml Cartridge IVPUSH 03/24/25 12:30 4 mg ONCE ONE Administration Protocol Morphine Sulfate 4 mg 03/24/25 15:05 03/24/25 15:18 Morphine Sulfate 4 Mg/Ml Cartridge IVPUSH 03/24/25 15:06 4 mg ONCE ONE Administration Protocol Ondansetron HCl 4 mg 03/24/25 12:32 03/24/25 12:59 Ondansetron Hcl 4 Mg/2 Ml Vial IVPUSH 03/24/25 12:33 4 mg ONCE ONE Administration Tamsulosin HCl 0.4 mg 03/24/25 15:02 03/24/25 15:21 Tamsulosin Hcl 0.4 Mg Capsule PO 03/24/25 15:03 0.4 mg ONCE ONE Administration Medical Decision Making Medical Decision Making MDM Narrative: Patient is a 65 year old assigned male at with a history of RANDELL, HTN, DM, HLD, and anemia presenting to the emergency department today with abdominal pain, nausea, and vomiting. Patient's physical exam was as noted in the physical exam portion of this note. Patient's blood work was unremarkable. Patient's urine showed >20 RBC but otherwise unremarkable. Patient's CT abd/pelvis showed 3 mm obstructing calculus in the proximal to mid right ureter resulting in modern right hydronephrosis. I spoke with the urologist rehab director occupational therapist, Dr. Fontana, who recommended discharge home with pain control and flomax. I explained my physical exam findings as well as all test results to the patient. I answered all questions asked by the patient. Patient was given IV fluids, PO Flomax, morphine, and toradol which he stated helped his pain some. I stressed the importance of the patient taking his medication as directed (either prescribed or as the over the counter packaging recommends). I stressed the importance of the patient following up with his primary care provider and the urology team. I stressed the importance of the patient returning to the emergency department immediately if his symptoms were to worsen or if he were to develop any dizziness, shortness of breath, difficulty breathing, chest pain, blurry vision, loss of vision, nausea, vomiting, abdominal pain, fever, chills, back pain, or any other complaints. Patient verbalized agreement and understanding with this treatment plan and discharge. Differential Diagnosis Differential Diagnoses: The differential diagnosis associated with the presentation includes Appendicitis Kidney stone Renal obstruction UTI Pyelonephritis Admission/Observation Consideration of admission/observation: Escalation of care including admission/observation considered Patient would have been admitted to the hospital had his work up had any findings where hospital admission was appropriate and his clinical presentation warranted hospital admission. Consult Healthcare Provider Management of the patient was discussed with: Quilting Machine Helper (spoke with the urologist rehab director occupational therapist as noted in the MDM Rationale portion of this note. ) Lab Data [facility] Lab Attestation statement: I reviewed the patient's lab results. My interpretation of these results are in the MDM Rationale portion of this note. 03/24/25 11:40 03/24/25 11:40 Labs: Lab Results 03/24/25 03/24/25 Range/Units 11:40 15:09 WBC 6.0 (4.8-10.8) X10*3/uL RBC 4.54 L (4.60-5.80) X10*6/uL Hgb 12.9 L (14.0-18.0) g/dl Hct 38.5 L (42.0-52.0) % MCV 84.8 (80.0-98.0) fL MCH 28.4 (27.0-33.0) pg MCHC 33.5 (31.0-36.0) g/dl RDW 12.7 (11.0-16.0) % Plt Count 247 (160-400) X10*3/uL MPV 9.5 (9.4-12.4) fL Immature Gran % (Auto) 0.3 (0.0-0.4) % Neut % (Auto) 70.5 (45-73) % Lymph % (Auto) 18.5 L (20-40) % [place] % (Auto) 8.4 (2-11) % Eos % (Auto) 2.0 (0-4) % Baso % (Auto) 0.3 (0-2) % Lymph # (Auto) 1.1 L (1.2-4.9) X10*3/uL [place] # (Auto) 0.5 (0.1-1.2) X10*3/uL Eos # (Auto) 0.1 (0.0-0.4) X10*3/uL Baso # (Auto) 0.0 (0.0-0.2) X10*3/uL Abs Immat Gran (auto) 0.02 (0.00-0.03) X10*3/uL Absolute Neuts (auto) 4.2 (2.0-8.3) x10*3/uL Absolute Nucleated RBC 0.000 (0.0-0.012) X10*3/uL Nucleated RBC % (auto) 0.0 (0.0-0.2) /100WBC Sodium 142 (135-145) mmol/L Potassium 3.7 (3.3-5.1) mmol/L Chloride 102 (96-108) mmol/L Carbon Dioxide 33 H (22-29) mmol/L Anion Gap 11 L (12-20) BUN 15 (9-16) mg/dL Creatinine 0.82 (0.5-1.4) mg/dL Estim Creat Clear Calc 96.2 Estimated GFR > 60 Random Glucose 85 (60-115) mg/dL Calcium 9.7 (8.4-10.2) mg/dL Total Bilirubin 0.8 (0.0-1.0) mg/dL AST 28 (5-37) U/L ALT 22 (0-40) U/L Alkaline Phosphatase 77 (39-117) U/L Total Protein 7.3 (6.5-8.0) g/dL Albumin 4.8 (3.5-5.0) g/dL Lipase 27 (8-78) U/L Urine Color Yellow Urine Appearance Clear Urine pH 7.5 (5.0-9.0) Ur Specific [place] 1.015 (1.005-1.025) Urine Protein Negative (Neg-Trace) mg/dL Urine Glucose (UA) Negative (Negative) mg/dL Urine Ketones Negative (Negative) mg/dL Urine Blood Moderate (2+) H (Negative) Urine Nitrite Negative (Negative) Ur Leukocyte Esterase Negative (Negative) Urine RBC >20 H (0-2) /HPF Urine WBC 0-5 (0-5) /HPF Ur Squamous Epith Cells 0-2 (0-2) /HPF Urine Bacteria None Seen (None Seen) Hyaline Casts 0-2 (0-2) /LPF Independent Interpretation I performed an independent interpretation of an: CT Scan Interpretation: My interpretation is in agreement with the radiologist's impression of this imaging study. Report Number: [id number]: Total DLP = 877.00 mGy-cm Reason for Exam: abd pain, concern for appy EXAMINATION: CT ABDOMEN AND PELVIS WITH CONTRAST CLINICAL INFORMATION: Abdominal pain. COMPARISON: November 22, 2017. TECHNIQUE: Multidetector volumetric images were obtained from the superior aspect of the liver through the pubic symphysis following administration 85 mL of Omnipaque 350 intravenous contrast. Sagittal and coronal reformatted images were obtained on the technologist's workstation. Oral contrast: No This CT examination was performed using dose optimization techniques as appropriate, variously including the following: *Automated exposure control *Adjustment of mA and/or kV according to patient size (this includes techniques or standardized protocols for targeted exams where dose is matched to indication/reason for exam; i.e. extremities or head) *Use of iterative reconstruction technique DLP: 877 mGy centimeter FINDINGS: LUNG BASES: Atelectasis versus infiltrate, right lung base. LIVER, GALLBLADDER, AND BILIARY TREE: Liver measures 15 cm. No focal mass. Portal veins and hepatic veins are patent. Gallbladder is fluid-filled without pericholecystic fluid collection or gallbladder wall thickening. No distention. No intrahepatic or extrahepatic biliary ductal dilatation. PANCREAS: No focal mass. No peripancreatic fluid collection. No main pancreatic ductal dilatation. SPLEEN: 7 cm. No focal mass. ADRENAL GLANDS: No nodular lesions. KIDNEYS AND URETERS: Right kidney: Moderate dilatation of the pelvicalyceal system and proximal ureter. There is a 3 mm obstructing calculus in the proximal to mid ureter with mild urothelial thickening. Normal enhancement pattern of the renal parenchyma and symmetric when compared with the contralateral side. There is a 24 mm exophytic partially calcified cystic lesion in the posterior lower pole. Perinephric edema pattern. Left kidney: No hydronephrosis. No gross nephrolithiasis. No gross renal mass. Less than 1 cm cystic lesion in the midportion. BLADDER: Fluid-filled. GASTROINTESTINAL TRACT: Appendix is normal. Abundant stool large intestine. No intestinal obstruction pattern. No pneumatosis intestinalis. No pneumoperitoneum. No ascites. ABDOMINAL WALL: No gross umbilical hernia. LYMPH NODES: Nonspecific mildly prominent mesenteric and retroperitoneum. VASCULAR: No aneurysm or dissection, abdominal aorta. PELVIC VISCERA: Not enlarged. OSSEOUS STRUCTURES: Multilevel thoracolumbar spondylosis. Sclerosis in the sacroiliac joints. Syndesmophyte formation and the sacroiliac joints. Exostosis in the iliac crests. CT/CT abdomen pelvis w IV con IMPRESSION: 3 mm obstructing calculus in the proximal to mid right ureter resulting in moderate hydronephrosis. Superimposed acute inflammatory versus infectious process cannot be excluded. Atelectasis versus acute airspace disease, right lower lung lobe. 24 mm Bosniak type II cyst, right kidney. Fleischner guidelines were followed. Electronically signed by: Lang Champion MD 03/24/2025 02:25 PM EDT Dictated By: Lang Garrett MD Signed By: Electronically signed by Lang Bolivar MD 03/24/25 1425 Radiology Impression Discussion of test interpretation with radiology: I have reviewed the radiologist's reading. Critical Care Time Critical Care Time Critical Care Time: Yes Total Critical Care Time: 46 Attestation: I spent 46 minutes of Critical Care Time with this patient. This does not include time spent on separately reported billable procedures. Discharge Plan Discharge Clinical Impression: Kidney calculi Patient Disposition: Home, Self-Care Instructions: Renal Colic (ED) Additional Instructions: Your CT scan of the abdomen/pelvis showed a kidney stone on the right side causing a small blockage. I spoke with the urologist who believes this will pass. Take your medication as prescribed. Carmona tomograf?a computarizada de abdomen y pelvis mostr? un c?lculo renal en el lado derecho que causa perez shawna?a obstrucci?n. Habl? con el ur?logo, quien jung que esto pasar?. [place] carmona medicaci?n seg?n lo recetado. IF you are prescribed home medications and/or you are taking over the counter medications at home- it is very important you continue to do so as prescribed / directed unless told otherwise. SI le recetan medicamentos y/o est? tomando medicamentos de venta maame, es muy importante que contin?e haci?ndolo seg?n lo recetado/indicado a menos que le indiquen lo contrario. Follow up with your primary care provider. Return to the emergency department immediately if your symptoms worsen or if you develop any dizziness, shortness of breath, difficulty breathing, chest pain, blurry vision, loss of vision, nausea, vomiting, abdominal pain, fever, chills, back pain, or any other complaints. Kirby?seguimiento?con carmona m?dico de atenci?n primaria. Acuda inmediatamente al servicio de urgencias si clif s?ntomas empeoran o si presenta falta de aliento, dificultad para respirar, dolor tor?cico, mareos, aturdimiento, dolor de espalda, dolor abdominal, fiebre, escalofr?os o cualquier otro s?ntoma. Please see the information below about our Patient Portal. If you are not yet enrolled in the [facility] Patient Portal, you will receive an enrollment email invitation following your visit to any [facility] care setting. You may also self-enroll in the Patient Portal by visiting our website: [email or web address] The following information is required to access the Patient Portal: - Your [facility] Medical Record Number - Your personal home email address (must match what is in your electronic medical record, Registration staff can assist with this) - Name - Date of Capabilities of the Patient Portal: - Message some providers - View upcoming appointments - Access your health summary, medical history, and visit history - View current conditions and allergies - View procedure and lab results - View your medications, including guidelines, side effects, and precautions - Complete pre-appointment questionnaires requested by your provider - Ready summary reports of your office visits and procedures To access the Patient Portal Mobile Su, follow these directions: - Search Spectral Image in the Su Store or [email or web address] Store - Download the Su - Search for [facility] - Enter your login/password Portal del paciente Si usted no esta inscrito en el portal de pacientes de [facility] y [facility], recibira perez invitacion de inscripcion despues de carmona visita al [facility] o al [facility] via correo electronico. Tambien puede inscribirse voluntariamente en el portal de pacientes visitando nuestra pagina web: [email or web address] La siguiente informacion sera requerida para acceder al portal: - Carmona pamela de historia medica de [facility] - Carmona direccion de correo electronico personal - Nombre - Fecha de nacimiento Capacidades: Las siguientes capacidades estan disponibles en el portal de pacientes: - Enviar mensajes a algunos doctores - Verificar proximas citas - Acceso a carmona historial de sai, registro medico e historial de visitas - Rodri las condiciones actuales y alergias rodri procedimientos y resultados del laboratorio - Rodri clif medicamentos, incluyendo las pautas - Efectos secundarios y precauciones - Completar o llenar formularios / cuestionarios de - Citas solicitadas por carmona doctor - Leer los resumenes de reportes medicos de clif visitas y procedimientos [place] acceder a la aplicacion movil: - Busque [employer] en la Su Store o [email or web address] Store - Descargue la aplicacion - Busque [facility] - Ingrese carmona nombre de usuario / Contrasena Prescriptions: New tamsulosin 0.4 mg capsule 0.4 mg PO DAILY Qty: 7 0RF naproxen 500 mg tablet 500 mg PO BID 7 Days Qty: 14 0RF No Action omeprazole 40 mg capsule,delayed release(DR/EC) 40 mg PO DAILY Qty: 30 0RF meloxicam 7.5 mg tablet 7.5 mg PO QAM bupropion HCl 150 mg tablet extended release 24 hr 150 mg PO DAILY diazepam 5 mg tablet 5 mg PO BID PRN (Reason: Anxiety) fluoxetine 20 mg capsule 40 mg PO QAM lisinopril 40 mg tablet 40 mg PO QAM hydrochlorothiazide 25 mg tablet 25 mg PO QAM prazosin 5 mg capsule 10 mg PO BEDTIME amlodipine 5 mg tablet 5 mg PO DAILY (DME) FreeStyle Lite Strips Strip See Rx Instructions Not Applicable BID Qty: 10 Rx Instructions: As directed trazodone 50 mg tablet 50 mg PO BEDTIME PRN (Reason: insomnia) (DME) lancets [TRUEplus Lancets] 33 gauge misc See Rx Instructions topical .MEDSUPPLY Qty: 100 Rx Instructions: As directed metformin 500 mg tablet extended release 24 hr 1,000 mg PO DAILY aspirin 81 mg tablet,delayed release (DR/EC) 81 mg PO DAILY atorvastatin 40 mg tablet 40 mg PO DAILY omega 8-wwi-cpy-fish oil 300 mg (120 mg- 180mg)-1,000 mg capsule 1 cap PO TID glipizide 2.5 mg tablet extended release 24hr 2.5 mg PO QAM losartan 50 mg tablet 50 mg PO DAILY 30 Days Qty: 30 5RF ziprasidone HCl 40 mg capsule 40 mg PO BID tamsulosin 0.4 mg capsule 0.4 mg PO DAILY 90 Days Qty: 90 3RF fluticasone propion-salmeterol 250-50 mcg/dose blister with device 1 inh inhalation BID 30 Days Qty: 60 2RF Referrals: [facility] [Provider Group, Urology] Referral Note: [facility] will be contacting you within 2 business days. During this phone call, they will inform you of when your follow up appointment will be scheduled. If you have not received a call from [facility] in 2 business days, please call them. Urologia de [facility] se pondra en contacto con usted en un plazo de dos barron habiles. Abrahan esta llamada, le informaran cuando programara carmona marisabel de seguimiento. Si no cody recibido perez llamada de Urologia de C en dos barron habiles, por favor, llamelos. Jameel Patel MD [Primary Care Provider, Medical] Interventions: ED Discharge Assessment Last Done: 03/24/25 16:33 Discharge Date/Time: 03/24/25 16:45 Print Language: [place]
[2025-03-24 11:45] LABS: MANUAL DIFF FLAG NO
[2025-03-24 11:50] LABS: Hematocrit 38.5 % (42.0-52.0); Hemoglobin 12.9 g/dl (14.0-18.0); Imm Gran Abs Auto 0.02 X10*3/uL (0.00-0.03); Imm Gran Pct Auto 0.3 % (0.0-0.4); Lymphocytes Absolute Auto 1.1 X10*3/uL (1.2-4.9); Mean Corpuscular HGB Conc 33.5 g/dl (31.0-36.0); Mean Corpuscular Hemoglobin 28.4 pg (27.0-33.0); Mean Corpuscular Volume 84.8 fL (80.0-98.0); NRBC Abs Auto 0.000 X10*3/uL (0.0-0.012); NRBC Pct Auto 0.0 /100WBC (0.0-0.2); Platelet Count 247 X10*3/uL (160-400); Red Blood Count 4.54 X10*6/uL (4.60-5.80); White Blood Count 6.0 X10*3/uL (4.8-10.8)
[2025-03-24 12:00] LABS: Alanine Aminotransferase 22 U/L (0-40); Albumin Level 4.8 g/dL (3.5-5.0); Alkaline Phosphatase 77 U/L (39-117); Anion Gap 11 (12-20); Aspartate Amino Transferase 28 U/L (5-37); Blood Urea Nitrogen 15 mg/dL (9-16); Calcium 9.7 mg/dL (8.4-10.2); Carbon Dioxide 33 mmol/L (22-29); Chloride 102 mmol/L (96-108); Creatinine Clr Calc Pharmacy 96.2; Estimated Glomerular Filt Rate > 60; Lipase 27 U/L (8-78); Potassium 3.7 mmol/L (3.3-5.1); Sodium 142 mmol/L (135-145); Total Protein 7.3 g/dL (6.5-8.0)
[2025-03-24 13:10] VITALS: BP 120/79; PULSE 81; RESP 16; O2SAT 95
[2025-03-24] MEDS: iohexoL 350 MG/ML 100 ML INFUS..BTL IV (13:28)
--- OUTSIDE RECORDS SUMMARY | 2025-03-24 14:34 | XMS_ITS | Encounter Summary ---
Author Organization [employer] Address [address] [facility] [address] [place] [address] Care Team Providers Care Manager Helpdesk Name Role Phone Jameel Cota MD Primary Care Provide r Regine Hawkins PharmD Unavailable [phone] Essie Mehta PharmD Unavailable [phone] Encounter Details Date Type Department Care Team ([facility] Contact Info) Description 08/28/2022 Orders Only [facility] [address] [place], [place] [id number] Gosia Britt LPN Social History Tobacco Use [...] Upcoming Encounters Date Type Department Care Team ([facility] Contact Info) Description 05/16/2025 10:15 AM EST Office Visit [facility] [address] [place] [address] Jameel Cota MD [address] [place] [address] 07/25/2025 8:00 AM EST Office Visit [facility] [address] [place] [address] Katelyn Waldrop [address] [place] [address] documented as of this encounter Goals Goal Patient Goal Type Associated Problems Recent Progress Patient-Stated? Author Remain at or Below Target Blood Pressure General On track(07/13/19 4:09 PM EST) No Regine Hawkins, ItaliaD documented as of this encounter Visit Diagnoses Not on filedocumented in this encounter Care Teams Manager Helpdesk Relationship Specialty Start Date End Date Jameel Cota MD [address] [place] [phone] PCP - General Internal Medicine 04/10/14 Regine Hawkins, PharmD [address] [place] [id number] Pharmacist Internal Medicine 08/18/22 09/28/24 Essie Mehta, ItaliaD [address] [place] [phone] Pharmacist Internal Medicine 09/29/24 09/30/24 documented as of this encounter
--- OUTSIDE RECORDS SUMMARY | 2025-03-24 14:34 | XMS_ITS | Encounter Summary ---
Author Organization [employer] Address [address] [facility] [address] [place] [address] Care Team Providers Care Cereal Chemist Name Role Phone Jameel Cota MD Primary Care Provide r Regine Hawkins PharmD Unavailable [phone] Essie Mehta PharmD Unavailable [phone] Encounter Details Date Type Department Care Team (Late Contact Info) Description 08/18/2022 Orders Only [facility] [address] [place] [address] Angel Hawkinsrinatalia, PharmD [address] [place] [address] Social History Tobacco Use Types Packs/Day Years [...] 05/16/2025 10:15 AM EST Office Visit [facility] [address] [place] [address] Jameel Cota MD [address] [place] [address] 07/25/2025 8:00 AM EST Office Visit [facility] [address] [place] [address] Robert Waldroparis [address] [place] [address] documented as of this encounter Goals Goal Patient Goal Type Associated Problems Recent Progress Patient-Stated? Author Remain at or Below Target Blood Pressure General On track(07/13/19 24 4:09 PM EST) No Regine Hawkins, PharmD documented as of this encounter Visit Diagnoses Not on filedocumented in this encounter Care Teams Cereal Chemist Relationship Specialty Start Date End Date Jameel Cota MD [address] [place] [phone] PCP - General Internal Medicine 04/10/14 Regine Hawkins, PharmD [address] [place] [phone] Pharmacist Internal Medicine 08/18/22 09/28/24 Essie Mehta PharmD [address] [place] [phone] Pharmacist Internal Medicine 09/29/24 09/30/24 documented as of this encounter
--- OUTSIDE RECORDS SUMMARY | 2025-03-24 14:34 | XMS_ITS | Clinical Summary ---
Author Organization [employer] Address [address] [place] [address] 7[address] [place] [address] Care Team Providers Care Public Address System Mechanic Name Role Phone Jameel Cota MD Primary [...] 3 025 Active Blood Glucose Monitoring Suppl (ClearDATA 2) w/Device kitIndications:Ty pe 2 diabetes mellitus [...] BY MOUTH ONCE DAILY 30 tablet 2 025 Active Alcohol Swabs (Alcohol Prep) 70 % padsIndications:T ype 2 diabetes mellitus without complication, without long-term current use of insulin ([facility]) USE DIRECTED ONCE DAILY 100 each 11 [...] CRUSH, DISSOLVE OR CHEW 30 capsule 3 025 Active glucose blood (OneTouch Ultra Test) test strip USE DIRECTED TO TEST BLOOD SUGAR TWICE DAILY 100 strip 11 Active Lancets (OneTouch Delica Plus [id number]) miscIndications:T ype 2 diabetes mellitus without complication, without long-term current use of insulin ([facility]) USE DIRECTED TO TEST BLOOD SUGAR TWICE DAILY 100 each 11 025 Active OneTouch Delica Lancets 33G miscIndications:T ype 2 diabetes mellitus without complication, without long-term current use of insulin ([facility]) TEST BLOOD SUGAR TWICE A DAY 100 each 11 024 2024 Discontinued glucose blood (OneTouch Ultra Test) test strip TEST BLOOD SUGAR TWICE A DAY 100 each 11 024 2024 Discontinued Active Problems Problem Noted [...] Eye exam done on: 07/12/[address] Adelnia Gore No DR Microalbumin checked on: 02/05/2021 [...] followed by Iliana and Dr. Duque at [facility]. He is at his baseline and not [...] nurse for medications. He is followed at [facility]. He is at his baseline and not [...] followed by Iliana and Dr. Duque at [facility]. He is at his baseline and not [...] followed by Iliana and Dr. Duque at [facility]. He is at his baseline and not [...] changes. Last seen at [facility] 11/17/12 with plan to repeat [...] Vicodin 1-2 times a day. Seen at [facility] Pain management clinic and received an [...] Vicodin 1-2 times a day. Seen at [facility] Pain management clinic and received an [...] Vicodin 1-2 times a day. Seen at [facility] Pain management clinic and received an [...] Vicodin 1-2 times a day. Seen at [facility] Pain management clinic and received an [...] Encounters Date Type Department Care Team Description 03/24/2025 11:00 AM EDT Office Visit [facility] [address] [facility] [place] [address] Esequiel Diehl MD RLQ abdominal pain (Primary Dx) 03/24/2025 Orders Only GENERIC EXTERNAL DATA DEPARTMENT Provider, Generic External Data 03/24/2025 Travel 03/10/2025 Refill [facility] CHC MED & PEDS [address] [place] [address] Jameel Cota MD Type 2 diabetes mellitus without complication, without long-term current use of insulin ([facility]) 02/20/2025 11:00 AM EDT Office Visit [facility] ADULT DENTAL [address] [facility] [place] [address] Katelyn Waldrop Stage 3 grade B generalized periodontitis per AAP/EFP 2017 classification (Primary Dx); Dental calculus 02/20/2025 Telephone [facility] MEDICINE [address] [place] [address] Jameel Cota MD May02/18/2025 Refill [facility] MED[facility] [address] [facility] [place] [address] Jameel Cota MD Chronic cough 02/14/2025 Travel 02/13/2025 11:00 AM EDT Office Visit [facility] ADULT DENTAL [address] [place] [address] Katelyn Waldrop Stage 3 grade B generalized periodontitis per AAP/EFP 2017 classification (Primary Dx); Dental calculus 2025 Telephone [facility] MEDICINE [address] [place] [address] Jameel Cota MD IZ 02/07/2025 9:15 AM EDT Office Visit [facility] MEDICINE [address] [place] [address] Jameel Cota MD Type 2 diabetes mellitus without complication, without long-term current use of insulin ([facility]) (Primary Dx); Benign hypertension; Chronic cough; Benign prostatic hyperplasia with urinary frequency 02/07/2025 Travel 01/31/2025 Telephone [facility] ADULT DENTAL [address] [place] [address] Katelyn Waldrop 01/18/2025 8:00 AM EDT Office Visit [facility] ADULT DENTAL [address] [place] [address] Katelyn Waldrop Missing teeth, acquired (Primary Dx); Dental calculus; Erosion of teeth, limited to enamel; Generalized gingival recession; Stage 3 grade B generalized periodontitis per AAP/EFP 2017 classification; Gingival bleeding; Encounter for dental examination; Periodontal disease 01/16/2025 11:00 AM EDT Office Visit [facility] OPTOMETRY [address] [place] [address] Sabino, Adelina, OD Diabetes type 2, no ocular involvement (CMS/HCC) (Primary Dx); Nevus of choroid, unspecified laterality; Dry eye syndrome of both eyes; Early cataracts, bilateral; Migraine with aura and without status migrainosus, not intractable; Presbyopia of both eyes 01/16/2025 Travel 01/15/2025 Refill [facility] MEDICINE [address] [place] [address] Jameel Cota MD Chronic cough; Benign hypertension 12/30/2024 Telephone [facility] MEDICINE [address] [place] [address] Kamlesh Almeida, PharmD from Last 3 Months [...] Mass Index 35.79 03/24/2025 10:32 AM EDT Plan of Treatment Upcoming Encounters Date Type Department Care Team (Late st Contact Info) Description 05/16/2025 10:15 AM EST Office Visit [facility] MEDICINE [address] [place] [address] Jameel Cota MD [address] [place] [address] 07/25/2025 8:00 AM EST Office Visit [facility] ADULT DENTAL [address] [place] [address] Katelyn Waldrop [address] [place] [address] Health Maintenance Due Date Last Done Comments [...] Alcohol/Substance Use Screening 02/07/2026 02/07/2025 Tobacco Screening 03/24/2026 03/24/2025 Eye Exam 01/16/2027 01/16/2025, 01/06, 01/16/2025, Additional history exists Colonoscopy 10/14/2027 10/13/2024, [...] Procedure Name Priority Date/Time Associated Diagnosis Comments CT ABDOMEN PELVIS W CONTRAST Routine 03/24/2025 1:23 PM EDT LIPASE Routine 03/24/2025 11:40 AM EDT COMPREHENSIVE METABOLIC PANEL Routine 03/24/2025 11:40 AM EDT CBC WITH AUTO DIFFERENTIAL Routine 03/24/2025 11:40 AM EDT CASE PRESENTATION, DETAILED AND EXTENSIVE TREATMENT PLANNING [...] complication, without long-term current use of insulin ([facility]) POCT GLUCOSE Routine 02/07/2025 9:25 AM EDT Type 2 diabetes mellitus without complication, without long-term current use of insulin ([facility]) COMPREHENSIVE PERIODONTAL EVALUATION - NEW OR ESTABLISHED [...] Recently Relevant to Health Maintenance Results * CT Abdomen Pelvis w/ Contrast (03/24/2025 1:23 PM EDT) Anatomical Region Laterality Modality Body, Pelvis, Abdomen Computed T omography 03/24/2025 1:23 PM EDT Narrative 03/24/2025 2:28 PM EDT [place] [address] CT Scan Report Signed Patient: Jabari Chavis MR#: [id number] [birth year] : 1960 Acct:[id number] Age/Sex: 65 / M ADM Date: 03/24/25 Loc: HO.ED Attending Dr: Ordering Physician: Kezia Harris Date of Service: 03/24/25 Procedure(s): CT abdomen pelvis w IV con Accession Number(s): [id number] cc: Jameel Patel MD; Kezia Harris Report Number: [id number]: Total DLP = 877.00 mGy-cm Reason for Exam: abd pain, concern for appy EXAMINATION: CT ABDOMEN AND PELVIS WITH CONTRAST CLINICAL INFORMATION: Abdominal pain. COMPARISON: November 22, 2017. TECHNIQUE: Multidetector volumetric images were obtained from the superior aspect of the liver through the pubic symphysis following administration 85 mL of Omnipaque 350 intravenous contrast. Sagittal and coronal reformatted images were obtained on the technologist's workstation. Oral contrast: No This CT examination was performed using dose optimization techniques as appropriate, variously including the following: *Automated exposure control *Adjustment of mA and/or kV according to patient size (this includes techniques or standardized protocols for targeted exams where dose is matched to indication/reason for exam; i.e. extremities or head) *Use of iterative reconstruction technique DLP: 877 mGy centimeter FINDINGS: LUNG BASES: Atelectasis versus infiltrate, right lung base. LIVER, GALLBLADDER, AND BILIARY TREE: Liver measures 15 cm. No focal mass. Portal veins and hepatic veins are patent. Gallbladder is fluid-filled without pericholecystic fluid collection or gallbladder wall thickening. No distention. No intrahepatic or extrahepatic biliary ductal dilatation. PANCREAS: No focal mass. No peripancreatic fluid collection. No main pancreatic ductal dilatation. SPLEEN: 7 cm. No focal mass. ADRENAL GLANDS: No nodular lesions. KIDNEYS AND URETERS: Right kidney: Moderate dilatation of the pelvicalyceal system and proximal ureter. There is a 3 mm obstructing calculus in the proximal to mid ureter with mild urothelial thickening. Normal enhancement pattern of the renal parenchyma and symmetric when compared with the contralateral side. There is a 24 mm exophytic partially calcified cystic lesion in the posterior lower pole. Perinephric edema pattern. Left kidney: No hydronephrosis. No gross nephrolithiasis. No gross renal mass. Less than 1 cm cystic lesion in the midportion. BLADDER: Fluid-filled. GASTROINTESTINAL TRACT: Appendix is normal. Abundant stool large intestine. No intestinal obstruction pattern. No pneumatosis intestinalis. No pneumoperitoneum. No ascites. ABDOMINAL WALL: No gross umbilical hernia. LYMPH NODES: Nonspecific mildly prominent mesenteric and retroperitoneum. VASCULAR: No aneurysm or dissection, abdominal aorta. PELVIC VISCERA: Not enlarged. OSSEOUS STRUCTURES: Multilevel thoracolumbar spondylosis. Sclerosis in the sacroiliac joints. Syndesmophyte formation and the sacroiliac joints. Exostosis in the iliac crests. CT/CT abdomen pelvis w IV con IMPRESSION: 3 mm obstructing calculus in the proximal to mid right ureter resulting in moderate hydronephrosis. Superimposed acute inflammatory versus infectious process cannot be excluded. Atelectasis versus acute airspace disease, right lower lung lobe. 24 mm Bosniak type II cyst, right kidney. Fleischner guidelines were followed. Electronically signed by: Lang Champion MD 03/24/2025 02:25 PM EDT RP Dictated By: Lang Garrett MD Signed By: <Electronically signed by Lang Bolivar MD in OV> 03/24/25 1425 DD/ 1323 TD/TT: 03/24/25 1407 Reproduction Machine Loader: Procedure Note Donotuseinterpreter, Image - 03/24/[address] [address] [address] Scan Report Signed Patient: Mesfin Chavis#: [id number] 89 : 1960cct:[id number] Age/Sex: 65 / MADM Date: 03/24/25 Loc: HO.ED Attending Dr: Ordering Physician: Kezia Harris Date of Service: 03/24/25 Procedure(s): CT abdomen pelvis w IV con Accession Number(s): [id number] cc: Jameel Patel MD; Kezia Harris Report Number: [id number]: Total DLP = 877.00 mGy-cm Reason for Exam: abd pain, concern for appy EXAMINATION: CT ABDOMEN AND PELVIS WITH CONTRAST CLINICAL INFORMATION: Abdominal pain. COMPARISON: November 22, 2017. TECHNIQUE: Multidetector volumetric images were obtained from the superior aspect of the liver through the pubic symphysis following administration 85 mL of Omnipaque 350 intravenous contrast. Sagittal and coronal reformatted images were obtained on the technologist's workstation. Oral contrast: No This CT examination was performed using dose optimization techniques as appropriate, variously including the following: *Automated exposure control *Adjustment of mA and/or kV according to patient size (this includes techniques or standardized protocols for targeted exams where dose is matched to indication/reason for exam; i.e. extremities or head) *Use of iterative reconstruction technique DLP: 877 mGy centimeter FINDINGS: LUNG BASES: Atelectasis versus infiltrate, right lung base. LIVER, GALLBLADDER, AND BILIARY TREE: Liver measures 15 cm. No focal mass. Portal veins and hepatic veins are patent. Gallbladder is fluid-filled without pericholecystic fluid collection or gallbladder wall thickening. No distention. No intrahepatic or extrahepatic biliary ductal dilatation. PANCREAS: No focal mass. No peripancreatic fluid collection. No main pancreatic ductal dilatation. SPLEEN: 7 cm. No focal mass. ADRENAL GLANDS: No nodular lesions. KIDNEYS AND URETERS: Right kidney: Moderate dilatation of the pelvicalyceal system and proximal ureter. There is a 3 mm obstructing calculus in the proximal to mid ureter with mild urothelial thickening. Normal enhancement pattern of the renal parenchyma and symmetric when compared with the contralateral side. There is a 24 mm exophytic partially calcified cystic lesion in the posterior lower pole. Perinephric edema pattern. Left kidney: No hydronephrosis. No gross nephrolithiasis. No gross renal mass. Less than 1 cm cystic lesion in the midportion. BLADDER: Fluid-filled. GASTROINTESTINAL TRACT: Appendix is normal. Abundant stool large intestine. No intestinal obstruction pattern. No pneumatosis intestinalis. No pneumoperitoneum. No ascites. ABDOMINAL WALL: No gross umbilical hernia. LYMPH NODES: Nonspecific mildly prominent mesenteric and retroperitoneum. VASCULAR: No aneurysm or dissection, abdominal aorta. PELVIC VISCERA: Not enlarged. OSSEOUS STRUCTURES: Multilevel thoracolumbar spondylosis. Sclerosis in the sacroiliac joints. Syndesmophyte formation and the sacroiliac joints. Exostosis in the iliac crests. CT/CT abdomen pelvis w IV con IMPRESSION: 3 mm obstructing calculus in the proximal to mid right ureter resulting in moderate hydronephrosis. Superimposed acute inflammatory versus infectious process cannot be excluded. Atelectasis versus acute airspace disease, right lower lung lobe. 24 mm Bosniak type II cyst, right kidney. Fleischner guidelines were followed. Electronically signed by: Lang Champion MD 03/24/2025 02:25 PM EDT Dictated By: Lang Garrett MD Signed By: <Electronically signed by Lang Bolivar MDin OV> 03/24/25 1425 DD/ 1323 TD/TT: 03/24/25 1407 Reproduction Machine Loader: [facility] External Provider IMG CT PROCEDURES Final Result * (ABNORMAL) CBC auto differential (03/24/2025 11:40 AM EDT) White Blood Count 6.0 4.8 - 10.8 X10*3/uL [facility] Red Blood Count 4.54(L) 4.60 - 5.80 X10*6/uL [facility] Hemoglobin 12.9(L) 14.0 - 18.0 g/dl [facility] Hematocrit 38.5(L) 42.0 - 52.0 % [facility] Mean Corpuscular Volume 84.8 80.0 - 98.0 fL [facility] Mean Corpuscular Hemoglobin 28.4 27.0 - 33.0 pg [facility] Mean Corpuscular HGB Conc 33.5 31.0 - 36.0 g/dl [facility] Red Cell Distribution Width 12.7 11.0 - 16.0 % [facility] Platelet Count 247 160 - 400 X10*3/uL [facility] Mean Platelet Volume 9.5 9.4 - 12.4 fL [facility] Neutrophils Percent Auto 70.5 45 - 73 % [facility] Imm Gran Pct Auto 0.3 0.0 - 0.4 % [facility] Lymphocytes Percent Auto 18.5(L) 20 - 40 % [facility] Monocytes Percent Auto 8.4 2 - 11 % [facility] Eosinophils Percent Auto 2.0 0 - 4 % [facility] Basophils Percent Auto 0.3 0 - 2 % [facility] NRBC Pct Auto 0.0 0.0 - 0.2 /100WBC [facility] Neutrophils Absolute Auto 4.2 2.0 - 8.3 x10*3/uL [facility] Imm Gran Abs Auto 0.02 0.00 - 0.03 X10*3/uL [facility] Lymphocytes Absolute Auto 1.1(L) 1.2 - 4.9 X10*3/uL [facility] Monocytes Absolute Auto 0.5 0.1 - 1.2 X10*3/uL [facility] Eosinophils Absolute Auto 0.1 0.0 - 0.4 X10*3/uL [facility] Basophils Absolute Auto 0.0 0.0 - 0.2 X10*3/uL [facility] NRBC Abs Auto 0.000 0.0 - 0.012 X10*3/uL [facility] 03/24/2025 11:4 0 AM EDT 03/24/2025 11:43 AM EDT Generic External Data Provider LAB BLOOD ORDERAB LES Final Result Performing Organization Address City/[facility]/ZIP Co de Phone Number [facility] [address] [place] [phone] * Lipase (03/24/2025 11:40 AM EDT) Pathologist [facility] Lipase 27 8 - 78 U/L [facility] 03/24/2025 11:4 0 AM EDT 03/24/2025 11:43 AM EDT Generic External Data Provider LAB BLOOD ORDERAB LES Final Result Performing Organization Address [facility] Co de Phone Number [facility] [address] [place] [phone] * (ABNORMAL) Comprehensive Metabolic Panel (03/24/2025 11:40 AM EDT) Pathologist [facility] Sodium 142 135 - 145 mmol/L [facility] Potassium 3.7 3.3 - 5.1 mmol/L [facility] Comment:Slight Hemolysis.Int erpret result with caution. Chloride 102 96 - 108 mmol/L [facility] Carbon Dioxide 33(H) 22 - 29 mmol/L [facility] Anion Gap 11(L) 12 - 20 [facility] Urea Nitrogen (BUN) 15 9 - 16 mg/dL [facility] Creatinine, Serum 0.82 0.5 - 1.4 mg/dL [facility] Creatinine Clr Calc Pharmacy 96.2 [facility] Comment:eGFR (calculated fro m the MDRD study equation) and eCrCl(calculated from the Cockcroft-Gault equation) are based ondifferent parameters and may not yield comparable results.If eCrCl result is absurd, please check patient'sheight/weight. Estimated Glomerular Filt Rate >60 [facility] Comment:Chronic Kidney Disea se: Estimated GFR < 60 mL/min/1.91b1Vxstff Kidney Disease: Estimated GFR < 15 mL/min/1.73m2 Glucose 85 60 - 115 mg/dL [facility] Calcium 9.7 8.4 - 10.2 mg/dL [facility] Bilirubin, Total 0.8 0.0 - 1.0 mg/dL [facility] Aspartate Amino Transferase 28 5 - 37 U/L [facility] Comment:Slight Hemolysis.Int erpret result with caution. Alanine Aminotransferase 22 0 - 40 U/L [facility] Total Protein 7.3 6.5 - 8.0 g/dL [facility] Albumin Level 4.8 3.5 - 5.0 g/dL [facility] Alkaline Phosphatase 77 39 - 117 U/L [facility] 03/24/2025 11:4 0 AM EDT 03/24/2025 11:43 AM EDT us Generic External Data Provider LAB BLOOD ORDERAB LES Final Result [facility] [address] [place] [phone] * (ABNORMAL) POCT glycosylated hemoglobin (Hgb A1c) (02/07/2025 9:49 AM EDT) Hemoglobin A1C 6.0(A) 4.0 - 5.7 % QC Media Lot # [id number] Lot# Expiration Date ,[id number] Blood Capillary blood specimen / Unknown 02/07/2025 9:49 AM EDT us Jameel Goyal MD POINT OF CARE [...] 3:36 PM EST) Creatinine, Urine 82.85 mg/dL [facility] Microalbumin Urine 9.0 mg/L [facility] Microalbum Creatinine Ratio Ur 10.8 <30 ug/mg cr [facility] Comment:Albumin/Creatinine R atio Reference Ranges: Normal: < 30 ug/mg creatinine Microalbuminuria: 30 - 300 ug/mg creatinineClinical Albuminuria: > 300 ug/mg creatinine Urine (Urine, Random) 08/02/2024 3:36 PM EST 08/02/2024 4:14 PM EST Jameel Goyal MD LAB URINE ORDERABLES Final Result [facility] [address] [place] [phone] * (ABNORMAL) Lipid Panel, Standard (10/15/2023 8:52 AM EDT) Triglycerides 76 <150 mg/dL [facility] Comment:Desirable Triglyceri de: less than 150 mg/dLBorderline High Triglyceride 150-199 mg/dLHigh Triglyceride: 200-499 mg/dLVery High Triglyceride: greater than or equal to 5OO mg/dL Cholesterol 84 <200 mg/dL [facility] Comment:Desirable Cholestero l: less than 200 mg/dLBorderline High Cholesterol: 200-239 mg/dLHigh Cholesterol: greater than 239 mg/dL LDL Cholesterol Calculated 37 <100 mg/dL [facility] Comment:Desirable LDL: less than 100 mg/dLNear Optimal/Above Optimal LDL: 110- 129 mg/dLBorderline High LDL: 130-159 mg/dLHigh LDL: 160-189 mg/dLVery High LDL: greater than or equal to 190 mg/dL HDL Cholesterol 32(L) >40 mg/dL [facility] Comment:Desirable HDL: great er than 40 mg/dL Note: This HDL assay may give artificially low results in patients with liver disease. Blood Venous blood specimen / Unknown 10/15/2023 8:52 AM EDT 10/15/2023 11:35 AM EDT Jameel Goyal MD LAB BLOOD ORDERABLES Final Result [facility] [address] [place] [phone] * HEPATITIS C AB W/REFL [...] a test for HCV RNA (test code 23032) is suggested. For additional information please refer to http://education.[employer]/faq/XQZ73q1 (This link is being provided for informational/ educational purposes only.) 12/31/2021 3:04 PM EDT Jameel Goyal MD HISTORICAL/NON ORDERA BLE LABS Final Result [facility] [address] from Last 3 Months or Most Recently Relevant to Health Maintenance Insurance [facility] < [address] [place] [id number] [facility] Care Teams Public Address System Mechanic Relationship Specialty Start Date End Date Jameel Cota MD [address] [place] [address] PCP - General Internal Medicine 04/10/14
--- OUTSIDE RECORDS SUMMARY | 2025-03-24 14:34 | XMS_ITS | Encounter Summary ---
Author Organization [employer] Address [address] [place] [address] [address] [place] [address] Care Team Providers Care Barn Hand Name Role Phone Jameel Cota MD Primary Care Provide r Regine Hawkins PharmD Unavailable [phone] Essie Mehta PharmD Unavailable [phone] Reason for Visit * Reason Comments Med Refill Encounter Details Date Type Department Care Team (Late st Contact Info) Description 09/30/2022 Refill [facility] [address] [place] [address] Ami Dunlap ANP [address] [place], [place] [phone] Type 2 diabetes mellitus with hyperlipidemia ([facility]) Social History Tobacco Use Types [...] Description 05/16/2025 10:15 AM EST Office Visit [facility] [address] [place] [address] Jameel Cota MD [address] [place] [address] 07/25/2025 8:00 AM EST Office Visit [facility] AD[facility] [address] [place], [place] [phone] Katelyn Waldrop [address] [place] [address] documented as of this encounter Goals Goal Patient Goal Type Associated Problems Recent Progress Patient-Stated? Author Remain at or Below Target Blood Pressure General On track(07/13/19 4:09 PM EST) No Regine Hawkins, PharmD documented as of this encounter Visit Diagnoses Diagnosis Type 2 diabetes mellitus with hyperlipidemia (HCC) documented in this encounter Care Teams Barn Hand Relationship Specialty Start Date End Date Jameel Cota MD [address] [place] [phone] PCP - General Internal Medicine 04/10/14 Regine Hawkins, PharmD [address] [place] [phone] Pharmacist Internal Medicine 08/18/22 09/28/24 Essie Mehta, ItaliaD [address] [place] [phone] Pharmacist Internal Medicine 09/29/24 09/30/24 documented as of this encounter
--- OUTSIDE RECORDS SUMMARY | 2025-03-24 14:34 | XMS_ITS | Encounter Summary ---
Author Organization [facility] [facility] Address [address] [place] [address] 7t [place] [address] Care Team Providers Care Scene Shifter Name Role Phone Jameel Cota MD Primary Care Provide r Regine Hawkins PharmD Unavailable [phone] Essie Mehta PharmD Unavailable [phone] Encounter Details Date Type Department Care Team (Latest Contact Info) Description 11/22/2018 Abstract [facility] CONVERSIONS Dental, Provider, DDS Social History [...] Description 05/16/2025 10:15 AM EST Office Visit [facility] MEDICINE [address] [place] [address] Jameel Cota MD 230 [place] [address] 07/25/2025 8:00 AM EST Office Visit [facility] ADULT DENTAL [address] [place] [address] Katelyn Waldrop 230 [place] [address] documented as of this encounter Visit Diagnoses Not on filedocumented in this encounter Care Teams Scene Shifter Relationship Specialty Start Date End Date Jameel Cota MD [address] [place] [address] 36036 PCP - General Internal Medicine 04/10/14 Regine Hawkins PharmD [address] [place] [address]58 Pharmacist Internal Medicine 08/18/22 09/28/24 Essie Mehta PharmD [address] [place] [address] 18233 Pharmacist Internal Medicine 09/29/24 09/30/24 documented as of this encounter
--- OUTSIDE RECORDS SUMMARY | 2025-03-24 14:34 | XMS_ITS | Encounter Summary ---
Author Organization [facility] Address [address] [place] [address] 7t [place] [address] Care Team Providers Care Engineering Surveyor Name Role Phone Jameel Cota MD Primary Care Provide r Regine Hawkins PharmD Unavailable [phone] Essie Mehta PharmD Unavailable [phone] Encounter Details Date Type Department Care Team (Latest Contact Info) Description 11/13/2020 Abstract [facility] CONVERSIONS Dental, Provider, DDS Social History [...] Description 05/16/2025 10:15 AM EST Office Visit [facility] MEDICINE [address] [place] [address] Jameel Cota MD 230 [place] [address] 07/25/2025 8:00 AM EST Office Visit [facility] ADULT DENTAL [address] [place] [address] Katelyn Waldrop [address] [place] [address] documented as of this encounter Visit Diagnoses Not on filedocumented in this encounter Care Teams Engineering Surveyor Relationship Specialty Start Date End Date Jameel Cota MD [address] [place] [address] PCP - General Internal Medicine 04/10/14 Regine Hawkins PharmD [address] [place] [address] 61652 Pharmacist Internal Medicine 08/18/22 09/28/24 Essie Mehta PharmD [address] [place] [address] 78[address] Pharmacist Internal Medicine 09/29/24 09/30/24 documented as of this encounter
--- OUTSIDE RECORDS SUMMARY | 2025-03-24 14:34 | XMS_ITS | Encounter Summary ---
Author Organization [facility] Address [address] [place] [address] 7t [place] [address] Care Team Providers Care Flag Car Driver Name Role Phone Jameel Cota MD Primary Care Provide r Regine Hawkins PharmD Unavailable [phone] Essie Mehta PharmD Unavailable [phone] Reason for Visit * Reason Comments Med Refill Encounter Details Date Type Department Care Team (Late st Contact Info) Description 01/15/2023 Refill [facility] MEDICINE [address] [place] [address] Name, MD Дмитрий [address] [place], [place] [phone] Mixed hyperlipidemia Social History Tobacco Use Types [...] Description 05/16/2025 10:15 AM EST Office Visit [facility] MEDICINE [address] [place] [address] Jameel Cota MD 230 [place] [address] 07/25/2025 8:00 AM EST Office Visit [facility] ADULT DENTAL [address] [place] [address] Katelyn Waldrop [address] [place] [address] documented as of this encounter Goals Goal Patient Goal Type Associated Problems Recent Progress Patient-Stated? Author Remain at or Below Target Blood Pressure General On track(07/13/19 4:09 PM EST) No Regine Hawkins, PharmD documented as of this encounter Visit Diagnoses Diagnosis Mixed hyperlipidemia documented in this encounter Care Teams Flag Car Driver Relationship Specialty Start Date End Date Jameel Cota MD [address] [place] [address] PCP - General Internal Medicine 04/10/14 Regine Hawkins, PharmD [address] [place] [address] 69057 Pharmacist Internal Medicine 08/18/22 09/28/24 Essie Mehta, ItaliaD [address] [place] [address]24 Pharmacist Internal Medicine 09/29/24 09/30/24 documented as of this encounter
--- OUTSIDE RECORDS SUMMARY | 2025-03-24 14:34 | XMS_ITS | Encounter Summary ---
Author Organization [employer] Address [address] [place] [address] 7t [place] [address] Care Team Providers Care Instrument Inspector Name Role Phone Jameel Cota MD Primary Care Provide r Regine Hawkins PharmD Unavailable [phone] Essie Mehta PharmD Unavailable [phone] Encounter Details Date Type Department Care Team (Late Contact Info) Description 10/10/2022 Abstract [facility] MEDICINE [address] [place] [address] Jameel Cota MD 230 [place], [place] [phone] Social History Tobacco Use Types Packs/Day Years [...] 05/16/2025 10:15 AM EST Office Visit [facility] MEDICINE [address] [place] [address] Jameel Cota MD 230 [place], [place] [phone] 07/25/2025 8:00 AM EST Office Visit [facility] ADULT DENTAL [address] [place] [address] Katelyn Waldrop [address] [place] [address] documented as of this encounter Goals Goal [...] on filedocumented in this encounter Care Teams Instrument Inspector Relationship Specialty Start Date End Date Jameel Cota MD [address] [place] [address] PCP - General Internal Medicine 04/10/14 Regine Hawkins, PharmD [address] [place] [address] 90446 Pharmacist Internal Medicine 08/18/22 09/28/24 Essie Mehta PharmD 230 [place] [address] Pharmacist Internal Medicine 09/29/24 09/30/24 documented as of this encounter
--- OUTSIDE RECORDS SUMMARY | 2025-03-24 14:34 | XMS_ITS | Encounter Summary ---
Author Organization [employer] Address [address] [facility] 7t [place] [address] Care Team Providers Care Geothermal Powerplant Supervisor Name Role Phone Jameel Cota MD Primary Care Provide r Encounter Details Date Type Department Care Team ([facility] Contact Info) Description 03/24/2025 Orders Only GENERIC EXTERNAL DATA DEPARTMENT Provider, Generic External Data Social History Tobacco Use Types Packs/Day Years [...] Visit [facility] MEDICINE 230 [place] [address] Jameel Cota MD 230 [place] [address] 07/25/2025 8:00 AM EST Office Visit [facility] ADULT DENTAL 230 [place] [address] Palma, Katelyn 230 [place] [address] documented as of this encounter Goals Goal Patient Goal Type Associated Problems Recent Progress Patient-Stated? Author Remain at or Below Target Blood Pressure General On track(07/13/19 24 4:09 PM EST) No Regine Hawkins, ItaliaD documented as of this encounter Procedures Procedure Name Priority Date/Time Associated Diagnosis Comments CT ABDOMEN PELVIS W CONTRAST Routine 03/24/2025 1:23 PM EDT CBC WITH AUTO DIFFERENTIAL Routine 03/24/2025 11:40 AM EDT LIPASE Routine 03/24/2025 11:40 AM EDT COMPREHENSIVE METABOLIC PANEL Routine 03/24/2025 11:40 AM EDT documented in this encounter Results * CT Abdomen Pelvis w/ Contrast (03/24/2025 1:23 PM EDT) Anatomical Region Laterality Modality Body, Pelvis, Abdomen Computed T omography 03/24/2025 1:23 PM EDT Narrative 03/24/2025 2:28 PM EDT [place] [address] [address] Scan Report Signed Patient: Jabari Chavis MR#: [id number] : 1960 Acct:[id number] Age/Sex: 65 / M ADM Date: 03/24/25 Loc: .ED Attending Dr: Ordering Physician: Kezia Harris Date of Service: 03/24/25 Procedure(s): CT abdomen pelvis w IV con Accession Number(s): [id number] cc: Jameel Patel MD; Kezia Harris Report Number: [id number]: Total DLP = 877.00 mGy-cm Reason for [...] Garrett MD Signed By: <Electronically signed by Lagn Bolivar MD in OV> 03/24/25 1425 DD/ 1323 TD/TT: 03/24/25 1407 Welcome Wagon Host/Hostess: Procedure Note Donotuseinterpreter, Image - 03/24/[address] [address] [address] Scan Report Signed Patient: Jabari Chavis#: [id number] : 2Acct:[id number] Age/Sex: 65 / MADM Date: 03/24/25 Loc: HO.ED Attending Dr: Ordering Physician: Kezia Harris Date of Service: 03/24/25 Procedure(s): CT abdomen pelvis w IV con Accession Number(s): [id number] cc: Jameel Patel MD; Kezia Harris Report Number: [id number]: Total DLP = 877.00 mGy-cm Reason for [...] 03/24/25 1425 DD/ 1323 TD/TT: 03/24/25 1407 Welcome Wagon Host/Hostess: [facility] External Provider IMG CT PROCEDURES Final Result * Lipase (03/24/2025 11:40 AM EDT) Lipase 27 8 - 78 U/L [facility] 03/24/2025 11:4 0 AM EDT 03/24/2025 11:43 AM EDT Generic External Data Provider LAB BLOOD ORDERAB LES Final Result [facility] [address] [place] [phone] * (ABNORMAL) Comprehensive Metabolic Panel (03/24/2025 11:40 AM EDT) Sodium 142 135 - 145 mmol/L [facility] Potassium 3.7 3.3 - 5.1 mmol/L [facility] Comment:Slight Hemolysis.Int erpret result with caution. Chloride 102 96 - 108 mmol/L [facility] Carbon Dioxide 33(H) 22 - 29 mmol/L [facility] Anion Gap 11(L) 12 - 20 [facility] Urea Nitrogen (BUN) 15 9 - 16 mg/dL [facility] Creatinine, Serum 0.82 0.5 - 1.4 mg/dL [facility] Creatinine Clr Calc Pharmacy 96.2 [facility] Comment:eGFR (calculated fro m the MDRD study equation) and eCrCl(calculated from the Cockcroft-Gault equation) are based ondifferent parameters and may not yield comparable results.If eCrCl result is absurd, please check patient'sheight/weight. Estimated Glomerular Filt Rate >60 [facility] Comment:Chronic Kidney Disea se: Estimated GFR < 60 mL/min/1.21d1Extxub Kidney Disease: Estimated GFR < 15 mL/min/1.73m2 Glucose 85 60 - 115 mg/dL [facility] Calcium 9.7 8.4 - 10.2 mg/dL [facility] Bilirubin, Total 0.8 0.0 - 1.0 mg/dL [facility] Aspartate Amino Transferase 28 5 - 37 U/L [facility] Comment:Slight Hemolysis.Int erpret result with caution. Alanine Aminotransferase 22 0 - 40 U/L [facility] Total Protein 7.3 6.5 - 8.0 g/dL [facility] Albumin Level 4.8 3.5 - 5.0 g/dL [facility] Alkaline Phosphatase 77 39 - 117 U/L [facility] 03/24/2025 11:4 0 AM EDT 03/24/2025 11:43 AM EDT us Generic External Data Provider LAB BLOOD ORDERAB LES Final Result [facility] [address] [place] [phone] * (ABNORMAL) CBC auto differential (03/24/2025 11:40 AM EDT) White Blood Count 6.0 4.8 - 10.8 X10*3/uL [facility] Red Blood Count 4.54(L) 4.60 - 5.80 X10*6/uL [facility] Hemoglobin 12.9(L) 14.0 - 18.0 g/dl [facility] Hematocrit 38.5(L) 42.0 - 52.0 % [facility] Mean Corpuscular Volume 84.8 80.0 - 98.0 fL [facility] Mean Corpuscular Hemoglobin 28.4 27.0 - 33.0 pg [facility] Mean Corpuscular HGB Conc 33.5 31.0 - 36.0 g/dl [facility] Red Cell Distribution Width 12.7 11.0 - 16.0 % [facility] Platelet Count 247 160 - 400 X10*3/uL [facility] Mean Platelet Volume 9.5 9.4 - 12.4 fL [facility] Neutrophils Percent Auto 70.5 45 - 73 % [facility] Imm Gran Pct Auto 0.3 0.0 - 0.4 % [facility] Lymphocytes Percent Auto 18.5(L) 20 - 40 % [facility] Monocytes Percent Auto 8.4 2 - 11 % [facility] Eosinophils Percent Auto 2.0 0 - 4 % [facility] Basophils Percent Auto 0.3 0 - 2 % [facility] NRBC Pct Auto 0.0 0.0 - 0.2 /100WBC [facility] Neutrophils Absolute Auto 4.2 2.0 - 8.3 x10*3/uL [facility] Imm Gran Abs Auto 0.02 0.00 - 0.03 X10*3/uL [facility] Lymphocytes Absolute Auto 1.1(L) 1.2 - 4.9 X10*3/uL [facility] Monocytes Absolute Auto 0.5 0.1 - 1.2 X10*3/uL [facility] Eosinophils Absolute Auto 0.1 0.0 - 0.4 X10*3/uL [facility] Basophils Absolute Auto 0.0 0.0 - 0.2 X10*3/uL [facility] NRBC Abs Auto 0.000 0.0 - 0.012 X10*3/uL [facility] 03/24/2025 11:4 0 AM EDT 03/24/2025 11:43 AM EDT us Generic External Data Provider LAB BLOOD ORDERAB LES Final Result Performing Organization Address City/State/[facility] Co de Phone Number [facility] [address] [place] [phone] documented in this encounter Visit Diagnoses Not on filedocumented in this encounter Additional Health Concerns Assessment Noted Time PHQ-9 Depression Total Score: 0 04/07/20 24 9:52 AM EDT documented as of this encounter Care Teams Geothermal Powerplant Supervisor Relationship Specialty Start Date End Date Jameel Cota MD [address] [place] [address] PCP - General Internal Medicine 04/10/14 documented as of this encounter
--- OUTSIDE RECORDS SUMMARY | 2025-03-24 14:34 | XMS_ITS | Encounter Summary ---
Author Organization [facility] Address [address] [place] [address] 7t [place] [address] Care Team Providers Care Cemetery Manager Name Role Phone Jameel Cota MD Primary Care Provide r Regine Hawkins PharmD Unavailable [phone] Essie Mehta PharmD Unavailable [phone] Encounter Details Date Type Department Care Team (Latest Contact Info) Description 01/08/2022 Abstract [facility] CONVERSIONS Dental, Provider, DDS Social History [...] Description 05/16/2025 10:15 AM EST Office Visit [facility] MEDICINE [address] [place] [address] Jameel Cota MD 230 [place] [address] 07/25/2025 8:00 AM EST Office Visit [facility] ADULT DENTAL [address] [place] [address] Katelyn Waldrop [address] [place] [address] documented as of this encounter Visit Diagnoses Not on filedocumented in this encounter Care Teams Cemetery Manager Relationship Specialty Start Date End Date Jameel Cota MD [address] [place] [address] PCP - General Internal Medicine 04/10/14 Regine Hawkins PharmD [address] [place] [address]8784 Pharmacist Internal Medicine 08/18/22 09/28/24 Essie Mehta PharmD [address] [place] [address] 37534 Pharmacist Internal Medicine 09/29/24 09/30/24 documented as of this encounter
--- OUTSIDE RECORDS SUMMARY | 2025-03-24 14:34 | XMS_ITS | Encounter Summary ---
Author Organization [employer] Address [address] [place] [address] 7t [place] [address] Care Team Providers Care Distiller Name Role Phone Jameel Cota MD Primary Care Provide r Regine Hawkins PharmD Unavailable [phone] Essie Mehta PharmD Unavailable [phone] Encounter Details Date Type Department Care Team (Late st Contact Info) Description 06/11/2022 Orders Only [facility] MED [facility] PEDS [address] [place] [address] Gosia Britt LPN Social History Tobacco Use [...] Description 05/16/2025 10:15 AM EST Office Visit [facility] MEDICINE [address] [place] [address] Jameel Cota MD [address] [place] [address] 07/25/2025 8:00 AM EST Office Visit [facility] ADULT DENTAL [address] [place], [place] [phone] Katelyn Waldrop [address] [place] [address] documented as of this encounter Visit Diagnoses Not on filedocumented in this encounter Care Teams Distiller Relationship Specialty Start Date End Date Jameel Cota MD [address] [place] [address] 32041 PCP - General Internal Medicine 04/10/14 Regine Hawkins PharmD [address] [place] [address] 7[address]40 Pharmacist Internal Medicine 08/18/22 09/28/24 Essie Mehta PharmD [address] [place] [address] 93050 Pharmacist Internal Medicine 09/29/24 09/30/24 documented as of this encounter
--- OUTSIDE RECORDS SUMMARY | 2025-03-24 14:34 | XMS_ITS | Encounter Summary ---
Author Organization [employer] Address [address] [place] [address] 7t [place] [address] Care Team Providers Care Software Quality Assurance Specialist Name Role Phone Jameel Cota MD Primary Care Provide r Regine Hawkins PharmD Unavailable [phone] Essie Mehta PharmD Unavailable [phone] Encounter Details Date Type Department Care Team (Late Contact Info) Description 07/14/2022 Orders Only [facility] MEDICINE [address] [place] [address] Britany Bell LPN Social History Tobacco Use [...] Description 05/16/2025 10:15 AM EST Office Visit [facility] MEDICINE [address] [place] [address] [phone] Jameel Cota MD 230 [place], [place] [phone] 07/25/2025 8:00 AM EST Office Visit [facility] ADULT DENTAL [address] [place] [address] Katelyn Waldrop [address] [place] [address] documented as of this encounter Procedures Procedure Name Priority Date/Time Associated Diagnosis Comments GLUCOSE, WHOLE BLOOD Routine 07/14/2022 12:40 PM EST documented in this encounter Results * GLUCOSE, WHOLE BLOOD (07/14/2022 12:40 PM EST) Glucose, Whole Blood 111 60 - 115 mg/dL [facility] Comment:METER #: [id number] 07/14/2022 12:4 0 PM EST 07/14/2022 12:45 PM EST us [facility] External Provider LAB BLO OD ORDERABLES Final Result [facility] [address] [place] [address] [phone] documented in this encounter Visit Diagnoses Not on filedocumented in this encounter Care Teams Software Quality Assurance Specialist Relationship Specialty Start Date End Date J[place] [address] PCP - General Internal Medicine 04/10/14 Regine Hawkins, [place] [address] Pharmacist Internal Medicine 08/18/22 09/28/24 Essie Mehta, [place] [address] Pharmacist Internal Medicine 09/29/24 09/30/24 documented as of this encounter
--- OUTSIDE RECORDS SUMMARY | 2025-03-24 14:34 | XMS_ITS | Encounter Summary ---
Author Organization [employer] Address [address] [place] [address] 7t [place] [address] Care Team Providers Care Bread Panner Name Role Phone Jameel Cota MD Primary Care Provide r Regine Hawkins PharmD Unavailable [phone] Essie Mehta PharmD Unavailable [phone] Encounter Details Date Type Department Care Team (Late st Contact Info) Description 08/05/2022 Orders Only [facility] MED & PEDS [address] [place] [address] Gosia Britt LPN Social History Tobacco Use [...] 10:15 AM EST Office Visit [facility] MEDICINE [address] [place] [address] Jameel Cota MD [address] [place] [address] 07/25/2025 8:00 AM EST Office Visit [facility] ADULT DENTAL [address] [place], [place] [phone] Katelyn Waldrop [address] [place] [address] documented as of this encounter Visit Diagnoses Not on filedocumented in this encounter Care Teams Bread Panner Relationship Specialty Start Date End Date Jameel Cota MD [address] [place] [address] PCP - General Internal Medicine 04/10/14 Regine Hawkins, ItaliaD [address] [place] [address] Pharmacist Internal Medicine 08/18/22 09/28/24 Essie Mheta PharmD [address] [place] [address] Pharmacist Internal Medicine 09/29/24 09/30/24 documented as of this encounter
--- OUTSIDE RECORDS SUMMARY | 2025-03-24 14:34 | XMS_ITS | Encounter Summary ---
Author Organization [employer] Address [address] [facility] 7t [place] [address] Care Team Providers Care Deck And Hull Assembler Name Role Phone Jameel Cota MD Primary Care Provide r Encounter Details Date Type Department Care Team (Latest Contact Info) Description 03/24/2025 Travel Social History Tobacco Use Types Packs/Day [...] Visit [facility] MEDICINE [address] [place] [address] Jameel Cota MD [address] [place] [address] 07/25/2025 8:00 AM EST Office Visit [facility] ADULT DENTAL [address] [place] [address] Palma, Katelyn [address] [place] [address] documented as of this encounter Goals Goal [...] documented as of this encounter Care Teams Deck And Hull Assembler Relationship Specialty Start Date End Date Jameel Cota MD [address] [place] [address] PCP - General Internal Medicine 04/10/14 documented as of this encounter
--- OUTSIDE RECORDS SUMMARY | 2025-03-24 14:34 | XMS_ITS | Encounter Summary ---
Author Organization [employer] Address [address] [facility] 7t [place] [address] Care Team Providers Care Sales Communications Manager Name Role Phone Jameel Cota MD Primary Care Provide r Regine Hawkins PharmD Unavailable [phone] Essie Mehta PharmD Unavailable [phone] Reason for Visit * Reason Onset Date Comments Pre Op 07/03/2023 Encounter Details Date Type Department Care Team (Late st Contact Info) Description 07/03/2023 Telephone [facility] MEDICINE [address] [place], [place] [phone] Jameel Cota MD [address] [place], [place] [phone] Pre Op Social History Tobacco Use Types [...] yes Surgeon's name: Cj Maddox Facility name: [facility] Surgeon's office number: [phone] opt 3 Surgeon's office fax number: [phone] Contact name (person you spoke with): Shanita documented in this encounter Plan of Treatment Upcoming Encounters Date Type Department Care Team (Late st Contact Info) Description 05/16/2025 10:15 AM EST Office Visit [facility] MEDICINE [address] [place] [address] Jameel Cota MD [address] [place] [address] 07/25/2025 8:00 AM EST Office Visit [facility] ADULT DENTAL [address] [place] [address] Katelyn Waldrop [address] [place] [address] documented as of this encounter Goals Goal [...] documented as of this encounter Care Teams Sales Communications Manager Relationship Specialty Start Date End Date Jameel Cota MD [address] [place] [address] PCP - General Internal Medicine 04/10/14 Regine Hawkins, ItaliaD [address] [place] [address] Pharmacist Internal Medicine 08/18/22 09/28/24 Essie Mehta PharmD [address] [place] [address] Pharmacist Internal Medicine 09/29/24 09/30/24 documented as of this encounter
[2025-03-24 15:29] LABS: Appearance Urine Clear; Glucose Urine UA Negative (Negative); PH 7.5 (5.0-9.0); Specific Gravity - Urine 1.015 (1.005-1.025); UMIC TRIGGER UACC YES
[2025-03-24 16:33] VITALS: BP 115/73; PULSE 67; RESP 16; TEMP 36.3; O2SAT 94
== END 2025-03-24 16:45 | disposition home or self-care (01) ==
PROVIDERS: Physician Assistant; Emergency Provider Emergency Medicine; PCP Internal Medicine
DX: N20.0 Calculus of kidney (principal); R11.2 Nausea with vomiting, unspecified; I10 Essential (primary) hypertension; R10.31 Right lower quadrant pain; E11.9 Type 2 diabetes mellitus without complications; Z79.899 Other long term (current) drug therapy; Z79.84 Long term (current) use of oral hypoglycemic drugs
CPT/HCPCS: 36415; 74177; 80053; 81001; 83690; 85025; 96361; 96374; 96375; 96376; 99284; 99285; J1885; J2270; J2405; Q9967

== ENCOUNTER → 2025-03-24 12:29 | Outpatient (BNV) | payer OTHER, SELFPAY | PROVIDERS: PCP Internal Medicine; Visit Provider Radiology Diagnostic Radiology | DX: N13.2 Hydronephrosis with renal and ureteral calculous obstruction (principal); N28.1 Cyst of kidney, acquired | CPT/HCPCS: 74177 ==

== ENCOUNTER 2025-05-09 10:28 | Outpatient (AMB) | payer OTHER, SELFPAY ==
--- NOTE | 2025-05-09 10:36 | MHC.OFFVIS ---
Intake Visit Reasons: Kidney stone ( UA ONLY IF SX ) SET Intake Note: Patient is present for Emergency Room Follow up from DOS 03/24/25 Urology Medication:TAMSULOSIN, MELOXICAM Antibiotic Allergy:NONE Blood Thinner:ASPIRIN Imaging : Abd CT 03/24/25 Novelties Sales Representative Required: No Accompanied by: Self / Same As Patient Allergies No Known Allergies (No Known Allergies*) Allergy (Verified 05/09/25 10:37) HPI Comments Details: Jabari is a pleasant [place] Verdean-speaking male. He is a patient of Dr. English. He seen for the following urologic conditions - lower urinary tract symptoms - apical prostatic stricture - nephrolithiasis Recent nephrolithiasis Had stone and presented through emergency room CT scan showed right proximal ureteric stone Appears to have resolved Plan follow-up imaging Lower urinary tract symptoms background diabetes TURP 2018 Had presented with weakness of stream and found to have apical stricture which was dilated 03/31 DVIU with apical incision PVR 0 cc PFSH Medical History (Updated 05/09/25 @ 12:14 by Cj Maddox MD) Kidney calculi Cough due to bronchospasm Restrictive lung disease Obesity (BMI 30.0-34.9) Cough due to LUZ inhibitor Atypical chest pain RANDELL (obstructive sleep apnea) Nocturia Bladder outlet obstruction Weak urinary stream Diabetes mellitus Hyperlipidemia HTN (hypertension) Anemia Surgical History Hx of colonoscopy Hx of cystoscopy Hx of transurethral resection of prostate Family History Maternal Grandfather Colon cancer Mother Stomach cancer Maternal Aunt Metastatic cancer Brother Stomach cancer Social History Are you a primary careers adviser to a significant other at home: No Do you presently have visiting nurse or other home services: No Patient Tobacco Use Status: Never used Tobacco Current occupational status: unemployed and disabled Review of Systems Const Denies chills and Denies fever(s) Card Reports no additional complaints and Denies syncope Resp Denies cough GI Denies abdominal pain and Denies heartburn Reports as per HPI and Denies change in libido Neuro Denies syncope Psych Denies change in libido Endo Denies change in libido Physical Exam Const General: cooperative, healthy appearing, comfortable and no acute distress Orientation/consciousness: patient oriented x3 HEENT Face and sinus: Yes normal facial exam Mouth: moist mucous membranes Neck Neck: Yes normal visual inspection, Yes full ROM and Yes trachea midline Chest Chest palpation & inspection: normal inspection of the chest Resp Effort & Inspection: normal respiratory effort, able to speak in complete sentences and no respiratory distress GI Inspection: Yes normal to inspection Back/Spine/Pelvis Cervical Spine: normal cervical lordosis Thoracic/Lumbar Spine: thoracic and lumbar spine normal to inspection Skin General skin exam: no rashes or lesions noted Neuro General: patient oriented x3, gait normal, tone normal and moves all extremities Extrem General: Yes normal to inspection and Yes capillary refill normal Results AMB Urinalysis, Automated UA Leukoctes 0 Anastacia/uL Last Edit by Nazia Bush [facility] on 05/09/25 13:28 UA Nitrite Negative Last Edit by Nazia Bush [facility] on 05/09/25 13:28 UA Urobilinogen 0.2 mg/dL Last Edit by Nazia Bush [facility] on 05/09/25 13:28 UA Protein 0 mg/dL Last Edit by Nazia Bush [facility] on 05/09/25 13:28 UA pH 6.0 Last Edit by Nazia Bush [facility] on 05/09/25 13:28 UA Blood 0 Mingo/uL Last Edit by Nazia Bush [facility] on 05/09/25 13:28 UA Specific Cochran 1.015 Last Edit by Nazia Bush [facility] on 05/09/25 13:28 UA Ketone Negative Last Edit by Nazia Bush [facility] on 05/09/25 13:28 UA Bilirubin 0 mg/dL Last Edit by Nazia Bush [facility] on 05/09/25 13:28 UA Glucose 0 mg/dL Last Edit by Nazia Bush [facility] on 05/09/25 13:28 Results Reviewed Results Reviewed: Laboratory Last Values Urine pH (Auto) 6.0 05/09/25 13: Specific Cochran (Auto) 1.015 05/09/25 13:26 Urine Protein (Auto) 0 mg/dL 05/09/25 13:26 Glucose (UA)(Auto) 0 mg/dL 05/09/25 13:26 Urine Ketones (Auto) Negative 05/09/25 13: Urine Blood (Auto) 0 Mingo/uL 05/09/25 13:26 Urine Nitrite (Auto) Negative 05/09/25 13:26 Urine Bilirubin (Auto) 0 mg/dL 05/09/25 13:26 Urine Urobilinogen (Auto) 0.2 mg/dL 05/09/25 13:26 Leukocyte Esterase (Auto) 0 Anastacia/uL 05/09/25 13:26 Assessment & Plan Assessment & Plan (1) Kidney calculi: Code(s): N20.0 - Calculus of kidney Category: Medical Plan Four-month follow-up renal ultrasound Orders: Orders US renal BI 4 Months N20.0 - Calculus of kidney AMB Urinalysis Automated Today N20.0 - Calculus of kidney Patient Instructions: This note is constructed using voice recognition software. While every effort has been made to ensure accuracy supervisor varnish errors may have been included. Imaging studies, laboratory and physical exam results were discussed and reviewed in detail. No major barriers to patient understanding were identified. An opportunity to ask questions regarding the treatment plan was provided. All questions were answered. The patient expressed understanding and agreement with the above treatment plan. The patient is aware they should contact our office by phone for worsening of their current condition or the appearance of new urologic symptoms. Compliance is encouraged with any medications and followup testing that is ordered. It is a privilege to participate in the urologic care of your patient. If you have any questions or concerns regarding treatment for the above conditions, or other urologic issues, please do not hesitate to contact me. The office telephone contact is [phone]. Sincerely, Dr Cj Maddox MD, [facility] - Urology Compassionate Specialist Care for the Genitourinary System Coding Level of Care Code Est Pt Level 3 (29000) Complex visit Add On G2211 Diagnoses Kidney calculi N20.0
--- OUTSIDE RECORDS SUMMARY | 2025-05-09 12:03 | XMS_ITS | Encounter Summary ---
Author Organization [employer] Address [address] [place] [address] 7[address] [place] [address] Care Team Providers Care Printer'S Devil Name Role Phone Jameel Cota MD Primary Care Provide r Regine Hawkins PharmD Unavailable [phone] Essie Mehta PharmD Unavailable [phone] Encounter Details Date Type Department Care Team (Late Contact Info) Description 07/14/2022 Orders Only [facility] [address] [place] [phone] Britany Bell LPN Social History Tobacco Use [...] Description 05/16/2025 10:15 AM EST Office Visit [facility] [address] [place] [address] [phone] Jameel Cota MD [address] [place], [place] [phone] 07/25/2025 8:00 AM EST Office Visit [facility] ADULT DENTAL [address] [place] [address] Katelyn Waldrop [address] [place] [address] documented as of this encounter Procedures Procedure Name Priority Date/Time Associated Diagnosis Comments GLUCOSE, WHOLE BLOOD Routine 07/14/2022 12:40 PM EST documented in this encounter Results * GLUCOSE, WHOLE BLOOD (07/14/2022 12:40 PM EST) Glucose, Whole Blood 111 60 - 115 mg/dL [facility] Comment:METER #: [id number] 07/14/2022 12:4 0 PM EST 07/14/2022 12:45 PM EST us [facility] External Provider LAB BLO OD ORDERABLES Final Result [facility] [address] [place] [address] [phone] documented in this encounter Visit Diagnoses Not on filedocumented in this encounter Care Teams Printer'S Devil Relationship Specialty Start Date End Date [place] [address] PCP - General Internal Medicine 04/10/14 Regine Hawkins, [place] [address] Pharmacist Internal Medicine 08/18/22 09/28/24 Essie Mehta, [place] [address] Pharmacist Internal Medicine 09/29/24 09/30/24 documented as of this encounter
--- OUTSIDE RECORDS SUMMARY | 2025-05-09 12:03 | XMS_ITS | Encounter Summary ---
Author Organization [employer] [facility] Address [address] [place] [address] 7t [place] [address] Care Team Providers Care Youth Care Specialist Name Role Phone Jameel Cota MD Primary Care Provide r Regine Hawkins PharmD Unavailable [phone] Essie Mehta PharmD Unavailable [phone] Encounter Details Date Type Department Care Team (Latest Contact Info) Description 11/13/2020 Abstract [facility] CONVERSIONS Dental, Provider, DDS Social [...] Description 05/16/2025 10:15 AM EST Office Visit [facility] MEDICINE [address] [place] [address] Jameel Cota MD [address] [place] [address] 07/25/2025 8:00 AM EST Office Visit [facility] ADULT DENTAL [address] [place] [address] Katelyn Waldrop [address] [place] [address] documented as of this encounter Visit Diagnoses Not on filedocumented in this encounter Care Teams Youth Care Specialist Relationship Specialty Start Date End Date Jameel Cota MD [address] [place] [phone] PCP - General Internal Medicine 04/10/14 Regine Hawkins PharmD [address] [place] [phone] Pharmacist Internal Medicine 08/18/22 09/28/24 Essie Mehta PharmD [address] [place] [phone] Pharmacist Internal Medicine 09/29/24 09/30/24 documented as of this encounter
--- OUTSIDE RECORDS SUMMARY | 2025-05-09 12:03 | XMS_ITS | Encounter Summary ---
Author Organization [employer] Address [address] [facility] 7t [place] [address] Care Team Providers Care Welder Experimental Name Role Phone Jameel Cota MD Primary Care Provide r Regine Hawkins PharmD Unavailable [phone] Essie Mehta PharmD Unavailable [phone] Encounter Details Date Type Department Care Team ([facility] Contact Info) Description 08/28/2022 Orders Only [facility] CHC MED & PEDS [address] [place], [place] [phone] Gosia Britt LPN Social History Tobacco Use [...] Upcoming Encounters Date Type Department Care Team ([facility] Contact Info) Description 05/16/2025 10:15 AM EST Office Visit [facility] MEDICINE [address] [place] [address] Jameel Cota MD [address] [place] [address] 07/25/2025 8:00 AM EST Office Visit [facility] ADULT DENTAL [address] [place] [address] Katelyn Waldrop [address] [place] [address] documented as of this encounter Goals Goal Patient Goal Type Associated Problems Recent Progress Patient-Stated? Author Remain at or Below Target Blood Pressure General On track(07/13/19 4:09 PM EST) No Regine Hawkins, ItaliaD documented as of this encounter Visit Diagnoses Not on filedocumented in this encounter Care Teams Welder Experimental Relationship Specialty Start Date End Date Jameel Cota MD [address] [place] [phone] PCP - General Internal Medicine 04/10/14 Regine Hawkins, PharmD [address] [place] [phone] Pharmacist Internal Medicine 08/18/22 09/28/24 Essie Mehta, ItaliaD [address] [place] [phone] Pharmacist Internal Medicine 09/29/24 09/30/24 documented as of this encounter
--- OUTSIDE RECORDS SUMMARY | 2025-05-09 12:03 | XMS_ITS | Encounter Summary ---
Author Organization [employer] [facility] Address [address] [place] [address] 7t [place] [address] Care Team Providers Care Discovery Guide Name Role Phone Jameel Cota MD Primary Care Provide r Regine Hawkins PharmD Unavailable [phone] Essie Mehta PharmD Unavailable [phone] Reason for Visit * Reason Comments Med Refill Encounter Details Date Type Department Care Team (Late st Contact Info) Description 01/15/2023 Refill [facility] MEDICINE [address] [place] [address] Name, MD Дмитрий [address] [place], [place] [phone] Mixed hyperlipidemia Social History Tobacco Use Types [...] Description 05/16/2025 10:15 AM EST Office Visit [facility] MEDICINE [address] [place] [address] Jameel Cota MD [address] [place] [address] 07/25/2025 8:00 AM EST Office Visit [facility] ADULT DENTAL [address] [place] [address] Katelyn Waldrop [address] [place] [address] documented as of this encounter Goals Goal Patient Goal Type Associated Problems Recent Progress Patient-Stated? Author Remain at or Below Target Blood Pressure General On track(07/13/19 4:09 PM EST) No Regine Hawkins, PharmD documented as of this encounter Visit Diagnoses Diagnosis Mixed hyperlipidemia documented in this encounter Care Teams Discovery Guide Relationship Specialty Start Date End Date Jameel Cota MD [address] [place] [address] PCP - General Internal Medicine 04/10/14 Regine Hawkins, PharmD [address] [place] [phone] Pharmacist Internal Medicine 08/18/22 09/28/24 Essie Mehta, ItaliaD [address] [place] [address] Pharmacist Internal Medicine 09/29/24 09/30/24 documented as of this encounter
--- OUTSIDE RECORDS SUMMARY | 2025-05-09 12:03 | XMS_ITS | Encounter Summary ---
Author Organization [employer] Address [address] [facility] 7 [place] [address] Care Team Providers Care Safety Engineer Pressure Vessels Name Role Phone Jameel Cota MD Primary Care Provide r Reason for Visit * Reason Comments Pre-visit Planning SDOH screening was c ompleted on 07/20/2024 Encounter Details Date Type Department Care Team ([facility] st Contact Info) Description 05/08/2025 Patient Outreach [facility]ICINE [address] [place] [address] Jameel Cota MD [address] [place] [address] Pre-visit Planning (SDOH screening was completed on 07/20/2024) Social History Tobacco Use Types Packs/Day Years [...] encounter Progress Notes * Yazmin Delgado - 05/08/2025 10:04 AM EST [facility] placed successful outbound call to patient for pre-visit planning. Patient name and confirmed. Patient confirms appt date and time, and has transportation arrangements. Biggest concern for appointment at this time is has few concerns but will talk to provider in person. Patient advised to bring to appointment a photo id and insurance card. Appropriate screenings completed in anticipation of appointment. documented in this encounter Plan of Treatment Upcoming Encounters Date Type Department Care Team (Late st Contact Info) Description 05/16/2025 10:15 AM EST Office Visit [facility] [address] [place] [address] Jameel Cota MD [address] [place] [address] 07/25/2025 8:00 AM EST Office Visit [facility] ADULT DENTAL [address] [place] [address] Katelyn Waldrop [address] [place] [address] documented as of this encounter Goals Goal Patient Goal Type Associated Problems Recent Progress Patient-Stated? Author Remain at or Below Target Blood Pressure General On track(07/13/19 4:09 PM EST) Regine Gar, ItaliaD Help patients manage their type 2 diabetes Care Plan Help patients manage their type 2 diabetes No Yazmin Delgado Weekly blood pressure task Care Plan Weekly blood pressure task No Yazmin Delgado documented as of this encounter Visit Diagnoses Not on filedocumented in this encounter Additional Health Concerns Active Problems Noted Date Diagnosed Date Help patients manage their type 2 diabetes 05/08 Weekly blood pressure task 05/08/2025 Assessment Noted Time PHQ-9 Depression Total Score: 0 04/07/20 24 9:52 AM EDT documented as of this encounter Care Teams Safety Engineer Pressure Vessels Relationship Specialty Start Date End Date Jameel Cota MD [address] [place] [address] PCP - General Internal Medicine 04/10/14 documented as of this encounter
--- OUTSIDE RECORDS SUMMARY | 2025-05-09 12:03 | XMS_ITS | Encounter Summary ---
Author Organization [employer] Address [address] [place] [address] 7t [place] [address] Care Team Providers Care Strip Mine Supervisor Name Role Phone Jameel Cota MD Primary Care Provide r Regine Hawkins PharmD Unavailable [phone] Essie Mehta PharmD Unavailable [phone] Encounter Details Date Type Department Care Team (Late st Contact Info) Description 06/11/2022 Orders Only [facility] CHC MED & PEDS [address] [place] [address] Gosia Britt LPN Social History Tobacco Use [...] Description 05/16/2025 10:15 AM EST Office Visit [facility] MEDICINE [address] [place] [address] Jameel Cota MD [address] [place] [address] 07/25/2025 8:00 AM EST Office Visit [facility] ADULT DENTAL [address] [place], [place] [phone] Katelyn Waldrop [address] [place] [address] documented as of this encounter Visit Diagnoses Not on filedocumented in this encounter Care Teams Strip Mine Supervisor Relationship Specialty Start Date End Date Jameel Cota MD [address] [place] [phone] PCP - General Internal Medicine 04/10/14 Regine Hawkins PharmD [address] [place] [address] Pharmacist Internal Medicine 08/18/22 09/28/24 Essie Mehta PharmD [address] [place] [phone] Pharmacist Internal Medicine 09/29/24 09/30/24 documented as of this encounter
--- OUTSIDE RECORDS SUMMARY | 2025-05-09 12:03 | XMS_ITS | Encounter Summary ---
Author Organization [employer] Address [address] [facility] 7t [place] [address] Care Team Providers Care [employer] Rep Name Role Phone Jameel Cota MD Primary Care Provide r Regine Hawkins PharmD Unavailable [phone] Essie Mehta PharmD Unavailable [phone] Encounter Details Date Type Department Care Team (Late Contact Info) Description 08/18/2022 Orders Only [facility] MEDICINE [address] [place] [address] Angel Hawkinsrinatalia, PharmD [address] [place] [address] Social History Tobacco Use Types Packs/Day Years [...] Description 05/16/2025 10:15 AM EST Office Visit [facility] [address] [place] [address] Jameel Cota MD [address] [place] [address] 07/25/2025 8:00 AM EST Office Visit [facility] ADULT DENTAL [address] [place] [address] Robert Waldroparis [address] [place] [address] documented as of this encounter Goals Goal Patient Goal Type Associated Problems Recent Progress Patient-Stated? Author Remain at or Below Target Blood Pressure General On track(07/13/19 24 4:09 PM EST) No Regine Hawkins, PharmD documented as of this encounter Visit Diagnoses Not on filedocumented in this encounter Care Teams [employer] Rep Relationship Specialty Start Date End Date Jameel Cota MD [address] [place] [phone] PCP - General Internal Medicine 04/10/14 Regine Hawkins, PharmD [address] [place] [address] Pharmacist Internal Medicine 08/18/22 09/28/24 Essie Mehta PharmD [address] [place] [phone] Pharmacist Internal Medicine 09/29/24 09/30/24 documented as of this encounter
--- OUTSIDE RECORDS SUMMARY | 2025-05-09 12:03 | XMS_ITS | Clinical Summary ---
Author Organization [employer] Address [address] [place] [address] 7[address] [place] [address] Care Team Providers Care Bag Cutter Name Role Phone Jameel Cota MD [...] 3 025 Active Blood Glucose Monitoring Suppl ([employer] 2) w/Device kitIndications:Ty pe 2 diabetes mellitus [...] and with evening meal. 120 capsule 11 05/02/20 10:03 AM EST 025 2025 Active docusate sodium (Colace) 100 [...] AND EVENING WITH FOOD 360 tablet 3 05/02/20 10:03 AM EST 025 Active fluticasone (Flonase) 50 MCG/ACT nasal sprayIndications: Chronic cough USE 1 SPRAY IN EACH NOSTRIL EVERY DAY 16 g 2 11/25/20 25 10:03 AM EST Active Alcohol Swabs (Alcohol Prep) 70 % padsIndications:T ype 2 diabetes mellitus without complication, without long-term current use of insulin ([facility]) USE DIRECTED ONCE DAILY 100 each 11 [...] CRUSH, DISSOLVE OR CHEW 30 capsule 3 05/02/20 10:03 AM EST Active glucose blood (ScopixTouch Ultra Test) test strip USE DIRECTED TO TEST BLOOD SUGAR TWICE DAILY 100 strip 11 Active Lancets (ScopixTouch Delica Plus [id number]) miscIndications:T ype 2 diabetes mellitus without complication, without long-term current use of insulin ([facility]) USE DIRECTED TO TEST BLOOD SUGAR TWICE DAILY 100 each 11 Active cetirizine (ZyrTEC) 10 MG tabletIndications :Chronic cough TAKE 1 TABLET BY MOUTH EVERY DAY 30 tablet 2 05/02/20 25 10:03 AM EST 025 Active cetirizine (ZyrTEC) 10 MG tabletIndications :Chronic cough TAKE 1 TABLET BY MOUTH ONCE DAILY 30 tablet 2 2024 Discontinued Active Problems Problem Noted Date [...] on: 01/16/[address] Adelina Gore No DR Microalbumin [...] followed by Iliana and Dr. Duque at [facility]. He is at his baseline and [...] nurse for medications. He is followed at [facility]. He is at his baseline and [...] followed by Iliana and Dr. Duque at [facility]. He is at his baseline and [...] followed by Iliana and Dr. Duque at [facility]. He is at his baseline and [...] changes. Last seen at [facility] 11/17/12 with plan to repeat [...] Vicodin 1-2 times a day. Seen at [facility] and received an epidural [...] Vicodin 1-2 times a day. Seen at [facility] Pain management clinic and received an epidural [...] Vicodin 1-2 times a day. Seen at [facility] Pain management clinic and received an epidural [...] Vicodin 1-2 times a day. Seen at [facility] Pain management clinic and received an epidural [...] Encounters Date Type Department Care Team Description 05/08/2025 Patient Outreach [facility] [address] [place] [address] Jameel Cota MD Pre-visit Planning (SDOH screening was completed on 07/20/2024) 04/22/2025 Refill [facility] [address] [place] [address] Ami Dunlap ANP Chronic cough 03/24/2025 11:00 AM EDT Office Visit [facility] [address] [place] [address] Esequiel Diehl MD RLQ abdominal pain (Primary Dx) 03/24/2025 Orders Only GENERIC EXTERNAL DATA DEPARTMENT Provider, Generic External Data 03/24/2025 Travel 03/10/2025 Refill [facility] [address] [place], [place] [phone] Jameel Cota MD Type 2 diabetes mellitus without complication, without long-term current use of insulin ([facility]) 02/20/2025 11:00 AM EDT Office Visit [facility] [address] [place] [address] Katelyn Waldrop Stage 3 grade B generalized periodontitis per AAP/EFP 2017 classification (Primary Dx); Dental calculus 02/20/2025 Telephone [facility] [address] [place] [address] Jameel Cota MD May02/18/2025 Refill [facility] [address] [place] [address] Jameel Cota MD Chronic cough 02/14/2025 Travel 02/13/2025 11:00 AM EDT Office Visit [facility] [address] [place] [address] Katelyn Waldrop Stage 3 grade B generalized periodontitis per AAP/EFP 2017 classification (Primary Dx); Dental calculus 2025 Telephone [facility] [address] [place] [address] Jameel Cota MD IZ 02/07/2025 9:15 AM EDT Office Visit [facility] [address] [place] [address] Jameel Cota MD Type 2 diabetes mellitus without complication, without long-term current use of insulin ([facility]) (Primary Dx); Benign hypertension; Chronic cough; Benign prostatic hyperplasia with urinary frequency 02/07/2025 Travel from Last 3 Months Immunizations Immunization Administration [...] Description 05/16/2025 10:15 AM EST Office Visit [facility] [address] [place] [address] Jameel Cota MD [address] [place] [address] 07/25/2025 8:00 AM EST Office Visit [facility] [address] [place] [address] Katelyn Waldrop [address] [place] [address] Health Maintenance Due Date Last Done Comments CT Colonography 1960 FIT DNA/Cologuard 1960 FIT 1960 FOBT 1960 HIV Screening 1960 Sigmoidoscopy 1960 Diabetes: Foot Exam 02/09/1972 Lipid Panel 10/14/2024 10/15/2023, 06/09, 06/17/2022, Additional history exists COVID-19 Vaccine ( season) 2025 04/13/2024, 05/28/2022, 11/12/2021, Additional history exists Influenza Vaccine (#1) 2025 [...] 10/14/2027 Dental X-Ray: Full Mouth 01/20/2028 01/18/2025, 0601/2021 RSV Patients and Patients Aged 60 years or older (1 - 1-dose 75+ series) 2037 Hepatitis B Vaccines Completed 05/16/2009, 10/05/2008, 06/28/2008 Hepatitis C Screening Completed 12/31/2021 Pneumococcal Vaccine: 50+ Years Completed 02/07/2022, 05/10/2015, 09/20/2009 Zoster Vaccines Completed 04/09/2022, 02/07/2022 HIB Vaccines Aged Out No longer eligi [...] 4:09 PM EST) No Regine Hawkins, PharmD Help patients manage their type 2 diabetes Care Plan Help patients manage their type 2 diabetes No Yazmin Delgado Weekly blood pressure task Care Plan Weekly blood pressure task No Yazmin Delgado Procedures Procedure Name Priority Date/Time Associated Diagnosis Comments URINALYSIS, COMPLETE, WITH REFLEX TO CULTURE Routine 03/24/2025 3:[address] ABDOMEN PELVIS W CONTRAST Routine 03/24/2025 [...] complication, without long-term current use of insulin ([facility]) POCT GLUCOSE Routine 02/07/2025 9:25 AM EDT Type 2 diabetes mellitus without complication, without long-term current use of insulin ([facility]) PROPHYLAXIS - ADULT Routine 01/18/2025 8 :00 AM EDT Dental calculus Stage 3 grade B generalized periodontitis per AAP/EFP 2017 classification Gingival bleeding INTRAORAL - COMPLETE SERIES OF RADIOGRAPHIC IMAGES Routine 01/18/2025 8:00 AM EDT Missing teeth, acquired Dental calculus Erosion of teeth, limited to enamel Generalized gingival recession Stage 3 grade B generalized periodontitis per AAP/EFP 2017 classification PERIODIC ORAL EVALUATION - ESTABLISHED PATIENT Routine 01/18/2025 8:00 AM EDT Missing teeth, acquired Dental calculus Erosion of teeth, limited to enamel Generalized gingival recession Stage 3 grade B generalized periodontitis per AAP/EFP 2017 classification Gingival bleeding Encounter for dental examination HM COLONOSCOPY Routine 10/13/2024 ALBUMIN, RANDOM URINE W/CREATININE Routine 08/02/2024 3:36 PM EST Type 2 diabetes mellitus without complication, without long-term current use of insulin ([facility]) LIPID PANEL, STANDARD Routine 10/15/2023 8:52 AM EDT Type 2 diabetes mellitus without complication, without long-term current use of insulin ([facility]) ZZZ HISTORICAL HEPATITIS C AB W/REFL TO HCV RNA, QN, PCR Routine 12/31/2021 3:04 PM EDT from Last 3 Months or Most Recently Relevant to Health Maintenance Results * (ABNORMAL) Urinalysis, Complete, with Reflex to Culture (03/24/2025 3:09 PM EDT) Color Urine Yellow [facility] Appearance Urine Clear [facility] PH 7.5 5.0 - 9.0 [facility] Glucose Urine UA Negative Negative mg/dL [facility] Urine Blood Moderate (2+)(A) Negative [facility] Specific [place] - Urine 1.015 1.005 - 1.025 [facility] Urine Protein Negative Neg-Trace mg/dL [facility] Urine Ketones Negative Negative mg/dL [facility] Nitrite Urine Negative Negative [facility] Leukocyte Esterase Urine Negative Negative [facility] RBC Urine >20(A) 0 - 2 /HPF [facility] Urine WBC 0-5 0 - 5 /HPF [facility] Urine Squamous Epithelial Cell 0-2 0 - 2 /HPF [facility] Urine Bacteria None Seen None Seen [facility] Hyaline Casts, Urine 0-2 0 - 2 /LPF [facility] 03/24/2025 3:09 PM EDT 03/24/2025 3:20 PM EDT Narrative [facility] - 03/24/2025 3:52 PM EDT Urine, Clean Catch us Generic External Data Provider LAB URINE ORDERAB LES Final Result Performing Organization Address City/State/[facility] de Phone Number [facility] [address] [place] [address] [phone] * CT Abdomen Pelvis w/ Contrast (03/24/2025 1:23 PM EDT) Anatomical Region Laterality Modality Body, Pelvis, Abdomen Computed T omography 03/24/2025 1:23 PM EDT Narrative 03/24/2025 2:28 PM EDT [address] [address] [address] Scan Report Signed Patient: Jabari Chavis MR#: [id number] [birth year] : 1960 Acct:[id number] Age/Sex: 65 / M ADM Date: 03/24/25 Loc: HO.ED Attending Dr: Ordering Physician: Kezia Harris Date of Service: 03/24/25 Procedure(s): CT abdomen pelvis w IV con Accession Number(s): [id number] cc: Jameel Patel MD; Kezia Harris Report Number: [id number]: Total DLP = 877.00 mGy-cm Reason for [...] 03/24/25 1425 DD/ 1323 TD/TT: 03/24/25 1407 Savings Teller: Procedure Note Donotuseinterpreter, Image - 03/24/[address] [place] [address] [address] Scan Report Signed Patient: Jabari Chavis#: [id number] [birth year] : 1960cct:[id number] Age/Sex: 65 / MADM Date: 03/24/25 Loc: HO.ED Attending Dr: Ordering Physician: Kezia Harris Date of Service: 03/24/25 Procedure(s): CT abdomen pelvis w IV con Accession Number(s): [id number] cc: Jameel Patel MD; Kezia Harris Report Number: [id number]: Total DLP = 877.00 mGy-cm Reason for [...] 03/24/25 1425 DD/ 1323 TD/TT: 03/24/25 1407 Savings Teller: [facility] External Provider IMG CT PROCEDURES Final Result * (ABNORMAL) CBC auto differential (03/24/2025 11:40 AM EDT) White Blood Count 6.0 4.8 - 10.8 X10*3/uL [facility] Red Blood Count 4.54(L) 4.60 - 5.80 X10*6/uL [facility] Hemoglobin 12.9(L) 14.0 - 18.0 g/dl [facility] Hematocrit 38.5(L) 42.0 - 52.0 % [facility] Mean Corpuscular Volume 84.8 80.0 - 98.0 fL [facility] Mean Corpuscular Hemoglobin 28.4 27.0 - 33.0 pg [facility] Mean Corpuscular HGB Conc 33.5 31.0 - 36.0 g/dl [facility] Red Cell Distribution Width 12.7 11.0 - 16.0 % [facility] Platelet Count 247 160 - 400 X10*3/uL [facility] Mean Platelet Volume 9.5 9.4 - 12.4 fL [facility] Neutrophils Percent Auto 70.5 45 - 73 % [facility] Imm Gran Pct Auto 0.3 0.0 - 0.4 % [facility] Lymphocytes Percent Auto 18.5(L) 20 - 40 % [facility] Monocytes Percent Auto 8.4 2 - 11 % [facility] Eosinophils Percent Auto 2.0 0 - 4 % [facility] Basophils Percent Auto 0.3 0 - 2 % [facility] NRBC Pct Auto 0.0 0.0 - 0.2 /100WBC [facility] Neutrophils Absolute Auto 4.2 2.0 - 8.3 x10*3/uL [facility] Imm Gran Abs Auto 0.02 0.00 - 0.03 X10*3/uL [facility] Lymphocytes Absolute Auto 1.1(L) 1.2 - 4.9 X10*3/uL [facility] Monocytes Absolute Auto 0.5 0.1 - 1.2 X10*3/uL [facility] Eosinophils Absolute Auto 0.1 0.0 - 0.4 X10*3/uL [facility] Basophils Absolute Auto 0.0 0.0 - 0.2 X10*3/uL [facility] NRBC Abs Auto 0.000 0.0 - 0.012 X10*3/uL [facility] 03/24/2025 11:4 0 AM EDT 03/24/2025 11:43 AM EDT us Generic External Data Provider LAB BLOOD ORDERAB LES Final Result Performing Organization Address City/[facility]/ZIP Co de Phone Number [facility] [address] [place] [phone] * Lipase (03/24/2025 11:40 AM EDT) Lipase 27 8 - 78 U/L [facility] 03/24/2025 11:4 0 AM EDT 03/24/2025 11:43 AM EDT Generic External Data Provider LAB BLOOD ORDERAB LES Final Result Performing Organization Address [facility]/ZIP Co de Phone Number [facility] [address] [place] [phone] * (ABNORMAL) Comprehensive Metabolic Panel (03/24/2025 11:40 AM EDT) Sodium 142 135 - 145 mmol/L [facility] Potassium 3.7 3.3 - 5.1 mmol/L [facility] Comment:Slight Hemolysis.Int erpret result with caution. Chloride 102 96 - 108 mmol/L [facility] Carbon Dioxide 33(H) 22 - 29 mmol/L [facility] Anion Gap 11(L) 12 - 20 [facility] Urea Nitrogen (BUN) 15 9 - 16 mg/dL [facility] Creatinine, Serum 0.82 0.5 - 1.4 mg/dL [facility] Creatinine Clr Calc Pharmacy 96.2 [facility] Comment:eGFR (calculated fro m the MDRD study equation) and eCrCl(calculated from the Cockcroft-Gault equation) are based ondifferent parameters and may not yield comparable results.If eCrCl result is absurd, please check patient'sheight/weight. Estimated Glomerular Filt Rate >60 [facility] Comment:Chronic Kidney Disea se: Estimated GFR < 60 mL/min/[id number] Kidney Disease: Estimated GFR < 15 mL/min/1.73m2 Glucose 85 60 - 115 mg/dL [facility] Calcium 9.7 8.4 - 10.2 mg/dL [facility] Bilirubin, Total 0.8 0.0 - 1.0 mg/dL [facility] Aspartate Amino Transferase 28 5 - 37 U/L [facility] Comment:Slight Hemolysis.Int erpret result with caution. Alanine Aminotransferase 22 0 - 40 U/L [facility] Total Protein 7.3 6.5 - 8.0 g/dL [facility] Albumin Level 4.8 3.5 - 5.0 g/dL [facility] Alkaline Phosphatase 77 39 - 117 U/L [facility] 03/24/2025 11:4 0 AM EDT 03/24/2025 11:43 AM EDT us Generic External Data Provider LAB BLOOD ORDERAB LES Final Result [facility] [address] [place] [address] [phone] * (ABNORMAL) POCT glycosylated hemoglobin (Hgb A1c) (02/07/2025 9:49 AM EDT) Hemoglobin A1C 6.0(A) 4.0 - 5.7 % QC Media Lot # [id number] Lot# Expiration Date [id number] Blood Capillary blood specimen / Unknown 02/07/2025 9:49 AM EDT Jameel Goyal MD POINT OF CARE TEST EN TER/EDIT ORDERABLES Final Result * POCT glucose manually resulted (02/07/2025 9:25 AM EDT) Glucose Blood, POC 184 60 - 200 mg/dL QC Media Lot # [id number] Lot# Expiration Date , Blood Capillary blood specimen / Unknown 02/07/2025 9:25 AM EDT Jameel Goyal MD POINT OF CARE TEST EN TER/EDIT ORDERABLES Final Result * (ABNORMAL) Hm Colonoscopy (10/13/2024) Colonoscopy Abnormal( A) Normal Comment:tubular adenoma 10/13/2024 Historical Provider HEALTH MAINTENANCE Final Result * Albumin, Random Urine W/Creatinine (08/02/2024 3:36 PM EST) Creatinine, Urine 82.85 mg/dL [facility] Microalbumin Urine 9.0 mg/L [facility] Microalbum Creatinine Ratio Ur 10.8 <30 ug/mg cr [facility] Comment:Albumin/Creatinine R atio Reference Ranges: Normal: < 30 ug/mg creatinine Microalbuminuria: 30 - 300 ug/mg creatinineClinical Albuminuria: > 300 ug/mg creatinine Urine (Urine, Random) 08/02/2024 3:36 PM EST 08/02/2024 4:14 PM EST Jameel Goyal MD LAB URINE ORDERABLES Final Result [facility] [address] [place] [phone] * (ABNORMAL) Lipid Panel, Standard (10/15/2023 8:52 AM EDT) Triglycerides 76 <150 mg/dL [facility] Comment:Desirable Triglyceri de: less than 150 mg/dLBorderline High Triglyceride 150-199 mg/dLHigh Triglyceride: 200-499 mg/dLVery High Triglyceride: greater than or equal to 5OO mg/dL Cholesterol 84 <200 mg/dL [facility] Comment:Desirable Cholestero l: less than 200 mg/dLBorderline High Cholesterol: 200-239 mg/dLHigh Cholesterol: greater than 239 mg/dL LDL Cholesterol Calculated 37 <100 mg/dL [facility] Comment:Desirable LDL: less than 100 mg/dLNear Optimal/Above Optimal LDL: 110- 129 mg/dLBorderline High LDL: 130-159 mg/dLHigh LDL: 160-189 mg/dLVery High LDL: greater than or equal to 190 mg/dL HDL Cholesterol 32(L) >40 mg/dL [facility] Comment:Desirable HDL: great er than 40 mg/dL Note: This HDL assay may give artificially low results in patients with liver disease. Blood Venous blood specimen / Unknown 10/15/2023 8:52 AM EDT 10/15/2023 11:35 AM EDT Jameel Goyal MD LAB BLOOD ORDERABLES Final Result [facility] [address] [place] [phone] * HEPATITIS C AB W/REFL TO HCV RNA, QN, PCR (12/31/2021 3:04 PM EDT) HEPATITIS C ANTIBODY NON-REACT FARIDA NON-REACT [facility] INDEX 0.09 <1.00 [facility] Comment: HCV antibody was non-reactive. There is no laboratory evidence of HCV infection. In most cases, no further action is required. However, if recent HCV exposure is suspected, a test for HCV RNA (test code 14838) is suggested. For additional information please refer to http://education.DoubleRecall/faq/DXW22f3 (This link is being provided for informational/ educational purposes only.) 12/31/2021 3:04 PM EDT us Jameel Goyal MD HISTORICAL/NON ORDERA BLE LABS Final Result [facility] [address] [place] [address], from Last 3 Months or Most Recently Relevant to Health Maintenance Additional Health Concerns Active Problems Noted Date Diagnosed Date Help patients manage their type 2 diabetes 05/08 Weekly blood pressure task 05/08/2025 Insurance [facility] < 65 [facility] Member Subscriber Plan / Payer (Ef fective 2024-Present) Name:ParthaJabari Jos Relation to Subscriber:Self Name:Partha Jabari Arguello Payer ID:Not on file Group ID:Not on file Type:Not on file Address: [address] Care Teams Bag Cutter Relationship Specialty Start Date End Date Jameel Cota MD [address] [place] [address] PCP - General Internal Medicine 04/10/14
--- OUTSIDE RECORDS SUMMARY | 2025-05-09 12:03 | XMS_ITS | Encounter Summary ---
Author Organization [employer] Address [address] [place] [address] [address] [place] [address] Care Team Providers Care Medical Office Coordinator Name Role Phone Jameel Cota MD Primary Care Provide r Regine Hawkins PharmD Unavailable [phone] Essie Mehta PharmD Unavailable [phone] Encounter Details Date Type Department Care Team (Late st Contact Info) Description 08/05/2022 Orders Only [facility] [address] [place] [address] Gosia Britt LPN Social History Tobacco Use [...] 05/16/2025 10:15 AM EST Office Visit [facility] [address] [place] [address] Jameel Cota MD [address] [place] [address] 07/25/2025 8:00 AM EST Office Visit [facility] [address] [place], [place] [phone] Katelyn Waldrop [address] [place] [address] documented as of this encounter Visit Diagnoses Not on filedocumented in this encounter Care Teams Medical Office Coordinator Relationship Specialty Start Date End Date Jameel Cota MD [address] [place] [phone] PCP - General Internal Medicine 04/10/14 Regine Hawkins, ItaliaD [address] [place] [phone] Pharmacist Internal Medicine 08/18/22 09/28/24 Essie Mehta PharmD [address] [place] [phone] Pharmacist Internal Medicine 09/29/24 09/30/24 documented as of this encounter
--- OUTSIDE RECORDS SUMMARY | 2025-05-09 12:03 | XMS_ITS | Encounter Summary ---
Author Organization [employer] Address [address] [facility] [address] [place] [address] Care Team Providers Care Documentation Lead Name Role Phone Jameel Cota MD Primary Care Provide r Regine Hawkins PharmD Unavailable [phone] Essie Mehta PharmD Unavailable [phone] Reason for Visit * Reason Onset Date Comments Pre Op 07/03/2023 Encounter Details Date Type Department Care Team (Late st Contact Info) Description 07/03/2023 Telephone [facility] [address] [place], [place] [phone] Jameel Cota MD [address] [place], [place] [phone] Pre Op Social History Tobacco Use Types [...] yes Surgeon's name: Cj Maddox Facility name: [facility] Surgeon's office number: [phone] opt [phone] Surgeon's office fax number: [phone] Contact name (person you spoke with): Shanita documented in this encounter Plan of Treatment Upcoming Encounters Date Type Department Care Team (Late st Contact Info) Description 05/16/2025 10:15 AM EST Office Visit [facility] [address] [place] [address] Jameel Cota MD [address] [place] [address] 07/25/2025 8:00 AM EST Office Visit [facility] [address] [place] [address] Katelyn Waldrop [address] [place] [address] documented as of this encounter Goals Goal [...] documented as of this encounter Care Teams Documentation Lead Relationship Specialty Start Date End Date Jameel Cota MD [address] [place] [address] PCP - General Internal Medicine 04/10/14 Regine Hawkins, ItaliaD [address] [place] [phone] Pharmacist Internal Medicine 08/18/22 09/28/24 Essie Mehta PharmD [address] [place] [phone] Pharmacist Internal Medicine 09/29/24 09/30/24 documented as of this encounter
--- OUTSIDE RECORDS SUMMARY | 2025-05-09 12:03 | XMS_ITS | Encounter Summary ---
Author Organization [facility] [facility] Address [address] [place] [address] 7t [place] [address] Care Team Providers Care Trailhead Maintenance Worker Name Role Phone Jameel Cota MD Primary Care Provide r Regine Hawkins PharmD Unavailable [phone] Essie Mehta PharmD Unavailable [phone] Encounter Details Date Type Department Care Team (Latest Contact Info) Description 11/22/2018 Abstract [facility] CONVERSIONS Dental, Provider, DDS Social History [...] Description 05/16/2025 10:15 AM EST Office Visit [facility] MEDICINE [address] [place] [address] Jameel Cota MD [address] [place] [address] 07/25/2025 8:00 AM EST Office Visit [facility] ADULT DENTAL [address] [place] [address] Katelyn Waldrop [address] [place] [address] documented as of this encounter Visit Diagnoses Not on filedocumented in this encounter Care Teams Trailhead Maintenance Worker Relationship Specialty Start Date End Date Jameel Cota MD [address] [place] [phone] PCP - General Internal Medicine 04/10/14 Regine Hawkins PharmD [address] [place] [phone] Pharmacist Internal Medicine 08/18/22 09/28/24 Essie Mehta PharmD [address] [place] [address] Pharmacist Internal Medicine 09/29/24 09/30/24 documented as of this encounter
--- OUTSIDE RECORDS SUMMARY | 2025-05-09 12:03 | XMS_ITS | Encounter Summary ---
Author Organization [facility] Address [address] [place] [address] 7t [place] [address] Care Team Providers Care Feller Buncher Operator Name Role Phone Jameel Cota MD Primary Care Provide r Regine Hawkins PharmD Unavailable [phone] Essie Mehta PharmD Unavailable [phone] Encounter Details Date Type Department Care Team (Latest Contact Info) Description 01/08/2022 Abstract [facility] CONVERSIONS Dental, Provider, DDS [...] Description 05/16/2025 10:15 AM EST Office Visit [facility] MEDICINE [address] [place] [address] Jameel Cota MD [address] [place] [address] 07/25/2025 8:00 AM EST Office Visit [facility] ADULT DENTAL [address] [place] [address] Katelyn Waldrop [address] [place] [address] documented as of this encounter Visit Diagnoses Not on filedocumented in this encounter Care Teams Feller Buncher Operator Relationship Specialty Start Date End Date Jameel Cota MD [address] [place] [phone] PCP - General Internal Medicine 04/10/14 Regine Hawkins PharmD [address] [place] [phone] Pharmacist Internal Medicine 08/18/22 09/28/24 Essie Mehta PharmD [address] [place] [phone] Pharmacist Internal Medicine 09/29/24 09/30/24 documented as of this encounter
--- OUTSIDE RECORDS SUMMARY | 2025-05-09 12:03 | XMS_ITS | Encounter Summary ---
Author Organization [employer] Address [address] [place] [address] 7t [place] [address] Care Team Providers Care Tattooer Name Role Phone Jameel Cota MD Primary Care Provide r Regine Hawkins PharmD Unavailable [phone] Essie Mehta PharmD Unavailable [phone] Encounter Details Date Type Department Care Team (Late Contact Info) Description 10/10/2022 Abstract [facility] MEDICINE [address] [place] [address] Jameel Cota MD [address] [place], [place] [phone] Social History Tobacco Use Types Packs/Day Years [...] [facility] MEDICINE [address] [place] [address] Jameel Cota MD [address] [place], [place] [phone] 07/25/2025 8:00 AM EST Office Visit [facility] ADULT DENTAL [address] [place] [address] Katelyn Waldrop [address] [place] [address] documented as of this encounter Goals Goal [...] on filedocumented in this encounter Care Teams Tattooer Relationship Specialty Start Date End Date Jameel Cota MD [address] [place] [phone] PCP - General Internal Medicine 04/10/14 Regine Hawkins, PharmD [address] [place] [phone] Pharmacist Internal Medicine 08/18/22 09/28/24 Essie Mehta PharmD [address] [place] [address] Pharmacist Internal Medicine 09/29/24 09/30/24 documented as of this encounter
--- OUTSIDE RECORDS SUMMARY | 2025-05-09 12:03 | XMS_ITS | Encounter Summary ---
Author Organization [employer] Address [address] [place] [address] 7t [place] [address] Care Team Providers Care Medical And Health Services Manager Name Role Phone Jameel Cota MD Primary Care Provide r Regine Hawkins PharmD Unavailable [phone] Essie Mehta PharmD Unavailable [phone] Reason for Visit * Reason Comments Med Refill Encounter Details Date Type Department Care Team (Late st Contact Info) Description 09/30/2022 Refill [facility] MEDICINE [address] [place] [address] Ami Dunlap ANP [address] [place], [place] [phone] Type 2 diabetes mellitus with hyperlipidemia ([facility]) Social History Tobacco Use Types Packs/Day Years [...] 05/16/2025 10:15 AM EST Office Visit [facility] MEDICINE [address] [place] [address] Jameel Cota MD [address] [place] [address] 07/25/2025 8:00 AM EST Office Visit [facility] ADULT DENTAL [address] [place], [place] [phone] Katelyn Waldrop [address] [place] [address] documented as of this encounter Goals Goal Patient Goal Type Associated Problems Recent Progress Patient-Stated? Author Remain at or Below Target Blood Pressure General On track(07/13/19 4:09 PM EST) No Regine Hawkins, PharmD documented as of this encounter Visit Diagnoses Diagnosis Type 2 diabetes mellitus with hyperlipidemia (HCC) documented in this encounter Care Teams Medical And Health Services Manager Relationship Specialty Start Date End Date Jameel Cota MD [address] [place] [phone] PCP - General Internal Medicine 04/10/14 Regine Hawkins, PharmD [address] [place] [address] Pharmacist Internal Medicine 08/18/22 09/28/24 Essie Mehta, ItaliaD [address] [place] [address] Pharmacist Internal Medicine 09/29/24 09/30/24 documented as of this encounter
== END 2025-05-09 12:16 | disposition home or self-care (01) ==
LOC: HO.HUSH 10:29
PROVIDERS: PCP Internal Medicine; Visit Provider Urology
DX: N20.0 Calculus of kidney (principal)
CPT/HCPCS: 99213; G2211

== ENCOUNTER → 2025-05-09 10:28 | Outpatient (BNVA) | payer OTHER, SELFPAY | PROVIDERS: PCP Internal Medicine; Visit Provider Urology | DX: N20.0 Calculus of kidney (principal); Z79.82 Long term (current) use of aspirin | CPT/HCPCS: 81003; 99212 ==

== ENCOUNTER 2025-05-31 08:23 | Outpatient (REF) | payer OTHER, SELFPAY ==
--- OUTSIDE RECORDS SUMMARY | 2025-05-31 08:25 | XMS_ITS | Encounter Summary ---
Author Organization [employer] Address [address] [facility] 7t [place] [address] Care Team Providers Care Utilization Manager Name Role Phone Jameel Cota MD Primary Care Provide r Regine Hawkins PharmD Unavailable [phone] Essie Mehta PharmD Unavailable [phone] Encounter Details Date Type Department Care Team ([facility] Contact Info) Description 08/28/2022 Orders Only [facility] MED & PEDS [address] [place] [address] Gosia Britt LPN Social History Tobacco Use [...] Upcoming Encounters Date Type Department Care Team ([facility] Contact Info) Description 07/25/2025 8:00 AM EST Office Visit [facility] ADULT DENTAL [address] [place] [address] Katelyn Waldrop [address] [place] [address] documented as of this encounter Goals Goal Patient Goal Type Associated Problems Recent Progress Patient-Stated? Author Remain at or Below Target Blood Pressure General On track(07/13/19 24 4:09 PM EST) No Regine Hawkins, PharmPetrona documented as of this encounter Visit Diagnoses Not on filedocumented in this encounter Care Teams Utilization Manager Relationship Specialty Start Date End Date Jameel Cota MD [address] [place] [address] PCP - General Internal Medicine 04/10/14 Regine Hawkins, PharmD [address] [place] [address] Pharmacist Internal Medicine 08/18/22 09/28/24 Essie Mehta PharmD [address] [place] [phone] Pharmacist Internal Medicine 09/29/24 09/30/24 documented as of this encounter
--- OUTSIDE RECORDS SUMMARY | 2025-05-31 08:25 | XMS_ITS | Encounter Summary ---
Author Organization [employer] Address [address] [facility] 7t [place] [address] Care Team Providers Care Crane Hooker Name Role Phone Jameel Cota MD Primary Care Provide r Regine Hawkins PharmD Unavailable [phone] Essie Mehta PharmD Unavailable [phone] Reason for Visit * Reason Onset Date Comments Pre Op 07/03/2023 Encounter Details Date Type Department Care Team (Late st Contact Info) Description 07/03/2023 Telephone [facility] MEDICINE [address] [place], [place] [phone] Jameel Cota MD [address] [place], [place] [phone] Pre Op Social History Tobacco Use Types [...] yes Surgeon's name: Cj Maddox Facility name: [facility] Surgeon's office number: [phone] opt 3 Surgeon's office fax number: [phone] Contact name (person you spoke with): Shanita documented in this encounter Plan of Treatment Upcoming Encounters Date Type Department Care Team (Late st Contact Info) Description 07/25/2025 8:00 AM EST Office Visit [facility] ADULT DENTAL [address] [place] [address] Palma, Katelyn [address] [place] [address] documented as of this encounter Goals Goal [...] documented as of this encounter Care Teams Crane Hooker Relationship Specialty Start Date End Date Jameel Cota MD [address] [place] [address] PCP - General Internal Medicine 04/10/14 Regine Hawkins, ItaliaD [address] [place] [address] Pharmacist Internal Medicine 08/18/22 09/28/24 Essie Mehta PharmD [address] [place] [address] Pharmacist Internal Medicine 09/29/24 09/30/24 documented as of this encounter
--- OUTSIDE RECORDS SUMMARY | 2025-05-31 08:25 | XMS_ITS | Encounter Summary ---
Author Organization [facility] Address [address] [place] [address] 7 [place] [address] Care Team Providers Care Sports Director Name Role Phone Jameel Cota MD Primary Care Provide r Regine Hawkins PharmD Unavailable [phone] Essie Mehta PharmD Unavailable [phone] Encounter Details Date Type Department Care Team (Latest Contact Info) Description 11/13/2020 Abstract [facility] CONVERSIONS Dental, Provider, DDS Social History [...] Description 07/25/2025 8:00 AM EST Office Visit [facility] ADULT DENTAL [address] [place] [address] Palma, Katelyn [address] [place] [address] documented as of this encounter Visit Diagnoses Not on filedocumented in this encounter Care Teams Sports Director Relationship Specialty Start Date End Date Jameel Cota MD [address] [place], [place] [phone] PCP - General Internal Medicine 04/10/14 Regine Hawkins, ItaliaD [address] [place] [address] Pharmacist Internal Medicine 08/18/22 09/28/24 Essie Mehta PharmD [address] [place] [address] Pharmacist Internal Medicine 09/29/24 09/30/24 documented as of this encounter
--- OUTSIDE RECORDS SUMMARY | 2025-05-31 08:25 | XMS_ITS | Encounter Summary ---
Author Organization [employer] Address [address] [place] [address] 7t [place] [address] Care Team Providers Care Regulated Program Manager Name Role Phone Jameel Cota MD Primary Care Provide r Regine Hawkins PharmD Unavailable [phone] Essie Mehta PharmD Unavailable [phone] Encounter Details Date Type Department Care Team (Late st Contact Info) Description 07/14/2022 Orders Only [facility] MEDICINE [address] [place] [address] Britany Bell LPN Social History Tobacco Use [...] Description 07/25/2025 8:00 AM EST Office Visit [facility] ADULT DENTAL [address] [place] [address] Katelyn Waldrop [address] [place] [address] documented as of this encounter Procedures Procedure Name Priority Date/Time Associated Diagnosis Comments GLUCOSE, WHOLE BLOOD Routine 07/14/2022 12:40 PM EST documented in this encounter Results * GLUCOSE, WHOLE BLOOD (07/14/2022 12:40 PM EST) Glucose, Whole Blood 111 60 - 115 mg/dL [facility] Comment:METER #: [id number] 07/14/2022 12:4 0 PM EST 07/14/2022 12:45 PM EST [facility] External Provider LAB BLO OD ORDERABLES Final Result [facility] [address] [place] [address] [phone] documented in this encounter Visit Diagnoses Not on filedocumented in this encounter Care Teams Regulated Program Manager Relationship Specialty Start Date End Date Jameel Cota MD [address] [place] [address] PCP - General Internal Medicine 04/10/14 Regine Hawkins, ItaliaD [address] [place] [phone] Pharmacist Internal Medicine 08/18/22 09/28/24 Essie Mehta PharmD [address] [place] [phone] Pharmacist Internal Medicine 09/29/24 09/30/24 documented as of this encounter
--- OUTSIDE RECORDS SUMMARY | 2025-05-31 08:25 | XMS_ITS | Encounter Summary ---
Author Organization [employer] [facility] Address [address] [place] [address] 7 [place] [address] Care Team Providers Care Chemistry Instructor Name Role Phone Jameel Cota MD Primary Care Provide r Regine Hawkins PharmD Unavailable [phone] Essie Mehta PharmD Unavailable [phone] Encounter Details Date Type Department Care Team (Latest Contact Info) Description 01/08/2022 Abstract [facility] CONVERSIONS Dental, Provider, DDS Social History [...] Description 07/25/2025 8:00 AM EST Office Visit [facility] ADULT DENTAL [address] [place] [address] Palma, Katelyn [address] [place] [address] documented as of this encounter Visit Diagnoses Not on filedocumented in this encounter Care Teams Chemistry Instructor Relationship Specialty Start Date End Date Jameel Cota MD [address] [place], [place] [phone] PCP - General Internal Medicine 04/10/14 Regine Hawkins, ItaliaD [address] [place] [address] Pharmacist Internal Medicine 08/18/22 09/28/24 Essie Mehta PharmD [address] [place] [address] Pharmacist Internal Medicine 09/29/24 09/30/24 documented as of this encounter
--- OUTSIDE RECORDS SUMMARY | 2025-05-31 08:25 | XMS_ITS | Encounter Summary ---
Author Organization [employer] Address [address] [place] [address] 7t [place] [address] Care Team Providers Care Saddle And Side Wire Stitcher Name Role Phone Jameel Cota MD Primary Care Provide r Regine Hawkins PharmD Unavailable [phone] Essie Mehta PharmD Unavailable [phone] Reason for Visit * Reason Comments Med Refill Encounter Details Date Type Department Care Team (Late st Contact Info) Description 01/15/2023 Refill [facility] MEDICINE [address] [place] [address] Name, MD Дмитрий [address] [place] [address] Mixed hyperlipidemia Social History Tobacco Use Types [...] Description 07/25/2025 8:00 AM EST Office Visit [facility] ADULT DENTAL [address] [place] [address] Katelyn Waldrop [address] [place] [address] documented as of this encounter Goals Goal Patient Goal Type Associated Problems Recent Progress Patient-Stated? Author Remain at or Below Target Blood Pressure General On track(07/13/19 24 4:09 PM EST) No Regine Hawkins, PharmPetrona documented as of this encounter Visit Diagnoses Diagnosis Mixed hyperlipidemia documented in this encounter Care Teams Saddle And Side Wire Stitcher Relationship Specialty Start Date End Date Jameel Cota MD [address] [place] [address] PCP - General Internal Medicine 04/10/14 Regine Hawkins, ItaliaD [address] [place] [phone] Pharmacist Internal Medicine 08/18/22 09/28/24 Essie Mehta PharmD [address] [place] [address] Pharmacist Internal Medicine 09/29/24 09/30/24 documented as of this encounter
--- OUTSIDE RECORDS SUMMARY | 2025-05-31 08:25 | XMS_ITS | Encounter Summary ---
Author Organization [employer] Address [address] [place] [address] 7t [place] [address] Care Team Providers Care Neonatal Intensive Care Nurse Name Role Phone Jameel Cota MD Primary Care Provide r Regine Hawkins PharmD Unavailable [phone] Essie Mheta PharmD Unavailable [phone] Encounter Details Date Type Department Care Team (Late st Contact Info) Description 08/05/2022 Orders Only [facility] MED & PEDS [address] [place], [place] [phone] Gosia Britt LPN Social History Tobacco Use [...] Description 07/25/2025 8:00 AM EST Office Visit [facility] ADULT DENTAL [address] [place], [place] [phone] Palma, Katelyn [address] [place], [place] [phone] documented as of this encounter Visit Diagnoses Not on filedocumented in this encounter Care Teams Neonatal Intensive Care Nurse Relationship Specialty Start Date End Date Jameel Cota MD [address] [place] [address] PCP - General Internal Medicine 04/10/14 Regine Hawkins, ItaliaD [address] [place] [address] Pharmacist Internal Medicine 08/18/22 09/28/24 Essie Mehta PharmD [address] [place] [address] Pharmacist Internal Medicine 09/29/24 09/30/24 documented as of this encounter
--- OUTSIDE RECORDS SUMMARY | 2025-05-31 08:25 | XMS_ITS | Clinical Summary ---
Author Organization [employer] Address [address] [facility] [address] [place] [address] Care Team Providers Care Foundation Coordinator Name Role Phone Jameel Cota MD [...] CHAMPU 118.28 mL 3 09/29/19 24 Active cyclobenzaprine (Flexeril) 5 MG tabletIndications: [...] by MD. 30 patch 04/27/20 24 Active Aspirin Low Dose 81 MG EC tablet TAKE 1 TABLET BY MOUTH EVERY EVENING 90 tablet 3 07/26/19 25 Active amLODIPine (Norvasc) 5 MG tablet TAKE 1 TABLET BY MOUTH EVERY EVENING 90 tablet 3 5 10:32 AM EST 08/01/19 25 Active Blood Glucose Monitoring Suppl (Impres Medical ULTRA 2) w/Device kitIndications:Typ e 2 diabetes mellitus without complication, without long-term current use of insulin (HCC) Use to monitor blood glucose by subcutaneous route twice daily 1 kit 1 08/02/19 25 Active atorvastatin (Lipitor) 40 MG tabletIndications: Type 2 diabetes mellitus with hyperlipidemia (HCC) TAKE [...] and with evening meal. 120 capsule 11 5 10:32 AM EST 09/23/19 25 026 Active docusate sodium (Colace) 100 MG capsuleIndications :Constipation, unspecified constipation type TAKE 1 CAPSULE BY MOUTH TWICE DAILY IN THE MORNING AND AT BEDTIME 180 capsule 3 10/26/19 25 Active hydroCHLOROthiazid e (HYDRODiuril) 25 MG tablet TAKE 1 TABLET BY MOUTH EVERY MORNING 90 tablet 3 10/26/19 25 Active metFORMIN XR (Glucophage-XR) 500 MG 24 hr tablet TAKE 2 TABLETS BY MOUTH TWICE DAILY IN THE MORNING AND EVENING WITH FOOD 360 tablet 3 5 10:03 AM EST 10/26/19 25 Active fluticasone (Flonase) 50 MCG/ACT nasal sprayIndications:C hronic cough USE 1 SPRAY IN EACH NOSTRIL EVERY DAY 16 g 2 5 10:03 AM EST 11/04/19 25 Active Alcohol Swabs (Alcohol Prep) 70 % padsIndications:Ty pe 2 diabetes mellitus without complication, without long-term current use of insulin (HCC) USE DIRECTED ONCE DAILY 100 each 11 5 10:32 AM EST 02/08/20 25 Active losartan (Cozaar) 50 MG tablet Take 50 mg by mouth in the morning. 01/29/20 25 Active acetaminophen (Tylenol 8 Hour) 650 MG ER tablet Take 1 tablet (650 mg) by mouth every 8 (eight) hours if needed for mild pain. Do not crush, chew, or split. 30 tablet 02/14/20 25 Active chlorhexidine (Peridex) 0.12 % solution Swish 15 mL morning and night for 1 minute. Spit, do not swallow. Do not eat or drink for 30 minutes following use. 473 mL 02/14/20 25 Active omeprazole (PriLOSEC) [address] capsuleIndications :Chronic cough TAKE 1 CAPSULE BY MOUTH EVERY MORNING BEFORE BREAKFAST. DO NOT BREAK, CRUSH, DISSOLVE OR CHEW 30 capsule 3 5 10:32 AM EST 02/22/20 25 Active glucose blood (OneTouch Ultra Test) test strip USE DIRECTED TO TEST BLOOD SUGAR TWICE DAILY 100 strip 11 5 10:32 AM EST 03/10/20 25 Active Lancets (KasennaTouch Delica Plus [id number]) miscIndications:Ty pe 2 diabetes mellitus without complication, without long-term current use of insulin (HCC) USE DIRECTED TO TEST BLOOD SUGAR TWICE DAILY 100 each 11 5 10:32 AM EST 03/10/20 25 Active cetirizine (ZyrTEC) 10 MG tabletIndications: Chronic cough TAKE 1 TABLET BY MOUTH EVERY DAY 30 tablet 2 5 10:32 AM EST 04/25/20 25 Active erythromycin (Romycin) 5 MG/GM ophthalmic ointmentIndication s:Hordeolum internum of left upper eyelid Apply to left eye 2 times daily for 10 days. Apply Amount per Dose: 0.5 inch (~1 cm) per dose. 3.5 g 5 12:37 PM EST 05/16/20 025 Active Problems Problem Noted Date Diagnosed Date Nephrolithiasis 05/16/2025 Assessment & Plan (05/16/2025 10:13 AM EST): Under the care of ton Kinsey 05/09/2025 4 month follow up recommended CT 03/24/2025 showed: 3 mm obstructing calculus in the proximal to mid right ureter resulting in moderate hydronephrosis. Superimposed acute inflammatory versus infectious process cannot be excluded. 24 mm Bosniak type II cyst, right kidney. Hordeolum internum of left upper eyelid 05/16/20 Assessment & Plan (05/16/2025 10:36 AM EST): Pt with c/o bump on her left upper eyelid His exam is indicative of an Hordeolum internum of left upper eyelid. Plan: Apply warm compresses to affected eyelid two to three times daily. Prescribed erythromycin ophthalmic ointment to be applied twice daily. Monitor for increased pain, purulent discharge, erythema, or tenderness; return for evaluation if symptoms worsen or do not improve. Stage 3 grade B generalized periodontitis per [...] up Chronic cough 08/02/2024 Assessment & Plan (05/16/2025 10:10 AM EST): Patient with c/o persistent dry cough, cough continues despite stopping Lisinopril Previous Work up included: === 08/02/24 === XR CHEST 2 VIEWS No acute cardiopulmonary abnormality. PFTs: Moderate restrictive ventilatory defect with no bronchodilator response. Decreased expiratory reserve volume suggests extrathoracic restriction likely secondary to abdominal obesity. Etiology? GERD, Allergies, less likely LUZ Inhibitor Seen by Pulmonary Dr Jeff 03/12/2025 recommended to continue wixella 250-50 Has a follow up with pulmonary at some point Recent CT showed 03/24/2025: CT abdomen pelvis w IV con IMPRESSION: Atelectasis versus acute airspace disease, right lower lung lobe. Assessment & Plan (02/07/2025 9:24 AM EDT): [...] therapy to no glipizide. Assessment & Plan (05/16/2025 10:41 AM EST): Pt here for a f/u DM controlled He is on a regimen of: Metformin 500 mg po 2 tabs po BID and Glipizide XL 2.5 mg po daily, Hgb A1c 05/16/2025: 5.7 from 6.0 Eye exam done on: 01/16/[address] [...] on a daily basis. Assessment & Plan (02/07/2025 9:37 AM EDT): [...] daily basis. Hyperlipidemia 06/20/2014 Assessment & Plan (05/16/2025 10:15 AM EST): Here for a f/u Most recent lipid profile from: 10/15/2023 Lab Results Component Value Date TRIG 76 10/15/2023 TRIG 107 06/30/2022 CHOL 84 10/15/2023 LDLCHOLCAL 37 10/15/2023 HDL 32 (L) 10/15/2023 Currently on a regimen of: Atorvastatin 40 mg po at bedtime and Fish OIl 1000 mg po TID Plan: Continue current regimen, repeat Lipid profile advised to try to adhere to a low cholesterol diet, counseled and educated about diet and exercise, Patient encouraged to come up with a personal goal for weight loss. 4 month follow up Assessment & Plan (08/02/2024 1:28 PM EST): [...] month follow up Major depressive disorder 02/05/2012 Assessment & Plan (05/16/2025 10:42 AM EST): Pt is here for a f/u He is followed at [facility]. Regimen: Benztropine 0.5 mg BID Geodon 80 mg BID Trazodone 100 mg 1 to 2 tabs po q pm Fluoxetine 20 mg po daily valium 5 mg po q 8 hrs prn. Pt only attended up to 2nd grade of school Posttraumatic stress disorder 02/05/2012 Assessment & Plan (06/19/2022 8:02 AM EST): Pt is here for a f/u Pt has a Dx of PTSD. Well controlled with a daily nurse for medications. He is followed by Iliana and Dr. Duque at [facility]. He is at his baseline and not a danger to himself or others. Regimen: Benztropine 0.5 mg BID Geodon 80 mg BID Trazodone 100 mg 1 to 2 tabs po q pm Fluoxetine 20 mg po daily valium 5 mg po q 8 hrs prn. Schizophrenia 02/05/2012 Assessment & Plan (05/16/2025 10:42 AM EST): Pt is here for a f/u Pt has Schizophrenia and PTSD. Well controlled with a daily nurse for medications. He is followed at [facility]. He is at his baseline and not a danger to himself or others. Regimen: Benztropine 0.5 mg BID Geodon 80 mg BID Trazodone 100 mg 1 to 2 tabs po q pm Fluoxetine 20 mg po daily valium 5 mg po q 8 hrs prn. Pt only attended up to 2nd grade of school Assessment & Plan (08/02/2024 2:29 PM EST): Pt is here for a f/u Pt has a Dx of schizophrenia and PTSD. Well controlled with a daily nurse for medications. He is followed at [facility]. He is at his baseline [...] followed by Iliana and Dr. Duque at [facility]. He is at his baseline [...] followed by Iliana and Dr. Duque at [facility]. He is at his baseline and not a danger to himself or others. Regimen: Benztropine 0.5 mg BID Geodon 80 mg BID Trazodone 100 mg 1 to 2 tabs po q pm Fluoxetine 20 mg po daily valium 5 mg po q 8 hrs prn. Cyst of kidney, acquired 11/11/2011 Assessment & Plan (05/16/2025 10:12 AM EST): Under the care of Dr. Maddox now Recent CT showed: 3 mm obstructing calculus in the proximal to mid right ureter resulting in moderate hydronephrosis. 24 mm Bosniak type II cyst, right kidney. History of atypical complex right renal cyst c/p CT guided aspiration on 04/28/11. Repeat ultrasound in 2012 showed Bosniak II cyst with no significant changes. Last seen at [facility] 11/17/12 Assessment & Plan (06/19/2022 8:05 AM EST): History of atypical complex right renal cyst c/p CT guided aspiration on 04/28/11. Repeat ultrasound in 2012 showed Bosniak II cyst with no significant changes. Last seen at [facility] 11/17/12 with plan to repeat renal US in a year (November of 2013). He is asymptomatic. Pt under the care of Urologist last seen 01/14/2022 Obstructive sleep apnea syndrome 11/11/2011 Assessment & Plan (05/16/2025 10:21 AM EST): sleep study done 10/25/2012 showed severe RANDELL. He was supposed to be using a Cpap at 18 cm at night Patient reports loosing his Cpap machine ( he is unsure if someone took it) Assessment & Plan (06/19/2022 7:55 AM EST): [...] BMP prior to visit. Assessment & Plan (05/16/2025 10:14 AM EST): Patient here for a f/u [...] limits. Lab Results Component Value Date NA 142 03/24/2025 NA 140 08/02/2024 K 3.7 03/24/2025 K 3.4 08/02/2024 CL 102 03/24/2025 CL 100 08/02/2024 BUN 15 03/24/2025 BUN 11 08/02/2024 CREATININE 0.82 03/24/2025 CREATININE 0.74 08/02/2024 Patient advised to adhere to a low sodium diet, will repeat encouraged about medication compliance, counseled about weight loss. 4 month f/u Assessment & Plan (02/07/2025 9:23 AM EDT): [...] Vicodin 1-2 times a day. Seen at [facility] and received [...] Vicodin 1-2 times a day. Seen at [facility] and received [...] Vicodin 1-2 times a day. Seen at [facility] and received [...] Vicodin 1-2 times a day. Seen at [facility] and received [...] Encounters Date Type Department Care Team Description 05/29/2025 Telephone [facility] MEDICINE [address] [place] [address] Jameel Cota MD AUGUST RECALL 05/18/2025 Orders Only [facility] [place] [address] Jameel Cota MD Obstructive sleep apnea syndrome (Primary Dx) 05/18/[address] [address] Alondra Bolivar, wood veneer taper 05/18/2025 [address] [place] [address] Jameel Cota MD Durable Medical Equipment 05/16/2025 10:15 AM EST Office Visit [facility] [place] [address] Jameel Cota MD Type 2 diabetes mellitus without complication, without long-term current use of insulin (HCC) (Primary Dx); Benign hypertension; Mixed hyperlipidemia; Hordeolum internum of left upper eyelid; Chronic cough; Cyst of kidney, acquired; Nephrolithiasis; Obstructive sleep apnea syndrome; Recurrent major depressive disorder, remission status unspecified ([facility]/HCC); Schizophrenia, unspecified type ([facility]); Encounter for immunization 05/16/2025 Travel 05/11/2025 Telephone [facility] [place] [place] [address] Jameel Cota MD CHART PREP 05/08/2025 Patient Outreach [address] [address] Jameel Cota MD Pre-visit Planning (SDOH screening was completed on 07/20/2024) 04/22/2025 Refill [facility] MEDICINE [address] [place] [phone] Ami Dunlap ANP Chronic cough 03/24/2025 11:00 AM EDT Office Visit [facility] [address] Esequiel Diehl MD RLQ abdominal pain (Primary Dx) 03/24/2025 Orders Only GENERIC EXTERNAL DATA DEPARTMENT Provider, Generic External Data 03/24/2025 Travel 03/10/2025 Refill [facility] CHC MED & PEDS [address] [place] [address] Jameel Cota MD Type 2 diabetes mellitus without complication, without long-term current use of insulin (HCC) from Last 3 Months Immunizations Immunization Administration Dates Next Due Hep B, adult 05/16/2009,10/05/2008,06/28/2008 Influenza injectable quadriv alent preservative free 03/12/2023,03/18/2022,04/30/2021,03/27 Influenza, IIV3, injectable 06/20/2014, 1 Influenza, Split (incl. sapphire fied surface antigen) 04/11/2013,02/26/2012 Influenza, seasonal, injecta ble, preservative free 05/16/2025,04/07/2024 MMR 09/15/2001,08/04/2001 Pertussis 06/19/2009 Pfizer Covid-19 Vaccine 12+ 05/16/2025, 4 Pneumococcal Conjugate PCV 20 02/07/2022 Pneumococcal Polysaccharide [...] Answer Date Recorded Patient Health Questionnaire-9 Score 12 05/16/2025 Patient Health Questionnaire-9 Score 12 05/16/2025 Last PHQ-9: Questionnaire Data Not on file 1 07/17/2024 Housing Stability Answer Date Recorded What is your housing situation today? I have miles latoya 04/07/[address] you li [...] Answer Date Recorded Patient Health Questionnaire-2 Score 4 05/16/2025 Internet Access Answer Date Recorded Internet Access [...] Sign Reading Time Taken Comments Blood Pressure 120/72 05/16/2025 9:45 AM EST Pulse 88 05/16/2025 9:45 AM EST Temperature 36.7 C (98.1 F) 05/16/2025 9:45 AM EST Respiratory Rate 17 05/16/2025 9:45 AM EST Oxygen Saturation 96% 03/24/2025 10:32 AM EDT Inhaled Oxygen Concentration - - Weight 98.7 kg (217 lb 9.6 oz) 05/16/2025 9:45 A M EST Height 162.6 cm (5' 4 ) 05/16/2025 9:45 AM EST Body Mass Index 37.35 05/16/2025 9:45 AM EST Plan of Treatment Upcoming Encounters Date Type Department Care Team (Late st Contact Info) Description 07/25/2025 8:00 AM EST Office Visit [facility] ADULT DENTAL [address] [place] [address] Katelyn Waldrop [address] [place] [address] Health Maintenance Due Date Last Done Comments CT Colonography 1960 FIT DNA/Cologuard 1960 FIT 1960 FOBT 1960 HIV Screening 1960 Sigmoidoscopy 1960 Diabetes: Foot Exam 02/09/1972 Lipid Panel 10/14/2024 10/15/2023, 06/09, 06/17/2022, Additional history exists SDOH Screening 07/20/2025 07/20/2024 Dental Oral Exam 07/22/2025 01/18/2025, 04/2024, 02/23/2023, Additional history exists Dental Prophylaxis 07/22/2025 01/18/2025, 0 07/20/2024, 12/17/2023, Additional history exists Diabetes: Urine Protein Screening 08/02/2025 08/02/2024, 06/17/2022, 02/05/2021, Additional history exists Diabetes: Hemoglobin A1C 08/14/2025 025, 02/07/2025, 11/03/2024, Additional history exists DTaP/Tdap/Td Vaccines (2 - Td or Tdap) 09/17/2025 09/18/2015, 10/15/2013 Disability Screening 11/03/2025 11/03/2024 Depression Monitoring 11/14/2025 05/16/2025, 025 Dental X-Ray: Bitewings 01/19/2026 01/19/20, 12/17/2023, 02/23/2023, Additional history exists Alcohol/Substance Use Screening 02/07/2026 02/07/2025 Tobacco Screening 05/16/2026 05/16/2025 Eye Exam 01/16/2027 01/16/2025, 01/06, 01/16/2025, Additional [...] Vaccines Completed 04/09/2022, 02/07/2022 COVID-19 Vaccine Completed 05/16/2025, 11/2023, 05/28/2022, Additional history exists Influenza Vaccine Completed 05/16/2025, , 03/12/2023, Additional history exists HIB Vaccines Aged Out [...] Weekly blood pressure task No Yazmin Delgado Weekly blood pressure task Care Plan Weekly blood pressure task No Tanja Saab MA Weekly blood pressure task Care Plan Weekly blood pressure task No Tanja Saab MA Patient has chronic kidney disease Care Plan Patient has chronic kidney disease No Tanja Saab MA Weekly blood pressure task Care Plan Weekly blood pressure task No Sejal Garcia Weekly blood pressure task Care Plan Weekly blood pressure task No Alondra Bolivar, RN Weekly blood pressure task Care Plan Weekly blood pressure task No Jameel Cota MD Weekly blood pressure task Care Plan Weekly blood pressure task No Priscila Bolivar Weekly blood pressure task Care Plan Weekly blood pressure task No Tanja Saab MA Procedures Procedure Name Priority Date/Time Associated Diagnosis Comments POCT GLYCATED HEMOGLOBIN, TOTAL Routine 05/16/2025 10:41 AM EST Type 2 diabetes mellitus without complication, without long-term current use of insulin ([facility]) POCT GLUCOSE (CPT-20234) Routine 05/16/2025 9:49 AM EST Type 2 diabetes mellitus without complication, without long-term current use of insulin ([facility]) URINALYSIS, COMPLETE, WITH REFLEX TO CULTURE Routine 03/24/2025 3:[address] ABDOMEN PELVIS W CONTRAST Routine 03/24/2025 1:23 PM EDT LIPASE Routine 03/24/2025 11:40 AM EDT COMPREHENSIVE METABOLIC PANEL Routine 03/24/2025 11:40 AM EDT CBC WITH AUTO DIFFERENTIAL Routine 03/24/2025 11:40 AM EDT PROPHYLAXIS - ADULT Routine 01/18/2025 8 :00 [...] Relevant to Health Maintenance Results * POCT Hgb A1c (05/16/2025 10:41 AM EST) Hemoglobin A1C 5.7 4.0 - 5.7 % QC Media Lot # [id number] Lot# Expiration Date Blood 05/16/2025 10:4 1 AM EST Jameel Goyal MD POINT OF CARE TEST EN TER/EDIT ORDERABLES Final Result * POCT Glucose (05/16/2025 9:49 AM EST) Glucose Blood, POC 174 60 - 200 mg/dL QC Media Lot # [id number] Lot# Expiration Date Blood Capillary blood specimen / Unknown 05/16/2025 9:49 AM EST Jameel Goyal MD POINT OF CARE TEST EN TER/EDIT ORDERABLES Final Result * (ABNORMAL) Urinalysis, Complete, with Reflex to Culture (03/24/2025 3:09 PM EDT) Color Urine Yellow [facility] Appearance Urine Clear [facility] PH 7.5 5.0 - 9.0 [facility] Glucose Urine UA Negative Negative mg/dL [facility] Urine Blood Moderate (2+)(A) Negative [facility] Specific [place] - Urine 1.015 1.005 - 1.025 [facility] Urine Protein Negative Neg-Trace mg/dL [facility] Urine Ketones Negative Negative mg/dL [facility] Nitrite Urine Negative Negative [facility] Leukocyte Esterase Urine Negative Negative [facility] RBC Urine >20(A) 0 - 2 /HPF [facility] Urine WBC 0-5 0 - 5 /HPF [facility] Urine Squamous Epithelial Cell 0-2 0 - 2 /HPF [facility] Urine Bacteria None Seen None Seen [facility] Hyaline Casts, Urine 0-2 0 - 2 /LPF [facility] 03/24/2025 3:09 PM EDT 03/24/2025 3:20 PM EDT Narrative [facility] - 03/24/2025 3:52 PM EDT Urine, Clean Catch us Generic External Data Provider LAB URINE ORDERAB LES Final Result Performing Organization Address City/State/[facility] Co de Phone Number [facility] [address] [place] [phone] * CT Abdomen Pelvis w/ Contrast (03/24/2025 1:23 PM EDT) Anatomical Region Laterality Modality Body, Pelvis, Abdomen Computed T omography 03/24/2025 1:23 PM EDT Narrative 03/24/2025 2:[address]T [address] [address] [address] Scan Report Signed Patient: Jabari Chavis MR#: [id number] [birth year] : 1960 Acct:[id number] Age/Sex: 65 / M ADM Date: 03/24/25 Loc: HO.ED Attending Dr: Ordering Physician: Kezia Harris Date of Service: 03/24/25 Procedure(s): CT abdomen pelvis w IV con Accession Number(s): [id number] cc: Jameel Patel MD; Kezia Harris Report Number: [id number]: Total DLP = 877.00 mGy-cm Reason for [...] 03/24/25 1425 DD/ 1323 TD/TT: 03/24/25 1407 Cryptozoologist: Procedure Note Donotuseinterpreter, Image - 03/24/[address] [place] [address] [address] Scan Report Signed Patient: Jabari Chavis#: [id number] [birth year] : 1960cct:[id number] Age/Sex: 65 / MADM Date: 03/24/25 Loc: HO.ED Attending Dr: Ordering Physician: Kezia Harris Date of Service: 03/24/25 Procedure(s): CT abdomen pelvis w IV con Accession Number(s): [id number] cc: Jameel Patel MD; Kezia Harris Report Number: [id number]: Total DLP = 877.00 mGy-cm Reason for [...] 03/24/25 1425 DD/ 1323 TD/TT: 03/24/25 1407 Cryptozoologist: [facility] External Provider IMG CT PROCEDURES Final Result * (ABNORMAL) CBC auto differential (03/24/2025 11:40 AM EDT) White Blood Count 6.0 4.8 - 10.8 X10*3/uL [facility] Red Blood Count 4.54(L) 4.60 - 5.80 X10*6/uL [facility] Hemoglobin 12.9(L) 14.0 - 18.0 g/dl [facility] Hematocrit 38.5(L) 42.0 - 52.0 % [facility] Mean Corpuscular Volume 84.8 80.0 - 98.0 fL [facility] Mean Corpuscular Hemoglobin 28.4 27.0 - 33.0 pg [facility] Mean Corpuscular HGB Conc 33.5 31.0 - 36.0 g/dl [facility] Red Cell Distribution Width 12.7 11.0 - 16.0 % [facility] Platelet Count 247 160 - 400 X10*3/uL [facility] Mean Platelet Volume 9.5 9.4 - 12.4 fL [facility] Neutrophils Percent Auto 70.5 45 - 73 % [facility] Imm Gran Pct Auto 0.3 0.0 - 0.4 % [facility] Lymphocytes Percent Auto 18.5(L) 20 - 40 % [facility] Monocytes Percent Auto 8.4 2 - 11 % [facility] Eosinophils Percent Auto 2.0 0 - 4 % [facility] Basophils Percent Auto 0.3 0 - 2 % [facility] NRBC Pct Auto 0.0 0.0 - 0.2 /100WBC [facility] Neutrophils Absolute Auto 4.2 2.0 - 8.3 x10*3/uL [facility] Imm Gran Abs Auto 0.02 0.00 - 0.03 X10*3/uL [facility] Lymphocytes Absolute Auto 1.1(L) 1.2 - 4.9 X10*3/uL [facility] Monocytes Absolute Auto 0.5 0.1 - 1.2 X10*3/uL [facility] Eosinophils Absolute Auto 0.1 0.0 - 0.4 X10*3/uL [facility] Basophils Absolute Auto 0.0 0.0 - 0.2 X10*3/uL [facility] NRBC Abs Auto 0.000 0.0 - 0.012 X10*3/uL [facility] 03/24/2025 11:4 0 AM EDT 03/24/2025 11:43 AM EDT Generic External Data Provider LAB BLOOD ORDERAB LES Final Result Performing Organization Address [facility] Co de Phone Number [facility] [address] [place] [phone] * Lipase (03/24/2025 11:40 AM EDT) Lipase 27 8 - 78 U/L [facility] 03/24/2025 11:4 0 AM EDT 03/24/2025 11:43 AM EDT Generic External Data Provider LAB BLOOD ORDERAB LES Final Result Performing Organization Address [facility] de Phone Number [facility] [address] [place] [phone] * (ABNORMAL) Comprehensive Metabolic Panel (03/24/2025 11:40 AM EDT) Sodium 142 135 - 145 mmol/L [facility] Potassium 3.7 3.3 - 5.1 mmol/L [facility] Comment:Slight Hemolysis.Int erpret result with caution. Chloride 102 96 - 108 mmol/L [facility] Carbon Dioxide 33(H) 22 - 29 mmol/L [facility] Anion Gap 11(L) 12 - 20 [facility] Urea Nitrogen (BUN) 15 9 - 16 mg/dL [facility] Creatinine, Serum 0.82 0.5 - 1.4 mg/dL [facility] [facility] Creatinine Clr Calc Pharmacy 96.2 [facility] Comment:eGFR (calculated fro m the MDRD study equation) and eCrCl(calculated from the Cockcroft-Gault equation) are based ondifferent parameters and may not yield comparable results.If eCrCl result is absurd, please check patient'sheight/weight. Estimated Glomerular Filt Rate >60 [facility] Comment:Chronic Kidney Disea se: Estimated GFR < 60 mL/min/1.37b1Ntampy Kidney Disease: Estimated GFR < 15 mL/min/1.73m2 Glucose 85 60 - 115 mg/dL [facility] Calcium 9.7 8.4 - 10.2 mg/dL [facility] Bilirubin, Total 0.8 0.0 - 1.0 mg/dL [facility] Aspartate Amino Transferase 28 5 - 37 U/L [facility] Comment:Slight Hemolysis.Int erpret result with caution. Alanine Aminotransferase 22 0 - 40 U/L [facility] Total Protein 7.3 6.5 - 8.0 g/dL [facility] Albumin Level 4.8 3.5 - 5.0 g/dL [facility] Alkaline Phosphatase 77 39 - 117 U/L [facility] 03/24/2025 11:4 0 AM EDT 03/24/2025 11:43 AM EDT us Generic External Data Provider LAB BLOOD ORDERAB LES Final Result [facility] [address], [place] [phone] * (ABNORMAL) Hm Colonoscopy (10/13/2024) Colonoscopy Abnormal( A) Normal Comment:tubular adenoma 10/13/2024 Historical Provider HEALTH MAINTENANCE Final Result * Albumin, Random Urine W/Creatinine (08/02/2024 3:36 PM EST) Creatinine, Urine 82.85 mg/dL [facility] Microalbumin Urine 9.0 mg/L [facility] Microalbum Creatinine Ratio Ur 10.8 <30 ug/mg cr [facility] Comment:Albumin/Creatinine R atio Reference Ranges: Normal: < 30 ug/mg creatinine Microalbuminuria: 30 - 300 ug/mg creatinineClinical Albuminuria: > 300 ug/mg creatinine Urine (Urine, Random) 08/02/2024 3:36 PM EST 08/02/2024 4:14 PM EST us Jmaeel Goyal MD LAB URINE ORDERABLES Final Result [facility] [address] [place] [phone] * (ABNORMAL) Lipid Panel, Standard (10/15/2023 8:52 AM EDT) Triglycerides 76 <150 mg/dL [facility] Comment:Desirable Triglyceri de: less than 150 mg/dLBorderline High Triglyceride 150-199 mg/dLHigh Triglyceride: 200-499 mg/dLVery High Triglyceride: greater than or equal to 5OO mg/dL Cholesterol 84 <200 mg/dL [facility] Comment:Desirable Cholestero l: less than 200 mg/dLBorderline High Cholesterol: 200-239 mg/dLHigh Cholesterol: greater than 239 mg/dL LDL Cholesterol Calculated 37 <100 mg/dL [facility] Comment:Desirable LDL: less than 100 mg/dLNear Optimal/Above Optimal LDL: 110- 129 mg/dLBorderline High LDL: 130-159 mg/dLHigh LDL: 160-189 mg/dLVery High LDL: greater than or equal to 190 mg/dL HDL Cholesterol 32(L) >40 mg/dL [facility] Comment:Desirable HDL: great er than 40 mg/dL Note: This HDL assay may give artificially low results in patients with liver disease. Blood Venous blood specimen / Unknown 10/15/2023 8:52 AM EDT 10/15/2023 11:35 AM EDT Jameel Goyal MD LAB BLOOD ORDERABLES Final Result [facility] [address] [place] [address] [phone] * HEPATITIS C AB W/REFL TO [...] a test for HCV RNA (test code 51586) is suggested. For additional information please refer to http://education.Knip/faq/UTO04g0 (This link is being provided for informational/ educational purposes only.) 12/31/2021 3:04 PM EDT Jameel Goyal MD HISTORICAL/NON ORDERA BLE LABS Final Result Performing Organization Address City/[facility]/ZIP Co de Phone Number [facility] [address] from Last 3 Months or Most Recently Relevant to Health Maintenance Additional Health Concerns Active Problems Noted Date Diagnosed Date Help patients manage their type 2 diabetes 05/08 Weekly blood pressure task 05/08/2025 Weekly blood pressure task 05/11/2025 Weekly blood pressure task 05/16/2025 Patient has chronic kidney disease 05/16/2025 Weekly blood pressure task 05/18/2025 Weekly blood pressure task 05/18/2025 Weekly blood pressure task 05/18/2025 Weekly blood pressure task 05/19/2025 Weekly blood pressure task 05/29/2025 Insurance [facility] < 65 DENTAL [facility] Care Teams Foundation Coordinator Relationship Specialty Start Date End Date Jameel Cota MD [address] [place] [address] PCP - General Internal Medicine 04/10/14
--- OUTSIDE RECORDS SUMMARY | 2025-05-31 08:25 | XMS_ITS | Encounter Summary ---
Author Organization [facility] Address [address] [place] [address] 7 [place] [address] Care Team Providers Care Manager Call Name Role Phone Jameel Cota MD Primary Care Provide r Regine Hawkins PharmD Unavailable [phone] Essie Mehta PharmD Unavailable [phone] Encounter Details Date Type Department Care Team (Latest Contact Info) Description 11/22/2018 Abstract [facility] CONVERSIONS Dental, Provider, DDS Social History [...] Description 07/25/2025 8:00 AM EST Office Visit [facility] ADULT DENTAL [address] [place] [address] Palma, Katelyn [address] [place] [address] documented as of this encounter Visit Diagnoses Not on filedocumented in this encounter Care Teams Manager Call Relationship Specialty Start Date End Date Jameel Cota MD [address] [place], [place] [phone] PCP - General Internal Medicine 04/10/14 Regine Hawkins, ItaliaD [address] [place] [address] Pharmacist Internal Medicine 08/18/22 09/28/24 Essie Mehta, Ruben [address] [place] [address] Pharmacist Internal Medicine 09/29/24 09/30/24 documented as of this encounter
--- OUTSIDE RECORDS SUMMARY | 2025-05-31 08:25 | XMS_ITS | Encounter Summary ---
Author Organization [email or web address] Address [address] [place] [address] 7 [place] [address] Care Team Providers Care Director Global Sales Name Role Phone Jameel Cota MD Primary Care Provide r Regine Hawkins PharmD Unavailable [phone] Essie Mehta PharmD Unavailable [phone] Encounter Details Date Type Department Care Team (Late st Contact Info) Description 06/11/2022 Orders Only [facility] MED [facility] PEDS [address] [place], [place] [phone] Gosia Britt LPN Social History Tobacco Use [...] 07/25/2025 8:00 AM EST Office Visit [facility] ADULT DENTAL [address] [place], [place] [phone] Palma, Katelyn [address] [place], [place] [phone] documented as of this encounter Visit Diagnoses Not on filedocumented in this encounter Care Teams Director Global Sales Relationship Specialty Start Date End Date Jameel Cota MD [address] [place] [address] PCP - General Internal Medicine 04/10/14 Regine Hawkins, PharmD [address] [place] [address] Pharmacist Internal Medicine 08/18/22 09/28/24 Essie Mehta, ItaliaD [address] [place] [address] Pharmacist Internal Medicine 09/29/24 09/30/24 documented as of this encounter
--- OUTSIDE RECORDS SUMMARY | 2025-05-31 08:25 | XMS_ITS | Encounter Summary ---
Author Organization [employer] Address [address] [facility] 7t [place] [address] Care Team Providers Care Database Administration Manager Name Role Phone Jameel Cota MD Primary Care Provide r Regine Hawkins PharmD Unavailable [phone] Essie Mehta PharmD Unavailable [phone] Encounter Details Date Type Department Care Team (Late Contact Info) Description 08/18/2022 Orders Only [facility] MEDICINE [address] [place] [address] Regine Hawkins, PharmD [address] [place] [address] Social History Tobacco Use Types Packs/Day Years [...] Description 07/25/2025 8:00 AM EST Office Visit [facility] ADULT DENTAL [address] [place] [address] Katelyn Waldrop [address] [place] [address] documented as of this encounter Goals Goal Patient Goal Type Associated Problems Recent Progress Patient-Stated? Author Remain at or Below Target Blood Pressure General On track(07/13/19 4:09 PM EST) No Regine Hawkins, PharmD documented as of this encounter Visit Diagnoses Not on filedocumented in this encounter Care Teams Database Administration Manager Relationship Specialty Start Date End Date Jameel Cota MD [address] [facility] [place] [address] PCP - General Internal Medicine 04/10/14 Regine Hawkins, [place] [address] Pharmacist Internal Medicine 08/18/22 09/28/24 Essie Mehta PharmD [address] [place] [address] Pharmacist Internal Medicine 09/29/24 09/30/24 documented as of this encounter
--- OUTSIDE RECORDS SUMMARY | 2025-05-31 08:25 | XMS_ITS | Encounter Summary ---
Author Organization [employer] Address [address] [place] [address] 7 [place] [address] Care Team Providers Care Fisher Net Name Role Phone Jameel Cota MD Primary Care Provide r Regine Hawkins PharmD Unavailable [phone] Essie Mehta PharmD Unavailable [phone] Encounter Details Date Type Department Care Team (Late st Contact Info) Description 10/10/2022 Abstract [facility] MEDICINE [address] [place] [address] Jameel Cota MD [address] [place], [place] [phone] Social History Tobacco Use Types Packs/Day Years [...] Description 07/25/2025 8:00 AM EST Office Visit [facility] ADULT DENTAL [address] [place] [address] Katelyn Waldrop [address] [place] [address] documented as of this encounter Goals Goal [...] Recommended 10 year follow up Historical Provider [employer] MAINTENANCE Edited Result - Final documented in this encounter Visit Diagnoses Not on filedocumented in this encounter Care Teams Fisher Net Relationship Specialty Start Date End Date Jameel Cota MD [address] [place] [address] PCP - General Internal Medicine 04/10/14 Regine Hawkins, ItaliaD [address] [place] [address] Pharmacist Internal Medicine 08/18/22 09/28/24 Essie Mehta PharmD [address] [place] [address] Pharmacist Internal Medicine 09/29/24 09/30/24 documented as of this encounter
--- OUTSIDE RECORDS SUMMARY | 2025-05-31 08:25 | XMS_ITS | Encounter Summary ---
Author Organization [employer] Address [address] [place] [address] [address] [place] [address] Care Team Providers Care Corrections Cadet Name Role Phone Jameel Cota MD Primary Care Provide r Regine Hawkins PharmD Unavailable [phone] Essie Mehta PharmD Unavailable [phone] Reason for Visit * Reason Comments Med Refill Encounter Details Date Type Department Care Team (Late st Contact Info) Description 09/30/2022 Refill [facility] MEDICINE [address] [place] [address] Ami Dunlap ANP [address] [place], [place] [phone] Type 2 diabetes mellitus with hyperlipidemia ([facility]) Social History Tobacco Use Types Packs/Day [...] Description 07/25/2025 8:00 AM EST Office Visit [facility] ADULT DENTAL [address] [place], [place] [phone] Katelyn Waldrop [address] [place] [address] documented as of this encounter Goals Goal Patient Goal Type Associated Problems Recent Progress Patient-Stated? Author Remain at or Below Target Blood Pressure General On track(07/13/19 24 4:09 PM EST) No Regine Hawkins, Ruben documented as of this encounter Visit Diagnoses Diagnosis Type 2 diabetes mellitus with hyperlipidemia (HCC) documented in this encounter Care Teams Corrections Cadet Relationship Specialty Start Date End Date Jameel Cota MD [address] [place] [address] PCP - General Internal Medicine 04/10/14 Regine Hawkins, PharmD [address] [place] [address] Pharmacist Internal Medicine 08/18/22 09/28/24 Essie Mehta, ItaliaD [address] [place] [address] Pharmacist Internal Medicine 09/29/24 09/30/24 documented as of this encounter
--- OUTSIDE RECORDS SUMMARY | 2025-05-31 08:25 | XMS_ITS | Encounter Summary ---
Author Organization [employer] Address [address] [facility] 7 [place] [address] Care Team Providers Care Video Production Coordinator Name Role Phone Jameel Cota MD Primary Care Provide r Reason for Visit * Reason Onset Date Comments AUGUST RECALL 05/29/2025 Encounter Details Date Type Department Care Team ([facility] Contact Info) Description 05/29/2025 Telephone [facility] MEDICINE [address] [place] [address] Jameel Cota MD [address] [place] [address] AUGUST RECALL Social History Tobacco Use Types Packs/Day Years [...] the past 12 months, has t he [employer], gas, oil or water company threatened to [...] encounter Miscellaneous Notes * Telephone Encounter - Tanja Saab MA - 05/29/2025 3:26 PM EST Telephone call to patient to schedule a recall appointment. No answer, Left voicemail to return call to clinic.. Recall letter sent. Visit type: Office visit Appointment notes: DM due: August With: Tameka Please schedule appointment above if patient returns call documented in this encounter Plan of Treatment Upcoming Encounters Date Type Department Care Team (Late st Contact Info) Description 07/25/2025 8:00 AM EST Office Visit [facility] ADULT DENTAL [address] [place] [address] Robert Waldroparis [address] [place] [address] documented as of this encounter Goals Goal Patient Goal Type Associated Problems Recent Progress Patient-Stated? Author Remain at or Below Target Blood Pressure General On track(07/13/19 24 4:09 PM EST) No Regine Hawkins, ItaliaD Help patients manage their type 2 [...] Plan Weekly blood pressure task No Alondra Bolivar RN Weekly blood pressure task Care Plan Weekly blood pressure task No Jameel Cota MD Weekly blood pressure task Care Plan Weekly blood pressure task No Priscila Bolivar Weekly blood pressure task Care Plan Weekly blood pressure task No Tanja Saab [place] documented as of this encounter Visit Diagnoses [...] task 05/19/2025 Weekly blood pressure task 05/29/2025 Assessment Noted Time PHQ-9 Depression Total Score: 12 025 10:38 AM EST documented as of this encounter Care Teams Video Production Coordinator Relationship Specialty Start Date End Date Jameel Cota MD [address] [place] [address] PCP - General Internal Medicine 04/10/14 documented as of this encounter
[2025-05-31 11:43] LABS: Cholesterol 95 mg/dL (<200); HDL Cholesterol 36 mg/dL (>40); Triglycerides 74 mg/dL (<150)
[2025-05-31 12:01] LABS: HBS Num1 0.00 mIU/mL (0-7.99); HBc Num1 0.14 S/CO (0.00-0.79); HBsAGNum1 0.32 S/CO (0.00-0.99); Hepatitis B Surface Antigen Negative (Negative); ~Hepatitis B Surface Antibody NONREACTIVE (Nonreactive)
== END 2025-05-31 08:24 | disposition home or self-care (01) ==
LOC: HO.HHCL 08:23
PROVIDERS: PCP Internal Medicine; Visit Provider Internal Medicine
DX: Z00.00 Encounter for general adult medical examination without abnormal findings (principal); Z01.84 Encounter for antibody response examination; E78.2 Mixed hyperlipidemia; Z12.5 Encounter for screening for malignant neoplasm of prostate
CPT/HCPCS: 36415; 80061; 84153; 86704; 86706; 87340